=== PATIENT | male | born 1945 | race Caucasian/White ===

== ENCOUNTER 2021-02-02 22:24 | Emergency (ER) | payer MEDICARE, SELFPAY ==
[2021-02-02 22:33] VITALS: BP 147/83; PULSE 110; RESP 14; TEMP 37.1; O2SAT 96
[2021-02-02 22:59] LABS: Add Urine Microscopic? YES; Appearance Urine Cloudy (Clear); Bacteria Urine 1+ /hpf; Bilirubin Urine Negative (Negative); Blood Urine 3+ (Negative); Color Urine Red (Yellow); Glucose Urine UA 3+ mg/dL (Negative); Ketones Urine Negative (Negative); Leukocyte Esterase Ur 1+ LEU/UL (Negative); Nitrate Urine Negative (Negative); Protein Urine 2+ mg/dL (Negative); RBC Urine >75 /hpf (0-2); Specific Grav Ur 1.009 (1.001-1.035); Urobilinogen Urine Negative mg/dL (<2.0); WBC Urine 16-20 /hpf
[2021-02-02 23:37] VITALS: BP 147/83; PULSE 110; RESP 14; TEMP 37.1; O2SAT 96
--- NOTE | 2021-02-02 23:50 | ED.MALEGU ---
HPI - Male Genitourinary General Chief complaint: Urogenital-Male Stated complaint: urinating blood Time Seen by Provider: 02/02/21 23:37 Source: patient Mode of arrival: ambulatory Limitations: no limitations History of Present Illness HPI Narrative: Patient is a 75-year-old male complaining of hematuria that started tonight. Patient denies any abdominal pain, flank pain, back pain, fever or chills. Patient denies any history of hematuria. Patient has no other complaints. Related Data Allergies Allergy/AdvReac Type Severity Reaction Status Date / Time Penicillins Allergy Mild Verified 11/26/14 03:58 Review of Systems Review of Systems: All systems reviewed & are unremarkable except as noted in HPI and below Constitutional: Constitutional: Denies body ache(s), Denies chills, Denies excessive sweating, Denies fatigue, Denies fever(s), Denies headache(s), Denies lethargy, Denies malaise, Denies weakness and Denies weight loss Eyes: Eyes: Denies blurry vision, Denies change in vision and Denies loss of vision ENT: Denies dizziness, Denies ear discharge, Denies headache(s), Denies lip swelling, Denies epistaxis, Denies nasal congestion, Denies neck pain, Denies throat swelling and Denies tongue swelling Cardiovascular: Cardiovascular: Denies chest pain, Denies chest pain at rest, Denies chest pain with activity, Denies diaphoresis, Denies rapid heart rate, Denies edema, Denies irregular heart rhythm, Denies lightheadedness, Denies palpitations, Denies dyspnea and Denies dyspnea on exertion Respiratory: Respiratory: Denies chest congestion, Denies cough, Denies hemoptysis, Denies dyspnea and Denies dyspnea on exertion Gastrointestinal: Gastrointestinal: Denies abdominal pain, Denies melena, Denies hematochezia, Denies diarrhea, Denies nausea, Denies vomiting and Denies hematemesis Musculoskeletal: Musculoskeletal: Denies abnormal gait, Denies deformity, Denies joint swelling, Denies limited range of motion, Denies neck pain and Denies numbness Neurologic: Denies Abnormal speech present, Denies abnormal gait, Denies confusion, Denies dizziness, Denies headache(s), Denies focal weakness, Denies loss of vision, Denies numbness, Denies Other visual disturbances, Denies Sensory deficit (Neuro) and Denies weakness Psychiatric: Psychiatric: Denies confusion, Denies depression, Denies auditory hallucinations, Denies homicidal ideation and Denies suicidal ideation Endocrine: Endocrine: Denies cold intolerance, Denies excessive sweating, Denies fatigue, Denies heat intolerance and Denies palpitations Hematologic/Lymphatic: Hematologic/Lymphatic: Denies easy bleeding and Denies easy bruising Allergic/Immunologic: Allergic/Immunologic: Denies lip swelling, Denies throat swelling and Denies tongue swelling PMFSH Comments Past medical history: Hypertension Family history: Unknown Social history: Non-smoker no EtOH or drug use Exam Const: General: cooperative, healthy appearing, comfortable, no acute distress, well developed, alert and awake; No confusion Orientation/consciousness: oriented to person, oriented to place, oriented to time, patient oriented x3 and No confusion Limitations: no limitations HENMT: Head: normal to inspection, normocephalic and atraumatic Ears: hearing grossly normal bilaterally, TM normal on the right and TM normal on the left General nose exam: Normal external nose present, Normal nares present and No nasal discharge present Face and sinus: normal facial exam Mouth: Yes Normal oral and palatal mucosa present, Yes lip normal, Yes tongue normal and Yes oropharynx normal Throat: posterior oropharynx normal, tonsils normal and uvula midline Eyes: General: appearance normal, both eyes and all related structures Pupils: Equal, round and reactive pupils present EOM: EOMs intact bilaterally Neck: Neck: normal visual inspection, full ROM, no lymphadenopathy and no meningeal signs Chest: Chest palpation & inspection: norm
[2021-02-03] MEDS: CEPHALEXIN 500 MG CAPSULE PO (00:18)
[2021-02-03 00:43] VITALS: BP 140/72; PULSE 66; RESP 16; O2SAT 99
== END 2021-02-03 00:59 | disposition home or self-care (01) ==
PROVIDERS: Emergency Medicine; Emergency Provider Emergency Medicine; PCP Family Medicine
DX: N30.01 Acute cystitis with hematuria (principal); I10 Essential (primary) hypertension
CPT/HCPCS: 81001; 87086; 99283; A9270

== ENCOUNTER 2022-08-08 15:41 | Emergency (ER) | payer MEDICARE, SELFPAY ==
--- NOTE | ~2022-08-08 | CT_ITS ---
EXAMINATION: CT abdomen pelvis wo con DATE: 08/08/2022 18:02 INDICATION: Hematuria TECHNIQUE: Computed tomography (CT) of the abdomen and pelvis was performed without intravenous contr ast. The dose-length product (DLP) was 307.80 mGy-cm. Automated exposure control and iterative recons truction technique were employed. COMPARISON: None FINDINGS: Minimal dependent atelectasis is present in the lung bases. The heart size is normal. The l iver, spleen, gallbladder, and adrenal glands are normal. There are multiple cystic lesions of the pa ncreas which measure up to 12 mm. There is atrophy of the kidneys. There is a 3.0 cm cyst of the left kidney. There appears to be a soft tissue mass of the left posterolateral bladder wall. A smaller ma sses questioned in the right posterolateral bladder wall. There appears to be a small amount of depen dent hematoma in the urinary bladder. Colonic diverticulosis is present without evidence of diverticu litis. The appendix is normal. No pathologically enlarged abdominal or pelvic lymph nodes are identif ied. No free intraperitoneal gas or evidence of bowel obstruction. There is severe lumbar spondylosis . IMPRESSION: 1. Probable soft tissue masses of the urinary bladder concerning for urothelial carcinoma. Urologic e valuation and direct visualization are recommended. 2. Multiple cystic lesions of the pancreas. The differential diagnosis includes pseudocyst, intraduct al papillary mucinous neoplasm (IPMN), mucinous cystic neoplasm (MCN), and the less common serous cys tadenoma and neuroendocrine tumor. Correlate for history of pancreatitis. Follow-up pancreas protocol CT or MRI in two years is recommended. Reviewed, dictated and finalized at location F. IMPRESSION: 1. Probable soft tissue masses of the urinary bladder concerning for urothelial carcinoma. Urologic evaluation and direct visualization are recommended. 2. Multiple cystic lesions of the pancreas. The differential diagnosis includes pseudocyst, intraductal papillary mucinous neoplasm (IPMN), mucinous cystic ne oplasm (MCN), and the less common serous cystadenoma and neuroendocrine tumor. Correlate for history of pancreatitis. Follow-up pancreas protocol CT or MRI in two years is recommended.
[2022-08-08 15:51] VITALS: BP 125/57; PULSE 105; RESP 18; TEMP 36.6; O2SAT 98
[2022-08-08 16:34] LABS: Appearance Urine Turbid (Clear); Bilirubin Urine 1+ (Negative); Blood Urine 3+ (Negative); Color Urine Red (Yellow); Glucose Urine UA 2+ mg/dL (Negative); Ketones Urine Negative (Negative); Leukocyte Esterase Ur Negative LEU/UL (Negative); Nitrate Urine Negative (Negative); Protein Urine 2+ mg/dL (Negative); Specific Grav Ur 1.015 (1.001-1.035); Urobilinogen Urine 0.2 mg/dL (<2.0)
[2022-08-08 16:58] LABS: Add Urine Microscopic? YES
[2022-08-08 17:08] LABS: RBC Urine >100 /hpf (0-2); WBC Urine 0-5 /hpf (0-3)
--- NOTE | 2022-08-08 17:11 | ED.MALEGU ---
HPI - Male Genitourinary General Chief complaint: Urogenital-Male Stated complaint: pee blood Time Seen by Provider: 08/08/22 16:50 Source: patient, RN notes reviewed and old records reviewed Mode of arrival: ambulatory Limitations: no limitations History of Present Illness HPI Narrative: This is a 77 year old male who presents for evaluation of hematuria. Patient states yesterday he noticed some blood in his urine but today it has worsened. He states that last 2 times he has urinated it has been blood and he reports passing small clots. He denies any abdominal pain, nausea, vomiting or fever. He denies dysuria or urinary hesitancy. He states he was treated for a UTI 2 weeks ago even though he did not have any symptoms at time. He does not take chronic anticoagulation. He states this happened 2 years ago and he was treated for UTI. He denies follow up with urology for his hematuria. Related Data Allergies Allergy/AdvReac Type Severity Reaction Status Date / Time Penicillins Allergy Mild Swelling Verified 08/08/22 16:35 Review of Systems Constitutional: Constitutional: Denies weakness Cardiovascular: Cardiovascular: Denies syncope, Denies rapid heart rate, Denies irregular heart rhythm, Denies leg edema and Denies dyspnea Respiratory: Respiratory: Denies chest congestion, Denies hemoptysis, Denies excessive phlegm production and Denies dyspnea Gastrointestinal: Gastrointestinal: Denies abdominal pain, Denies hematochezia, Denies diarrhea and Denies vomiting Genitourinary: Genitourinary: Denies hematuria, Denies dysuria, Denies penile discharge and Denies testicular pain Musculoskeletal: Musculoskeletal: Denies joint swelling, Denies loss of height and Denies muscle weakness Neurologic: Denies syncope, Denies focal weakness and Denies weakness PMFSH Past Medical History Medical History (Updated 08/08/22 @ 22:32 by Allison Hurley MD) Chronic kidney disease, unspecified Diabetes mellitus Hyperlipidemia Hypertension Social History Social History (Updated 08/08/22 @ 22:32 by Allison Hurley MD) Smoking status: Former smoker Exam Const: General: no acute distress and alert Nutritional Appearance: well nourished Limitations: no limitations HENMT: Head: normal to inspection Eyes: EOM: EOMs intact bilaterally Resp: Effort & Inspection: normal respiratory effort Auscultation: clear to auscultation bilaterally Cardio: Rate: regular rate Rhythm: regular rhythm Heart sounds: no murmurs GI: GI Palp: Yes Soft to palpation, No Tenderness to palpation present (GI), No Guarding due to palpation present (GI) and No Rigid due to palpation Auscultation: normal bowel sounds : Male General Exam: Yes normal external exam Penis: Yes normal penis and Yes circumcised Scrotum: scrotum normal Back/Spine/Pelvis: Back: no CVA tenderness Skin: General skin exam: normal color Rashes: no rashes Wounds: no wounds Neuro: General: patient oriented x3 and moves all extremities Cranial nerves: Yes CN's II-XII intact bilaterally Psych: Mental Status: mental status grossly normal Affect: normal affect Attitude: cooperative Course Reevaluation(s) Reevaluation #1: Patient is able to urinate without any difficulty. He is not retaining urine. Has 45 ml left in his bladder. I discussed with patient and his that CT shows bladder mass and he willl need to see urology. I discussed that if he has any difficulty urinating that he will need to return to ER. He is comfortable with discharge. Date: 08/08/22 Time: 19:12 Consultations Consultation #1: I discussed case with Dr. Landon with urologist. She states patient does need scope. He will need to call office tomorrow to get appointment. He will need to be advised if he has any difficulty urinating he will need to return to hospitalist for catheter and CBI Date: 08/08/22 Time: 19:11 Vital Signs Vital signs: Vital Signs Temperature 97.8 F 08/08/22 15:51
[2022-08-08 17:18] VITALS: BP 124/61; PULSE 85; RESP 18; O2SAT 98
[2022-08-08 17:22] LABS: Basophils Absolute Auto 0.1 K/mm3 (0.0-0.1); Basophils Percent Auto 1.1 % (0.2-1.2); Eosinophils Absolute Auto 0.7 K/mm3 (0-0.3); Eosinophils Percent Auto 8.3 % (0-4.4); Hematocrit 38.1 % (42.0-52.0); Hemoglobin 12.7 g/dL (14.0-18.0); Immature Granulocyte Absolute 0.05 K/mm3 (0.00-0.031); Immature Granulocyte Percent A 0.6 % (0-0.5); Lymphocytes Absolute Auto 1.12 K/mm3 (0.9-3.2); Lymphocytes Percent Auto 13.5 % (18.3-44.2); Mean Corpuscular HGB Conc 33.3 g/dl (32-36); Mean Corpuscular Hemoglobin 32.3 pg (26-34); Mean Corpuscular Volume 96.9 fl (80-100); Mean Platelet Volume 10.1 fl (7.4-10.4); Monocytes Absolute Auto 0.8 K/mm3 (0.1-0.6); Monocytes Percent Auto 9.9 % (2.6-8.5); Neutrophils Absolute Auto 5.5 K/mm3 (1.3-6.7); Neutrophils Percent Auto 66.6 % (45.5-73.1); Platelet Count Result 156 k/mm3 (150-375); Red Blood Count 3.93 M/mm3 (4.6-6.20); Red Cell Distribution Width 13.9 % (11.5-14.5); White Blood Count 8.3 K/mm3 (4.5-10.0)
[2022-08-08 17:32] LABS: Alanine Aminotransferase 22 U/L (6-50); Albumin Level 3.4 g/dL (3.5-5.1); Alkaline Phosphatase 43 U/L (38-126); Anion Gap 8 mmol/L (8-16); Aspartate Amino Transferase 18 U/L (17-59); Bilirubin,Total 0.4 mg/dL (0.2-1.3); Blood Urea Nitrogen 53 mg/dL (9-20); Calcium 8.5 mg/dL (8.4-10.2); Carbon Dioxide 21 mmol/L (22-30); Chloride 108 mmol/L (98-107); Estimated Glomerular Filt Rate 31; Glucose 231 mg/dL (65-110); Potassium 4.1 mmol/L (3.4-5.0); Sodium 137 mmol/L (137-145)
[2022-08-08 17:44] LABS: Prothrombin Time 13.1 Seconds (11.1-14.7)
[2022-08-08 17:45] LABS: Partial Thromboplastin Time 25.8 SECONDS (22.3-36.8)
--- NOTE | 2022-08-08 18:39 | PC.NURSE ---
post void residual 45ml
[2022-08-08 19:25] VITALS: PULSE 70; RESP 16; O2SAT 99
== END 2022-08-08 19:27 | disposition home or self-care (01) ==
PROVIDERS: Emergency Medicine; Emergency Provider General Practice; PCP Family Medicine
DX: D41.4 Neoplasm of uncertain behavior of bladder (principal); R31.9 Hematuria, unspecified; I12.9 Hypertensive chronic kidney disease with stage 1 through stage 4 chronic kidney disease, or unspecified chronic kidney disease; E11.22 Type 2 diabetes mellitus with diabetic chronic kidney disease; N18.9 Chronic kidney disease, unspecified; E78.5 Hyperlipidemia, unspecified
CPT/HCPCS: 36415; 74176; 80053; 81001; 85025; 85610; 85730; 99284

== ENCOUNTER 2022-08-12 01:42 | Day surgery (SDC) | payer MEDICARE, SELFPAY ==
--- NOTE | 2022-08-11 11:27 | PC.NURSE ---
Report to the Outpatient Waiting Room, entrance under the green pavilion located off [facility], at time __0630 on date 08/12/22 . Planned Procedure Time: __30 . Time changes happen often and if your time is changed the preop area will call you the afternoon before. - You and your visitor will be asked to self-screen and do not enter if you have any COVID symptoms. - A mask is optional within the hospital at this time. Patients may have clear liquids (water, carbonated beverages, clear teas, apple juice) until 3 hours prior to surgery with a maximum of 20 ounces. - No food from midnight until time of surgery - Infants may have breast milk until 4 hours before surgery, formula 6 hours prior to surgery. - Children will be allowed to drink immediately following surgery. If applicable, please bring a bottle or sippy cup to assist with drinking. Juice, water, soda, and popsicles are readily available. For infants on formula, please bring formula the day of surgery. Pacifiers are allowed. Take the following medications with a SIP of water the morning of surgery: __CARVEDILOL,NIFEDIPINE, DO NOT STOP ANY OF YOUR OTHER PRESCRIPTION MEDICATIONS PRIOR TO SURGERY ?EXCEPT THE FOLLOWING Medications to discontinue per physician SURGERY TOMORROW Date to take last dose Please no make-up, nail czech, hairspray, perfume, deodorant, or body powder the day of surgery. No jewelry (including any body piercings) or valuables the day of surgery, leave them at home. Please take a shower or bath the night before, or the morning of, surgery with an antibacterial soap. Wear comfortable, loose fitting clothing. Children are encouraged to wear pajamas. - Jewelry must be removed prior to entering the operating room. Rings and piercings that are not removed may be cut off. - The hospital will not accept responsibility for valuables. - Please leave all valuables, including medications, at home the day of surgery. If you are going home after surgery, a licensed flatbed truck driver must drive you home. - NO public transportation without another adult if you receive anesthesia. - We recommend that an adult stay with you for 24 hours following discharge. - We also recommend that you do not drive, make important decision, drink alcoholic beverages, or take any drugs that were not prescribed by your health care provider for at least 24 hours after your discharge time. For Pediatric surgeries, we recommend two adults accompany the child home. Follow any additional instructions given to you from your surgeon. If you or anyone in your household have experienced Covid symptoms in the past week, please notify your surgeon or the nurse liaison at the phone number below for possible testing. Telephone instructions given to _PATIENT AND MANNIE and asked if any additional questions and then verbalized understanding. Patient advised to call surgeon office or pre surgery nurse liaison [phone] if any additional questions.
[2022-08-11 11:37] VITALS: BMI 22.9
[2022-08-12] VITALS (11 sets, daily range): BP systolic 97–133; BP diastolic 49–88; PULSE 60–82; RESP 12–20; TEMP 36.3–36.8; O2SAT 96–100
--- NOTE | ~2022-08-12 | XR_ITS ---
EXAMINATION: XR retrograde pyelogram BI DATE: 08/12/2022 08:28 INDICATION: Lateral retrograde pyelograms TECHNIQUE: 138 fluoroscopic images of the abdomen and pelvis were obtained during procedure performed by Dr. Esteves. Radiologist was not present for the imaging or procedure. The amount of fluoroscopy t ailyn used during this procedure was 0.5 minutes. COMPARISON: None. FINDINGS: Atherosclerotic calcifications are seen in the pelvis on the safety leader images. Subsequent images demonstr ate cannulation and retrograde contrast opacification of the bilateral ureters and renal pelvises. Th ere is no hydronephrosis. There are 2 short strictures located at the proximal and mid right ureter. IMPRESSION: 1. A couple nonobstructing short strictures along the proximal and mid right ureter which raises conc pelon for additional foci of malignancy in this patient with previous identified bladder wall masses. S ee procedure note for further detail. Reviewed, dictated and finalized at location L. IMPRESSION: 1. A couple nonobstructing short strictures along the proximal and mid right ur eter which raises concern for additional foci of malignancy in this patient wit h previous identified bladder wall masses. See procedure note for further detai hannah
--- NOTE | 2022-08-12 06:50 | WPDHPUPDATE1 ---
History and Physical Update Update Date/Time: 08/12/22 06:50 History and Physical has been reviewed, including an updated exam of the patient. There are NO changes in the patient's condition. Risks, benefits, and alternatives have been discussed and questions answered. Patient agrees to proceed with procedure.
[2022-08-12] MEDS: LACTATED RINGERS 1,000 ML 30 ML IV CONT ×2 (07:00→10:57)
--- NOTE | 2022-08-12 07:30 | ECG_ITS ---
Measurements Intervals Edna Rate: 72 P: 20 OR: 224 QRS: 7 QRSD: 90 T: 32 QT: 372 QTc: 409 Interpretive Statements SINUS RHYTHM WITH FIRST DEGREE AV BLOCK BASELINE ARTIFACT- I, II, AVR, AVL, AVF, V2-V4 ABNORMAL ECG NO PREVIOUS ECG AVAILABLE FOR COMPARISON Electronically Signed On 08-12-2022 7:54:51 CDT by Donald Diaz D.O.
[2022-08-12 07:31] LABS: Glucose Point of Care 226 mg/dl (65-105)
--- NOTE | 2022-08-12 07:45 | WPDANESEPPF ---
Anes - Initial Pre Proc Eval Procedure: Operation Date: 08/12/22 08:30 Proposed Procedures p Trans Urethral Resection Bladder Tumor with Gemcitabine Instillation - Manish Esteves MD s Cystoscopy, Bilateral Retrograde Pyelogram - Manish Esteves MD Date/Time: 08/12/22 07:45 Surgeon: Manish Esteves MD Pre Op Diagnosis: gross hematuria Patient Data Age: 77 Gender: M Height: 1.65 m Weight: 62.6 kg Allergies Allergy/AdvReac Type Severity Reaction Status Date / Time Penicillins Allergy Mild Swelling Verified 08/12/22 07:39 Home Medications Medication Instructions Recorded Confirmed Type hydrochlorothiazide 12.5 mg capsule 12.5 mg PO DAILY #30 caps 05/17/22 08/11/22 Rx lisinopril 10 mg tablet 10 mg PO DAILY #30 tabs 05/17/22 08/11/22 Rx terazosin 5 mg capsule 5 mg PO BID #60 caps 05/17/22 08/11/22 Rx ascorbic acid (vitamin C) 500 mg 500 mg PO BID 08/11/22 08/11/22 History tablet atorvastatin 40 mg tablet 40 mg PO HS 08/11/22 08/11/22 History carvedilol 25 mg tablet 25 mg PO BID 08/11/22 08/12/22 History cholecalciferol (vitamin D3) 50 50 mcg PO BID 08/11/22 08/11/22 History mcg (2,000 unit) tablet empagliflozin 25 mg tablet 25 mg PO DAILY 08/11/22 08/11/22 History (Jardiance) ezetimibe 10 mg tablet 10 mg PO DAILY 08/11/22 08/11/22 History ferrous sulfate 325 mg (65 mg 325 mg PO BID 08/11/22 08/11/22 History iron) tablet (FeroSul) glipizide 10 mg tablet 10 mg PO BID 08/11/22 08/11/22 History nifedipine 60 mg tablet,extended 120 mg PO QAM 08/11/22 08/12/22 History release prednisone 5 mg tablet 5 mg PO HS 08/11/22 08/11/22 History sitagliptin phosphate 50 mg tablet 50 mg PO DAILY 08/11/22 08/11/22 History (Januvia) sodium bicarbonate 325 mg tablet 325 mg PO DAILY 08/11/22 08/11/22 History Laboratory Tests 08/12/22 07:26 POC Capillary Glucose 226 H mg/dl (65-105) Patient hx anesthesia problems: none Family hx anesthesia problems: none Results Review: All pre-operative results and documents have been reviewed as part of the pre-operative evaluation. [facility] Past Medical History Medical History Chronic kidney disease, unspecified Diabetes mellitus Hyperlipidemia Hypertension Social History Social History Smoking packs per day: 0.5 Smoking cigarettes per day: 10.0 Years smoked: 10 Smoking pack-years: 5.00 Smoking status: Former smoker Tobacco type: cigarettes Smoking end date: 04/11/82 Living arrangements: with family Spiritual care concerns: No Anes - Eval Final PreProcedure Day of Procedure 08/12/22 07:45 Patient weight: normal Heart: regular rate and rhythm Lungs: clear to auscultation Airway: Mallampati scale class II Neurological: alert and oriented Last oral intake: >/= 8 hours ASA classification: III Emergent: no Anesthetic plan: proceed Anesthesia type and monitoring: general LMA and standard monitoring Results Review: All pre-operative results and documents have been reviewed as part of the pre-operative evaluation. Informed Consent: The patient's anesthetic plan and its attendant risks and benefits were discussed with the patient/family/POA. Questions were solicited and answers provided to the satisfaction of the patient/family/POA.
[2022-08-12] MEDS: ceFAZolin 2 GM/D5W 50 ML 2 GM/50 ML BAG IVPB (08:02)
[2022-08-12] MEDS: LIDOCAINE HCL 2% GEL UROJET 10 ML PKG MUCOUS MEM (08:20)
--- NOTE | 2022-08-12 08:55 | P.OP_ITS ---
Procedure Note - Detailed Date of Procedure 08/12/22 Pre-op Diagnosis Bladder tumor Post-op Diagnosis Same Procedure Performed 1. TURBT ( 5cm, large) 2. 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 First placed a 19 F rigid cystoscope. He has moderate lateral lobe hyperplasia the prostate without median lobe enlargement. Using an 8 F bulb-tipped catheter I obtained bilateral retrograde pyelograms. There was no evidence of filling defect or obstruction bilaterally. The left ureteral orifice it is near the neoplasm involving much of his left lateral bladder wall but I was able to preserve the orifice throughout the remainder of this procedure. This urothelial neoplasm has 1 dominant lesion in the left lateral wall with approximately 3 smaller satellite lesions. Several of these appear to be somewhat sessile in her concerning for muscle invasive disease. I resected all lesions in their entirety with an attempt made to include detrusor muscle for pathological in evaluation of invasion. Bladder tumor base was sent as a separate specimen. Base and periphery of all the sites were cauterized both with a loop electrode and rollerball electrode. Chips were evacuated from the bladder patient was taken recovery room in good condition. Estimated Blood Loss 10 Drains Yes Packing Yes Pathology Yes Complications No immediate complications Condition Stable
[2022-08-12] MEDS: SODIUM CHLORIDE 0.9% IV 23.7 ML, GEMCITABINE HCL 1,000 MG BLADDER ×2 (08:58)
--- NOTE | 2022-08-12 08:58 | W.PM.PROC2 ---
Procedure Note - Detailed Date of Procedure 08/12/22 Pre-op Diagnosis Bladder tumor Post-op Diagnosis Same Procedure Performed Gemcitabine installation Surgeon Manish Esteves MD Anesthesia None Description of Procedure With the patient in the supine position, a 16F Gramajo catheter is placed using sterile technique. Using a protective facemask, gown and double layer of gloves Gemcitabine 2gm in 100cc saline is administered through the catheter/into the bladder. The catheter is then plugged. Patient was instructed to lie supine x20min, then to roll both the left and right x20 min. each. Total dwell time will be 60 min., after which the bladder will be drained and catheter removed. Drains No Pathology None sent
[2022-08-12] MEDS: fentaNYL CITRATE INJ (*CRX) 100 MCG/2 ML VIAL 25 MCG IV PUSH ×6 (08:59→11:45)
[2022-08-12 09:35] LABS: Glucose Point of Care 184 mg/dl (65-105)
[2022-08-12] MEDS: SODIUM CHLORIDE 0.9% IV 50 ML BAG 150 ML IRRIGATION (10:01)
[2022-08-12] MEDS: oxyCODONE HCL (*CRX) 5 MG TAB IR PO (10:19)
== END 2022-08-12 12:15 | disposition home or self-care (01) ==
PROVIDERS: PCP Family Medicine; Visit Provider Urology
PROC: 0TBB8ZZ Excision of Bladder, Via Natural or Artificial Opening Endoscopic (ICD-10-PCS; CPT 52240; principal; 2022-08-12 08:30)
PROC: (CPT 52352; 2022-08-12 08:30)
DX: C67.2 Malignant neoplasm of lateral wall of bladder (principal); R93.41 Abnormal radiologic findings on diagnostic imaging of renal pelvis, ureter, or bladder; E78.5 Hyperlipidemia, unspecified; I12.9 Hypertensive chronic kidney disease with stage 1 through stage 4 chronic kidney disease, or unspecified chronic kidney disease; E11.22 Type 2 diabetes mellitus with diabetic chronic kidney disease; N18.9 Chronic kidney disease, unspecified; Z79.84 Long term (current) use of oral hypoglycemic drugs; Z87.891 Personal history of nicotine dependence; Z79.82 Long term (current) use of aspirin
CPT/HCPCS: 52240; 51720; 74420; 82948; 88305; 88342; 93005; A9270; C1758; C1769; J0690; J3010; J7120; J9201

== ENCOUNTER 2022-09-28 09:02 | Outpatient (CLI) | payer MEDICARE, SELFPAY ==
--- NOTE | ~2022-09-28 | PE_ITS ---
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 TECHNIQUE: Blood glucose level was 193 mg/dL. 10.996 mCi of 18-fluorodeoxyglucose (18-FDG) was admini stered i.v. Low dose computed tomography (CT) images were acquired from the base of the brain to the proximal thighs for attenuation correction and anatomic localization. Positron emission tomography (P ET) images were acquired in the same distribution beginning 54 minutes after injection. Images includ ing fused PET/CT images were reconstructed in axial, coronal, and sagittal planes. Automated exposure control technique was employed. The dose-length product was 481.20 mGy-cm. COMPARISON: CT abdomen and pelvis dated 08/08/2022 FINDINGS: Head/neck: There is symmetric increased activity in the oral cavity, palatine tonsils and of the laryngeal, long us capitis and ocular muscles, all without CT correlate, likely physiologic. No pathologically enlarg ed cervical lymphadenopathy or suspicious foci of increased FDG uptake in the visualized head or neck . Chest: Mild dependent atelectasis in the bilateral lower lobes. No pneumonia, suspicious pulmonary nodules o r pleural effusion. Heart size normal. Atherosclerotic coronary artery calcifications and aortic valv e calcific lesion. No pericardial effusion. Thoracic aorta is normal in caliber. No pathologically en larged or FDG avid thoracic lymphadenopathy. Abdomen/pelvis/proximal thighs: Physiologic renal accumulation and excretion of FDG activity in the kidneys, bladder and along portio ns of ureters. The previously seen intraluminal masslike densities along the left posterior wall of t he bladder and along the visualized consistent with reported prior tumor resection. There appears be a residual small masslike region along the right side of the bladder wall. Mild bilateral renal atrop hy with photopenic defect associated with a 2.4 cm low-attenuation left renal cyst. Normal degree and heterogenous pattern of increased uptake throughout the liver without radiologic correlate or domina nt FDG avid lesion. The gallbladder, spleen and bilateral adrenal glands are normal. No abnormal FDG uptake associated with a few small cystic lesions at the body and tail of pancreas favoring benign e tiology such as sequela of chronic pancreatitis. Mild uptake scattered throughout the bowels without radiologic correlate, also likely physiologic. There is moderate colonic diverticulosis with a sigmoi d predominance and without adjacent inflammatory change to suggest diverticulitis. Normal appendix. No other abnormal foci of increased FDG uptake or pathologically enlarged lymphadenopathy in the abdo men, pelvis or proximal thighs. Musculoskeletal: Mild uptake without radiologic correlate at the lesser tuberosity insertion of the distal right subsc apularis tendon likely related to rotator cuff disease. Severe lumbar spondylosis. 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 IMPRESSION: 1. Likely interval resection of a reported bladder tumor along the left and posterior wall of the erica dder. There is a residual masslike density along the right bladder wall which could represent residua l/recurrent tumor or possibly clot within the bladder. Consider further evaluation with either bladde r ultrasound or repeat cystoscopy. No evident metastatic disease. 2. No evident FDG uptake associated with several cystic lesions in the body and tail the pancreas mos t likely sequela of chronic pancreatitis but with additional differential as detailed on prior CT. Reviewed, dictated and finalized at location A.
[2022-09-28 09:30] LABS: Glucose Point of Care 193 mg/dl (65-105)
== END 2022-09-28 09:03 | disposition home or self-care (01) ==
PROVIDERS: PCP Family Medicine; Visit Provider Urology
DX: C67.8 Malignant neoplasm of overlapping sites of bladder (principal)
CPT/HCPCS: 78815; A9552

== ENCOUNTER 2022-10-29 01:54 | Emergency (ER) | payer MEDICARE, SELFPAY ==
[2022-10-29 10:18] LABS: Appearance Urine Clear (Clear); Bacteria Urine None Seen /hpf; Bilirubin Urine Negative (Negative); Blood Urine 3+ (Negative); Color Urine Yellow (Yellow); Glucose Urine UA 2+ mg/dL (Negative); Ketones Urine Negative (Negative); Leukocyte Esterase Ur 1+ LEU/UL (Negative); Need Manual Microscopic Reviewed; Nitrate Urine Negative (Negative); Non Pathogenic Casts 0-2; Protein Urine 1+ mg/dL (Negative); RBC Urine 21-50 /hpf (0-2); Specific Grav Ur 1.008 (1.001-1.035); Squamous Epithelial Cell Urine None seen /hpf (Few); Urobilinogen Urine 0.2 mg/dL (<2.0); WBC Clumps Urine Present /HPF; WBC Urine 21-50 /hpf; pH Urine 5.5 (5.0-9.0)
[2022-10-29 10:19] LABS: Add Urine Microscopic? YES
== END 2022-10-29 02:40 | disposition home or self-care (01) ==
LOC: ANHED 11-03 10:49
PROVIDERS: Emergency Provider Emergency Medicine; PCP Family Medicine
DX: N39.0 Urinary tract infection, site not specified (principal); R33.9 Retention of urine, unspecified
CPT/HCPCS: 51702; 81001; 87086; 99283

== ENCOUNTER 2022-11-27 19:03 | Emergency (ER) | payer MEDICARE, SELFPAY ==
[2022-11-27 19:08] VITALS: BP 146/79; PULSE 117; RESP 20; TEMP 36.3; O2SAT 99
--- NOTE | 2022-11-27 19:48 | ED.GENADULT ---
HPI - General Adult General Chief complaint: Urogenital-Male Stated complaint: Difficulty with Urination Time Seen by Provider: 11/27/22 19:16 History of Present Illness HPI narrative: Patient is a 77-year-old gentleman who presents to the emergency department with chief complaint of urinary retention. Patient reports he has history of bladder cancer and has had a scraping and has had chemo and radiation. The patient reports he is scheduled for treatment on Tuesday and reports this evening he was trying to urinate and noticed that he felt as though there was an obstruction inside of his urethra in his penis. Patient reports that he feels as though he needs to urinate but cannot and the patient decided to come to the emergency department as he has had previous episodes of urinary retention Related Data Home Medications Medication Instructions Recorded Confirmed ascorbic acid (vitamin C) 500 mg 500 mg PO BID 08/11/22 08/11/22 tablet atorvastatin 40 mg tablet 40 mg PO HS 08/11/22 08/11/22 cholecalciferol (vitamin D3) 50 50 mcg PO BID 08/11/22 08/11/22 mcg (2,000 unit) tablet empagliflozin 25 mg tablet 25 mg PO DAILY 08/11/22 08/11/22 (Jardiance) ezetimibe 10 mg tablet 10 mg PO DAILY 08/11/22 08/11/22 ferrous sulfate 325 mg (65 mg 325 mg PO BID 08/11/22 08/11/22 iron) tablet (FeroSul) glipizide 10 mg tablet 10 mg PO BID 08/11/22 08/11/22 nifedipine 60 mg tablet,extended 120 mg PO QAM 08/11/22 08/12/22 release prednisone 5 mg tablet 5 mg PO HS 08/11/22 08/11/22 sitagliptin phosphate 50 mg tablet 50 mg PO DAILY 08/11/22 08/11/22 (Januvia) sodium bicarbonate 325 mg tablet 325 mg PO DAILY 08/11/22 08/11/22 Allergies Allergy/AdvReac Type Severity Reaction Status Date / Time Penicillins Allergy Mild Swelling Verified 11/27/22 19:11 Review of Systems Review of Systems: A 10 system review of systems was completed on the patient and is negative except for what is stated in the HPI. Nursing and ancillary documentation was reviewed. [facility] Past Medical History Medical History Chronic kidney disease, unspecified Diabetes mellitus Hyperlipidemia Hypertension Social History Social History Smoking packs per day: 0.5 Smoking cigarettes per day: 10.0 Years smoked: 10 Smoking pack-years: 5.00 Smoking status: Former smoker Tobacco type: cigarettes Smoking end date: 04/11/82 Lack of Transportation: No Lack of Food: Never True Current Housing: I Have Housing Concerned About Future Housing: No Difficulty Paying Gas/Electric Bills: No Difficulty Paying for Meds: No Currently Unemployed: No Difficulty w/ Childcare or Family Care: No Living arrangements: with family Gender identity (if verbalized by the patient): Male Spiritual care concerns: No Exam Narrative: GENERAL: Well-appearing, well-nourished, and in no acute distress. HEAD: Normocephalic, atraumatic. EYES: PERRLA and EOMI. ENT: Nares clear, no rhinorrhea or epistaxis. Mucous membranes moist. NECK: Supple. CHEST: Clear to auscultation. No respiratory distress. HEART: Regular rate and rhythm. No murmur heard. Normal peripheral pulses. ABDOMEN: Soft, nontender, nondistended, normal active bowel sounds. EXTREMITIES: Normal range of motion. No edema. SKIN: Warm, dry, no rash. NEURO: No focal deficits. Alert and oriented x3. PSYCH: Normal mood and affect. Course Vital Signs Vital signs: Vital Signs Temperature 36.3 C L 11/27/22 19:08 Pulse Rate 117 H 11/27/22 19:08 Respiratory Rate 20 11/27/22 19:08 Blood Pressure 146/79 H 11/27/22 19:08 Pulse Oximetry 99 11/27/22 19:08 Oxygen Delivery Room Air 11/27/22 19:08 Temperature 36.3 C L 11/27/22 19:08 Pulse Rate 117 H 11/27/22 19:08 Respiratory Rate 20 11/27/22 19:08 Blood Pressure 146/79 H 11/27/22 19:08
[2022-11-27] MEDS: LIDOCAINE HCL 2% GEL UROJET 10 ML PKG (20:01)
[2022-11-27 20:24] LABS: Appearance Urine Clear (Clear); Bacteria Urine None Seen /hpf; Bilirubin Urine Negative (Negative); Blood Urine 2+ (Negative); Color Urine Yellow (Yellow); Glucose Urine UA 3+ mg/dL (Negative); Ketones Urine Negative (Negative); Leukocyte Esterase Ur Trace LEU/UL (Negative); Nitrate Urine Negative (Negative); Non Pathogenic Casts 0-2; Protein Urine Trace mg/dL (Negative); RBC Urine 21-50 /hpf (0-2); Specific Grav Ur 1.015 (1.001-1.035); Squamous Epithelial Cell Urine None seen /hpf (Few); Urobilinogen Urine 0.2 mg/dL (<2.0); WBC Urine 21-50 /hpf
[2022-11-27 20:28] LABS: Add Urine Microscopic? YES
[2022-11-27] MEDS: CEPHALEXIN 500 MG CAPSULE PO (20:59)
== END 2022-11-27 21:10 | disposition home or self-care (01) ==
PROVIDERS: Emergency Provider Emergency Medicine; PCP Family Medicine
DX: C67.9 Malignant neoplasm of bladder, unspecified (principal); E11.22 Type 2 diabetes mellitus with diabetic chronic kidney disease; I12.9 Hypertensive chronic kidney disease with stage 1 through stage 4 chronic kidney disease, or unspecified chronic kidney disease; N18.9 Chronic kidney disease, unspecified; E78.5 Hyperlipidemia, unspecified; Z87.891 Personal history of nicotine dependence; Z79.84 Long term (current) use of oral hypoglycemic drugs; Z79.899 Other long term (current) drug therapy
CPT/HCPCS: 51702; 81001; 87086; 99283; A9270

== ENCOUNTER 2023-02-09 02:13 | Inpatient (IN) | payer MEDICARE, SELFPAY ==
[2023-02-09] VITALS (40 sets, daily range): BP systolic 112–165; BP diastolic 48–74; PULSE 85–104; RESP 12–23; TEMP 36.2–37.2; O2SAT 94–100
--- NOTE | ~2023-02-09 | XR_ITS ---
EXAMINATION: XR abdomen/kub 1V DATE: 02/10/2023 10:53 INDICATION: Adynamic ileus. TECHNIQUE: A supine view of the abdomen on 2 radiographs was obtained. COMPARISON: CT abdomen and pelvis 02/09/2023 FINDINGS: There is dilated small bowel in the midabdomen. The colon is normal in caliber. There is a moderate volume of stool in the colon. A catheter overlies the bladder. IMPRESSION: 1. Persistently dilated small bowel, likely adynamic ileus. Reviewed, dictated and finalized at location E.
--- NOTE | ~2023-02-09 | CT_ITS ---
EXAMINATION: CT abdomen pelvis wo con DATE: 02/09/2023 05:26 INDICATION: Urinary retention. Bladder cancer. TECHNIQUE: Computed tomography (CT) of the abdomen and pelvis was performed without intravenous contr ast. Automated exposure control and iterative reconstruction technique were employed. The dose-length product was 331.46 mGy-cm. COMPARISON: CT abdomen and pelvis 08/08/2022 FINDINGS: The visualized portions of the lung bases demonstrate mild atelectasis and mild chronic monae g disease. No pleural effusion. The heart size is normal. There are coronary artery calcifications. N o pericardial effusion. There is a 6 mm cyst in the liver. The gallbladder and spleen are normal. The re are approximately 3 cystic lesions in the pancreas measuring up to 13 mm. The adrenal glands are n ormal. There is cortical thinning of the kidneys. There are cysts in left kidney measuring up to 2.6 cm. There is calcified atherosclerosis of the aorta and many of the other arteries. There is mild erica dder wall thickening on the left. The bladder is distended. The prostate is mildly enlarged. There is a right inguinal hernia containing fat. There are scattered diverticula in the colon. There is edema of the intra-abdominal fat. The appendix is normal. There are multiple dilated loops of small bowel without focal transition point. There are no pathologically enlarged lymph nodes. There is no free in traperitoneal fluid. There is severe lumbar spondylosis. There are chronic bilateral L5 pars defects with 4 mm anterolisthesis of L5 on S1. There is a hemangioma in L1 vertebral body. IMPRESSION: 1. Mild wall thickening of the bladder on the left, which may be secondary to chronic outlet obstruct ion or urothelial carcinoma. 2. Dilated small bowel without focal transition point, likely adynamic ileus. 3. Small cystic lesions of the pancreas. The differential diagnosis includes pseudocyst, intraductal papillary mucinous neoplasm (IPMN), mucinous cystic neoplasm (MCN), serous cystadenoma, and neuroendo crine tumor. Abdomen MRI without and with contrast is recommended in 2 years. Reviewed, dictated and finalized at location E. IMPRESSION: 1. Mild wall thickening of the bladder on the left, which may be secondary to c hronic outlet obstruction or urothelial carcinoma. 2. Dilated small bowel without focal transition point, likely adynamic ileus. 3. Small cystic lesions of the pancreas. The differential diagnosis includes ps eudocyst, intraductal papillary mucinous neoplasm (IPMN), mucinous cystic neopl asm (MCN), serous cystadenoma, and neuroendocrine tumor. Abdomen MRI without an d with contrast is recommended in 2 years.
--- NOTE | 2023-02-09 04:04 | ECG_ITS ---
Measurements Intervals [place] Rate: 96 P: 33 [place]: 221 QRS: 34 QRSD: 92 T: 42 QT: 341 QTc: 431 Interpretive Statements SINUS RHYTHM WITH FIRST DEGREE AV BLOCK BASELINE ARTIFACT- I, III, V3 BORDERLINE ECG COMPARED TO ECG 08/12/2022 07:50:08 NO SIGNIFICANT CHANGES Electronically Signed On 02-09-2023 8:08:28 CDT by Donald Diaz D.O.
[2023-02-09] MEDS: ONDANSETRON INJ 4 MG/2 ML VIAL IV PUSH ×3 (04:32→13:40)
[2023-02-09 04:58] LABS: Basophils Absolute Auto 0.1 K/mm3 (0.0-0.1); Basophils Percent Auto 0.8 % (0.2-1.2); Eosinophils Absolute Auto 0.5 K/mm3 (0-0.3); Eosinophils Percent Auto 4.6 % (0-4.4); Hematocrit 37.4 % (42.0-52.0); Hemoglobin 11.9 g/dL (14.0-18.0); Immature Granulocyte Absolute 0.07 K/mm3 (0.00-0.031); Immature Granulocyte Percent A 0.6 % (0-0.5); Lymphocytes Absolute Auto 0.43 K/mm3 (0.9-3.2); Lymphocytes Percent Auto 3.7 % (18.3-44.2); Mean Corpuscular HGB Conc 31.8 g/dl (32-36); Mean Corpuscular Hemoglobin 32.2 pg (26-34); Mean Corpuscular Volume 101.1 fl (80-100); Monocytes Absolute Auto 1.3 K/mm3 (0.1-0.6); Monocytes Percent Auto 11.4 % (2.6-8.5); Neutrophils Absolute Auto 9.2 K/mm3 (1.3-6.7); Neutrophils Percent Auto 78.9 % (45.5-73.1); Platelet Count Result 167 k/mm3 (150-375); Red Cell Distribution Width 16.6 % (11.5-14.5); White Blood Count 11.7 K/mm3 (4.5-10.0)
[2023-02-09 05:03] LABS: Appearance Urine Clear (Clear); Bacteria Urine None Seen /hpf; Bilirubin Urine Negative (Negative); Blood Urine Negative (Negative); Color Urine Yellow (Yellow); Glucose Urine UA 3+ mg/dL (Negative); Ketones Urine 1+ mg/dL (Negative); Leukocyte Esterase Ur Trace LEU/UL (Negative); Nitrate Urine Negative (Negative); Non Pathogenic Casts 0-2; Protein Urine Negative (Negative); RBC Urine 0-2 /hpf (0-2); Specific Grav Ur 1.017 (1.001-1.035); Squamous Epithelial Cell Urine None seen /hpf (Few); Urobilinogen Urine 0.2 mg/dL (<2.0); pH Urine 5.5 (5.0-9.0)
[2023-02-09 05:05] LABS: Add Urine Microscopic? YES
[2023-02-09 05:07] LABS: Alanine Aminotransferase 17 U/L (6-50); Albumin Level 3.2 g/dL (3.5-5.1); Alkaline Phosphatase 72 U/L (38-126); Anion Gap 10 mmol/L (8-16); Aspartate Amino Transferase 19 U/L (17-59); Bilirubin,Total 0.8 mg/dL (0.2-1.3); Blood Urea Nitrogen 62 mg/dL (9-20); Calcium 8.4 mg/dL (8.4-10.2); Carbon Dioxide 14 mmol/L (22-30); Chloride 109 mmol/L (98-107); Estimated CRCL calculation 16 ml/min; Estimated Glomerular Filt Rate 21; Glucose 226 mg/dL (65-110); Potassium 5.4 mmol/L (3.4-5.0); Sodium 133 mmol/L (137-145)
[2023-02-09 05:11] LABS: Platelet Estimate Adequate (Adequate)
[2023-02-09 05:13] LABS: Anisocytosis 1+ (NORMAL); Burr Cells 1+ (NORMAL); Schistocytes None Seen (NORMAL)
[2023-02-09 05:14] LABS: Amphetamine Screen Urine Negative (Negative); Barbiturate Screen Urine Negative (Negative); Benzodiazepines Screen Urine Negative (Negative); Cannabinoid Screen Urine Negative (Negative); Cocaine Screen Urine Negative (Negative); Methadone Screen Urine Negative (Negative); Opiate Screen Urine Negative (Negative); Phencyclidine Screen Urine Negative (Negative)
--- NOTE | 2023-02-09 05:14 | ED.GENADULT ---
HPI - General Adult General Chief complaint: Weakness Stated complaint: urinary retention / N/V Time Seen by Provider: 02/09/23 03:11 History of Present Illness HPI narrative: This is a 77-year-old male with a history of bladder cancer and urinary retention presenting for inability to urinate, nausea vomiting and constipation. Patient notes over the last couple days he has been having difficulty initiating his stream. He has been able to have a small dribble. patient also notes that he has pain on urination. Patient has urinary retention the past required a [place] catheter placed by urologist. Patient just finished chemotherapy and radiation for bladder cancer on 02/02. Patient also notes that he has been having nausea and vomiting for the last 2 days as well as constipation. He has had several small hard bowel movements and is still passing gas but has abdominal discomfort. Related Data Home Medications Medication Instructions Recorded Confirmed ascorbic acid (vitamin C) 500 mg 500 mg PO BID 08/11/22 01/19/23 tablet atorvastatin 40 mg tablet 40 mg PO HS 08/11/22 01/19/23 cholecalciferol (vitamin D3) 50 50 mcg PO BID 08/11/22 01/19/23 mcg (2,000 unit) tablet empagliflozin 25 mg tablet 25 mg PO DAILY 08/11/22 01/19/23 (Jardiance) ezetimibe 10 mg tablet 10 mg PO DAILY 08/11/22 01/19/23 ferrous sulfate 325 mg (65 mg 325 mg PO BID 08/11/22 01/19/23 iron) tablet (FeroSul) glipizide 10 mg tablet 10 mg PO BID 08/11/22 01/19/23 prednisone 5 mg tablet 5 mg PO HS 08/11/22 01/19/23 sitagliptin phosphate 50 mg tablet 50 mg PO DAILY 08/11/22 01/19/23 (Januvia) sodium bicarbonate 325 mg tablet 325 mg PO DAILY 08/11/22 01/19/23 nifedipine 60 mg tablet,extended 60 mg PO DAILY 01/18/23 01/18/23 release Allergies Allergy/AdvReac Type Severity Reaction Status Date / Time Penicillins Allergy Mild Swelling Verified 01/18/23 09:39 [facility] Past Medical History Medical History Bladder cancer Chronic kidney disease, unspecified Diabetes mellitus Hyperlipidemia Hypertension Social History Social History Smoking packs per day: 0.5 Smoking cigarettes per day: 10.0 Years smoked: 10 Smoking pack-years: 5.00 Smoking status: Former smoker Tobacco type: cigarettes Smoking end date: 04/11/82 Lack of Transportation: No Lack of Food: Never True Current Housing: I Have Housing Concerned About Future Housing: No Difficulty Paying Gas/Electric Bills: No Difficulty Paying for Meds: No Currently Unemployed: No Difficulty w/ Childcare or Family Care: No Living arrangements: with family Gender identity (if verbalized by the patient): Male Spiritual care concerns: No Exam Narrative: APPEARANCE: No apparent distress. Head: atraumatic. EYES: EOMI, NOSE: Atraumatic NECK: Trachea midline RESPIRATORY: No increased rate of breathing, Clear to auscultation CARDIOVASCULAR: RRR, ABDOMINAL: Abdomen is distended and mildly tender without guarding or rebound. MUSCULOSKELETAl: No obvious deformities NEURO: Alert. Moving 4/4 extremities SKIN:: Warm, dry. Normal color PSYCHIATRIC: Normal affect Course Vital Signs Vital signs: Vital Signs Temperature 97.9 F 02/09/23 02:26 Pulse Rate 104 H 02/09/23 02:26 Respiratory Rate 20 02/09/23 02:26 Blood Pressure 119/65 02/09/23 02:26 Pulse Oximetry 100 02/09/23 02:26 Oxygen Delivery Room Air 02/09/23 02:26 Temperature 97.9 F 02/09/23 02:26 Pulse Rate 97 02/09/23 06:45 Respiratory Rate 19 02/09/23 06:45 Blood Pressure 153/62 H 02/09/23 06:31 Pulse Oximetry 97 02/09/23 06:45 Oxygen Delivery Room Air 02/09/23 02:26 Medical Decision Making MDM Narrative Medical decision making narrative: -Course: 77-year-old male presenting with urinary retention and nausea/vomiting/constipation. Patient
--- NOTE | 2023-02-09 05:23 | PC.NURSE ---
This RN attempted to cath patient twice, once with a whitman and once with a coude without any success. Dr. Sellers made aware.
[2023-02-09 05:45] LABS: Lactic Acid Reflex 1.1 mmol/L (0.7-2.0)
[2023-02-09 05:54] LABS: Magnesium 2.2 mg/dL (1.6-2.3)
--- NOTE | 2023-02-09 07:09 | PC.NURSE ---
Post-void residual >200 on bladder scanner. Has gotten approximately 310 ml urine out in the past four hours.
--- NOTE | 2023-02-09 09:15 | ADMGEN ---
This patient, Vince Walters, was admitted to Medical Room 341-01. Patient/family oriented to hospital policies and general routines including ID bracelet, bed and alarms, visiting hours, pain management, procedures, bathroom and other care routines, personal items, smoking policy, room service/diet, and visiting hours. Information on how to activate the Rapid Response Team has been discussed. Patient/Family are encouraged to report perceived risks to care and to ask questions if they do not understand what they are told or what they should do.
--- NOTE | 2023-02-09 10:42 | WPDURCON ---
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 (2) Acute UTI: Code(s): N39.0 - Urinary tract infection, site not specified Status: Acute Assessment and Plan: Continue IV antibiotics, tailor to urine cutlure. (3) Acute kidney injury: Code(s): N17.9 - Acute kidney failure, unspecified Status: Acute Assessment and Plan: Will continue to follow. (4) Bladder cancer: Code(s): C67.9 - Malignant neoplasm of bladder, unspecified Status: Acute Urology Consult Note HPI Date Seen: 02/09/23 Time Seen: 09:00 Requesting Physician: Darline Mckeon DO Primary Care Provider: Roman Odell, Consult Narrative Reason for consult: Difficult Catheter Insertion Narrative: Vince Walters is a 77 year old male who presented to the ER Today for acute onset of difficult urination. He states that dysuria and dribbling, hesitancy, straining and frequency and hesitancy started 2 weeks ago and has worsened to the point that he is unable to urinate. He has a history of bladder cancer with a recent TURBT with Dr. Hendrickson at [facility] on 10/28/22. He had a voiding trial in the office on 12/03/22 and has been voiding well until the past month when he started to dribble, strain and have a difficult time getting his stream started. He also c/o nausea, vomiting and constipation. His WBC is 11.7, creatinine is 2.90, UA is suggestive of a UTI and urine culture is pending. He finished chemo and radiation on 02/02/23. Review of Systems Respiratory: Respiratory: Reports no additional respiratory complaints Gastrointestinal: Gastrointestinal: Reports abdominal pain Genitourinary: Genitourinary: Denies hematuria, Denies dysuria, Denies flank pain, Denies urinary frequency, Denies urinary hesitancy, Denies urinary incontinence and Denies urinary urgency PMFSH Past Medical History Medical History Bladder cancer Chronic kidney disease, unspecified Diabetes mellitus Hyperlipidemia Hypertension Family History Family History Father Acute myocardial infarction Social History Social History Smoking packs per day: 0.5 Smoking cigarettes per day: 10.0 Years smoked: 10 Smoking pack-years: 5.00 Smoking status: Former smoker Alcohol intake: never Substance use: never Lack of Transportation: No Lack of Food: Never True Current Housing: I Have Housing Concerned About Future Housing: No Difficulty Paying Gas/Electric Bills: No Difficulty Paying for Meds: No Currently Unemployed: No Education: High School Diploma/GED Difficulty w/ Childcare or Family Care: No Living arrangements: with family Gender identity (if verbalized by the patient): Male Spiritual care concerns: No Meds Home Medications and Allergies Home Medications Medication Instructions Recorded Confirmed Type hydrochlorothiazide 12.5 mg capsule 12.5 mg PO DAILY #30 caps 05/17/22 02/09/23 Rx lisinopril 10 mg tablet 10 mg PO DAILY #30 tabs 05/17/22 02/09/23 Rx terazosin 5 mg capsule 5 mg PO BID #60 caps 05/17/22 02/09/23 Rx ascorbic acid (vitamin C) 500 mg 500 mg PO BID 08/11/22 02/09/23 History tablet atorvastatin 40 mg tablet 40 mg PO HS 08/11/22 02/09/23 History cholecalciferol (vitamin D3) 50 50 mcg PO BID 08/11/22 02/09/23 History mcg (2,000 unit) tablet empagliflozin 25 mg tablet 25 mg PO DAILY 08/11/22 02/09/23 History (Jardiance) ezetimibe 10 mg tablet 10 mg PO DAILY 08/11/22 02/09/23 History ferrous sulfate 325 mg (65 mg 325 mg PO BID 08/11/22 02/09/23 History iron) tablet (FeroSul) glipizide 10 mg tablet 10 mg P
--- NOTE | 2023-02-09 15:47 | PC.NURSE ---
Patient to pre op per stretcher.
--- NOTE | 2023-02-09 15:55 | WPDANESEPPF ---
Anes - Initial Pre Proc Eval Procedure: Operation Date: 02/09/23 17:00 Proposed Procedures p Cystoscopy, Urethral Dilatation - Manish Esteves MD Date/Time: 02/09/23 15:55 Surgeon: Darline Mckeon DO Pre Op Diagnosis: Ileus,Urinary Retention Patient Data Age: 77 Gender: M Height: 1.65 m Weight: 56.3 kg Last Vital Signs Temp 36.8 C 02/09/23 14:30 Pulse 96 02/09/23 14:30 Resp 18 02/09/23 14:30 BP 127/52 L 02/09/23 14:30 Pulse Ox 97 02/09/23 14:30 O2 Del Method Room Air 02/09/23 02:26 Allergies Allergy/AdvReac Type Severity Reaction Status Date / Time Penicillins Allergy Mild Swelling Verified 02/09/23 09:19 Home Medications Medication Instructions Recorded Confirmed Type hydrochlorothiazide 12.5 mg capsule 12.5 mg PO DAILY #30 caps 05/17/22 02/09/23 Rx lisinopril 10 mg tablet 10 mg PO DAILY #30 tabs 05/17/22 02/09/23 Rx terazosin 5 mg capsule 5 mg PO BID #60 caps 05/17/22 02/09/23 Rx ascorbic acid (vitamin C) 500 mg 500 mg PO BID 08/11/22 02/09/23 History tablet atorvastatin 40 mg tablet 40 mg PO HS 08/11/22 02/09/23 History cholecalciferol (vitamin D3) 50 50 mcg PO BID 08/11/22 02/09/23 History mcg (2,000 unit) tablet empagliflozin 25 mg tablet 25 mg PO DAILY 08/11/22 02/09/23 History (Jardiance) ezetimibe 10 mg tablet 10 mg PO DAILY 08/11/22 02/09/23 History ferrous sulfate 325 mg (65 mg 325 mg PO BID 08/11/22 02/09/23 History iron) tablet (FeroSul) glipizide 10 mg tablet 10 mg PO BID 08/11/22 02/09/23 History prednisone 5 mg tablet 5 mg PO HS 08/11/22 02/09/23 History sitagliptin phosphate 50 mg tablet 50 mg PO DAILY 08/11/22 02/09/23 History (Januvia) sodium bicarbonate 325 mg tablet 325 mg PO DAILY 08/11/22 02/09/23 History carvedilol 25 mg tablet 25 mg PO BID #180 tabs 11/08/22 02/09/23 Rx nifedipine 60 mg tablet,extended 60 mg PO DAILY 01/18/23 02/09/23 History release aspirin 81 mg tablet 81 mg PO DAILY 02/09/23 02/09/23 History Laboratory Tests 02/09/23 02/09/23 04:42 04:44 WBC 11.7 H K/mm3 (4.5-10.0) RBC 3.70 L M/mm3 (4.6-6.20) Hgb 11.9 L g/dL (14.0-18.0) Hct 37.4 L % (42.0-52.0) MCV 101.1 H fl (80-100) MCH 32.2 pg (26-34) MCHC 31.8 L g/dl (32-36) RDW 16.6 H % (11.5-14.5) Plt Count 167 k/mm3 (150-375) MPV 10.0 fl (7.4-10.4) Immature Gran % (Auto) 0.6 H % (0-0.5) Neut % (Auto) 78.9 H % (45.5-73.1) Lymph % (Auto) 3.7 L % (18.3-44.2) [place] % (Auto) 11.4 H % (2.6-8.5) Eos % (Auto) 4.6 H % (0-4.4) Baso % (Auto) 0.8 % (0.2-1.2) Lymph # (Auto) 0.43 L K/mm3 (0.9-3.2) [place] # (Auto) 1.3 H K/mm3 (0.1-0.6) Eos # (Auto) 0.5 H K/mm3 (0-0.3) Baso # (Auto) 0.1 K/mm3 (0.0-0.1) Abs Immat Gran (auto) 0.07 H K/mm3 (0.00-0.031) Absolute Neuts (auto) 9.2 H K/mm3 (1.3-6.7) Absolute Nucleated RBC 0.0 K/mm3 (0.0-0.012) Nucleated RBC % 0.0 % (0.0-0.2) Platelet Estimate Adequate (Adequate) Anisocytosis 1+ (NORMAL) Newborn Cells 1+ (NORMAL) Schistocytes None seen (NORMAL) Sodium 133 L mmol/L (137-145) Potassium 5.4 H mmol/L (3.4-5.0) Chloride 109 H mmol/L (98-107) Carbon Dioxide 14 L mmol/L (22-30) Anion Gap 10 mmol/L (8-16) BUN 62 H mg/dL (9-20) Creatinine 2.90 H mg/dL (0.7-1.3) Estim Creat Clear Calc 16 ml/min Estimated GFR 21 L (59 - ) Glucose 226 H mg/dL (65-110) Lactic Acid 1.1 mmol/L (0.7-2.0) Calcium 8.4 mg/dL (8.4-10.2) Magnesium 2.2 mg/dL (1.6-2.3) Total Bilirubin 0.8 mg/dL (0.2-1.3) AST 19 U/L (17-59) ALT 17 U/L (6-50) Alkaline Phosphatase 72 U/L (38-126) Total Protein 6.0 L g/dL (6.3-8.2) Albumin 3.2 L g/dL (3.5-5.1) Urine Color Yel
[2023-02-09 16:01] LABS: Glucose Point of Care 166 mg/dl (65-105)
--- NOTE | 2023-02-09 18:07 | WPDHPUPDATE1 ---
History and Physical Update Update Date/Time: 02/09/23 18:07 History and Physical has been reviewed, including an updated exam of the patient. There are NO changes in the patient's condition. Risks, benefits, and alternatives have been discussed and questions answered. Patient agrees to proceed with procedure.
[2023-02-09] MEDS: LIDOCAINE HCL 2% GEL UROJET 10 ML PKG MUCOUS MEM (18:24)
[2023-02-09] MEDS: LACTATED RINGERS 1,000 ML 30 ML IV CONT (18:42)
--- NOTE | 2023-02-09 18:42 | W.PM.PROC2 ---
Procedure Note - Detailed Date of Procedure 02/09/23 Pre-op Diagnosis Ileus,Urinary Retention Post-op Diagnosis Other (Fossa navicular stricture) Procedure Performed Cystoscopy, urethral dilatation Surgeon Manish Esteves MD Anesthesia MAC Description of Procedure Patient is brought to the operative suite was prepped and draped in routine sterile fashion while in a dorsal lithotomy position. Patient is very tight urethral meatal/fossa navicular stricture. I had difficulty cannulating it at all. I could see a lumen with a 16 F flexible cystoscope. With Zero tip rigid cystoscopy I was able to identify the opening and got a very small filiforms through it. I then dilated to 12 F with followers followed by dilatation to 24 F with Gloria sounds. Flexible cystoscopy revealed no additional strictures. The bladder was without apparent recurrent neoplasm. He had a single orthotopic ureteral orifice bilaterally. There was some mild hyperemia in the posterior wall consistent with radiation changes but, again, no evidence of recurrent neoplasm. Cystoscope was removed and a 18 F coude catheter was placed to drainage. The patient tolerated the procedure well Urine Output 400 Drains Yes Packing No Pathology None sent
--- NOTE | 2023-02-09 20:04 | PM.IMHP ---
H&P: HPI History of Present Illness Date/Time: 02/09/23 20:04 Chief Complaint: Difficulty with Urination Narrative: 77 y/o M presents here with difficulty urinating with PMH of bladder cancer s/p chemo radiation (completed on 02/02), TURBT (10/28/22), CKD, DM2, HTN, and HLD. Patient has had 1 previous episode of urinary retention on 11/27, Gramajo placed in ED (discharged) and success voiding trial in office on 12/03. Patient reported period of time where he had no difficulty with urination or suspected urinary retention after this episode. States that early January he began having urinary frequency with only being able to pass small volumes of urine. Patient did not want to bring up concerns due to still being able to void and did not want to delay finishing chemo/ radiation. However urinary frequency w/small volume output has been becoming more consistent, intermittent prior. reports that he has been having to urinate hourly without much output. new N/V x2 days. Also endorsing constipation that has been an ongoing issue since the beginning of radiation. Takes fiber supplement daily without resolution. Last bowel movement was today, hard, moderate amount, and without blood/discoloration. Accompanied by lower abdominal pain that resolves with passing bowel movements. Denies fever, body aches, chills, dysuria or hematuria. Review of Systems Review of Systems: All systems reviewed & are unremarkable except as noted in HPI and below PMFSH Past Medical History Medical History (Updated 02/09/23 @ 20:46 by Addie Dolan APRN) Bladder cancer Chronic kidney disease, unspecified Diabetes mellitus Hyperlipidemia Hypertension Surgical History Surgical History History of transurethral resection of bladder tumor (TURBT) 10/28/22 - performed at [facility] Family History Family History Father Acute myocardial infarction Social History Social History (Updated 02/09/23 @ 20:21 by Addie Dolan APRN) Social History: Lives at home with his spouse. Surrogate decision maker: Altagracia Walters, . Code Status: DNR. Smoking packs per day: 0.5 Smoking cigarettes per day: 10.0 Years smoked: 10 Smoking pack-years: 5.00 Smoking status: Former smoker Alcohol intake: never Substance use: never Lack of Transportation: No Lack of Food: Never True Current Housing: I Have Housing Concerned About Future Housing: No Difficulty Paying Gas/Electric Bills: No Difficulty Paying for Meds: No Currently Unemployed: No Education: High School Diploma/GED Difficulty w/ Childcare or Family Care: No Living arrangements: with family Gender identity (if verbalized by the patient): Male Spiritual care concerns: No Meds Home Medications and Allergies Home Medications Medication Instructions Recorded Confirmed Type hydrochlorothiazide 12.5 mg capsule 12.5 mg PO DAILY #30 caps 05/17/22 02/09/23 Rx lisinopril 10 mg tablet 10 mg PO DAILY #30 tabs 05/17/22 02/09/23 Rx terazosin 5 mg capsule 5 mg PO BID #60 caps 05/17/22 02/09/23 Rx ascorbic acid (vitamin C) 500 mg 500 mg PO BID 08/11/22 02/09/23 History tablet atorvastatin 40 mg tablet 40 mg PO HS 08/11/22 02/09/23 History cholecalciferol (vitamin D3) 50 50 mcg PO BID 08/11/22 02/09/23 History mcg (2,000 unit) tablet empagliflozin 25 mg tablet 25 mg PO DAILY 08/11/22 02/09/23 History (Jardiance) ezetimibe 10 mg tablet 10 mg PO DAILY 08/11/22 02/09/23 History ferrous sulfate 325 mg (65 mg 325 mg PO BID 08/11/22 02/09/23 History iron) tablet (FeroSul) glipizide 10 mg tablet 10 mg PO BID 08/11/22 02/09/23 History prednisone 5 mg tablet 5 mg PO HS 08/11/22 02/09/23 History sitagliptin phosphate 50 mg tablet 50 mg PO DAILY 08/11/22 02/09/23 History (Januvia) sodium bicarbonate 325 mg tablet 325 mg PO DAILY 08/11/22 1
[2023-02-09] MEDS: ATORVASTATIN 40 MG TABLET PO (22:16)
[2023-02-09] MEDS: predniSONE 5 MG TABLET PO (22:16)
[2023-02-09 22:27] LABS: Glucose Point of Care 211 mg/dl (65-105)
[2023-02-10] VITALS (8 sets, daily range): BP systolic 101–136; BP diastolic 46–60; PULSE 79–95; RESP 16–18; TEMP 36.2–36.8; O2SAT 95–98
[2023-02-10] MEDS: LACTATED RINGERS 1,000 ML 100 ML IV CONT (00:44)
[2023-02-10 06:07] LABS: Basophils Absolute Auto 0.1 K/mm3 (0.0-0.1); Basophils Percent Auto 0.7 % (0.2-1.2); Eosinophils Absolute Auto 0.1 K/mm3 (0-0.3); Eosinophils Percent Auto 1.2 % (0-4.4); Hematocrit 34.8 % (42.0-52.0); Immature Granulocyte Absolute 0.06 K/mm3 (0.00-0.031); Immature Granulocyte Percent A 0.9 % (0-0.5); Lymphocytes Absolute Auto 0.34 K/mm3 (0.9-3.2); Mean Corpuscular HGB Conc 31.6 g/dl (32-36); Mean Corpuscular Hemoglobin 32.1 pg (26-34); Mean Corpuscular Volume 101.5 fl (80-100); Monocytes Absolute Auto 0.7 K/mm3 (0.1-0.6); Neutrophils Absolute Auto 5.6 K/mm3 (1.3-6.7); Neutrophils Percent Auto 82.2 % (45.5-73.1); Platelet Count Result 157 k/mm3 (150-375); Red Blood Count 3.43 M/mm3 (4.6-6.20); Red Cell Distribution Width 16.9 % (11.5-14.5); White Blood Count 6.8 K/mm3 (4.5-10.0)
[2023-02-10 06:27] LABS: Alanine Aminotransferase 15 U/L (6-50); Albumin Level 2.8 g/dL (3.5-5.1); Alkaline Phosphatase 63 U/L (38-126); Anion Gap 12 mmol/L (8-16); Aspartate Amino Transferase 26 U/L (17-59); Bilirubin,Total 0.7 mg/dL (0.2-1.3); Blood Urea Nitrogen 49 mg/dL (9-20); Calcium 8.3 mg/dL (8.4-10.2); Carbon Dioxide 15 mmol/L (22-30); Chloride 106 mmol/L (98-107); Estimated CRCL calculation 18 ml/min; Estimated Glomerular Filt Rate 25; Glucose 112 mg/dL (65-110); Potassium 5.1 mmol/L (3.4-5.0); Sodium 133 mmol/L (137-145)
[2023-02-10 08:05] LABS: Hemoglobin A1C 7.6 % (<5.7)
[2023-02-10 08:26] LABS: Glucose Point of Care 111 mg/dl (65-105)
[2023-02-10] MEDS: EZETIMIBE 10 MG TABLET PO (08:32)
[2023-02-10] MEDS: CHOLECALCIFEROL 1,000 UNITS TABLET 1000 UNITS PO ×2 (08:32→16:54)
[2023-02-10] MEDS: carvediloL 25 MG TABLET PO ×2 (08:32→21:32)
[2023-02-10] MEDS: lisinopriL 10 MG TABLET PO (08:33)
[2023-02-10] MEDS: EMPAGLIFLOZIN 25 MG TABLET PO (08:33)
[2023-02-10] MEDS: hydroCHLOROthiazide 12.5 MG CAPSULE PO (08:33)
[2023-02-10] MEDS: ENOXAPARIN 30 MG/0.3 ML SYRINGE SUB-Q (08:33)
[2023-02-10] MEDS: ASCORBIC ACID 500 MG TABLET PO ×2 (08:33→16:54)
[2023-02-10] MEDS: SODIUM BICARBONATE TAB 325 MG TABLET PO (08:33)
[2023-02-10] MEDS: glipiZIDE 5 MG TABLET 10 MG PO (08:33)
[2023-02-10] MEDS: NIFEdipine 30 MG TAB.ER.24 60 MG PO (08:33)
[2023-02-10] MEDS: FERROUS SULFATE 325 MG TABLET DR PO ×2 (08:33→16:54)
[2023-02-10] MEDS: TERAZOSIN HCL 5 MG CAPSULE PO ×2 (08:34→16:54)
--- NOTE | 2023-02-10 10:08 | P.PNIM_ITS ---
Progress Note: A&P Assessment and Plan (1) Acute on chronic urinary retention: Code(s): R33.9 - Retention of urine, unspecified Status: Acute Assessment and Plan: 1. acute on chronic urinary retention * consult - urology * cystoscopy - tight urethral meatal/fossa navicular stricture, no additional strictures identified, no apparent recurrent neoplasm, and mild hyperemia consistent with radiation changes. 18F coude placed. * follow-up in office in 7-10 days for voiding trial. * monitor I&Os * continue terazosin * add flomax (2) Acute UTI: Code(s): N39.0 - Urinary tract infection, site not specified Status: Acute Assessment and Plan: 2. acute UTI * UA: 3+ glucose, 1+ ketone, trace leuk esterase, 11-20 WBC * UC pending * ceftriaxone 1G Q24H, started on 02/09 at 0700 (3) Adynamic ileus: Code(s): K56.0 - Paralytic ileus Status: Acute Assessment and Plan: * CT abdomen pelvis was interpreted: 1. Mild wall thickening of the bladder on the left, which may be secondary to chronic outlet obstruction or urothelial carcinoma. 2. Dilated small bowel without focal transition point, likely adynamic ileus. 3. Small cystic lesions of the pancreas. The differential diagnosis includes pseudocyst, intraductal papillary mucinous neoplasm (IPMN), mucinous cystic neoplasm (MCN), serous cystadenoma, and neuroendocrine tumor. Abdomen MRI without and with contrast is recommended in 2 years. Patient is aware of lesion as well as his PCP. He will follow up with MRI in the next 1-2 years. * Had a bowel movement last night * No abdominal pain, N/V today * Tolerating diet today without recurrent pain/n/v * Monitor condition * Stop IVF (4) Constipation: Qualifiers: Constipation type: unspecified constipation type Qualified Code(s): K59.00 - Constipation, unspecified Code(s): K59.00 - Constipation, unspecified Status: Acute Assessment and Plan: * ?abnormal CT - c/f adynamic ileus * ?Zofran PRN * Add miralax and gave 1 x suppository (5) Diabetes mellitus: Code(s): E11.9 - Type 2 diabetes mellitus without complications Status: Acute Assessment and Plan: * ?hypoglycemia protocol * ?POC blood glucose ACHS * ?correct regimen ordered - low dose TIDWM and HS * ?A1C to be updated in AM * Hypoglycemic episode today, 52. Responded with oral glucose and eating lunch. * Stopping oral agents. Continue with low dose SSI * Diabetic diet (6) Hypertension: Code(s): I10 - Essential (primary) hypertension Status: Acute Assessment and Plan: * monitor BP * continue carvedilol, hydrochlorothiazide, lisinopril, nifedipine * Blood pressures reviewed on 02/10. SBP 120-130's/50-60's. Plan Diet: diabetic diet GI Prophylaxis: not indicated DVT Prophylaxis: SCDs, enoxaparin 30 Lines: pIV Code Status: DNR, confirmed on 02/09/23 with at bedside. Subjective Date/time seen: 02/10/23 10:08 Interval history: HPI obtained from the chart, 77 y/o M presents here with difficulty urinating with PMH of bladder cancer s/p chemo radiation (completed on 02/02), TURBT (10/28/22), CKD, DM2, HTN, and HLD. Patient has had 1 previous episode of urinary retention on 11/27, Gramajo placed in ED (discharged) and success voiding trial in office on 12/03.? Patient reported period of time where he had no difficulty with urination or suspected urinary retention after this episode.? States that early January he began having urinary frequency with only being able to pass
--- NOTE | 2023-02-10 10:08 | PM.IMPN ---
Progress Note: A&P Assessment and Plan (1) Acute on chronic urinary retention: Code(s): R33.9 - Retention of urine, unspecified Status: Acute Assessment and Plan: 1. acute on chronic urinary retention consult - urology cystoscopy - tight urethral meatal/fossa navicular stricture, no additional strictures identified, no apparent recurrent neoplasm, and mild hyperemia consistent with radiation changes. 18F coude placed. follow-up in office in 7-10 days for voiding trial. monitor I&Os continue terazosin add flomax (2) Acute UTI: Code(s): N39.0 - Urinary tract infection, site not specified Status: Acute Assessment and Plan: 2. acute UTI UA: 3+ glucose, 1+ ketone, trace leuk esterase, 11-20 WBC UC pending ceftriaxone 1G Q24H, started on 02/09 at 0700 (3) Adynamic ileus: Code(s): K56.0 - Paralytic ileus Status: Acute Assessment and Plan: CT abdomen pelvis was interpreted: 1. Mild wall thickening of the bladder on the left, which may be secondary to chronic outlet obstruction or urothelial carcinoma. 2. Dilated small bowel without focal transition point, likely adynamic ileus. 3. Small cystic lesions of the pancreas. The differential diagnosis includes pseudocyst, intraductal papillary mucinous neoplasm (IPMN), mucinous cystic neoplasm (MCN), serous cystadenoma, and neuroendocrine tumor. Abdomen MRI without and with contrast is recommended in 2 years. Patient is aware of lesion as well as his PCP. He will follow up with MRI in the next 1-2 years. Had a bowel movement last night No abdominal pain, N/V today Tolerating diet today without recurrent pain/n/v Monitor condition Stop IVF (4) Constipation: Qualifiers: Constipation type: unspecified constipation type Qualified Code(s): K59.00 - Constipation, unspecified Code(s): K59.00 - Constipation, unspecified Status: Acute Assessment and Plan: ?abnormal CT - c/f adynamic ileus ?Zofran PRN Add miralax and gave 1 x suppository (5) Diabetes mellitus: Code(s): E11.9 - Type 2 diabetes mellitus without complications Status: Acute Assessment and Plan: ?hypoglycemia protocol ?POC blood glucose ACHS ?correct regimen ordered - low dose TIDWM and HS ?A1C to be updated in AM Hypoglycemic episode today, 52. Responded with oral glucose and eating lunch. Stopping oral agents. Continue with low dose SSI Diabetic diet (6) Hypertension: Code(s): I10 - Essential (primary) hypertension Status: Acute Assessment and Plan: monitor BP continue carvedilol, hydrochlorothiazide, lisinopril, nifedipine Blood pressures reviewed on 02/10. SBP 120-130's/50-60's. Plan Diet: diabetic diet GI Prophylaxis: not indicated DVT Prophylaxis: SCDs, enoxaparin 30 Lines: pIV Code Status: DNR, confirmed on 02/09/23 with at bedside. Subjective Date/time seen: 02/10/23 10:08 Interval history: HPI obtained from the chart, 77 y/o M presents here with difficulty urinating with PMH of bladder cancer s/p chemo radiation (completed on 02/02), TURBT (10/28/22), CKD, DM2, HTN, and HLD. Patient has had 1 previous episode of urinary retention on 11/27, Gramajo placed in ED (discharged) and success voiding trial in office on 12/03.? Patient reported period of time where he had no difficulty with urination or suspected urinary retention after this episode.? States that early January he began having urinary frequency with only being able to pass small volumes of urine. ? Patient did not want to bring up concerns due to still being able to void and did not want to delay finishing chemo/ radiation.? However urinary frequency w/small volume output has been becoming more consistent, intermittent prior.? reports that he has been having to urinate hourly without much output. new N/V x2 days.? Also endorsing constipation that has been an ongoing issue since the beginning of
[2023-02-10] MEDS: polyethylene glycoL 3350 17 GM POWD.PACK PO (11:27)
[2023-02-10] MEDS: BISACODYL 10 MG SUPPOSITORY RECTAL (11:27)
[2023-02-10 12:43] LABS: Glucose Point of Care 52 mg/dl (65-105)
[2023-02-10] MEDS: GLUCOSE ORAL GEL 15 GM OF GLUCSE IN 37.5 GM TUBE PO (12:47)
[2023-02-10 12:55] LABS: Glucose Point of Care 61 mg/dl (65-105)
[2023-02-10 13:16] LABS: Glucose Point of Care 74 mg/dl (65-105)
--- NOTE | 2023-02-10 13:26 | WPDUROPN2 ---
Progress Note: A&P Assessment and Plan (1) Bladder cancer: Code(s): C67.9 - Malignant neoplasm of bladder, unspecified Status: Acute Assessment and Plan: Follow up with Dr. Hendrickson as planned. (2) Acute UTI: Code(s): N39.0 - Urinary tract infection, site not specified Status: Acute Assessment and Plan: Culture Pending, tailor results to culture sensitivity. (3) Acute kidney injury: Code(s): N17.9 - Acute kidney failure, unspecified Status: Acute Assessment and Plan: Creatinine is 2.50 today, will continue to monitor. (4) Acute on chronic urinary retention: Code(s): R33.9 - Retention of urine, unspecified Status: Acute Assessment and Plan: Resolved per dilation and catheter placement. Plan to remove whitman at 0500am tomorrow, then do a voiding trial. Ok to discharge home without whitman if urinating without difficulty, if PVR is >300cc on bladder scan, replace whitman and discharge home with a Whitman to have another voiding trial in 7-10 days. (5) Urethral stricture: Code(s): N35.919 - Unspecified urethral stricture, male, unspecified site Status: Acute Assessment and Plan: Resolved. Subjective Subjective Date/Time Seen: 02/10/23 13:26 s/p Cystoscopy with urethral dilation. Pt. doing well today, urine clear and draining to gravity in the whitman. Pt. has no pain, tolerating diet and activity. Post Op day: 1 Principal diagnosis: Urethral Stricture, urinary Retention Review of Systems Cardiovascular: Cardiovascular: Denies chest pain Respiratory: Respiratory: Reports no additional respiratory complaints Gastrointestinal: Gastrointestinal: Denies abdominal pain, Denies nausea and Denies vomiting Genitourinary: Genitourinary: Denies hematuria, Denies genital pain, Denies dysuria, Denies flank pain and Denies penile discharge Exam Const: General: cooperative and comfortable Resp: Effort & Inspection: normal respiratory effort Cardio: Rate: regular rate GI: GI Palp: Yes Soft to palpation and No Tenderness to palpation present (GI) : General: Yes no CVA tenderness Urinary Catheter: Urinary Catheter: patent and draining and urine clear Extrem: Right lower extremity: no edema Left lower extremity: no edema Objective Data Vital Signs Vital Signs: Vital Signs - 24 hr 02/09/23 14:30 02/09/23 16:00 02/09/23 18:42 Temperature 98.2 F 98.5 F 99.0 F Pulse Rate 96 92 93 Respiratory Rate 18 18 18 Blood Pressure 127/52 L 113/59 L 116/60 Pulse Oximetry 97 98 94 Oxygen Delivery Room Air Room Air 02/09/23 18:55 02/09/23 19:10 02/09/23 19:25 Temperature Pulse Rate 88 89 94 Respiratory Rate 16 18 16 Blood Pressure 128/64 129/68 126/68 Pulse Oximetry 97 98 98 Oxygen Delivery Room Air Room Air Room Air 02/09/23 20:00 02/09/23 20:15 02/09/23 20:45 Temperature 98 F 97.5 F L 97.5 F L Pulse Rate 95 89 85 Respiratory Rate 16 16 18 Blood Pressure 121/52 L 131/53 L 115/49 L Pulse Oximetry 98 98 95 Oxygen Delivery 02/09/23 21:45 02/10/23 00:54 02/10/23 04:49 Temperature 97.2 F L 97.4 F L 97.6 F Pulse Rate 97 95 86 Respiratory Rate 16 18 16 Blood Pressure 125/50 L 124/59 L 121/56 L Pulse Oximetry 99 97 98 Oxygen Delivery 02/10/23 08:14 02/10/23 08:32 02/10/23 08:37 Temperature 98.2 F Pulse Rate 79 79 Respiratory Rate 17 Blood Pressure 136/60 Pulse Oximetry 98 Oxygen Delivery Room Air 02/10/23 12:24 Temperature 97.9 F Pulse Rate 83 Respiratory Rate 17 Blood Pressure 126/53 L Pulse Oximetry 95 Oxygen Delivery Intake/Output Intake/Output: Intake & Output 02/07/23 02/08/23 02/09/23 02/10/23 23:59 23:59 23:59 23:59 Intake Total 150 1000 Output Total 840 675 Balance -690 325 Meds/Results Medications: Active Medications Generic Name Dose Route Start Last Admin Trade Name Robbiq PRN Reason Stop Dose Admin Ascorbic Acid 500 mg 02/10/23 09:00
--- NOTE | 2023-02-10 14:16 | WPDANESPN ---
Anes - Prog Note Post-Op Date/Time: 02/10/23 14:16 Vital Signs: Last Vital Signs Temp 36.6 C 02/10/23 12:24 Pulse 83 02/10/23 12:24 Resp 17 02/10/23 12:24 BP 126/53 L 02/10/23 12:24 Pulse Ox 95 02/10/23 12:24 O2 Del Method Room Air 02/10/23 08:37 Pain Score (VAS): 0 I/O: Intake & Output 02/09/23 02/10/23 02/10/23 23:59 07:59 15:59 Intake Total 100 550 690 Output Total 440 675 Balance -340 -125 690 Laboratory Tests 02/10/23 05:41 02/10/23 05:41 02/09/23 02/09/23 02/10/23 15:58 22:20 05:41 WBC 6.8 RBC 3.43 L Hgb 11.0 L Hct 34.8 L MCV 101.5 H MCH 32.1 MCHC 31.6 L RDW 16.9 H Plt Count 157 MPV 10.0 Immature Gran % (Auto) 0.9 H Neut % (Auto) 82.2 H Lymph % (Auto) 5.0 L [place] % (Auto) 10.0 H Eos % (Auto) 1.2 Baso % (Auto) 0.7 Lymph # (Auto) 0.34 L [place] # (Auto) 0.7 H Eos # (Auto) 0.1 Baso # (Auto) 0.1 Abs Immat Gran (auto) 0.06 H Absolute Neuts (auto) 5.6 Absolute Nucleated RBC 0.0 Nucleated RBC % 0.0 Sodium 133 L Potassium 5.1 H Chloride 106 Carbon Dioxide 15 L Anion Gap 12 BUN 49 H D Creatinine 2.50 H Estim Creat Clear Calc 18 Estimated GFR 25 L Glucose 112 H POC Capillary Glucose 166 H 211 H Hemoglobin A1c 7.6 H Calcium 8.3 L Total Bilirubin 0.7 AST 26 ALT 15 Alkaline Phosphatase 63 Total Protein 5.0 L Albumin 2.8 L 02/10/23 02/10/23 02/10/23 08:18 12:19 12:44 WBC RBC Hgb Hct MCV MCH MCHC RDW Plt Count MPV Immature Gran % (Auto) Neut % (Auto) Lymph % (Auto) [place] % (Auto) Eos % (Auto) Baso % (Auto) Lymph # (Auto) [place] # (Auto) Eos # (Auto) Baso # (Auto) Abs Immat Gran (auto) Absolute Neuts (auto) Absolute Nucleated RBC Nucleated RBC % Sodium Potassium Chloride Carbon Dioxide Anion Gap BUN Creatinine Estim Creat Clear Calc Estimated GFR Glucose POC Capillary Glucose 111 H 52 L* 61 L Hemoglobin A1c Calcium Total Bilirubin AST ALT Alkaline Phosphatase Total Protein Albumin 02/10/23 13:10 WBC RBC Hgb Hct MCV MCH MCHC RDW Plt Count MPV Immature Gran % (Auto) Neut % (Auto) Lymph % (Auto) [place] % (Auto) Eos % (Auto) Baso % (Auto) Lymph # (Auto) [place] # (Auto) Eos # (Auto) Baso # (Auto) Abs Immat Gran (auto) Absolute Neuts (auto) Absolute Nucleated RBC Nucleated RBC % Sodium Potassium Chloride Carbon Dioxide Anion Gap BUN Creatinine Estim Creat Clear Calc Estimated GFR Glucose POC Capillary Glucose 74 Hemoglobin A1c Calcium Total Bilirubin AST ALT Alkaline Phosphatase Total Protein Albumin Patient Feedback: Patient satisfied with anesthetic care.
[2023-02-10 16:36] LABS: Glucose Point of Care 139 mg/dl (65-105)
[2023-02-10] MEDS: TAMSULOSIN HCL 0.4 MG CAPSULE PO (16:54)
[2023-02-10 21:06] LABS: Glucose Point of Care 96 mg/dl (65-105)
[2023-02-10] MEDS: ATORVASTATIN 40 MG TABLET PO (21:32)
[2023-02-10] MEDS: predniSONE 5 MG TABLET PO (21:32)
[2023-02-11 05:12] VITALS: BP 104/49; PULSE 85; RESP 18; TEMP 36.8; O2SAT 95
[2023-02-11 06:07] LABS: Basophils Percent Auto 0.5 % (0.2-1.2); Eosinophils Absolute Auto 0.4 K/mm3 (0-0.3); Eosinophils Percent Auto 5.7 % (0-4.4); Hematocrit 33.5 % (42.0-52.0); Hemoglobin 10.8 g/dL (14.0-18.0); Immature Granulocyte Absolute 0.06 K/mm3 (0.00-0.031); Immature Granulocyte Percent A 0.8 % (0-0.5); Lymphocytes Absolute Auto 0.33 K/mm3 (0.9-3.2); Lymphocytes Percent Auto 4.4 % (18.3-44.2); Mean Corpuscular HGB Conc 32.2 g/dl (32-36); Mean Corpuscular Hemoglobin 31.9 pg (26-34); Mean Corpuscular Volume 98.8 fl (80-100); Monocytes Absolute Auto 0.8 K/mm3 (0.1-0.6); Monocytes Percent Auto 10.1 % (2.6-8.5); Neutrophils Absolute Auto 5.9 K/mm3 (1.3-6.7); Neutrophils Percent Auto 78.5 % (45.5-73.1); Platelet Count Result 165 k/mm3 (150-375); Red Blood Count 3.39 M/mm3 (4.6-6.20); Red Cell Distribution Width 16.1 % (11.5-14.5); White Blood Count 7.5 K/mm3 (4.5-10.0)
[2023-02-11 06:15] LABS: Alanine Aminotransferase 15 U/L (6-50); Albumin Level 2.8 g/dL (3.5-5.1); Alkaline Phosphatase 61 U/L (38-126); Anion Gap 6 mmol/L (8-16); Aspartate Amino Transferase 26 U/L (17-59); Bilirubin,Total 0.5 mg/dL (0.2-1.3); Blood Urea Nitrogen 45 mg/dL (9-20); Calcium 8.2 mg/dL (8.4-10.2); Carbon Dioxide 20 mmol/L (22-30); Chloride 106 mmol/L (98-107); Estimated CRCL calculation 19 ml/min; Estimated Glomerular Filt Rate 26; Glucose 99 mg/dL (65-110); Potassium 4.8 mmol/L (3.4-5.0); Sodium 132 mmol/L (137-145)
--- NOTE | 2023-02-11 07:19 | WPDUROPN2 ---
Progress Note: A&P Assessment and Plan (1) Urethral stricture: Code(s): N35.919 - Unspecified urethral stricture, male, unspecified site Status: Acute Assessment and Plan: Catheters already removed for his voiding trial. I anticipate he will do well. Discharged any time with follow-up in our office in 3-4 Subjective Subjective Date/Time Seen: 02/11/23 07:19 Interval history: catheter out for voiding trial this morning. Patient is feeling great Review of Systems Cardiovascular: Cardiovascular: Denies chest pain, Denies lightheadedness, Denies palpitations and Denies dyspnea Respiratory: Respiratory: Denies dyspnea Gastrointestinal: Gastrointestinal: Denies diarrhea, Denies nausea and Denies vomiting Genitourinary: Genitourinary: Denies hematuria and Denies dysuria Endocrine: Endocrine: Denies palpitations Exam Const: General: no acute distress Resp: Effort & Inspection: normal respiratory effort GI: Inspection: non-distended GI Palp: No abdominal tenderness and No Guarding due to palpation present (GI) Auscultation: normal bowel sounds Objective Data Vital Signs Vital Signs: Vital Signs - 24 hr 02/10/23 08:14 02/10/23 08:32 02/10/23 08:37 Temperature 98.2 F Pulse Rate 79 79 Respiratory Rate 17 Blood Pressure 136/60 Pulse Oximetry 98 Oxygen Delivery Room Air 02/10/23 12:24 02/10/23 16:26 02/10/23 19:56 Temperature 97.9 F 97.7 F 97.2 F L Pulse Rate 83 83 95 Respiratory Rate 17 17 18 Blood Pressure 126/53 L 101/46 L 121/50 L Pulse Oximetry 95 96 96 Oxygen Delivery 02/10/23 21:32 02/11/23 05:12 Temperature 98.2 F Pulse Rate 95 85 Respiratory Rate 18 Blood Pressure 104/49 L Pulse Oximetry 95 Oxygen Delivery Intake/Output Intake/Output: Intake & Output 02/08/23 02/09/23 02/10/23 02/11/23 23:59 23:59 23:59 23:59 Intake Total 150 1480 250 Output Total 840 1625 1000 Balance -000 -446 -284 Meds/Results Medications: Active Medications Generic Name Dose Route Start Last Admin Trade Name Freq PRN Reason Stop Dose Admin Ascorbic Acid 500 mg 02/10/23 09:00 02/10/23 16:54 Ascorbic Acid 500 Mg Tablet PO 500 mg BID LUIS Administration Atorvastatin Calcium 40 mg 02/09/23 21:00 02/10/23 21:32 Atorvastatin 40 Mg Tablet PO 40 mg HS LUIS Administration Carvedilol 25 mg 02/10/23 09:00 02/10/23 21:32 Carvedilol 25 Mg Tablet PO 25 mg Q12HR LUIS Administration Dextrose 12.5 gm 02/09/23 20:49 Dextrose 50% 25 Gm/50 Ml Syringe IV PUSH PRN PRN Hypoglycemia Protocol Ezetimibe 10 mg 02/10/23 09:00 02/10/23 08:32 Ezetimibe 10 Mg Tablet PO 10 mg DAILY LUIS Administration Enoxaparin Sodium 30 mg 02/10/23 09:00 02/10/23 08:33 Enoxaparin 30 Mg/0.3 Ml Syringe SUB-Q 30 mg DAILY LUIS Administration Ferrous Sulfate 325 mg 02/10/23 09:00 02/10/23 16:54 Ferrous Sulfate [address] PO 03/12/23 08:59 325 mg BID LUIS Administration Glucagon 1 mg 02/09/23 20:49 Glucagon For Inj 1 Mg Vial IM PRN PRN Hypoglycemia Protocol Glucose 15 gm 02/09/23 20:49 02/10/23 12:47 Glucose Oral Gel 15 Gm Of Glucse In 37.5 Gm Tube PO 15 gm PRN PRN Administration Hypoglycemia Protocol Hydrochlorothiazide 12.5 mg 02/10/23 09:00 02/10/23 08:33 Hydrochlorothiazide 12.5 Mg Capsule PO 12.5 mg DAILY LUIS Administration Ceftriaxone Sodium 1 gm in 50 mls @ 100 mls/hr 02/10/23 09:00 02/10/23 08:33 Rocephin 1 Gm/Ns 50 Ml IVPB 100 mls/hr Q24H LUIS Administration Dextrose 1,000 mls @ 100 mls/hr 02/09/23 20:49 Dextrose 5% 1,000 Ml IVPB PRN PRN Hypoglycemia Protocol Insulin Aspart 2 - 5 units 02/10/23 08:00 02/10/23 16:40 Insulin Aspart (*Bkc) 100 Units/Ml SUB-Q Not Given TIDWM LUIS Protocol Insulin Aspart 1 - 2 units 02/09/23 21:00 02/10/23 22:28 Insulin Aspart (*Bkc) 100 Units/Ml SUB-Q Not
[2023-02-11 08:17] VITALS: PULSE 85
[2023-02-11] MEDS: NIFEdipine 30 MG TAB.ER.24 60 MG PO (08:17)
[2023-02-11] MEDS: ASCORBIC ACID 500 MG TABLET PO (08:17)
[2023-02-11] MEDS: TERAZOSIN HCL 5 MG CAPSULE PO (08:17)
[2023-02-11] MEDS: hydroCHLOROthiazide 12.5 MG CAPSULE PO (08:17)
[2023-02-11] MEDS: carvediloL 25 MG TABLET PO (08:17)
[2023-02-11] MEDS: TAMSULOSIN HCL 0.4 MG CAPSULE PO (08:17)
[2023-02-11] MEDS: lisinopriL 10 MG TABLET PO (08:17)
[2023-02-11] MEDS: FERROUS SULFATE 325 MG TABLET DR PO (08:17)
[2023-02-11] MEDS: EZETIMIBE 10 MG TABLET PO (08:17)
[2023-02-11] MEDS: SODIUM BICARBONATE TAB 325 MG TABLET PO (08:17)
[2023-02-11] MEDS: CHOLECALCIFEROL 1,000 UNITS TABLET 1000 UNITS PO (08:17)
[2023-02-11] MEDS: polyethylene glycoL 3350 17 GM POWD.PACK PO (08:18)
[2023-02-11] MEDS: ENOXAPARIN 30 MG/0.3 ML SYRINGE SUB-Q (08:18)
[2023-02-11 08:20] LABS: Glucose Point of Care 184 mg/dl (65-105)
[2023-02-11 12:28] LABS: Glucose Point of Care 199 mg/dl (65-105)
--- NOTE | 2023-02-11 13:39 | P.DS_ITS ---
DS: Admitting Diagnosis Discharge Date 02/11/23 Admitting Diagnosis urinary retention DS: Discharge Diagnosis Discharge Diagnosis (1) Acute on chronic urinary retention: Code(s): R33.9 - Retention of urine, unspecified Status: Acute Assessment and Plan: 1. acute on chronic urinary retention * consult - urology * cystoscopy - tight urethral meatal/fossa navicular stricture, no additional strictures identified, no apparent recurrent neoplasm, and mild hyperemia consistent with radiation changes. 18F coude placed. * follow-up in office in 7-10 days for voiding trial. * monitor I&Os * continue terazosin * add flomax (2) Acute UTI: Code(s): N39.0 - Urinary tract infection, site not specified Status: Acute Assessment and Plan: 2. acute UTI * UA: 3+ glucose, 1+ ketone, trace leuk esterase, 11-20 WBC * UC pending * ceftriaxone 1G Q24H, started on 02/09 at 0700 (3) Adynamic ileus: Code(s): K56.0 - Paralytic ileus Status: Acute Assessment and Plan: * CT abdomen pelvis was interpreted: 1. Mild wall thickening of the bladder on the left, which may be secondary to chronic outlet obstruction or urothelial carcinoma. 2. Dilated small bowel without focal transition point, likely adynamic ileus. 3. Small cystic lesions of the pancreas. The differential diagnosis includes pseudocyst, intraductal papillary mucinous neoplasm (IPMN), mucinous cystic neoplasm (MCN), serous cystadenoma, and neuroendocrine tumor. Abdomen MRI without and with contrast is recommended in 2 years. Patient is aware of lesion as well as his PCP. He will follow up with MRI in the next 1-2 years. * Had a bowel movement last night * No abdominal pain, N/V today * Tolerating diet today without recurrent pain/n/v * Monitor condition * Stop IVF (4) Constipation: Qualifiers: Constipation type: unspecified constipation type Qualified Code(s): K59.00 - Constipation, unspecified Code(s): K59.00 - Constipation, unspecified Status: Acute Assessment and Plan: * ?abnormal CT - c/f adynamic ileus * ?Zofran PRN * Add miralax and gave 1 x suppository (5) Diabetes mellitus: Code(s): E11.9 - Type 2 diabetes mellitus without complications Status: Acute Assessment and Plan: * ?hypoglycemia protocol * ?POC blood glucose ACHS * ?correct regimen ordered - low dose TIDWM and HS * ?A1C to be updated in AM * Hypoglycemic episode today, 52. Responded with oral glucose and eating lunch. * Stopping oral agents. Continue with low dose SSI * Diabetic diet (6) Hypertension: Code(s): I10 - Essential (primary) hypertension Status: Acute Assessment and Plan: * monitor BP * continue carvedilol, hydrochlorothiazide, lisinopril, nifedipine * Blood pressures reviewed on 02/10. SBP 120-130's/50-60's. Plan Diet: diabetic diet GI Prophylaxis: not indicated DVT Prophylaxis: SCDs, enoxaparin 30 Lines: pIV Code Status: DNR, confirmed on 02/09/23 with at bedside. DS: Summary Hospital Course Hospital Course: HPI obtained from the chart, 77 y/o M presents here with difficulty urinating with PMH of bladder cancer s/p chemo radiation (completed on 02/02), TURBT (10/28/22), CKD, DM2, HTN, and HLD. Patient has had 1 previous episode of urinary retention on 11/27, Gramajo placed in ED (discharged) and success voiding trial in office on 12/03.? Patient reported period of time where he had no difficulty with urination or suspected urinary retention after this episode.?
--- NOTE | 2023-02-11 13:39 | PM.DS ---
DS: Admitting Diagnosis Discharge Date 02/11/23 Admitting Diagnosis urinary retention DS: Discharge Diagnosis Discharge Diagnosis (1) Acute on chronic urinary retention: Code(s): R33.9 - Retention of urine, unspecified Status: Acute Assessment and Plan: 1. acute on chronic urinary retention consult - urology cystoscopy - tight urethral meatal/fossa navicular stricture, no additional strictures identified, no apparent recurrent neoplasm, and mild hyperemia consistent with radiation changes. 18F coude placed. follow-up in office in 7-10 days for voiding trial. monitor I&Os continue terazosin add flomax (2) Acute UTI: Code(s): N39.0 - Urinary tract infection, site not specified Status: Acute Assessment and Plan: 2. acute UTI UA: 3+ glucose, 1+ ketone, trace leuk esterase, 11-20 WBC UC pending ceftriaxone 1G Q24H, started on 02/09 at 0700 (3) Adynamic ileus: Code(s): K56.0 - Paralytic ileus Status: Acute Assessment and Plan: CT abdomen pelvis was interpreted: 1. Mild wall thickening of the bladder on the left, which may be secondary to chronic outlet obstruction or urothelial carcinoma. 2. Dilated small bowel without focal transition point, likely adynamic ileus. 3. Small cystic lesions of the pancreas. The differential diagnosis includes pseudocyst, intraductal papillary mucinous neoplasm (IPMN), mucinous cystic neoplasm (MCN), serous cystadenoma, and neuroendocrine tumor. Abdomen MRI without and with contrast is recommended in 2 years. Patient is aware of lesion as well as his PCP. He will follow up with MRI in the next 1-2 years. Had a bowel movement last night No abdominal pain, N/V today Tolerating diet today without recurrent pain/n/v Monitor condition Stop IVF (4) Constipation: Qualifiers: Constipation type: unspecified constipation type Qualified Code(s): K59.00 - Constipation, unspecified Code(s): K59.00 - Constipation, unspecified Status: Acute Assessment and Plan: ?abnormal CT - c/f adynamic ileus ?Zofran PRN Add miralax and gave 1 x suppository (5) Diabetes mellitus: Code(s): E11.9 - Type 2 diabetes mellitus without complications Status: Acute Assessment and Plan: ?hypoglycemia protocol ?POC blood glucose ACHS ?correct regimen ordered - low dose TIDWM and HS ?A1C to be updated in AM Hypoglycemic episode today, 52. Responded with oral glucose and eating lunch. Stopping oral agents. Continue with low dose SSI Diabetic diet (6) Hypertension: Code(s): I10 - Essential (primary) hypertension Status: Acute Assessment and Plan: monitor BP continue carvedilol, hydrochlorothiazide, lisinopril, nifedipine Blood pressures reviewed on 02/10. SBP 120-130's/50-60's. Plan Diet: diabetic diet GI Prophylaxis: not indicated DVT Prophylaxis: SCDs, enoxaparin 30 Lines: pIV Code Status: DNR, confirmed on 02/09/23 with at bedside. DS: Summary Hospital Course Hospital Course: HPI obtained from the chart, 77 y/o M presents here with difficulty urinating with PMH of bladder cancer s/p chemo radiation (completed on 02/02), TURBT (10/28/22), CKD, DM2, HTN, and HLD. Patient has had 1 previous episode of urinary retention on 11/27, Gramajo placed in ED (discharged) and success voiding trial in office on 12/03.? Patient reported period of time where he had no difficulty with urination or suspected urinary retention after this episode.? States that early January he began having urinary frequency with only being able to pass small volumes of urine. ? Patient did not want to bring up concerns due to still being able to void and did not want to delay finishing chemo/ radiation.? However urinary frequency w/small volume output has been becoming more consistent, intermittent prior.? reports that he has been having to urinate hourly without much output. new N/V x2 days.? Also e
[2023-02-11] MEDS: LINEZOLID 600 MG TABLET PO (14:35)
== END 2023-02-11 14:45 | disposition home or self-care (01) | DRG 690 ==
LOC: ANHED 08:02 → ANH3MED 09:19
PROVIDERS: Internal Medicine; Student in an Organized Health Care Education/Training Program; Urology; Admitting Provider Internal Medicine; Emergency Provider Emergency Medicine; PCP Family Medicine; Visit Provider Nurse Practitioner Acute Care
PROC: 0T7D8ZZ Dilation of Urethra, Via Natural or Artificial Opening Endoscopic (ICD-10-PCS; CPT 52281; principal; 2023-02-09 17:00)
DX: N39.0 Urinary tract infection, site not specified (principal); N17.9 Acute kidney failure, unspecified; K56.0 Paralytic ileus; E87.1 Hypo-osmolality and hyponatremia; R33.8 Other retention of urine; N32.89 Other specified disorders of bladder; T50.8X5A Adverse effect of diagnostic agents, initial encounter; B95.2 Enterococcus as the cause of diseases classified elsewhere; E87.8 Other disorders of electrolyte and fluid balance, not elsewhere classified; I12.9 Hypertensive chronic kidney disease with stage 1 through stage 4 chronic kidney disease, or unspecified chronic kidney disease; E11.22 Type 2 diabetes mellitus with diabetic chronic kidney disease; N35.919 Unspecified urethral stricture, male, unspecified site; N18.9 Chronic kidney disease, unspecified; Z66 Do not resuscitate; K59.00 Constipation, unspecified; E78.5 Hyperlipidemia, unspecified; Z23 Encounter for immunization; Z85.51 Personal history of malignant neoplasm of bladder; Z87.891 Personal history of nicotine dependence
CPT/HCPCS: 36415; 74018; 74176; 80053; 80307; 81001; 82948; 83036; 83605; 83735; 85025; 87086; 87147; 87181; 87186; 90471; 90694; 93005; 96365; 96375; 99285; A9270; C1769; G0008; J0696; J1650; J2405; J2704; J3010; J7120; J7512

== ENCOUNTER 2023-02-12 22:00 | Inpatient (IN) | payer MEDICARE, SELFPAY ==
--- NOTE | ~2023-02-12 | CT_ITS ---
EXAMINATION: CT abdomen pelvis wo con DATE: 02/12/2023 23:19 INDICATION: Abdominal pain and vomiting TECHNIQUE: Computed tomography (CT) of the abdomen and pelvis was performed without intravenous contr ast. The dose-length product (DLP) was 354.99 mGy-cm. Automated exposure control and iterative recons truction technique were employed. COMPARISON: 02/09/2023 FINDINGS: Minimal dependent atelectasis is present in the lung bases. The heart size is normal. The l iver, spleen, gallbladder, and adrenal glands are normal. Multiple cystic lesions of the pancreas are again noted which measure up to 12 mm. There is atrophy of the kidneys. A 3 cm cyst is noted in the left kidney. There is calcified atherosclerosis of the aorta and many of the other arteries. There ar e persistently dilated small bowel without focal transition point. There is no free intraperitoneal g as. Colonic diverticulosis is present without evidence of diverticulitis. No pathologically enlarged abdominal or pelvic lymph nodes are identified. The appendix is normal. There is gas in the urinary b ladder. Mild thickening is again noted in the wall of the urinary bladder on the left. IMPRESSION: 1. Dilated small bowel without focal transition point, consistent with adynamic ileus versus partial obstruction. 2. Multiple small cystic lesions of the pancreas with differential and follow-up recommendation as pr eviously described. 3. Mild wall thickening of the urinary bladder on the left. Differential includes urothelial carcinom a, infection, chronic outlet obstruction, and treatment change. Reviewed, dictated and finalized at location F. UNICATIONS PROFESSOR IMPRESSION: 1. Dilated small bowel without focal transition point, consistent with adynamic ileus versus partial obstruction. 2. Multiple small cystic lesions of the pancreas with differential and follow-u p recommendation as previously described. 3. Mild wall thickening of the urinary bladder on the left. Differential includ es urothelial carcinoma, infection, chronic outlet obstruction, and treatment c hange.
--- NOTE | ~2023-02-12 | XR_ITS ---
EXAMINATION: XR abdomen gastric tube insert INDICATION: Nasogastric tube insertion TECHNIQUE: Portable AP KUB-NG at 0219 hours COMPARISON: CT from yesterday FINDINGS: The nasogastric tube is in the stomach. Mildly dilated loops of small bowel are noted in th e midabdomen. There is mild atelectasis of the lung bases. IMPRESSION: 1. Nasogastric tube in the stomach. 2. Mildly dilated small bowel. Reviewed, dictated and finalized at location F. N OPERATIONS SUPERVISOR
[2023-02-12 22:03] VITALS: BP 131/69; PULSE 99; RESP 14; TEMP 36.5; O2SAT 98
[2023-02-12 22:11] VITALS: BP 153/74; PULSE 75; RESP 16; TEMP 36.4; O2SAT 99
[2023-02-12 22:34] LABS: Basophils Absolute Auto 0.1 K/mm3 (0.0-0.1); Basophils Percent Auto 0.5 % (0.2-1.2); Eosinophils Absolute Auto 0.6 K/mm3 (0-0.3); Eosinophils Percent Auto 5.7 % (0-4.4); Hematocrit 38.8 % (42.0-52.0); Hemoglobin 12.9 g/dL (14.0-18.0); Immature Granulocyte Absolute 0.14 K/mm3 (0.00-0.031); Immature Granulocyte Percent A 1.3 % (0-0.5); Lymphocytes Absolute Auto 0.61 K/mm3 (0.9-3.2); Lymphocytes Percent Auto 5.7 % (18.3-44.2); Mean Corpuscular HGB Conc 33.2 g/dl (32-36); Mean Corpuscular Hemoglobin 32.4 pg (26-34); Mean Corpuscular Volume 97.5 fl (80-100); Mean Platelet Volume 9.6 fl (7.4-10.4); Monocytes Absolute Auto 1.2 K/mm3 (0.1-0.6); Monocytes Percent Auto 11.4 % (2.6-8.5); Neutrophils Absolute Auto 8.1 K/mm3 (1.3-6.7); Neutrophils Percent Auto 75.4 % (45.5-73.1); Platelet Count Result 202 k/mm3 (150-375); Red Blood Count 3.98 M/mm3 (4.6-6.20); Red Cell Distribution Width 15.8 % (11.5-14.5); White Blood Count 10.7 K/mm3 (4.5-10.0)
[2023-02-12 22:44] LABS: Alanine Aminotransferase 28 U/L (6-50); Albumin Level 3.3 g/dL (3.5-5.1); Alkaline Phosphatase 71 U/L (38-126); Anion Gap 10 mmol/L (8-16); Aspartate Amino Transferase 35 U/L (17-59); Bilirubin,Total 0.7 mg/dL (0.2-1.3); Blood Urea Nitrogen 44 mg/dL (9-20); Calcium 9.3 mg/dL (8.4-10.2); Carbon Dioxide 23 mmol/L (22-30); Chloride 101 mmol/L (98-107); Estimated CRCL calculation 18 ml/min; Estimated Glomerular Filt Rate 24; Glucose 112 mg/dL (65-110); Lipase 110 U/L (23-300); Potassium 4.5 mmol/L (3.4-5.0); Sodium 134 mmol/L (137-145)
[2023-02-12] MEDS: ONDANSETRON INJ 4 MG/2 ML VIAL IV PUSH (22:47)
[2023-02-12 23:12] LABS: Appearance Urine Cloudy (Clear); Bacteria Urine None Seen /hpf; Bilirubin Urine Negative (Negative); Blood Urine Negative (Negative); Color Urine Yellow (Yellow); Glucose Urine UA 2+ mg/dL (Negative); Ketones Urine Trace mg/dL (Negative); Leukocyte Esterase Ur Negative LEU/UL (Negative); Nitrate Urine Negative (Negative); Non Pathogenic Casts 0-2; Protein Urine Negative (Negative); RBC Urine 0-2 /hpf (0-2); Specific Grav Ur 1.014 (1.001-1.035); Squamous Epithelial Cell Urine None seen /hpf (Few); Urobilinogen Urine 0.2 mg/dL (<2.0); WBC Urine 0-5 /hpf
--- NOTE | 2023-02-12 23:12 | ED.ABDPAIN ---
HPI - Abdominal Pain General Chief Complaint: Abdominal Pain <Karina Coats PA-C - Last Filed: 02/13/23 02:07> Stated Complaint: abdominal pain, n/v <Karina Coats PA-C - Last Filed: 02/13/23 02:07> Time Seen by Provider: 02/12/23 22:24 <Karina Coats PA-C - Last Filed: 02/13/23 02:07> Source: patient <CAMERON Kent Last Filed: 02/13/23 02:07> Mode of arrival: ambulatory <CAMERON Kent Last Filed: 02/13/23 02:07> Limitations: no limitations <CAMERON Kent Last Filed: 02/13/23 02:07> History of Present Illness HPI narrative: This is a 77 year old male that presents to the ER for worsening abdominal pain. Reports he was recently admitted for an ileus and urinary retention. He was discharged yesterday. He was doing well until tonight when he started on have return of abdominal pain and vomiting. He has not had a bowel movement today. He is currently taking antibiotics for a UTI as well. Denies fevers, or difficulty urinating. <Karina Coats PA-C - Last Filed: 02/13/23 02:07> Related Data Home Medications: Home Medications Medication Instructions Recorded Confirmed ascorbic acid (vitamin C) 500 mg 500 mg PO BID 08/11/22 02/13/23 tablet atorvastatin 40 mg tablet 40 mg PO HS 08/11/22 02/13/23 cholecalciferol (vitamin D3) 50 50 mcg PO BID 08/11/22 02/13/23 mcg (2,000 unit) tablet empagliflozin 25 mg tablet 25 mg PO DAILY 08/11/22 02/13/23 (Jardiance) ezetimibe 10 mg tablet 10 mg PO DAILY 08/11/22 02/13/23 ferrous sulfate 325 mg (65 mg 325 mg PO BID 08/11/22 02/13/23 iron) tablet (FeroSul) glipizide 10 mg tablet 10 mg PO BID 08/11/22 02/13/23 prednisone 5 mg tablet 5 mg PO HS 08/11/22 02/13/23 sitagliptin phosphate 50 mg tablet 50 mg PO DAILY 08/11/22 02/13/23 (Januvia) sodium bicarbonate 325 mg tablet 325 mg PO DAILY 08/11/22 02/13/23 nifedipine 60 mg tablet,extended 60 mg PO DAILY 01/18/23 02/13/23 release aspirin 81 mg tablet 81 mg PO DAILY 02/09/23 02/13/23 <Karina Coats PA-C - Last Filed: 02/13/23 02:07> Allergies/Adverse Reactions: Allergies Allergy/AdvReac Type Severity Reaction Status Date / Time Penicillins Allergy Mild Swelling Verified 02/09/23 09:19 <Karina Coats PA-C - Last Filed: 02/13/23 02:07> Review of Systems Review of Systems: CONSTITUTIONAL: Denies fever GASTROINTESTINAL: Reports abdominal pain, nausea, vomiting GENITOURINARY: Denies dysuria <Karina Coats PA-C - Last Filed: 02/13/23 02:07> All systems reviewed & are unremarkable except as noted in HPI and below <Karina Coats PA-C - Last Filed: 02/13/23 02:07> [facility] Past Medical History Medical History: Medical History (Updated 02/13/23 @ 01:43 BAT PERSON by Karina Coats PA-C) Bladder cancer Chronic kidney disease, unspecified Diabetes mellitus Hyperlipidemia Hypertension <Karina Coats PA-C - Last Filed: 02/13/23 02:07> Surgical History Surgical History: Surgical History History of transurethral resection of bladder tumor (TURBT) 10/28/22 - performed at [facility] <Karina Coats PA-C - Last Filed: 02/13/23 02:07> Family History Family History: Family History Father Acute myocardial infarction <Karina Coats PA-C - Last Filed: 02/13/23 02:07> Social History Social History: Social History (Updated 02/09/23 @ 20:21 by Addie E. Kelsi, NUCLEAR OPERATIONS SPECIALIST) Social History: Lives at home with his spouse. Surrogate decision maker: Altagracia Walters, . Code Status: DNR. Smoking packs per day: 0.5 Smoking cigarettes per day: 10.0 Years smoked: 10 Smoking pack-years: 5.00 Smoking status: Former smoker Tobacco type: cigarettes Alcohol intake: never Substance use: never Lack of Transportation: No Lack of Food: Never True Current Housing: [facility]
[2023-02-12 23:24] LABS: Add Urine Microscopic? YES
[2023-02-13] VITALS (9 sets, daily range): BP systolic 117–167; BP diastolic 46–73; PULSE 78–100; RESP 14–19; TEMP 36.2–36.9; O2SAT 95–100
[2023-02-13] MEDS: diphenhydrAMINE HCl INJ 50 MG/ML VIAL 25 MG IV PUSH (00:48)
[2023-02-13] MEDS: METOCLOPRAMIDE HCL INJ 10 MG/2 ML VIAL IV PUSH (00:48)
--- NOTE | 2023-02-13 02:07 | PM.IMHP ---
H&P: HPI History of Present Illness Date/Time: 02/13/23 02:07 Chief Complaint: N/V/Abdominal pain Narrative: This is a 77 yo male with PMHx significant for Bladder CA undergoing radiation, urethral stricture, Ileus, recently discharged after having urinary retention, went home has been having constipation passing some stool but small. Presents today to ED due to n/v/abdominal pain. No fevers, no rigors, no chills, no hematemesis, no coffee ground emesis, no diarrhea or lose stools, no melena. CT abd/pel was reported as: EXAMINATION: CT abdomen pelvis wo con DATE: 02/12/2023 23:19 INDICATION: Abdominal pain and vomiting TECHNIQUE: Computed tomography (CT) of the abdomen and pelvis was performed without intravenous contrast. The dose-length product (DLP) was 354.99 mGy-cm. Automated exposure control and iterative reconstruction technique were employed. COMPARISON: 02/09/2023 FINDINGS: Minimal dependent atelectasis is present in the lung bases. The heart size is normal. The liver, spleen, gallbladder, and adrenal glands are normal. Multiple cystic lesions of the pancreas are again noted which measure up to 12 mm. There is atrophy of the kidneys. A 3 cm cyst is noted in the left kidney. There is calcified atherosclerosis of the aorta and many of the other arteries. There are persistently dilated small bowel without focal transition point. There is no free intraperitoneal gas. Colonic diverticulosis is present without evidence of diverticulitis. No pathologically enlarged abdominal or pelvic lymph nodes are identified. The appendix is normal. There is gas in the urinary bladder. Mild thickening is again noted in the wall of the urinary bladder on the left. IMPRESSION: 1. Dilated small bowel without focal transition point, consistent with adynamic ileus versus partial obstruction. 2. Multiple small cystic lesions of the pancreas with differential and follow-up recommendation as previously described. 3. Mild wall thickening of the urinary bladder on the left. Differential includes urothelial carcinoma, infection, chronic outlet obstruction, and treatment change. Review of Systems Review of Systems: abdominal pain, n/v/constipation. Constitutional: Constitutional: Denies chills, Denies fatigue, Denies fever(s), Denies night sweats and Reports poor appetite Eyes: Eyes: Denies change in vision ENT: Denies dysphagia and Denies odynophagia Cardiovascular: Cardiovascular: Denies chest pain, Denies radiating jaw, neck or arm pain, Denies palpitations and Denies dyspnea Respiratory: Respiratory: Denies chest congestion, Denies cough and Denies dyspnea Gastrointestinal: Gastrointestinal: Reports abdominal pain, Reports constipation, Denies dyspepsia, Denies heartburn, Denies diarrhea, Denies loose stools, Reports nausea and Reports vomiting Genitourinary: Genitourinary: Denies dysuria and Denies flank pain Musculoskeletal: Musculoskeletal: Denies myalgias and Denies arthralgias Integumentary/Breasts: Skin/Breast: Denies rash Neurologic: Denies vertigo, Denies dizziness, Denies focal weakness and Denies Sensory deficit (Neuro) Psychiatric: Psychiatric: Reports no additional psychiatric complaints and Reports as per HPI Endocrine: Endocrine: Denies cold intolerance, Denies flushing, Denies heat intolerance, Denies polyphagia, Denies polydipsia and Denies palpitations Hematologic/Lymphatic: Hematologic/Lymphatic: Reports no additional hematologic/lymphatic complaints and Reports as per HPI Allergic/Immunologic: Allergic/Immunologic: Reports no additional allergic/immunologic complaints and Reports as per HPI PMFSH Past Medical History Medical History Bladder cancer Chronic kidney disease, unspecified Diabetes mellitus Hyperlipidemia Hypertension Surgical History Surgical History History of transurethral resection of bl
--- NOTE | 2023-02-13 03:20 | ADMGEN ---
This patient, Vince Walters, was admitted to 2 Medical Room 260-. Patient/family oriented to hospital policies and general routines including ID bracelet, bed and alarms, visiting hours, pain management, procedures, bathroom and other care routines, personal items, smoking policy, room service/diet, and visiting hours. Information on how to activate the Rapid Response Team has been discussed. Patient/Family are encouraged to report perceived risks to care and to ask questions if they do not understand what they are told or what they should do.
[2023-02-13] MEDS: SODIUM CHLORIDE 0.9% IV 1,000 ML 125 ML IV CONT ×3 (03:42→20:27)
--- NOTE | 2023-02-13 07:33 | PM.IMPN ---
Progress Note: A&P Assessment and Plan (1) Small bowel obstruction: Code(s): K56.609 - Unspecified intestinal obstruction, unspecified as to partial versus complete obstruction Status: Acute Assessment and Plan: 02/13/23: KUB be showing mildly dilated small bowel likely ileus The CT the abdomen pelvis shows possible ileus versus obstruction, multiple small cystic lesions on the pancreas Patient has an NG tube which is clamped now per General surgery's recommendation Patient had a bowel movement this morning and is passing gas. Bowel sounds are normal active, abdomen is soft, and nondistended. He reports a little tenderness over the left upper quadrant. Keep NPO for now until NG tube is removed General surgery following White blood cell count 7.3, magnesium 1.8, phos 4.2, potassium 4.6, sodium 135 (2) Adynamic ileus: Code(s): K56.0 - Paralytic ileus Status: Acute Assessment and Plan: 02/13/23: see above (3) Acute UTI: Code(s): N39.0 - Urinary tract infection, site not specified Status: Acute Assessment and Plan: 02/13/23: Currently under treatment for UTI, UC positive for enterococcus species, patient discharged from hospital yesterday. Continue linezolid IV for now considering he is NPO (4) Chronic kidney disease, stage 4 (severe): Code(s): N18.4 - Chronic kidney disease, stage 4 (severe) Status: Acute Assessment and Plan: 02/13/23: BUN 38, creatinine 2.2, potassium 4.6 Will continue to monitor labs (5) Hypertension: Code(s): I10 - Essential (primary) hypertension Status: Acute Assessment and Plan: 02/13/23: Order IV hydralazine p.r.n. for systolics greater than 160, or diastolic greater than 100 Once NG tube is out we will restart home medications for hypertension (6) Diabetes mellitus: Code(s): E11.9 - Type 2 diabetes mellitus without complications Status: Acute Assessment and Plan: 02/13/23: Blood sugars ranging 112-199 Hold home diabetic medications Start sliding scale insulin for correctional Q6 hour Accu-Cheks while NPO Time Spent With Patient Time with patient: Greater than 35 minutes Subjective Date/time seen: 02/13/23 07:33 Interval history: Interval history: 02/12/23: This is a 77 year old male who presented to the hospital on 02/12/23 with nausea, vomiting, and abdominal pain. Work up in hospital included a KUB which shown mildly dilated small bowel consistent with ileus. He also had a CT scan of the abdomen which shownNG tube was placed to LIS and General surgery was consulted. Patient was given a dose of Zofran and started on IVF overnight. He is currently NPO. Of note, patient was recently discharged on 02/11/23 with urinary retention due to a stricture, treated for UTI, and was sent home on po Linezolid. Urine culture showing enterococcus species on final report. During that admission urology was consulted and did a cystoscopy which revealed the stricture. He did show an ileus as well during this admission, however patient was tolerating food and drink, had a BM, and his abdomen was soft. He had not nausea, vomiting, or abdominal pain upon discharge. 02/13/23: On examination today patient is alert and oriented x4, lying in the bed with at the bedside. He states that he is feeling much better now. He denies any nausea, vomiting, diarrhea, abdominal pain, fevers, chills, shortness of breath or chest pain. Patient reports he is passing gas and had a bowel movement this morning. Bowel sounds normoactive, abdomen is soft, non-distended, slight tenderness to palpation of left upper quadrant. General surgery seen patient today and has the NG tube clamped for 4 hours to see how he does. If he tolerates he may be able to move to clear liquid diet. Patient is afebrile, on room air, blood pressure ranging 166/65- 167/71 otherwise normal vital signs. Labs today reveal WBC 10.7, RBC 3.98, Hgb 12.
--- NOTE | 2023-02-13 07:49 | PM.CNGS ---
Assessment and Plan Assessment and plan (1) Small bowel obstruction: Code(s): K56.609 - Unspecified intestinal obstruction, unspecified as to partial versus complete obstruction Status: Acute Assessment and Plan: exam benign, will clamp NG and try to remove later today, start clears if NG out (2) Acute UTI: Code(s): N39.0 - Urinary tract infection, site not specified Status: Acute Assessment and Plan: cont abx, likely contributing to ileus (3) Diabetes mellitus: Code(s): E11.9 - Type 2 diabetes mellitus without complications Status: Acute Assessment and Plan: stable, cont current mgmt (4) Hypertension: Code(s): I10 - Essential (primary) hypertension Status: Acute Assessment and Plan: cont home meds History of Present Illness Consult details Consult date: 02/13/23 Reason for consult: abdominal pain Requesting physician: Karina Coats PA-C Narrative: The patient is a 77-year-old presenting to the emergency department complaining worsening, diffuse pain associated nausea, emesis. The patient had recently been discharged a day ago after treatment for urinary tract infection, ileus. Workup in the emergency department, including imaging, is significant for small bowel obstruction. Of note, pt is feeling much better this morning and had small BM overnight. Review of Systems Review of Systems: All systems reviewed & are unremarkable except as noted in HPI and below PMFSH Past Medical History Medical History Bladder cancer Chronic kidney disease, unspecified Diabetes mellitus Hyperlipidemia Hypertension Surgical History Surgical History History of transurethral resection of bladder tumor (TURBT) 10/28/22 - performed at [facility] Family History Family History Father Acute myocardial infarction Social History Social History Social History: Lives at home with his spouse. Surrogate decision maker: Altagracia Walters, . Code Status: DNR. Smoking packs per day: 0.5 Smoking cigarettes per day: 10.0 Years smoked: 10 Smoking pack-years: 5.00 Smoking status: Former smoker Tobacco type: cigarettes Alcohol intake: never Substance use: never Lack of Transportation: No Lack of Food: Never True Current Housing: I Have Housing Concerned About Future Housing: No Difficulty Paying Gas/Electric Bills: No Difficulty Paying for Meds: No Currently Unemployed: No Education: High School Diploma/GED Difficulty w/ Childcare or Family Care: No Living arrangements: with family Gender identity (if verbalized by the patient): Male Spiritual care concerns: No Meds Home Medications and Allergies Home Medications Medication Instructions Recorded Confirmed Type hydrochlorothiazide 12.5 mg capsule 12.5 mg PO DAILY #30 caps 05/17/22 02/13/23 Rx lisinopril 10 mg tablet 10 mg PO DAILY #30 tabs 05/17/22 02/13/23 Rx terazosin 5 mg capsule 5 mg PO BID #60 caps 05/17/22 02/13/23 Rx ascorbic acid (vitamin C) 500 mg 500 mg PO BID 08/11/22 02/13/23 History tablet atorvastatin 40 mg tablet 40 mg PO HS 08/11/22 02/13/23 History cholecalciferol (vitamin D3) 50 50 mcg PO BID 08/11/22 02/13/23 History mcg (2,000 unit) tablet empagliflozin 25 mg tablet 25 mg PO DAILY 08/11/22 02/13/23 History (Jardiance) ezetimibe 10 mg tablet 10 mg PO DAILY 08/11/22 02/13/23 History ferrous sulfate 325 mg (65 mg 325 mg PO BID 08/11/22 02/13/23 History iron) tablet (FeroSul) glipizide 10 mg tablet 10 mg PO BID 08/11/22 02/13/23 History prednisone 5 mg tablet 5 mg PO HS 08/11/22 02/13/23 History sitagliptin phosphate 50 mg tablet 50 mg PO DAILY 08/11/22 02/13/23 History (Januvia) sodium bicarbonate 325 mg
[2023-02-13 08:38] LABS: Glucose Point of Care 85 mg/dl (65-105)
[2023-02-13 09:04] LABS: Basophils Percent Auto 0.5 % (0.2-1.2); Eosinophils Absolute Auto 0.5 K/mm3 (0-0.3); Eosinophils Percent Auto 6.6 % (0-4.4); Hematocrit 36.8 % (42.0-52.0); Hemoglobin 12.1 g/dL (14.0-18.0); Immature Granulocyte Absolute 0.07 K/mm3 (0.00-0.031); Lymphocytes Absolute Auto 0.48 K/mm3 (0.9-3.2); Lymphocytes Percent Auto 6.6 % (18.3-44.2); Mean Corpuscular HGB Conc 32.9 g/dl (32-36); Mean Corpuscular Hemoglobin 32.4 pg (26-34); Mean Corpuscular Volume 98.4 fl (80-100); Mean Platelet Volume 9.5 fl (7.4-10.4); Monocytes Absolute Auto 1.1 K/mm3 (0.1-0.6); Monocytes Percent Auto 15.6 % (2.6-8.5); Neutrophils Absolute Auto 5.1 K/mm3 (1.3-6.7); Neutrophils Percent Auto 69.7 % (45.5-73.1); Platelet Count Result 173 k/mm3 (150-375); Red Blood Count 3.74 M/mm3 (4.6-6.20); Red Cell Distribution Width 15.8 % (11.5-14.5); White Blood Count 7.3 K/mm3 (4.5-10.0)
[2023-02-13 09:19] LABS: Alanine Aminotransferase 45 U/L (6-50); Albumin Level 2.8 g/dL (3.5-5.1); Alkaline Phosphatase 63 U/L (38-126); Anion Gap 10 mmol/L (8-16); Aspartate Amino Transferase 50 U/L (17-59); Bilirubin,Total 0.6 mg/dL (0.2-1.3); Blood Urea Nitrogen 38 mg/dL (9-20); Carbon Dioxide 18 mmol/L (22-30); Chloride 107 mmol/L (98-107); Estimated CRCL calculation 21 ml/min; Estimated Glomerular Filt Rate 29; Glucose 83 mg/dL (65-110); Magnesium 1.8 mg/dL (1.6-2.3); Phosphorus 4.2 mg/dL (2.5-4.5); Potassium 4.6 mmol/L (3.4-5.0); Sodium 135 mmol/L (137-145)
[2023-02-13 12:16] LABS: Glucose Point of Care 62 mg/dl (65-105)
[2023-02-13 13:35] LABS: Glucose Point of Care 98 mg/dl (65-105)
--- NOTE | 2023-02-13 14:02 | PC.NURSE ---
Pts blood glucose was rechecked after hypoglycemic event. pts blood sugar when rechecking was 98 after giving some apple juice due to order change to clear liquids and tolerating well. pt had no s/s of hypoglycemia. pt sitting up in bed, a&O x3, no concerns voiced at this time, call light in reach.
[2023-02-13 17:04] LABS: Glucose Point of Care 66 mg/dl (65-105)
[2023-02-13 19:16] LABS: Glucose Point of Care 200 mg/dl (65-105)
[2023-02-13] MEDS: LINEZOLID 600 MG TABLET PO (20:25)
[2023-02-13 21:04] LABS: Glucose Point of Care 224 mg/dl (65-105)
[2023-02-14] VITALS (7 sets, daily range): BP systolic 112–155; BP diastolic 47–61; PULSE 68–98; RESP 16–18; TEMP 36.3–36.9; O2SAT 95–99
[2023-02-14] MEDS: SODIUM CHLORIDE 0.9% IV 1,000 ML 125 ML IV CONT ×2 (04:46→13:39)
[2023-02-14 05:58] LABS: Basophils Percent Auto 0.5 % (0.2-1.2); Eosinophils Absolute Auto 0.8 K/mm3 (0-0.3); Eosinophils Percent Auto 10.6 % (0-4.4); Hematocrit 33.9 % (42.0-52.0); Hemoglobin 10.7 g/dL (14.0-18.0); Immature Granulocyte Absolute 0.07 K/mm3 (0.00-0.031); Immature Granulocyte Percent A 0.9 % (0-0.5); Lymphocytes Absolute Auto 0.53 K/mm3 (0.9-3.2); Lymphocytes Percent Auto 6.9 % (18.3-44.2); Mean Corpuscular HGB Conc 31.6 g/dl (32-36); Mean Corpuscular Hemoglobin 31.8 pg (26-34); Mean Corpuscular Volume 100.6 fl (80-100); Mean Platelet Volume 9.7 fl (7.4-10.4); Monocytes Absolute Auto 1.1 K/mm3 (0.1-0.6); Monocytes Percent Auto 14.7 % (2.6-8.5); Neutrophils Absolute Auto 5.1 K/mm3 (1.3-6.7); Neutrophils Percent Auto 66.4 % (45.5-73.1); Platelet Count Result 159 k/mm3 (150-375); Red Blood Count 3.37 M/mm3 (4.6-6.20); Red Cell Distribution Width 15.8 % (11.5-14.5); White Blood Count 7.7 K/mm3 (4.5-10.0)
[2023-02-14 06:09] LABS: Alanine Aminotransferase 71 U/L (6-50); Albumin Level 2.4 g/dL (3.5-5.1); Alkaline Phosphatase 56 U/L (38-126); Anion Gap 6 mmol/L (8-16); Aspartate Amino Transferase 55 U/L (17-59); Bilirubin,Total 0.5 mg/dL (0.2-1.3); Blood Urea Nitrogen 29 mg/dL (9-20); Calcium 7.7 mg/dL (8.4-10.2); Carbon Dioxide 20 mmol/L (22-30); Chloride 107 mmol/L (98-107); Estimated CRCL calculation 23 ml/min; Estimated Glomerular Filt Rate 33; Glucose 101 mg/dL (65-110); Potassium 4.3 mmol/L (3.4-5.0); Sodium 133 mmol/L (137-145)
[2023-02-14] MEDS: LINEZOLID 600 MG TABLET PO ×2 (08:16→20:20)
[2023-02-14 08:18] LABS: Glucose Point of Care 99 mg/dl (65-105)
[2023-02-14 11:17] LABS: Glucose Point of Care 133 mg/dl (65-105)
--- NOTE | 2023-02-14 14:16 | P.PNIM_ITS ---
Progress Note: A&P Assessment and Plan (1) Small bowel obstruction: Code(s): K56.609 - Unspecified intestinal obstruction, unspecified as to partial versus complete obstruction Status: Acute Assessment and Plan: 02/13/23: * KUB be showing mildly dilated small bowel likely ileus * The CT the abdomen pelvis shows possible ileus versus obstruction, multiple small cystic lesions on the pancreas * Patient has an NG tube which is clamped now per General surgery's recommendation * Patient had a bowel movement this morning and is passing gas.? Bowel sounds are normal active, abdomen is soft, and nondistended.? He reports a little tenderness over the left upper quadrant. * Keep NPO for now until NG tube is removed * General surgery following * White blood cell count 7.3, magnesium 1.8, phos 4.2, potassium 4.6, sodium 135 02/14/23: * NG tube removed * Patient started on diet * Passing gas, had a BM today, normoactive bowel sounds, abdomen is soft, tenderness noted LUQ. Reports occasional cramping. * General surgery following * WBC 7.7, K+ 4.3, Na+ 133 (2) Urethral stricture: Code(s): N35.919 - Unspecified urethral stricture, male, unspecified site Status: Acute Assessment and Plan: 02/13/23: * see above (3) Hypertension: Code(s): I10 - Essential (primary) hypertension Status: Acute Assessment and Plan: 02/13/23: * Order IV hydralazine p.r.n. for systolics greater than 160, or diastolic greater than 100 * Once NG tube is out we will restart home medications for hypertension 02/14/23: * B/P ranging 135/47-140/61 * restart home medications (4) Diabetes mellitus: Code(s): E11.9 - Type 2 diabetes mellitus without complications Status: Acute Assessment and Plan: 02/13/23: * Blood sugars ranging 112-199 * Hold home diabetic medications * Start sliding scale insulin for correctional * Q6 hour Accu-Cheks while NPO 02/14/23: * Blood sugars ranging 83-101 * Hgb A1C 7.6 * Continue with SSI and AC/HS accu checks (5) Chronic kidney disease, stage 4 (severe): Code(s): N18.4 - Chronic kidney disease, stage 4 (severe) Status: Acute Assessment and Plan: 02/13/23: * BUN 38, creatinine 2.2, potassium 4.6 * Will continue to monitor labs 02/14/23: * BUN 29, creatinine 2.0, potassium 4.3, bicarb 20 * Continue to monitor labs (6) Cancer of overlapping sites of bladder: Code(s): C67.8 - Malignant neoplasm of overlapping sites of bladder Status: Acute Assessment and Plan: noted see above (7) Acute UTI: Code(s): N39.0 - Urinary tract infection, site not specified Status: Acute Assessment and Plan: 02/13/23: * Currently under treatment for UTI, UC positive for enterococcus species, patient discharged from hospital yesterday. * Continue linezolid IV for now considering he is NPO 02/14/23: * Continue Linezolid po now that he is eating and drinking Time Spent With Patient Time with patient: 25 - 35 minutes Subjective Date/time seen: 02/14/23 14:16 Interval history: Interval history: 02/12/23: This is a 77 year old male who presented to the hospital on 02/12/23 with nausea, vomiting, and abdominal pain. Work up in hospital included a KUB which shown mildly dilated small bowel consistent with ileus. He also had a CT scan of the abdomen which shownNG tube was placed to LIS and General surgery was consulted. Patient was given a dose of Zofran and started on IVF overnight. He is currently
--- NOTE | 2023-02-14 14:16 | PM.IMPN ---
Progress Note: A&P Assessment and Plan (1) Small bowel obstruction: Code(s): K56.609 - Unspecified intestinal obstruction, unspecified as to partial versus complete obstruction Status: Acute Assessment and Plan: 02/13/23: KUB be showing mildly dilated small bowel likely ileus The CT the abdomen pelvis shows possible ileus versus obstruction, multiple small cystic lesions on the pancreas Patient has an NG tube which is clamped now per General surgery's recommendation Patient had a bowel movement this morning and is passing gas.? Bowel sounds are normal active, abdomen is soft, and nondistended.? He reports a little tenderness over the left upper quadrant. Keep NPO for now until NG tube is removed General surgery following White blood cell count 7.3, magnesium 1.8, phos 4.2, potassium 4.6, sodium 135 02/14/23: NG tube removed Patient started on diet Passing gas, had a BM today, normoactive bowel sounds, abdomen is soft, tenderness noted LUQ. Reports occasional cramping. General surgery following WBC 7.7, K+ 4.3, Na+ 133 (2) Urethral stricture: Code(s): N35.919 - Unspecified urethral stricture, male, unspecified site Status: Acute Assessment and Plan: 02/13/23: see above (3) Hypertension: Code(s): I10 - Essential (primary) hypertension Status: Acute Assessment and Plan: 02/13/23: Order IV hydralazine p.r.n. for systolics greater than 160, or diastolic greater than 100 Once NG tube is out we will restart home medications for hypertension 02/14/23: B/P ranging 135/47-140/61 restart home medications (4) Diabetes mellitus: Code(s): E11.9 - Type 2 diabetes mellitus without complications Status: Acute Assessment and Plan: 02/13/23: Blood sugars ranging 112-199 Hold home diabetic medications Start sliding scale insulin for correctional Q6 hour Accu-Cheks while NPO 02/14/23: Blood sugars ranging 83-101 Hgb A1C 7.6 Continue with SSI and AC/HS accu checks (5) Chronic kidney disease, stage 4 (severe): Code(s): N18.4 - Chronic kidney disease, stage 4 (severe) Status: Acute Assessment and Plan: 02/13/23: BUN 38, creatinine 2.2, potassium 4.6 Will continue to monitor labs 02/14/23: BUN 29, creatinine 2.0, potassium 4.3, bicarb 20 Continue to monitor labs (6) Cancer of overlapping sites of bladder: Code(s): C67.8 - Malignant neoplasm of overlapping sites of bladder Status: Acute Assessment and Plan: noted see above (7) Acute UTI: Code(s): N39.0 - Urinary tract infection, site not specified Status: Acute Assessment and Plan: 02/13/23: Currently under treatment for UTI, UC positive for enterococcus species, patient discharged from hospital yesterday. Continue linezolid IV for now considering he is NPO 02/14/23: Continue Linezolid po now that he is eating and drinking Time Spent With Patient Time with patient: 25 - 35 minutes Subjective Date/time seen: 02/14/23 14:16 Interval history: Interval history: 02/12/23: This is a 77 year old male who presented to the hospital on 02/12/23 with nausea, vomiting, and abdominal pain. Work up in hospital included a KUB which shown mildly dilated small bowel consistent with ileus. He also had a CT scan of the abdomen which shownNG tube was placed to LIS and General surgery was consulted. Patient was given a dose of Zofran and started on IVF overnight. He is currently NPO. Of note, patient was recently discharged on 02/11/23 with urinary retention due to a stricture, treated for UTI, and was sent home on po Linezolid. Urine culture showing enterococcus species on final report. During that admission urology was consulted and did a cystoscopy which revealed the stricture. He did show an ileus as well during this admission, however patient was tolerating food and drink, had a BM, and his abdomen was soft. He had not nausea, vomiting, or a
--- NOTE | 2023-02-14 14:23 | PM.PNGS ---
Progress Note: A&P Assessment and Plan (1) Small bowel obstruction: Code(s): K56.609 - Unspecified intestinal obstruction, unspecified as to partial versus complete obstruction Status: Acute Assessment and Plan: exam benign, NG out, zohaib clears, +bowel fxn, will advance to soft diet, encourage OOB Subjective Subjective Date/Time Seen: 02/14/23 14:23 Interval history: feels ok, +multiple loose stools, zohaib clears, intermittent cramping Review of Systems Review of Systems: All systems reviewed & are unremarkable except as noted in HPI and below Exam Const: General: cooperative, comfortable and no acute distress GI: Inspection: normal to inspection and non-distended GI Palp: No abdominal tenderness, Yes Soft to palpation, No Tenderness to palpation present (GI), No Guarding due to palpation present (GI) and No Rigid due to palpation Objective Data Vital Signs Vital Signs: Vital Signs - 24 hr 02/13/23 16:46 02/13/23 19:43 02/14/23 00:00 Temperature 36.4 C 36.9 C 36.9 C Pulse Rate 78 100 87 Respiratory Rate 16 18 18 Blood Pressure 117/46 L 133/60 112/61 Pulse Oximetry 96 97 95 Oxygen Delivery 02/13/23 20:00 02/14/23 04:00 02/14/23 08:00 Temperature 36.8 C Pulse Rate 79 Respiratory Rate 18 Blood Pressure 135/47 L Pulse Oximetry 97 Oxygen Delivery Room Air Room Air 02/14/23 11:32 Temperature 36.3 C L Pulse Rate 68 Respiratory Rate 16 Blood Pressure 140/61 Pulse Oximetry 97 Oxygen Delivery Intake/Output Intake/Output: Intake & Output 02/12/23 02/13/23 02/13/23 02/14/23 00:59 00:59 23:59 23:59 Intake Total 2960 Output Total 525 Balance 2435 Meds/Results Medications: Active Medications Generic Name Dose Route Start Last Admin Trade Name Freq PRN Reason Stop Dose Admin Dextrose 12.5 gm 02/13/23 08:02 Dextrose 50% 25 Gm/50 Ml Syringe IV PUSH PRN PRN Hypoglycemia Protocol Glucagon 1 mg 02/13/23 08:02 Glucagon For Inj 1 Mg Vial IM PRN PRN Hypoglycemia Protocol Glucose 15 gm 02/13/23 08:02 Glucose Oral Gel 15 Gm Of Glucse In 37.5 Gm Tube PO PRN PRN Hypoglycemia Protocol Hydralazine HCl 10 mg 02/13/23 08:11 Hydralazine Hcl 20 Mg/Ml Vial IV PUSH Q8H PRN Blood Pressure - High Sodium Chloride 1,000 mls @ 125 mls/hr 02/13/23 01:50 NURSE GENERAL DUTY 02/14/23 13:39 Normal Saline Iv IV CONT 125 mls/hr .Q8H LUIS Administration Dextrose 1,000 mls @ 100 mls/hr 02/13/23 08:02 Dextrose 5% 1,000 Ml IVPB PRN PRN Hypoglycemia Protocol Insulin Aspart 3 - 6 units 02/13/23 17:00 02/14/23 11:22 Insulin Aspart (*Bkc) 100 Units/Ml SUB-Q Not Given TIDWM [facility] Protocol Linezolid 600 mg 02/13/23 09:00 02/14/23 08:16 Linezolid 600 Mg Tablet PO 600 mg Q12HR LUIS Administration Morphine Sulfate 2 mg 02/13/23 08:06 Morphine Sulfate (*Crx) 2 Mg/Ml Inj IV PUSH Q4H PRN Pain Rated 7-10 Ondansetron HCl 4 mg 02/13/23 08:06 Ondansetron Inj 4 Mg/2 Ml Vial IV PUSH Q6H PRN Nausea And Vomiting Radiology Results: ITS Impressions Abdomen X-Ray 02/13/23 06:54 IMPRESSION: 1. Nasogastric tube in the stomach. 2. Mildly dilated small bowel. Abdomen/Pelvis CT 02/13/23 08:16 IMPRESSION: 1. Dilated small bowel without focal transition point, consistent with adynamic ileus versus partial obstruction. 2. Multiple small cystic lesions of the pancreas with differential and follow-up recommendation as previously described. 3. Mild wall thickening of the urinary bladder on the left. Differential includes urothelial carcinoma, infection, chronic outlet obstruction, and treatment change. Labs Labs: Laboratory Results - last 24 hr 02/13/23 02/13/23 02/13/23 16:57 19:13 20:49 WBC RBC Hgb Hct MCV MCH MCHC RDW Plt Count MPV Immature Gran % (Auto) Neut % (Auto) Lymp
[2023-02-14 17:06] LABS: Glucose Point of Care 113 mg/dl (65-105)
[2023-02-14] MEDS: CHOLECALCIFEROL 1,000 UNITS TABLET 2000 UNITS PO (17:35)
[2023-02-14] MEDS: ASCORBIC ACID 500 MG TABLET PO (17:36)
[2023-02-14] MEDS: FERROUS SULFATE 325 MG TABLET DR PO (17:36)
[2023-02-14] MEDS: TERAZOSIN HCL 5 MG CAPSULE PO (17:36)
[2023-02-14] MEDS: carvediloL 25 MG TABLET PO (20:20)
[2023-02-14] MEDS: ATORVASTATIN 40 MG TABLET PO (20:20)
[2023-02-14] MEDS: predniSONE 5 MG TABLET PO (20:20)
[2023-02-14 20:54] LABS: Glucose Point of Care 154 mg/dl (65-105)
[2023-02-15 03:41] VITALS: BP 132/62; PULSE 76; RESP 17; TEMP 36.7; O2SAT 97
[2023-02-15 06:14] LABS: Basophils Percent Auto 0.2 % (0.2-1.2); Eosinophils Absolute Auto 0.2 K/mm3 (0-0.3); Eosinophils Percent Auto 1.3 % (0-4.4); Hematocrit 33.7 % (42.0-52.0); Hemoglobin 10.7 g/dL (14.0-18.0); Immature Granulocyte Absolute 0.11 K/mm3 (0.00-0.031); Lymphocytes Absolute Auto 0.39 K/mm3 (0.9-3.2); Lymphocytes Percent Auto 3.5 % (18.3-44.2); Mean Corpuscular HGB Conc 31.8 g/dl (32-36); Mean Corpuscular Hemoglobin 31.6 pg (26-34); Mean Corpuscular Volume 99.4 fl (80-100); Mean Platelet Volume 9.8 fl (7.4-10.4); Monocytes Absolute Auto 0.9 K/mm3 (0.1-0.6); Monocytes Percent Auto 8.1 % (2.6-8.5); Neutrophils Absolute Auto 9.6 K/mm3 (1.3-6.7); Neutrophils Percent Auto 85.9 % (45.5-73.1); Platelet Count Result 166 k/mm3 (150-375); Red Blood Count 3.39 M/mm3 (4.6-6.20); Red Cell Distribution Width 15.5 % (11.5-14.5); White Blood Count 11.2 K/mm3 (4.5-10.0)
[2023-02-15 06:22] LABS: Alanine Aminotransferase 67 U/L (6-50); Albumin Level 2.5 g/dL (3.5-5.1); Alkaline Phosphatase 63 U/L (38-126); Anion Gap 5 mmol/L (8-16); Aspartate Amino Transferase 38 U/L (17-59); Bilirubin,Total 0.5 mg/dL (0.2-1.3); Blood Urea Nitrogen 19 mg/dL (9-20); Calcium 7.8 mg/dL (8.4-10.2); Carbon Dioxide 18 mmol/L (22-30); Chloride 106 mmol/L (98-107); Estimated CRCL calculation 27 ml/min; Estimated Glomerular Filt Rate 39; Glucose 172 mg/dL (65-110); Potassium 4.5 mmol/L (3.4-5.0); Sodium 129 mmol/L (137-145)
[2023-02-15 08:20] LABS: Glucose Point of Care 151 mg/dl (65-105)
[2023-02-15] MEDS: FERROUS SULFATE 325 MG TABLET DR PO (09:07)
[2023-02-15] MEDS: SODIUM BICARBONATE TAB 325 MG TABLET PO (09:07)
[2023-02-15] MEDS: EZETIMIBE 10 MG TABLET PO (09:07)
[2023-02-15] MEDS: ASPIRIN 81 MG ENTERIC TABLET PO (09:07)
[2023-02-15] MEDS: TERAZOSIN HCL 5 MG CAPSULE PO (09:07)
[2023-02-15] MEDS: ASCORBIC ACID 500 MG TABLET PO (09:07)
[2023-02-15] MEDS: NIFEdipine 30 MG TAB.ER.24 60 MG PO (09:07)
[2023-02-15 09:08] VITALS: PULSE 80
[2023-02-15] MEDS: TAMSULOSIN HCL 0.4 MG CAPSULE PO (09:08)
[2023-02-15] MEDS: hydroCHLOROthiazide 12.5 MG CAPSULE PO (09:08)
[2023-02-15] MEDS: lisinopriL 10 MG TABLET PO (09:08)
[2023-02-15] MEDS: CHOLECALCIFEROL 1,000 UNITS TABLET 2000 UNITS PO (09:08)
[2023-02-15] MEDS: carvediloL 25 MG TABLET PO (09:08)
[2023-02-15] MEDS: LINEZOLID 600 MG TABLET PO (09:08)
[2023-02-15] MEDS: polyethylene glycoL 3350 17 GM POWD.PACK PO (09:09)
--- NOTE | 2023-02-15 10:53 | PM.DS ---
DS: Admitting Diagnosis Discharge Date 02/15/23 Admitting Diagnosis Ileus Small-bowel obstruction DS: Discharge Diagnosis Discharge Diagnosis (1) Small bowel obstruction: Code(s): K56.609 - Unspecified intestinal obstruction, unspecified as to partial versus complete obstruction Status: Acute (2) Urethral stricture: Code(s): N35.919 - Unspecified urethral stricture, male, unspecified site Status: Acute (3) Hypertension: Code(s): I10 - Essential (primary) hypertension Status: Acute (4) Diabetes mellitus: Code(s): E11.9 - Type 2 diabetes mellitus without complications Status: Acute (5) Chronic kidney disease, stage 4 (severe): Code(s): N18.4 - Chronic kidney disease, stage 4 (severe) Status: Acute (6) Cancer of overlapping sites of bladder: Code(s): C67.8 - Malignant neoplasm of overlapping sites of bladder Status: Acute (7) Acute UTI: Code(s): N39.0 - Urinary tract infection, site not specified Status: Acute DS: Summary Hospital Course Reason for hospitalization: Ileus Hospital Course: This is a 77-year-old male presents to the hospital presented to the hospital on 02/12/2023 with nausea, vomiting, and abdominal pain. Workup in the hospital included a KUB which showed mildly dilated small bowel consistent with ileus. He also had a CT scan of the abdomen which showed dilated small bowel without focal transition point consistent with adynamic ileus versus partial obstruction, multiple small cystic lesions of the pancreas, mild wall thickening of the urinary bladder on the left. Patient had an NG tube placed to low intermittent suction general surgery was consulted. On 02/13/2023 patient had NG tube clamped in started tolerating clear liquid diet along with passing gas and had a bowel movement that day. NG tube was discontinued on the And patient has been passing gas having bowel movements without any issues. Of note patient was recently discharged on 02/11/2023 for treatment of a urinary tract infection and was started on linezolid. He was continued with linezolid while inpatient. On examination today patient is alert oriented x4, lying in the bed. is at the bedside. Vital signs have been stable, he is on room air, and he has remained afebrile. He states that he has had multiple bowel movements overnight without difficulty. His abdomen is soft, nondistended, nontender, with normoactive bowel sounds. He is eating and drinking fine. He has no new complaints today. Labs today reveal white blood cell count of 11.2, hemoglobin 10.7, hematocrit 33.7, sodium 129, potassium was 4.5, bicarb 18, BUN 19, creatinine 1.7, ALT 67, calcium 7.8, albumin 2.5, blood sugars ranging 151-172. He is stable for discharge. I instructed patient to finish his linezolid that he received on his previous admission for his urinary tract infection and to follow up with his primary care physician in 1 week. Status at Discharge Cognitive/behavioral status at discharge: Alert oriented x4 Functional status at discharge: independent ambulation Overall status at discharge: patient is progressing back to baseline Time Spent with Patient Time attestation: Total time spent providing and/or coordinating discharge services: Time spent: Greater than 30 minutes Exam Narrative: General: In no acute distress, well nourished Head: atraumatic, no encephalopathy Eyes: EOMI, PERRLA, slcera clear ENT: moist mucous membranes, nasal passages clear Neck: supple, no JVD, no adenopathy, trachea midline Cardiac: Normal S1 and S2. No murmur, gallops or friction rubs, peripheral pulses intact. Respiratory: Lungs clear to auscultation, no adventitious lung sounds Gastrointestinal: soft, non-distended, nontender, normoactive bowel sounds.He reports passing gas and had frequent regular BM today. : voiding without difficulty. Extremities: moves all extremities well, no edema,
== END 2023-02-15 11:25 | disposition home or self-care (01) | DRG 389 ==
LOC: ANHED 02-13 01:44 → ANH2MED 02-13 02:18
PROVIDERS: Student in an Organized Health Care Education/Training Program; Admitting Provider Internal Medicine; Emergency Provider Physician Assistant; PCP Family Medicine; Visit Provider Nurse Practitioner Acute Care
DX: K56.600 Partial intestinal obstruction, unspecified as to cause (principal); N18.4 Chronic kidney disease, stage 4 (severe); N39.0 Urinary tract infection, site not specified; K56.0 Paralytic ileus; N35.919 Unspecified urethral stricture, male, unspecified site; E11.22 Type 2 diabetes mellitus with diabetic chronic kidney disease; I12.9 Hypertensive chronic kidney disease with stage 1 through stage 4 chronic kidney disease, or unspecified chronic kidney disease; C67.8 Malignant neoplasm of overlapping sites of bladder; E78.5 Hyperlipidemia, unspecified; Z87.891 Personal history of nicotine dependence
CPT/HCPCS: 36415; 74176; 80053; 81001; 82948; 83690; 83735; 84100; 85025; 96361; 96374; 96375; 99285; A9270; G0378; J1200; J2405; J2765; J7030; J7512

== ENCOUNTER 2023-02-19 02:28 | Inpatient (IN) | payer MEDICARE, SELFPAY ==
[2023-02-19] VITALS (45 sets, daily range): BP systolic 94–121; BP diastolic 43–60; PULSE 78–120; RESP 12–22; TEMP 36.1–36.8; O2SAT 91–100; BMI 22.2
--- NOTE | ~2023-02-19 | XR_ITS ---
Supine and upright views of the abdomen Clinical history: Small bowel obstruction COMPARISON: 02/20/2023 Findings: NG tube in satisfactory position. Possible minimally dilated small bowel loops present in t he right mid abdomen. No free air. No abnormal mass lesion or calcification is seen. Osseous structur es are intact. Impression: NG tube in place. Improving small bowel distention. Reviewed, dictated and finalized at location M. KEEPING MACHINE OPERATOR Impression: NG tube in place. Improving small bowel distention.
--- NOTE | ~2023-02-19 | CT_ITS ---
EXAMINATION: CT chest abdomen pelvis wo con DATE: 03/02/2023 12:53 INDICATION: Resp Failure . TECHNIQUE: Computed tomography (CT) of the chest, abdomen, and pelvis was performed with 100 mL Omnip aque-350 intravenous contrast. Automated exposure control and iterative reconstruction technique were employed. The dose-length product was 842.23 mGy-cm. COMPARISON: CT abdomen pelvis 02/19/2023 FINDINGS: Examination limited by lack of contrast, arm down positioning, and motion. CHEST: Thoracic aorta: No significant dilation. Moderate arch calcification. Lung parenchyma and airways: Airways clear. Endotracheal tube terminating in the midthoracic trachea. Bilateral dependent subsegmental consolidative opacities. Thoracic inlet, axillae and chest wall: No thyroid or soft tissue mass. No axillary lymphadenopathy. Mediastinum: No mass or lymphadenopathy. Heart and pericardium: Normal heart size. Aortic valve calcification. No pericardial effusion. Coronary artery calcifications: Heavy. Pleura: Moderate bilateral pleural fluid collections. Thoracic bones: No acute osseous finding in the chest. ABDOMEN/PELVIS: Liver: Normal. Biliary/Gallbladder: Gallbladder is collapsed, with the suggestion of wall edema/inflammation. No kim e duct dilation. Pancreas: Multiple cystic lesions measuring up to 13 mm, previous differential and recommendations ar e unchanged. Spleen: Normal. Adrenals:No mass. Kidneys: Severe bilateral perinephric stranding. Left renal atrophy. Simple left renal cysts GI tract: NG tube, in good position. No small or large bowel dilation. Normal appendix. Diverticulosi s without diverticulitis. Mesentery/Peritoneum: Small volume ascites. No mass or free air. Retroperitoneum: No mass Atherosclerotic abdominal aortic and/or arterial calcifications. Pelvis: The urinary bladder is drained by a [place] catheter. Fecal management system. Soft Tissues: Soft tissues and body wall unremarkable. Abdominopelvic bones: No acute osseous finding in the abdomen/pelvis. IMPRESSION: Moderate bilateral pleural effusions. Bilateral dependent subsegmental atelectasis/consolidation. Possible gallbladder wall edema/inflammation, difficult to assess given the contracted gallbladder, c onsider right upper quadrant ultrasound. Small volume ascites. Reviewed, dictated and finalized at location K. USION BENDER IMPRESSION: Moderate bilateral pleural effusions. Bilateral dependent subsegmental atelecta sis/consolidation. Possible gallbladder wall edema/inflammation, difficult to assess given the con tracted gallbladder, consider right upper quadrant ultrasound. Small volume ascites.
--- NOTE | ~2023-02-19 | XR_ITS ---
EXAMINATION: XR chest 1V portable INDICATION: Respiratory failure TECHNIQUE: Portable AP chest at 0532 hours COMPARISON: 03/01/2023 FINDINGS: The endotracheal tube ends approximately 4.1 cm above the ray. The nasogastric tube is f ollowed as far as the stomach. Its tip is beyond the inferior margin of the radiograph. A right upper extremity PICC ends with its tip in the proximal superior vena cava. There is a large bore right int ernal jugular catheter ends with its tip in the midsuperior vena cava. The heart size is normal. Ther e is a diffuse interstitial pattern with interval increase. Small pleural effusions are suggested. Th ere is no pneumothorax. Bibasilar airspace opacities persist with slight improvement. IMPRESSION: 1. Diffuse lung disease with interval worsening, consistent with pneumonia and/or pulmonary edema. 2. Improved bibasilar airspace opacities, likely atelectasis. 3. Probable small pleural effusions. Reviewed, dictated and finalized at location F. R RECONNAISSANCE SPECIALIST IMPRESSION: 1. Diffuse lung disease with interval worsening, consistent with pneumonia and/ or pulmonary edema. 2. Improved bibasilar airspace opacities, likely atelectasis. 3. Probable small pleural effusions.
--- NOTE | ~2023-02-19 | XR_ITS ---
EXAMINATION: XR chest 1V portable INDICATION: Respiratory failure TECHNIQUE: Portable AP chest at 0521 hours COMPARISON: 03/02/2023 FINDINGS: The endotracheal tube ends approximately 4.9 cm above the ray. The nasogastric tube is f ollowed as far as the stomach. Its tip is beyond the inferior margin of the radiograph. A right inter nal jugular catheter ends with its tip in the midsuperior vena cava. A right upper extremity PICC end s with its tip in the proximal superior vena cava. There are moderate-sized pleural effusions. A mild diffuse interstitial pattern persists without significant change. There are bibasilar airspace opaci ties. No pneumothorax is identified. IMPRESSION: 1. Moderate-sized pleural effusions with slight worsening. 2. Moderate pulmonary edema. 3. Bibasilar airspace opacities, consistent with atelectasis versus pneumonia. Reviewed, dictated and finalized at location F. NER CONCRETE PIPE
--- NOTE | ~2023-02-19 | XR_ITS ---
Portable chest x-ray Comparison: 02/23/2023 Clinical History: Respiratory failure Findings: Endotracheal tube, NG tube, and right-sided PICC line are in place. Moderate to advanced p ulmonary edema pattern present with [id number] bilateral pleural effusions. Cardiomediastinal silhouette is stable. Bones and soft tissues are unremarkable. Impression: Moderate to advanced pulmonary edema pattern with small to moderate bilateral pleural effusions. Support tubes, as above. Reviewed, dictated and finalized at location . RLIES TEACHER Impression: Moderate to advanced pulmonary edema pattern with small to moderate bilateral p leural effusions. Support tubes, as above.
--- NOTE | ~2023-02-19 | XR_ITS ---
EXAMINATION: XR abdomen obstructive series DATE: 02/20/2023 05:55 INDICATION: Small bowel obstruction. TECHNIQUE: Upright and supine views of the abdomen on 3 radiographs were obtained. COMPARISON: CT abdomen and pelvis 02/19/2023, abdomen radiograph 02/19/2023 FINDINGS: There are dilated loops of small bowel. The colon is normal in caliber. No free intraperito eliot gas. The nasogastric tube tip is in the stomach. There are airspace opacities in the lower lung zones. IMPRESSION: 1. Persistently dilated small bowel, consistent with partial small bowel obstruction. 2. Airspace opacities in the lower lung zones, consistent with atelectasis versus pneumonia. Reviewed, dictated and finalized at location E. ESSIONAL HEALTHCARE REPRESENTATIVE IMPRESSION: 1. Persistently dilated small bowel, consistent with partial small bowel obstru ction. 2. Airspace opacities in the lower lung zones, consistent with atelectasis vers us pneumonia.
--- NOTE | ~2023-02-19 | XR_ITS ---
EXAMINATION: XR chest 1V portable DATE: 02/26/2023 05:29 INDICATION: Respiratory failure. Intubated. TECHNIQUE: A single frontal view of the chest was obtained. COMPARISON: Chest single view 02/25/2023 FINDINGS: There are small pleural effusions. There are airspace opacities in the mid and lower lung z ones with a basilar predominance. No pneumothorax. The heart size is normal. The endotracheal tube ti p is 5.0 cm above the ray. The nasogastric tube tip is beyond the inferior margin of the radiograp h, but at least to the stomach. Surgical clips overlie the stomach. A right upper extremity periphera lly inserted central venous catheter (PICC) is seen with tip in the superior vena cava. IMPRESSION: 1. Stable airspace opacities in the mid and lower lung zones with a basilar predominance, consistent with atelectasis versus pneumonia. 2. Stable small pleural effusions. Reviewed, dictated and finalized at location E. OMER RELATIONS REPRESENTATIVE IMPRESSION: 1. Stable airspace opacities in the mid and lower lung zones with a basilar pre dominance, consistent with atelectasis versus pneumonia. 2. Stable small pleural effusions.
--- NOTE | ~2023-02-19 | XR_ITS ---
EXAMINATION: XR chest 1V portable DATE: 02/27/2023 08:02 INDICATION: Respiratory failure. TECHNIQUE: A single frontal view of the chest was obtained. COMPARISON: Chest single view 02/26/2023 FINDINGS: There are small pleural effusions. There are airspace opacities in the mid and lower lung z ones with a basilar predominance. No pneumothorax. The heart size is normal. The endotracheal tube ti p is 1.6 cm above the ray. A right internal jugular central venous catheter is seen with tip in th e superior vena cava. A right upper extremity peripherally inserted central venous catheter (PICC) is seen with tip in the superior vena cava. The nasogastric tube tip is beyond the inferior margin of t he radiograph, but at least to the stomach. IMPRESSION: 1. Stable small pleural effusions. 2. Stable airspace opacities in the mid and lower lung zones with a basilar predominance, consistent with atelectasis versus pneumonia. Reviewed, dictated and finalized at location A. STIC SPECIALIST IMPRESSION: 1. Stable small pleural effusions. 2. Stable airspace opacities in the mid and lower lung zones with a basilar pre dominance, consistent with atelectasis versus pneumonia.
--- NOTE | ~2023-02-19 | CT_ITS ---
EXAMINATION: CT abdomen pelvis wo con DATE: 02/19/2023 03:20 INDICATION: Abdominal pain. TECHNIQUE: Computed tomography (CT) of the abdomen and pelvis was performed without intravenous contr ast. Automated exposure control and iterative reconstruction technique were employed. The dose-length product was 993.21 mGy-cm. COMPARISON: CT abdomen and pelvis 02/12/2023, 02/09/23, 08/08/22 FINDINGS: The visualized portions of the lung bases demonstrate mild atelectasis and chronic lung dis ease. There are trace pleural effusions. The heart size is normal. There is a trace pericardial effus ion. There are coronary artery calcifications. There are cystic lesions in the pancreas measuring up to 13 mm. The liver, gallbladder, spleen, adrenal glands, and right kidney are normal. There is corti isabel thinning of left kidney. There is a 2.7 cm cyst in left kidney. There is no urolithiasis. There i s calcified atherosclerosis of the aorta and many of the other arteries. The prostate is mildly enlar ged. There are scattered diverticula in the colon. There is wall thickening of the sigmoid colon with adjacent fat stranding. The appendix is normal. There are multiple dilated loops of small bowel with transition point in right abdomen. There are no pathologically enlarged lymph nodes. There is no jeff e intraperitoneal fluid. There is a right inguinal hernia containing fat. There is severe lumbar spon dylosis. There is a hemangioma in T12 vertebral body. IMPRESSION: 1. Dilated small bowel with transition point in right abdomen, consistent with partial small bowel ob struction. 2. Mild sigmoid diverticulitis. No perforation or abscess. 3. Small cystic lesions of the pancreas. The differential diagnosis includes pseudocyst, intraductal papillary mucinous neoplasm (IPMN), mucinous cystic neoplasm (MCN), serous cystadenoma, and neuroendo crine tumor. Abdomen MRI without and with contrast is recommended in 2 years. Reviewed, dictated and finalized at location E. RN IMPRESSION: 1. Dilated small bowel with transition point in right abdomen, consistent with partial small bowel obstruction. 2. Mild sigmoid diverticulitis. No perforation or abscess. 3. Small cystic lesions of the pancreas. The differential diagnosis includes ps eudocyst, intraductal papillary mucinous neoplasm (IPMN), mucinous cystic neopl asm (MCN), serous cystadenoma, and neuroendocrine tumor. Abdomen MRI without an d with contrast is recommended in 2 years.
--- NOTE | ~2023-02-19 | XR_ITS ---
EXAMINATION: XR chest 1V portable DATE: 02/19/2023 03:04 INDICATION: Chest pain. Vomiting. TECHNIQUE: A single frontal view of the chest was obtained. COMPARISON: Chest 2 views 11/26/2014, CT abdomen and pelvis 02/19/2023 FINDINGS: There are mild airspace opacities in the lower lung zones. No pleural effusion or pneumotho rax. The heart size is normal. There are dilated loops of small bowel. IMPRESSION: 1. Mild airspace opacities in the lower lung zones, likely mild atelectasis and chronic interstitial lung disease. 2. Dilated small bowel, likely partial small bowel obstruction. Reviewed, dictated and finalized at location E. CH MAKER
--- NOTE | ~2023-02-19 | XR_ITS ---
EXAMINATION: XR chest 1V portable INDICATION: Endotracheal tube repositioning TECHNIQUE: Portable AP chest at 0655 hours COMPARISON: 03/04/2023 FINDINGS: The endotracheal tube ends approximately 4.2 cm above the ray. The nasogastric tube is followed as far as the stomach. Its tip is beyond the inferior margin of the radiograph. A right internal jugula r catheter ends with its tip in the distal superior vena cava. A right upper extremity PICC ends with its tip in the proximal superior vena cava. Diffuse interstitial and airspace opacities persist with improvement in the upper lung zones and left midlung zone. There are moderate-sized pleural effusion s with improvement. Bibasilar airspace opacities persist but have improved. There is no pneumothorax. IMPRESSION: 1. Diffuse lung disease with interval improvement, consistent with pneumonia and/or pulmonary edema. 2. Small pleural effusions with improvement. 3. Bibasilar airspace opacities with slight improvement, consistent with atelectasis versus pneumonia . Reviewed, dictated and finalized at location F. POND WORKER IMPRESSION: 1. Diffuse lung disease with interval improvement, consistent with pneumonia an d/or pulmonary edema. 2. Small pleural effusions with improvement. 3. Bibasilar airspace opacities with slight improvement, consistent with atelec tasis versus pneumonia.
--- NOTE | ~2023-02-19 | XR_ITS ---
EXAMINATION: XR chest 1V portable DATE: 02/25/2023 05:37 INDICATION: Respiratory failure. TECHNIQUE: A single frontal view of the chest was obtained. COMPARISON: Chest single view 02/24/2023 FINDINGS: There are moderate-sized pleural effusions. There is an interstitial pattern in the lungs, consistent with pulmonary edema. There are airspace opacities at the lung bases. No pneumothorax. The heart size is normal. The endotracheal tube tip is 4.1 cm above the ray. The nasogastric tube tip is beyond the inferior margin of the radiograph, but at least to the stomach. A right upper extremit y peripherally inserted central venous catheter (PICC) is seen with tip in the superior vena cava. IMPRESSION: 1. Mild pulmonary edema. 2. Stable moderate-sized pleural effusions. 3. Stable airspace opacities at the lung bases, consistent with atelectasis versus pneumonia. Reviewed, dictated and finalized at location A. SALES PROFESSIONAL IMPRESSION: 1. Mild pulmonary edema. 2. Stable moderate-sized pleural effusions. 3. Stable airspace opacities at the lung bases, consistent with atelectasis jorje gaston pneumonia.
--- NOTE | ~2023-02-19 | XR_ITS ---
EXAMINATION: XR chest 1V portable DATE: 02/28/2023 06:23 INDICATION: Respiratory failure. TECHNIQUE: A single frontal view of the chest was obtained. COMPARISON: Chest single view 02/27/2023 FINDINGS: There are small pleural effusions. There are airspace opacities at the lung bases. No pneum othorax. The heart size is normal. The endotracheal tube tip is 5.0 cm above the ray. The nasogast kaila tube tip is in the stomach. A right internal jugular central venous catheter is seen with tip in the superior vena cava. A right upper extremity peripherally inserted central venous catheter (PICC) is seen with tip in the superior vena cava. Surgical clips overlie the stomach. IMPRESSION: 1. Stable small pleural effusions. 2. Improved airspace opacities at the lung bases, consistent with atelectasis versus pneumonia. Reviewed, dictated and finalized at location E. CIATE DIRECTOR CAREER SERVICES IMPRESSION: 1. Stable small pleural effusions. 2. Improved airspace opacities at the lung bases, consistent with atelectasis v ersus pneumonia.
--- NOTE | ~2023-02-19 | XR_ITS ---
EXAMINATION: XR chest PICC line DATE: 02/20/2023 13:15 INDICATION: Central line placement. TECHNIQUE: A single frontal view of the chest was obtained. COMPARISON: Chest single view 02/19/2023 FINDINGS: The patient is rotated to his right. There is no pneumonia, pleural effusion, or pneumothor ax. The heart size is normal. The nasogastric tube tip is beyond the inferior margin of the radiograp h, but at least to the stomach. A right upper extremity peripherally inserted central venous catheter (PICC) is seen with tip in the superior vena cava. IMPRESSION: 1. PICC tip in the superior vena cava. Reviewed, dictated and finalized at location A. ECT FINANCE ANALYST
--- NOTE | ~2023-02-19 | CT_ITS ---
EXAMINATION: CT sinus wo con DATE: 03/02/2023 12:53 INDICATION: Fever. Sinusitis. TECHNIQUE: Computed tomography (CT) of the paranasal sinuses was performed without intravenous contra st. The dose-length product was 267.28 mGy-cm. Automated exposure control and iterative reconstructio n technique were employed. COMPARISON: None FINDINGS: There is mucosal thickening of the left maxillary, left posterior ethmoid and left sphenoid sinuses. Mastoids are pneumatized. There is an NG tube present. Mastoids are pneumatized. There is i ntracranial atherosclerosis. IMPRESSION: 1. Moderate left-sided sinusitis involving the left maxillary, ethmoid and sphenoid sinuses. Reviewed, dictated and finalized at location B. MATIC STACKER IMPRESSION: 1. Moderate left-sided sinusitis involving the left maxillary, ethmoid and sphe noid sinuses.
--- NOTE | ~2023-02-19 | XR_ITS ---
EXAMINATION: XR abdomen gastric tube insert DATE: 02/20/2023 12:31 INDICATION: Nasogastric tube placement. TECHNIQUE: A supine view of the abdomen was obtained. COMPARISON: Abdomen radiograph 02/19/2023 FINDINGS: The lower abdomen is excluded. There is dilated small bowel in the midabdomen. The nasogast kaila tube tip is in the stomach. IMPRESSION: 1. Nasogastric tube tip in the distal stomach. 2. Persistently dilated small bowel, consistent with partial small bowel obstruction. Reviewed, dictated and finalized at location A. TEST ENGINEER IMPRESSION: 1. Nasogastric tube tip in the distal stomach. 2. Persistently dilated small bowel, consistent with partial small bowel obstru ction.
--- NOTE | ~2023-02-19 | XR_ITS ---
EXAMINATION: XR chest ET placement DATE: 02/21/2023 18:11 INDICATION: Endotracheal tube placement TECHNIQUE: frontal view of the chest was obtained. COMPARISON: Chest radiograph dated 04/23/2022 at 1:20 AM FINDINGS: Endotracheal tube tip 3.5 cm above the ray. Nasogastric tube extends below the left hemidiaphragm with distal tip collimated off the study. Right upper extremity peripherally inserted central venous catheter (PICC) tip at the mid superior vena cava. Increase in bilateral perihilar predominant interstitial and airspace opacities in the bilateral mid and lower lung zones consistent with worsening pulmonary edema versus pneumonia. Increasing small kim ateral pleural effusions with some associated basilar atelectasis. The cardiomediastinal silhouette i s normal. IMPRESSION: 1. Increasing bilateral perihilar predominant opacities and favor worsening pulmonary edema over pneu monia. 2. Increasing small bilateral pleural effusions. Reviewed, dictated and finalized at location A. NISTRATIVE PROFESSIONAL IMPRESSION: 1. Increasing bilateral perihilar predominant opacities and favor worsening pul monary edema over pneumonia. 2. Increasing small bilateral pleural effusions.
--- NOTE | ~2023-02-19 | XR_ITS ---
Portable chest x-ray Comparison: 02/20/2023 Clinical History: Shortness of breath Findings: NG tube and right-sided PICC line are in satisfactory position. There is worsening mild-to -moderate central and bibasilar pulmonary edema. Possible minimal pleural effusions. Cardiomediastin al silhouette is stable. Bones and soft tissues are unremarkable. Impression: Worsening [id number] central and bibasilar pulmonary edema. Minimal pleural effusions. Support tubes, as above. Reviewed, dictated and finalized at location M. R COATER Impression: Worsening [id number] central and bibasilar pulmonary edema. Minimal pleural effusions. Support tubes, as above.
--- NOTE | ~2023-02-19 | XR_ITS ---
EXAMINATION: XR chest 1V portable INDICATION: Respiratory failure TECHNIQUE: Portable AP chest at 0535 hours COMPARISON: 03/03/2023 FINDINGS: The endotracheal tube ends approximately 2.5 cm above the ray. The nasogastric tube is f ollowed as far as the stomach. Its tip is beyond the inferior margin of the radiograph. A right inter nal jugular central venous catheter ends with its tip in the midsuperior vena cava. A right upper ext remity PICC ends with its tip in the brachiocephalic vein. Diffuse interstitial and airspace opacitie s persist with slight interval worsening. Bibasilar airspace opacities also demonstrate interval wors ening. There are moderate-sized pleural effusions. No pneumothorax is identified. The cardiomediastin al silhouette is normal. IMPRESSION: 1. Diffuse lung disease with slight interval worsening, consistent with moderate pulmonary edema. 2. Moderate-sized pleural effusions. 3. Worsened bibasilar airspace opacities, consistent with atelectasis versus pneumonia. Reviewed, dictated and finalized at location F. ICE CONTROL CLERK IMPRESSION: 1. Diffuse lung disease with slight interval worsening, consistent with moderat e pulmonary edema. 2. Moderate-sized pleural effusions. 3. Worsened bibasilar airspace opacities, consistent with atelectasis versus pn eumonia.
--- NOTE | ~2023-02-19 | US_ITS ---
EXAMINATION: US venous doppler [facility] DATE: 03/02/2023 19:57 INDICATION: Fever . TECHNIQUE: Grayscale images without and with compression and Doppler images of the bilateral lower ex tremity veins were obtained. COMPARISON: None FINDINGS: Acute nonocclusive thrombus in the right common femoral, profunda femoral vein, and femoral vein. The right popliteal vein, peroneal vein, posterior tibial veins, and greater saphenous vein are patent. Acute nonocclusive, and nearly occlusive thrombus involving the left common femoral vein, profunda (d eep) femoral vein, femoral vein, popliteal vein, peroneal vein, and posterior tibial veins. The left greater saphenous vein remains patent IMPRESSION: Acute deep venous thrombosis involving the bilateral lower extremities. Reviewed, dictated and finalized at location K. AGING ASSOCIATE
--- NOTE | ~2023-02-19 | XR_ITS ---
EXAMINATION: XR chest 1V portable DATE: 03/01/2023 05:25 INDICATION: Respiratory failure. TECHNIQUE: A single frontal view of the chest was obtained. COMPARISON: Chest single view 02/28/2023 FINDINGS: There is a diffuse interstitial pattern in the lungs. There are airspace opacities in the p erihilar regions and at the lung bases. No pleural effusion or pneumothorax. The heart size is normal . The endotracheal tube tip is 4.2 cm above the ray. A right internal jugular central venous gris ter is seen with tip in the superior vena cava. A right upper extremity peripherally inserted central venous catheter (PICC) is seen with tip in the superior vena cava. The nasogastric tube tip is beyon d the inferior margin of the radiograph, but at least to the stomach. A surgical clip overlies the st omach. IMPRESSION: 1. Diffuse lung disease, consistent mild pulmonary edema and basilar atelectasis versus pneumonia. Reviewed, dictated and finalized at location E. SBAR SWITCH ADJUSTER IMPRESSION: 1. Diffuse lung disease, consistent mild pulmonary edema and basilar atelectasi s versus pneumonia.
--- NOTE | ~2023-02-19 | XR_ITS ---
EXAMINATION: XR chest 1V portable DATE: 02/26/2023 09:22 INDICATION: Central line placement. TECHNIQUE: A single frontal view of the chest was obtained. COMPARISON: Chest single view at 5:08 AM FINDINGS: There are small pleural effusions. There are airspace opacities in the mid and lower lung z ones with a basilar predominance. No pneumothorax. The heart size is normal. The endotracheal tube ti p is 5.2 cm above the ray. The nasogastric tube tip is in the stomach. Surgical clips overlie the stomach. A right upper extremity peripherally inserted central venous catheter (PICC) is seen with ti p in the superior vena cava. A right internal jugular central venous catheter is seen with tip in the superior vena cava. IMPRESSION: 1. New central line tip in the superior vena cava. 2. Stable small pleural effusions. 2. Stable airspace opacities in the mid and lower lung zones with a basilar predominance, consistent with atelectasis versus pneumonia. Reviewed, dictated and finalized at location A. R/WASTEWATER PROJECT MANAGER IMPRESSION: 1. New central line tip in the superior vena cava. 2. Stable small pleural effusions. 2. Stable airspace opacities in the mid and lower lung zones with a basilar pre dominance, consistent with atelectasis versus pneumonia.
--- NOTE | ~2023-02-19 | XR_ITS ---
Portable chest x-ray Comparison: 02/21/2023 Clinical History: Respiratory failure Findings: Endotracheal tube, NG tube, and right-sided PICC line are in satisfactory positions. There is moderate to advanced pulmonary edema pattern with small bilateral pleural effusions. Cardiomedia stinal silhouette is stable. Bones and soft tissues are unremarkable. Impression: Moderate to advanced pulmonary edema pattern with small bilateral pleural effusions. Support tubes, as above. Reviewed, dictated and finalized at location . RVISOR CIGAR MAKING HAND Impression: Moderate to advanced pulmonary edema pattern with small bilateral pleural effus ions. Support tubes, as above.
--- NOTE | ~2023-02-19 | XR_ITS ---
Portable chest x-ray Comparison: 02/22/2023 Clinical History: Respiratory failure Findings: Endotracheal tube and NG tube and right-sided PICC line are in satisfactory positions. Sma ll bilateral pleural effusions are present. There is moderate interstitial pulmonary edema pattern. Cardiomediastinal silhouette is stable. Bones and soft tissues are unremarkable. Impression: [id number]-vr-rwdaqvse pulmonary edema pattern, mildly improved from prior exam, with small bilateral pleur al effusions. Support tubes, as above. Reviewed, dictated and finalized at location M. K MACHINE OPERATOR Impression: Uwvn-[id number]-ahvyuwnd pulmonary edema pattern, mildly improved from prior exam, with small bilateral pleural effusions. Support tubes, as above.
--- NOTE | ~2023-02-19 | XR_ITS ---
XR abdomen gastric tube insert INDICATION: Evaluate NG tube position. TECHNIQUE: Limited KUB perform for evaluating NG tube . COMPARISON: 02/20/2023 FINDINGS: NG tube tip in the stomach. Visualized bowel gas pattern is unremarkable. IMPRESSION: 1: NG tube tip in the stomach. Reviewed, dictated and finalized at location B. ITY BILL COLLECTION CLERK
--- NOTE | ~2023-02-19 | XR_ITS ---
EXAMINATION: XR abdomen gastric tube insert DATE: 02/19/2023 07:22 INDICATION: Nasogastric tube placement. TECHNIQUE: An upright view of the abdomen was obtained. COMPARISON: CT abdomen and pelvis 02/19/2023 FINDINGS: The lower abdomen is excluded. There are dilated loops of small bowel. The nasogastric tube tip is in the stomach. The visualized portions of the lung bases demonstrate mild atelectasis and mi ld chronic lung disease. IMPRESSION: 1. Nasogastric tube tip in the stomach. 2. Dilated small bowel, likely partial small bowel obstruction. Reviewed, dictated and finalized at location A. RD MAKER
--- NOTE | 2023-02-19 02:40 | ECG_ITS ---
Measurements Intervals [place] Rate: 116 P: 27 TN: 176 QRS: 35 QRSD: 97 T: 101 QT: 316 QTc: 441 Interpretive Statements SINUS TACHYCARDIA POSSIBLE LEFT ATRIAL ENLARGEMENT NONSPECIFIC ST & T-WAVE ABNORMALITY- DIFFUSE LEADS BASELINE ARTIFACT- I, II, III, AVR, AVL, AVF, V1-V6 ABNORMAL ECG COMPARED TO ECG 02/09/2023 05:19:25 SINUS [address]ACHYCARDIA NOW PRESENT ST-T WAVE ABNORMALITY NOW PRESENT Electronically Signed On 02-19-2023 7:04:29 [employer] by Donald Diaz D.O.
--- NOTE | 2023-02-19 02:46 | ED.GENADULT ---
HPI - General Adult General Chief complaint: Chest Pain Stated complaint: ABD & CP History of Present Illness HPI narrative: Patient 77-year-old gentleman who presents the emergency department with chief complaint of epigastric pain. The patient states that this evening he started having pain in the epigastric region that then radiated up into his chest patient has history of bladder cancer the patient states that he has no prior history of cardiac disease but has had recent admission for urinary issues and also has had a recent small bowel obstruction. Patient states that he feels nauseated the patient denies diaphoresis denies radiation to the arm or neck. Patient was given aspirin prehospital by EMS Related Data Home Medications Medication Instructions Recorded Confirmed ascorbic acid (vitamin C) 500 mg 500 mg PO BID 08/11/22 02/13/23 tablet atorvastatin 40 mg tablet 40 mg PO HS 08/11/22 02/13/23 cholecalciferol (vitamin D3) 50 50 mcg PO BID 08/11/22 02/13/23 mcg (2,000 unit) tablet empagliflozin 25 mg tablet 25 mg PO DAILY 08/11/22 02/13/23 (Jardiance) ezetimibe 10 mg tablet 10 mg PO DAILY 08/11/22 02/13/23 ferrous sulfate 325 mg (65 mg 325 mg PO BID 08/11/22 02/13/23 iron) tablet (FeroSul) glipizide 10 mg tablet 10 mg PO BID 08/11/22 02/13/23 prednisone 5 mg tablet 5 mg PO HS 08/11/22 02/13/23 sitagliptin phosphate 50 mg tablet 50 mg PO DAILY 08/11/22 02/13/23 (Januvia) sodium bicarbonate 325 mg tablet 325 mg PO DAILY 08/11/22 02/13/23 nifedipine 60 mg tablet,extended 60 mg PO DAILY 01/18/23 02/13/23 release aspirin 81 mg tablet 81 mg PO DAILY 02/09/23 02/13/23 Allergies Allergy/AdvReac Type Severity Reaction Status Date / Time Penicillins Allergy Mild Swelling Verified 02/19/23 02:36 Review of Systems Review of Systems: A 10 system review of systems was completed on the patient and is negative except for what is stated in the HPI. Nursing and ancillary documentation was reviewed. [facility] Past Medical History Medical History Bladder cancer Chronic kidney disease, unspecified Diabetes mellitus Hyperlipidemia Hypertension Surgical History Surgical History History of transurethral resection of bladder tumor (TURBT) 10/28/22 - performed at [facility] Family History Family History Father Acute myocardial infarction Social History Social History Social History: Lives at home with his spouse. Surrogate decision maker: Altagracia Walters, . Code Status: DNR. Smoking packs per day: 0.5 Smoking cigarettes per day: 10.0 Years smoked: 10 Smoking pack-years: 5.00 Smoking status: Former smoker Tobacco type: cigarettes Alcohol intake: never Substance use: never Lack of Transportation: No Lack of Food: Never True Current Housing: I Have Housing Concerned About Future Housing: No Difficulty Paying Gas/Electric Bills: No Difficulty Paying for Meds: No Currently Unemployed: No Education: High School Diploma/GED Difficulty w/ Childcare or Family Care: No Living arrangements: with family Gender identity (if verbalized by the patient): Male Spiritual care concerns: No Exam Narrative: GENERAL: Well-appearing, well-nourished, and in no acute distress. HEAD: Normocephalic, atraumatic. EYES: PERRLA and EOMI. ENT: Nares clear, no rhinorrhea or epistaxis. Mucous membranes moist. NECK: Supple. CHEST: Clear to auscultation. No respiratory distress. HEART: Regular rate and rhythm. No murmur heard. Normal peripheral pulses. ABDOMEN: Soft, tenderness to palpation in the epigastric region, nondistended, normal active bowel sounds. EXTREMITIES: Normal range of motion. No edema. SKIN: Warm, dry, no
[2023-02-19] MEDS: SODIUM CHLORIDE 0.9% IV 1,000 ML 999 ML IV CONT (02:54)
[2023-02-19] MEDS: ONDANSETRON INJ 4 MG/2 ML VIAL IV PUSH (02:55)
[2023-02-19] MEDS: MORPHINE SULFATE (*CRX) 4 MG/ML INJ IV PUSH (02:55)
[2023-02-19 03:05] LABS: Basophils Percent Auto 0.4 % (0.2-1.2); Eosinophils Absolute Auto 0.3 K/mm3 (0-0.3); Hematocrit 35.2 % (42.0-52.0); Hemoglobin 11.7 g/dL (14.0-18.0); Immature Granulocyte Absolute 0.18 K/mm3 (0.00-0.031); Immature Granulocyte Percent A 1.7 % (0-0.5); Lymphocytes Absolute Auto 0.36 K/mm3 (0.9-3.2); Lymphocytes Percent Auto 3.4 % (18.3-44.2); Mean Corpuscular HGB Conc 33.2 g/dl (32-36); Mean Corpuscular Volume 96.2 fl (80-100); Mean Platelet Volume 9.8 fl (7.4-10.4); Monocytes Percent Auto 9.2 % (2.6-8.5); Neutrophils Absolute Auto 8.8 K/mm3 (1.3-6.7); Neutrophils Percent Auto 82.3 % (45.5-73.1); Platelet Count Result 191 k/mm3 (150-375); Red Blood Count 3.66 M/mm3 (4.6-6.20); White Blood Count 10.7 K/mm3 (4.5-10.0)
[2023-02-19 03:19] LABS: Alanine Aminotransferase 35 U/L (6-50); Albumin Level 2.8 g/dL (3.5-5.1); Alkaline Phosphatase 59 U/L (38-126); Anion Gap 13 mmol/L (8-16); Aspartate Amino Transferase 28 U/L (17-59); Bilirubin,Total 0.8 mg/dL (0.2-1.3); Blood Urea Nitrogen 20 mg/dL (9-20); Calcium 8.5 mg/dL (8.4-10.2); Carbon Dioxide 20 mmol/L (22-30); Chloride 94 mmol/L (98-107); Estimated CRCL calculation 20 ml/min; Estimated Glomerular Filt Rate 26; Glucose 236 mg/dL (65-110); Lactic Acid Reflex 2.3 mmol/L (0.7-2.0); Lipase 64 U/L (23-300); Magnesium 1.3 mg/dL (1.6-2.3); Potassium 4.2 mmol/L (3.4-5.0); Sodium 127 mmol/L (137-145)
[2023-02-19 03:20] LABS: INR 1.1; Prothrombin Time 15.1 Seconds (11.1-14.7)
[2023-02-19 03:21] LABS: Partial Thromboplastin Time 30.4 SECONDS (22.3-36.8)
[2023-02-19] MEDS: MAGNESIUM SULF 2 GM/WATER 50ML 2 GM/50 ML BAG IVPB (03:47)
[2023-02-19 04:18] LABS: Appearance Urine Cloudy (Clear); Bacteria Urine None Seen /hpf; Bilirubin Urine 2+ (Negative); Blood Urine Negative (Negative); Color Urine Dark Yellow (Yellow); Glucose Urine UA Trace mg/dL (Negative); Ketones Urine 1+ mg/dL (Negative); Leukocyte Esterase Ur Negative LEU/UL (Negative); Need Manual Microscopic Reviewed; Nitrate Urine Negative (Negative); Non Pathogenic Casts >20; Protein Urine 1+ mg/dL (Negative); Specific Grav Ur 1.015 (1.001-1.035); Squamous Epithelial Cell Urine Occasional /hpf (Few); WBC Urine 0-5 /hpf
[2023-02-19 04:23] LABS: Add Urine Microscopic? YES
[2023-02-19 06:03] LABS: Reflex Lactic Acid Yes or No Add Lactic
[2023-02-19 06:45] LABS: Basophils Percent Auto 0.5 % (0.2-1.2); Eosinophils Absolute Auto 0.1 K/mm3 (0-0.3); Eosinophils Percent Auto 0.8 % (0-4.4); Hematocrit 30.8 % (42.0-52.0); Hemoglobin 10.1 g/dL (14.0-18.0); Immature Granulocyte Percent A 1.2 % (0-0.5); Lymphocytes Absolute Auto 0.29 K/mm3 (0.9-3.2); Lymphocytes Percent Auto 3.4 % (18.3-44.2); Mean Corpuscular HGB Conc 32.8 g/dl (32-36); Mean Corpuscular Hemoglobin 32.2 pg (26-34); Mean Corpuscular Volume 98.1 fl (80-100); Monocytes Absolute Auto 0.8 K/mm3 (0.1-0.6); Monocytes Percent Auto 9.8 % (2.6-8.5); Neutrophils Absolute Auto 7.2 K/mm3 (1.3-6.7); Neutrophils Percent Auto 84.3 % (45.5-73.1); Platelet Count Result 153 k/mm3 (150-375); Red Blood Count 3.14 M/mm3 (4.6-6.20); Red Cell Distribution Width 15.1 % (11.5-14.5); White Blood Count 8.5 K/mm3 (4.5-10.0)
[2023-02-19 06:54] LABS: Lactic Acid 0.8 mmol/L (0.7-2.0)
[2023-02-19] MEDS: HEPARIN SOD/D5W 100 UNITS/ML 25,000 UNITS/250 ML BAG 7 UNITS IV CONT (06:54)
[2023-02-19] MEDS: HEPARIN SODIUM 5,000 UNITS/ML VIAL 3500 UNITS IV PUSH (06:54)
[2023-02-19 07:20] LABS: INR 1.2; Prothrombin Time 15.3 Seconds (11.1-14.7)
[2023-02-19 07:21] LABS: Partial Thromboplastin Time 30.3 SECONDS (22.3-36.8)
--- NOTE | 2023-02-19 07:42 | PM.IMHP ---
H&P: HPI History of Present Illness Date/Time: 02/19/23 07:42 Chief Complaint: Abdominal pain Narrative: Patient 77-year-old gentleman with history of bladder cancer, CKD stage 4, chronic anemia, hypertension, hyperlipidemia, diabetes present ED with a chief complaint of epigastric pain. Patient has bladder cancer, radiation therapy and chemotherapy was done last month, patient denies surgical treatment history. Patient ate dinner yesterday, and started having nausea and epigastric pain. And later on patient has chest pain. Patient denies vomiting. Patient has small bowel movement yesterday. Patient denies short of breath, fever, chills, cough,. EMS was called, patient was brought to ED for evaluation. Upon arrival in the ED, blood pressure 99/47, in the ED, patient was found have elevated troponin x2, patient denies history of coronary artery disease, EKG shows sinus rhythm, nonspecific ST T-wave changes tachycardia 116. CT abdomen pelvis shows partial small-bowel obstruction with a transition point right abdomen. In the ED, patient was also found have anemia hemoglobin 10.1, close to baseline, elevated BUN 20 creatinine 2.4 above baseline 1.7 creatinine on February 15, 2023 hyponatremia 127 below the baseline. NG tube was placed in the ED,, heparin drip was also started. we admit patient for further evaluation and management Review of Systems Review of Systems: ROS negative except above PMFSH Past Medical History Medical History Bladder cancer Chronic kidney disease, unspecified Diabetes mellitus Hyperlipidemia Hypertension Surgical History Surgical History History of transurethral resection of bladder tumor (TURBT) 10/28/22 - performed at [facility] Family History Family History Father Acute myocardial infarction Social History Social History Social History: Lives at home with his spouse. Surrogate decision maker: Altagracia Walters, . Code Status: DNR. Smoking packs per day: 0.5 Smoking cigarettes per day: 10.0 Years smoked: 10 Smoking pack-years: 5.00 Smoking status: Former smoker Alcohol intake: never Substance use: never Substance use type: does not use Lack of Transportation: No Lack of Food: Never True Current Housing: I Have Housing Concerned About Future Housing: No Difficulty Paying Gas/Electric Bills: No Difficulty Paying for Meds: No Currently Unemployed: No Education: High School Diploma/GED Difficulty w/ Childcare or Family Care: No Living arrangements: with family Gender identity (if verbalized by the patient): Male Spiritual care concerns: No Meds Home Medications and Allergies Home Medications Medication Instructions Recorded Confirmed Type hydrochlorothiazide 12.5 mg capsule 12.5 mg PO DAILY #30 caps 05/17/22 02/19/23 Rx lisinopril 10 mg tablet 10 mg PO DAILY #30 tabs 05/17/22 02/19/23 Rx terazosin 5 mg capsule 5 mg PO BID #60 caps 05/17/22 02/19/23 Rx atorvastatin 40 mg tablet 40 mg PO HS 08/11/22 02/19/23 History cholecalciferol (vitamin D3) 50 50 mcg PO BID 08/11/22 02/19/23 History mcg (2,000 unit) tablet empagliflozin 25 mg tablet 25 mg PO DAILY 08/11/22 02/19/23 History (Jardiance) ezetimibe 10 mg tablet 10 mg PO DAILY 08/11/22 02/19/23 History ferrous sulfate 325 mg (65 mg 325 mg PO BID 08/11/22 02/19/23 History iron) tablet (FeroSul) glipizide 10 mg tablet 10 mg PO BID 08/11/22 02/19/23 History prednisone 5 mg tablet 5 mg PO HS 08/11/22 02/19/23 History sitagliptin phosphate 50 mg tablet 50 mg PO DAILY 08/11/22 02/19/23 History (Januvia) carvedilol 25 mg tablet 25 mg PO BID #180 tabs 11/08/22 02/19/23 Rx nifedipine 60 mg tablet,extended 120 mg PO DAILY 01/18/23 02/19/23 History release aspir
--- NOTE | 2023-02-19 08:06 | ECHO_ITS ---
Patient Info Name: Vince Walters Age: 77 years : 1945 Gender: Male Ht: 65 in Wt: 132 lbs BSA: 1.66 m2 HR: 92 bpm BP: 121 / 70 mmHg Heart Rhythm: Sinus Rhythm Technical Quality: Good Exam Date: 02/19/2023 11:37 AM Exam Location: Echo Lab Patient Status: Inpatient Admit Date: 02/19/2023 Staff Ordering Physician: Manuel Villegas MD Tool Operator: Enrrique Odonnell RDCS Attending Provider: Darline Mckeon DO Exam Type: CA echo doppler color flow Study Info Indications - NSTEMI Complete two-dimensional, color flow and Doppler transthoracic echocardiogram is performed. Summary 1. Complete two-dimensional, color flow and Doppler transthoracic echocardiogram is performed. 2. Left ventricular chamber dimension is normal. 3. Left ventricular systolic function is hyperdynamic, estimated at >70%. 4. The left ventricular diastolic function is grade I diastolic dysfunction. 5. Right ventricular systolic function is normal. 6. Left atrial chamber dimension is mildly enlarged. 7. There is mild mitral valve regurgitation. Left Ventricle Left ventricular chamber dimension is normal. Left ventricular systolic function is hyperdynamic, estimated at >70%. There is no increased left ventricular wall thickness. The left ventricular diastolic function is grade I diastolic dysfunction. Right Ventricle Right ventricular chamber dimension is normal. Right ventricular systolic function is normal. Left Atria Left atrial chamber dimension is mildly enlarged. Right Atria Right atrial chamber dimension is normal. Atrial Septum Intact interatrial septum visualized by color flow imaging. Aortic Valve The aortic valve is trileaflet. There is no aortic valve stenosis. There is no aortic valve regurgitation. There is moderate aortic valve calcification. Pulmonic Valve The pulmonic valve is not well visualized. Mitral Valve There is mild mitral valve regurgitation. Tricuspid Valve There is trace tricuspid valve regurgitation. Pericardium/Pleural There is no pericardial effusion. Inferior Vena Cava Inferior vena cava is not well visualized. Aorta The aortic root size at the sinus of Valsalva is normal. Left Ventricular Outflow Tract Name Value Normal LVOT 2D LVOT Diameter 1.8 cm LVOT Doppler LVOT Peak Gradient 4 mmHg LVOT Mean Gradient 3 mmHg LVOT VTI 20 cm LVOT VTI/AV VTI Ratio 0.8 LVOT Stroke Volume 51 ml LVOT CO 4.7 l/min LVOT CI 2.9 l/min/m2 Pulmonic Valve Name Value Normal RVOT Doppler RVOT Peak Gradient 6 mmHg PV Doppler PV Peak Gradient 7 mmHg Mitral Valve
[2023-02-19] MEDS: SODIUM CHLORIDE 0.9% IV 1,000 ML 125 ML IV CONT ×2 (08:13→16:32)
[2023-02-19] MEDS: ASPIRIN 81 MG CHEWABLE TABLET PO (08:13)
--- NOTE | 2023-02-19 08:56 | ADMGEN ---
This patient, Vince Walters, was admitted to IMU Room 212-01 at 0830. Patient/family oriented to hospital policies and general routines including ID bracelet, bed and alarms, visiting hours, pain management, procedures, bathroom and other care routines, personal items, smoking policy, room service/diet, and visiting hours. Information on how to activate the Rapid Response Team has been discussed. Patient/Family are encouraged to report perceived risks to care and to ask questions if they do not understand what they are told or what they should do.
--- NOTE | 2023-02-19 09:11 | PM.CNCAR ---
Assessment and Plan Assessment and plan (1) Acute non-ST elevation myocardial infarction (NSTEMI): Code(s): I21.4 - Non-ST elevation (NSTEMI) myocardial infarction Status: Acute Assessment and Plan: Troponin of 4.240 and 3.340. EKG with sinus tachycardia with nonspecific STTW abnormality. No known prior cardiac history. In the setting of small bowel obstruction. Had chest pain on presentation, but is now resolved. -Agree with Heparin drip. Continue for total of 48 hours. -Agree with ASA 81mg once daily. -Recommend to start high-intensity statin if no issues with oral intake. -Continue to trend troponins. -Echocardiogram ordered and pending. -Will need some sort of ischemic evaluation, depending on patient's recovery from small bowel obstruction (concern for poor medication absorption) and his renal function. Will continue to follow along. (2) Acute on chronic renal failure: Code(s): N17.9 - Acute kidney failure, unspecified; N18.9 - Chronic kidney disease, unspecified Status: Acute Assessment and Plan: Avoid nephrotoxins. As per primary team. If worsens, consider Nephrology consultation. (3) Small bowel obstruction: Code(s): K56.609 - Unspecified intestinal obstruction, unspecified as to partial versus complete obstruction Status: Acute Assessment and Plan: Management as per primary team. (4) Hypertension: Code(s): I10 - Essential (primary) hypertension Status: Acute Assessment and Plan: Blood pressure medications are currently on hold right now as his pressures were soft on admission. Plan Recommendations/Plan discussed with Hospitalist. History of Present Illness History of Present Illness Consult date/time: 02/19/23 09:11 Requesting physician: Yadiel Gonzalez MD Consult reason: chest pain Reason For Visit: Chest Pain, Abdomian Pain,NSTEMI,Partial SBO Narrative: We are consulted for NSTEMI. This is a 77 year old male with bladder cancer s/p recent completion of chemoradiation, ileus, who was recently discharged from [facility] after being admitted with a small bowel obstruction. Patient presented to [facility] again 02/19 for abdominal pain, that radiates up to the epigastric/substernal area. Workup showed SCr of 2.40 (was 1.7 on 02/15), initial lactic acid of 2.3 with repeat at 0.8. Troponin of 4.[address] A/P shows dilated small bowel with transition point in right abdomen, consistent with partial small bowel obstruction, mild sigmoid diverticulitis. EKG with sinus tachycardia with nonspecific STTW abnormality. NG tube was placed. Patient started on ASA and Heparin drip. At the time of my evaluation, patient states he is feeling better without any active chest pain. No prior known cardiac history. reports that he is usually active at home and never complained of chest pain or other cardiac symptoms. He just finished chemoradiation in January. Review of Systems Review of Systems: All systems reviewed & are unremarkable except as noted in HPI and below (HPI) [facility] Past Medical History Medical History Bladder cancer Chronic kidney disease, unspecified Diabetes mellitus Hyperlipidemia Hypertension Surgical History Surgical History History of transurethral resection of bladder tumor (TURBT) 10/28/22 - performed at [facility] Family History Family History Father Acute myocardial infarction Social History Social History Social History: Lives at home with his spouse. Surrogate decision maker: Altagracia Walters, . Code Status: DNR. Smoking packs per day: 0.5 Smoking cigarettes per day: 10.0 Years smoked: 10 Smoking pack-years: 5.00 Smoking status: Former smoker Alcohol intake: never Substan
[2023-02-19 09:24] LABS: Cholesterol 147 mg/dL (0-200); HDL Direct 28 mg/dL; Triglycerides 111 mg/dL (<150)
[2023-02-19 09:34] LABS: LDL Cholesterol Direct 88 mg/dL
--- NOTE | 2023-02-19 11:35 | PM.CNGS ---
Assessment and Plan Assessment and plan (1) Partial obstruction of small intestine: Code(s): K56.600 - Partial intestinal obstruction, unspecified as to cause Status: Acute Assessment and Plan: I have reviewed the CT and discussed the findings with the patient. His prior CTs from last admission did not show any evidence of a transition point, but CT in the emergency department yesterday is now showing dilated small bowel with a transition point in the right abdomen. His current admission is complicated by the fact that he was having chest pain and workup shows evidence of non ST elevation MA. He is undergoing further workup by Cardiology. Will continue NG decompression at this time and get abdominal X-ray tomorrow morning. Will plan for eventual small-bowel follow-through once he has been decompressed for a day or 2. Patient has not had prior abdominal surgeries but did undergo recent radiation therapy. 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 (2) Acute non-ST elevation myocardial infarction (NSTEMI): Code(s): I21.4 - Non-ST elevation (NSTEMI) myocardial infarction Status: Acute (3) Acute on chronic renal failure: Code(s): N17.9 - Acute kidney failure, unspecified; N18.9 - Chronic kidney disease, unspecified Status: Acute (4) Bladder cancer: Code(s): C67.9 - Malignant neoplasm of bladder, unspecified Status: Acute History of Present Illness Consult details Consult date: 02/19/23 Reason for consult: other (Small-bowel obstruction) Requesting physician: Yadiel Gonzalez MD Narrative: This is a 77-year-old man who presented to the emergency department yesterday with chest pain, nausea and vomiting and abdominal discomfort. He had just recently been hospitalized for similar symptoms and was noted to have a possible ileus versus partial bowel obstruction. His bowels were moving and he was tolerating a diet and was discharged home on 02/15/2023. He was then doing well for couple days, but yesterday began having recurrent symptoms. He has a history of bladder cancer and underwent transurethral resection of bladder tumor. He has also had chemotherapy and radiation for this. He just finished chemo and radiation at the end of January. He has had no prior abdominal surgeries and no obstructions like this in the past. CT in the emergency department yesterday showed evidence of small-bowel obstruction with transition in the right lower quadrant. NG tube was placed and he was admitted for further treatment. His workup in the emergency department also showed evidence of NSTEMI. He has been admitted to the IMU and is currently on a heparin drip. His chest pain has resolved and he is currently not complaining of any abdominal pain. He denies any bloating. He has not passed any flatus or had a bowel movement since being admitted. His last bowel movement was yesterday. Review of Systems Review of Systems: All systems reviewed & are unremarkable except as noted in HPI and below Eyes: Eyes: Denies change in vision ENT: Denies hearing loss, Denies neck pain and Denies sore throat Cardiovascular: Cardiovascular: Reports chest pain and Denies dyspnea Respiratory: Respiratory: Denies cough, Denies dyspnea and Denies wheezing Gastrointestinal: Gastrointestinal: Reports as per HPI Genitourinary: Genitourinary: Denies hematuria and Denies dysuria Musculoskeletal: Musculoskeletal: Denies arthralgias, Denies joint swelling and Denies neck pain Allergic/Immunologic: Allergic/Immunologic: Denies wheezing FOR[facility]LY [facility], [facility] Past Medical History Medical History Bladder cancer Chronic kidney disease, unspecified Diabetes mellitus Hyperlipidemia Hypertension Surgical History Surgical History History of transurethral resection of bladder tumor (TURBT) 7
[2023-02-19 12:31] LABS: Glucose Point of Care 137 mg/dl (65-105)
[2023-02-19] MEDS: PANTOPRAZOLE SODIUM IV 40 MG VIAL IV PUSH ×2 (13:06→23:00)
[2023-02-19 14:08] LABS: Iron 20 ug/dL (49-181); Percent Iron Saturation 13 % (20-50)
[2023-02-19] MEDS: NITROGLYCERIN SL 0.4 MG TABLET (16:19)
--- NOTE | 2023-02-19 16:23 | PC.NURSE ---
RN called to room for patient having chest pain. Vital signs obtained and documented. EKG obtained. Dr. Odell called and updated on patient status and telephone orders received for Nitro sublingual PRN. Nitro given at 1620. Chest Pain relived per patient.
[2023-02-19 18:20] LABS: Glucose Point of Care 128 mg/dl (65-105)
[2023-02-19 20:00] LABS: Partial Thromboplastin Time 80.3 SECONDS (22.3-36.8)
--- NOTE | 2023-02-19 21:12 | PC.NURSE ---
Called to the patient's room. Complaining of onset of chest pain radiating down right arm, 11/18. Denies shortness of breath. Blood pressure 100/43 (right arm). Ntg SL given for pain at 2057. After 10 minutes, the pain has subsided and the right arm discomfort is also improving. O2 applied at 2LNC. Sinus tach on the monitor, rate 109, without any obvious ST changes. Drainage from NG tube is dark red, 100ml total from day shift. NG flushed with 100ml normal saline.
[2023-02-19] MEDS: NITROGLYCERIN SL 0.4 MG TABLET SUBLINGUAL (21:18)
--- NOTE | 2023-02-19 22:26 | PC.NURSE ---
Spoke with Dr. Cole at 0672. Advised of chest pain relieved with one NTG SL. Also advised of bloody NG drainage. Order to stop Heparin drip due to bleeding. Advised of blood pressure 100/43 prior to NTG. Will apply 1/2 inch of NTG paste Q6 hours, starting at 2300 if blood pressure stable. See orders.
--- NOTE | 2023-02-19 22:30 | PC.NURSE ---
Notified Dr. Girard at 4271 of changes and conversation with Dr. Cole. Heparin drip is off. NG gently irrigated with normal saline to prevent occlusion.
--- NOTE | 2023-02-19 22:31 | PC.NURSE ---
Update given to Dr. Mckeon at 9985. Order to increase Protonix to 40mg Q12 hours, first dose now. I asked the patient if he would like me to call his and he declined. He doesn't want to worry her. I explained phone calls with the doctors and answered all questions. I advised that if his condition declines I will then call his . He is agreeable.
[2023-02-19] MEDS: NITROGLYCERIN OINTMENT 1 INCH DOSE 0.5 INCH TRANSDERM (23:01)
[2023-02-19 23:13] LABS: Glucose Point of Care 128 mg/dl (65-105)
[2023-02-20] VITALS (38 sets, daily range): BP systolic 60–135; BP diastolic 42–79; PULSE 86–120; RESP 14–34; TEMP 36.4–37.9; O2SAT 93–99
[2023-02-20] MEDS: SODIUM CHLORIDE 0.9% IV 1,000 ML 125 ML IV CONT ×2 (00:23→08:16)
[2023-02-20] MEDS: NITROGLYCERIN SL 0.4 MG TABLET SUBLINGUAL ×11 (00:41→15:02)
--- NOTE | 2023-02-20 00:44 | ECG_ITS ---
Measurements Intervals [place] Rate: 108 P: 13 LA: 186 QRS: 0 QRSD: 99 T: 85 QT: 339 QTc: 456 Interpretive Statements SINUS TACHYCARDIA CONSIDER INFERIOR INFARCT, AGE INDETERMINATE ST-T WAVE ABNORMALITY IN HIGH LATERAL LEADS- CONSIDER ISCHEMIA BASELINE ARTIFACT- II, III ABNORMAL ECG COMPARED TO ECG 02/19/2023 02:32:52 ST-T WAVE ABNORMALITY NOW PRESENT Electronically Signed On 02-20-2023 12:02:32 SOCIAL PROBLEMS SPECIALIST by Donald Diaz D.O.
--- NOTE | 2023-02-20 01:06 | PC.NURSE ---
Patient c/o 5/10 chest pain radiating down the right arm at 0040. B/P 107/53 ST 105 RR 16 O2 sat 95% on 2LNC. NTG SL X 1 given. Pain relieved at 0100. EKG obtained. Non-specific ST-T wave changes noted.
--- NOTE | 2023-02-20 04:09 | PC.NURSE ---
Patient again developed 5/10 chest pain. B/P 99/53. NTG SL X 1 given. Pain relieved in 10 minutes.
--- NOTE | 2023-02-20 05:10 | ECG_ITS ---
Measurements Intervals [place] Rate: 111 P: 20 [place]: 185 QRS: 2 QRSD: 105 T: 79 QT: 341 QTc: 464 Interpretive Statements SINUS TACHYCARDIA CONSIDER INFERIOR INFARCT, AGE INDETERMINATE ST-T WAVE ABNORMALITY IN HIGH LATERAL LEADS- CONSIDER ISCHEMIA ABNORMAL ECG COMPARED TO ECG 02/20/2023 00:58:05 NO SIGNIFICANT CHANGES Electronically Signed On 02-20-2023 12:05:24 REGIONAL SALES MANAGER by Donald Diaz D.O.
--- NOTE | 2023-02-20 05:28 | PC.NURSE ---
Patient again called out with 8/10 chest pain at 0458 radiating down both arms. B/P 101/51. NTG SL X 1 given. Pain resolved by 0521.
[2023-02-20 05:31] LABS: Basophils Percent Auto 0.6 % (0.2-1.2); Eosinophils Absolute Auto 0.6 K/mm3 (0-0.3); Eosinophils Percent Auto 8.7 % (0-4.4); Hematocrit 27.5 % (42.0-52.0); Hemoglobin 8.4 g/dL (14.0-18.0); Immature Granulocyte Absolute 0.09 K/mm3 (0.00-0.031); Immature Granulocyte Percent A 1.3 % (0-0.5); Lymphocytes Absolute Auto 0.47 K/mm3 (0.9-3.2); Lymphocytes Percent Auto 6.7 % (18.3-44.2); Mean Corpuscular HGB Conc 30.5 g/dl (32-36); Mean Corpuscular Hemoglobin 31.3 pg (26-34); Mean Corpuscular Volume 102.6 fl (80-100); Mean Platelet Volume 9.3 fl (7.4-10.4); Monocytes Absolute Auto 1.1 K/mm3 (0.1-0.6); Neutrophils Absolute Auto 4.7 K/mm3 (1.3-6.7); Neutrophils Percent Auto 67.7 % (45.5-73.1); Platelet Count Result 139 k/mm3 (150-375); Red Blood Count 2.68 M/mm3 (4.6-6.20); Red Cell Distribution Width 15.5 % (11.5-14.5)
--- NOTE | 2023-02-20 05:49 | PC.NURSE ---
Spoke with Dr. Cole. Events of the night discussed. Order to increase NTG paste to 1 inch Q6hrs. She will speak with Dr. Odell regarding the patient.
[2023-02-20] MEDS: NITROGLYCERIN OINTMENT 1 INCH DOSE TRANSDERM ×2 (06:07→12:41)
[2023-02-20 06:15] LABS: Anion Gap 10 mmol/L (8-16); Blood Urea Nitrogen 23 mg/dL (9-20); Calcium 7.7 mg/dL (8.4-10.2); Carbon Dioxide 14 mmol/L (22-30); Chloride 109 mmol/L (98-107); Estimated CRCL calculation 22 ml/min; Estimated Glomerular Filt Rate 29; Glucose 115 mg/dL (65-110); Magnesium 1.8 mg/dL (1.6-2.3); Potassium 4.3 mmol/L (3.4-5.0); Sodium 133 mmol/L (137-145)
[2023-02-20 06:21] LABS: Glucose Point of Care 148 mg/dl (65-105)
[2023-02-20] MEDS: ASPIRIN 81 MG CHEWABLE TABLET PO (08:47)
[2023-02-20] MEDS: PANTOPRAZOLE SODIUM IV 40 MG VIAL IV PUSH (08:47)
--- NOTE | 2023-02-20 09:03 | PM.IMPN ---
Progress Note: A&P Assessment and Plan (1) Acute non-ST elevation myocardial infarction (NSTEMI): Code(s): I21.4 - Non-ST elevation (NSTEMI) myocardial infarction Status: Acute (2) Chest pain: Code(s): R07.9 - Chest pain, unspecified Status: Acute (3) Partial obstruction of small intestine: Code(s): K56.600 - Partial intestinal obstruction, unspecified as to cause Status: Acute (4) Abdominal pain: Code(s): R10.9 - Unspecified abdominal pain Status: Acute (5) Hypertension: Code(s): I10 - Essential (primary) hypertension Status: Acute (6) Diabetes mellitus: Code(s): E11.9 - Type 2 diabetes mellitus without complications Status: Acute (7) Acute on chronic renal failure: Code(s): N17.9 - Acute kidney failure, unspecified; N18.9 - Chronic kidney disease, unspecified Status: Acute (8) Hyponatremia: Code(s): E87.1 - Hypo-osmolality and hyponatremia Status: Acute (9) Hypotension due to hypovolemia: Code(s): I95.89 - Other hypotension; E86.1 - Hypovolemia Status: Acute (10) Acute on chronic blood loss anemia: Code(s): D62 - Acute posthemorrhagic anemia Status: Acute (11) Acute GI bleeding: Code(s): K92.2 - Gastrointestinal hemorrhage, unspecified Status: Acute Plan NSTEMI Patient came to ED with chief complaint of epigastric pain and chest pain Elevated troponin x2, EKG shows sinus rhythm no ST elevation Suspecting non-STEMI Received heparin bolus and drip Titrate drip per ACS protocol Consult cardiology for evaluation treatment 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 Given acute GI bleeding, heparin drip is stopped. Partial small obstruction Patient has abdomen pain, nausea vomiting CT abdomen pelvis showed possible partial small-bowel obstruction NG tube is placed Keep patient p.o. Consult general surgeon for evaluation treatment JAMIE on CKD, hyponatremia, hypovolemic hypotension Patient has history of CKD stage 4, creatinine BUN above baseline, patient also found have hyponatremia, hypotension Likely secondary to poor intake, nausea vomiting Received normal saline bolus, blood pressure became stable Continue normal saline IV Avoid nephrotoxic medication Urinalysis unremarkable Follow-up BMP and correct electrolyte abnormality accordingly Creatinine is trending down Acute blood loss anemia History of chronic anemia, hemoglobin 10.1, close to baseline POA coffee-ground stomach fluid drained out, Follow-up stool guaiac, iron panel and CBC HB is trending down, 8.4 to 6.5. 02/20, transfused 2 PRBC and 2 X FFP consult GI for evaluation, GI performed EGD emergently. EGD revealed reflux esophagitis, grade 3, deep acute ulcer in the body of the stomach posteriorly. More consistent with fresh tear. Bleeding was stopped by clips and epinephrine injection Patient was on protonix 40 mg IV q.12 hour, change to Protonix drip Monitor hemoglobin q.6 hours, Transfuse as needed Hemorrhagic shock Represent was called, blood pressure was low 76/46, likely resulting work ability Received normal saline bolus, 2 pack RBC and 2 units FFP Pressure became stable More patient closely Hypertension Hold hypertension medication because of hypotension Type 2 diabetes Hold oral medication Start insulin sliding scale q.4 hour during NPO Patient may stay more than 2 midnights in the hospital Patient condition is critical, patient will be monitored closely in ICU. Subjective Date/time seen: 02/20/23 09:03 Interval history: I saw and examined patient in the morning, rapid response was called because of hypotension. When I saw exam patient, patient was on NG tube suction, dark red blood was sucked out from the G-tube. Patient was also noticed confused. Per nurse report, heparin drip was stopped it yesterday. Patient had epigastric pain, patient was lethargic. H
--- NOTE | 2023-02-20 09:54 | PM.PNCARD ---
Progress Note: A&P Assessment and Plan (1) Acute non-ST elevation myocardial infarction (NSTEMI): Code(s): I21.4 - Non-ST elevation (NSTEMI) myocardial infarction Status: Acute Assessment and Plan: Troponin of 4.240 and 3.340. EKG with sinus tachycardia with nonspecific STTW abnormality. No known prior cardiac history. In the setting of small bowel obstruction. Echocardiogram shows LVEF >70%, no significant valvular disease. -Recommend Heparin drip, which was started on admission, however on hold currently due to bloody output from his NG tube. Since patient is actively having bloody output from his NG tube, we cannot resume Heparin drip. However, once bleeding stops, then would resume Heparin drip. -Agree with ASA 81mg once daily. -Start high-intensity statin. -Will eventually need cardiac catheterization, however, complicated picture due to concerns for active bleed, small bowel obstruction (concern for poor medication absorption), and JAMIE on CKD. He is not a candidate for cardiac cath at this time due to bleed, small bowel obstruction. Will try to medically manage him the best we can in the meantime. -For his chest pain, continue NTG paste for now. Will start Imdur. Will hold off on beta sydnie therapy at this time given bleed. -Recommend to keep his Hgb above 8 as his anemia can make his chest pain worse. (2) Acute on chronic renal failure: Code(s): N17.9 - Acute kidney failure, unspecified; N18.9 - Chronic kidney disease, unspecified Status: Acute Assessment and Plan: Scr improving today. Avoid nephrotoxins. (3) Acute anemia: Code(s): D64.9 - Anemia, unspecified Status: Acute Assessment and Plan: Hgb this morning is 8.4 (was 12.9 back on 02/12). GI has been consulted. Recommend to keep his Hgb above 8 as his anemia can make his chest pain worse. (4) Partial obstruction of small intestine: Code(s): K56.600 - Partial intestinal obstruction, unspecified as to cause Status: Acute Assessment and Plan: Surgery is consulted and following along. (5) Hypertension: Code(s): I10 - Essential (primary) hypertension Status: Acute Assessment and Plan: Blood pressures are currently soft, hold home blood pressure medications for now. Plan Recommendations/Plan discussed with Hospitalist. Subjective Date/time seen: 02/20/23 09:54 Interval history: Reason for consult: NSTEMI HPI: We are consulted for NSTEMI. This is a 77 year old male with bladder cancer s/p recent completion of chemoradiation, ileus, who was recently discharged from [facility] after being admitted with a small bowel obstruction. Patient presented to [facility] again 02/19 for abdominal pain, that radiates up to the epigastric/substernal area. Workup showed SCr of 2.40 (was 1.7 on 02/15), initial lactic acid of 2.3 with repeat at 0.8. Troponin of 4.[address] A/P shows dilated small bowel with transition point in right abdomen, consistent with partial small bowel obstruction, mild sigmoid diverticulitis. EKG with sinus tachycardia with nonspecific STTW abnormality. NG tube was placed. Patient started on ASA and Heparin drip. At the time of my evaluation, patient states he is feeling better without any active chest pain. No prior known cardiac history. reports that he is usually active at home and never complained of chest pain or other cardiac symptoms. He just finished chemoradiation in January. Date of service 02/20: Had more recurrent chest pain overnight that would improve with NTG; NTG paste was placed. However, he had bloody output from his NG tube and his Heparin drip has been put on hold. His Hgb this morning is 8.4 (was 12.9 back on 02/12). Patient had recurrent chest pain this morning during my evaluation which resolved with SL NTG. Tele shows sinus tachycardia. Review of Systems Review of Systems: All systems reviewed & are unremarkable except as noted in HPI and below
--- NOTE | 2023-02-20 09:59 | WPDGICN ---
Assessment and Plan Assessment and plan (1) Partial obstruction of small intestine: Code(s): K56.600 - Partial intestinal obstruction, unspecified as to cause Status: Acute Assessment and Plan: NG tube has been placed. It was draining a scant amount of liquid when I 1st saw him. Now 1/2 are later bright red blood is emanating from his NG tube. (2) Acute non-ST elevation myocardial infarction (NSTEMI): Code(s): I21.4 - Non-ST elevation (NSTEMI) myocardial infarction Status: Acute Assessment and Plan: He was having chest pain as I visited him this morning. It has been relieve now by nitroglycerin. We will repeat his troponins. (3) Acute anemia: Code(s): D64.9 - Anemia, unspecified Status: Acute Assessment and Plan: Blood counts have been dropping since admission . hemoglobin was 10.7 when he left the hospital few days ago. It has dropped down to 8.4 now. He and his denies seeing any blood or melena per rectum. He has had no hematemesis. NG drainage now is bright red however. (4) Hypotension due to hypovolemia: Code(s): I95.89 - Other hypotension; E86.1 - Hypovolemia Status: Acute Assessment and Plan: He will be transferred to ICU 1 unit of blood to be given stat Plan shortly after I left his room this morning he began having bright red blood per NG tube and became hypotensive. I was called back to see him and reassessed him with cartridge filler. which check troponin and coags. Plan for emergency EGD this morning Transfer to ICU GI Consult Note Consult date/time: 02/20/23 09:59 HPI: Vince Walters is a 77 year old male Who presented to the emergency room with chest pain, nausea vomiting and abdominal discomfort. He in fact had just been discharged a couple of days earlier with hospitalization for the same symptoms. He was felt to have a partial small-bowel obstruction. He was able to eat and had bowel movements for couple days. Now CT scan shows: 1. Dilated small bowel with transition point in right abdomen, consistent with partial small bowel obstruction. 2. Mild sigmoid diverticulitis. No perforation or abscess. 3. Small cystic lesions of the pancreas. The differential diagnosis includes pseudocyst, intraductal papillary mucinous neoplasm (IPMN), mucinous cystic neoplasm (MCN), serous cystadenoma, and neuroendocrine tumor. Abdomen MRI without and with contrast is recommended in 2 years. this morning he states that his main problem is he is having chest pain. He did have an EKG several hours ago , it showed no acute changes. His NG tube has been draining a scant bit of liquid and had some coffee-ground material earlier. I am asked to see him primarily because of the drop in his hemoglobin and guaiac-positive NG drainage. just a few minutes after he left his room, I was called and informed that he now has bright red blood per NG tube, blood pressure has dropped, he is the cardiac. Nitroglycerin did relieve his pain. Review of Systems Review of Systems: All systems reviewed & are unremarkable except as noted in HPI and below PMFSH Past Medical History Medical History Bladder cancer Chronic kidney disease, unspecified Diabetes mellitus Hyperlipidemia Hypertension Surgical History Surgical History History of transurethral resection of bladder tumor (TURBT) 10/28/22 - performed at [facility] Family History Family History Father Acute myocardial infarction Social History Social History Social History: Lives at home with his spouse. Surrogate decision maker: Altagracia Walters, . Code Status: DNR. Smoking packs per day: 0.5 Smoking cigarettes per day: 10.0 Years smoked: 10
--- NOTE | 2023-02-20 10:00 | ECG_ITS ---
Measurements Intervals [place] Rate: 115 P: -18 MA: 138 QRS: 15 QRSD: 96 T: 84 QT: 334 QTc: 463 Interpretive Statements SINUS TACHYCARDIA CONSIDER INFERIOR INFARCT, AGE INDETERMINATE NONSPECIFIC ST & T-WAVE ABNORMALITY- LAT/HIGH LAT LEADS ABNORMAL ECG COMPARED TO ECG 02/20/2023 05:19:44 NO SIGNIFICANT CHANGES Electronically Signed On 02-21-2023 12:06:19 WINE STEWARD/STEWARDESS by Donald Diaz D.O.
[2023-02-20 10:03] LABS: Glucose Point of Care 177 mg/dl (65-105)
[2023-02-20 10:34] LABS: Hematocrit 21.3 % (42.0-52.0); Mean Corpuscular HGB Conc 30.5 g/dl (32-36); Mean Corpuscular Hemoglobin 31.4 pg (26-34); Mean Corpuscular Volume 102.9 fl (80-100); Platelet Count Result 132 k/mm3 (150-375); Red Blood Count 2.07 M/mm3 (4.6-6.20); Red Cell Distribution Width 15.6 % (11.5-14.5); White Blood Count 9.1 K/mm3 (4.5-10.0)
[2023-02-20 10:37] LABS: Hemoglobin 6.5 g/dL (14.0-18.0)
[2023-02-20 10:44] LABS: INR 1.3; Prothrombin Time 16.8 Seconds (11.1-14.7)
[2023-02-20 10:45] LABS: Partial Thromboplastin Time 28.5 SECONDS (22.3-36.8)
[2023-02-20 10:46] LABS: Anion Gap 9 mmol/L (8-16); Blood Urea Nitrogen 28 mg/dL (9-20); Calcium 7.5 mg/dL (8.4-10.2); Carbon Dioxide 13 mmol/L (22-30); Chloride 110 mmol/L (98-107); Estimated CRCL calculation 22 ml/min; Estimated Glomerular Filt Rate 29; Glucose 170 mg/dL (65-110); Potassium 4.4 mmol/L (3.4-5.0); Sodium 132 mmol/L (137-145)
--- NOTE | 2023-02-20 11:32 | PC.NURSE ---
Nurse called to room for patient having chest pain. RN and Dr. Odell at bedside. RN informed dr. Odell for blood pressure 101/52 and having nitro paste on left chest already. Dr. Odell verbal order to give Sublingual nitro. patient received nitro and patient was getting relief. RN went to the bathroom to empty urinal. started yelling for RN to come to bedside. Patient was unresponsive with a pulse. Rapid response called at 0949. Refer to documentation.
[2023-02-20 11:36] LABS: Iron 43 ug/dL (49-181)
--- NOTE | 2023-02-20 11:36 | WPDANESEPPF ---
Anes - Initial Pre Proc Eval Date/Time: 02/20/23 11:36 Surgeon: Darline Mckeon DO Pre Op Diagnosis: Chest Pain, Abdomian Pain,NSTEMI,Partial SBO Patient Data Age: 77 Gender: M Height: 1.65 m Weight: 60.6 kg Last Vital Signs Temp 36.8 C 02/20/23 11:07 Pulse 110 H 02/20/23 11:07 Resp 14 02/20/23 11:07 BP 60/46 L 02/20/23 11:07 Pulse Ox 97 02/20/23 11:07 O2 Del Method Nasal Cannula 02/20/23 11:07 O2 Flow Rate 5 02/20/23 11:07 Allergies Allergy/AdvReac Type Severity Reaction Status Date / Time Penicillins Allergy Mild Swelling Verified 02/19/23 02:36 Home Medications Medication Instructions Recorded Confirmed Type hydrochlorothiazide 12.5 mg capsule 12.5 mg PO DAILY #30 caps 05/17/22 02/19/23 Rx lisinopril 10 mg tablet 10 mg PO DAILY #30 tabs 05/17/22 02/19/23 Rx terazosin 5 mg capsule 5 mg PO BID #60 caps 05/17/22 02/19/23 Rx atorvastatin 40 mg tablet 40 mg PO HS 08/11/22 02/19/23 History cholecalciferol (vitamin D3) 50 50 mcg PO BID 08/11/22 02/19/23 History mcg (2,000 unit) tablet empagliflozin 25 mg tablet 25 mg PO DAILY 08/11/22 02/19/23 History (Jardiance) ezetimibe 10 mg tablet 10 mg PO DAILY 08/11/22 02/19/23 History ferrous sulfate 325 mg (65 mg 325 mg PO BID 08/11/22 02/19/23 History iron) tablet (FeroSul) glipizide 10 mg tablet 10 mg PO BID 08/11/22 02/19/23 History prednisone 5 mg tablet 5 mg PO HS 08/11/22 02/19/23 History sitagliptin phosphate 50 mg tablet 50 mg PO DAILY 08/11/22 02/19/23 History (Januvia) carvedilol 25 mg tablet 25 mg PO BID #180 tabs 11/08/22 02/19/23 Rx nifedipine 60 mg tablet,extended 120 mg PO DAILY 01/18/23 02/19/23 History release aspirin 81 mg tablet 81 mg PO DAILY 02/09/23 02/19/23 History polyethylene glycol 3350 17 gram 17 g PO QAM constipation #30 ea 02/11/23 02/19/23 Rx oral powder packet (Miralax) tamsulosin 0.4 mg capsule 0.4 mg PO QAM urinary retention 02/11/23 02/19/23 Rx #30 caps Laboratory Tests 02/19/23 02/19/23 02/19/23 12:26 12:59 18:15 WBC RBC Hgb Hct MCV MCH MCHC RDW Plt Count MPV Immature Gran % (Auto) Neut % (Auto) Lymph % (Auto) [place] % (Auto) Eos % (Auto) Baso % (Auto) Lymph # (Auto) [place] # (Auto) Eos # (Auto) Baso # (Auto) Abs Immat Gran (auto) Absolute Neuts (auto) Absolute Nucleated RBC Nucleated RBC % PT INR APTT 120.0 H SECONDS (22.3-36.8) Sodium Potassium Chloride Carbon Dioxide Anion Gap BUN Creatinine Estim Creat Clear Calc Estimated GFR Glucose POC Capillary Glucose 137 H mg/dl 128 H mg/dl (65-105) (65-105) Calcium Ionized Calcium Annamarie Magnesium Iron 20 L ug/dL (49-181) TIBC 152 L ug/dL (265-497) % Saturation 13 L % (20-50) Ferritin 359.00 H ng/mL (11.1-264) Troponin I 2.820 H* ng/mL (0.000-0.034) Vitamin B12 Folate Blood Type Antibody Screen Crossmatch 02/19/23 02/19/23 02/20/23 19:39 23:06 04:37 WBC RBC Hgb Hct MCV MCH MCHC RDW Plt Count MPV Immature Gran % (Auto) Neut % (Auto) Lymph % (Auto) [place] % (Auto) Eos % (Auto) Baso % (Auto) Lymph # (Auto) [place] # (Auto) Eos # (Auto) Baso # (Auto) Abs Immat Gran (auto)
--- NOTE | 2023-02-20 11:41 | WPDCNINT ---
Assessment and Plan Assessment and plan (1) GI bleed: Code(s): K92.2 - Gastrointestinal hemorrhage, unspecified Status: Acute Assessment and Plan: Acute GI bleed, bright red blood in the NG tube drainage -hemoglobin dropped to 6.5 this morning with severe anemia -emergently called GI, -heparin infusion for NSTEMI was discontinued last night around 8:00 p.m. -coags morning of within normal limits -discussed emergently with GI, will be doing endoscopy today -continue Protonix IV q.12 hours (2) Acute anemia: Code(s): D64.9 - Anemia, unspecified Status: Acute Assessment and Plan: 2 units of unmatched blood were transfused this morning due to acute bright red blood in the NG drainage. -hemoglobin dropped to 6.5 from 11.7 on admission on 02/19 -will also give 1 unit of FFP (3) Acute non-ST elevation myocardial infarction (NSTEMI): Code(s): I21.4 - Non-ST elevation (NSTEMI) myocardial infarction Status: Acute Assessment and Plan: Patient presented with epigastric pain that was radiating to the chest. EKG showed ST T wave changes but no ST elevation, diagnosed with NSTEMI, or was started on heparin infusion on 02/19/2023 and stopped on the same day at night because of coffee-ground drainage from his NG -NG was placed due to partial small-bowel obstruction as seen on CT abdomen and pelvis -cardiology following the patient -will hold aspirin -hold Imdur, nitroglycerin paste due to hypotension -discussed with cardiology (4) Abdominal pain: Code(s): R10.9 - Unspecified abdominal pain Status: Acute Assessment and Plan: 03/03: Presented with epigastric pain, along with nausea and vomiting -02/19: CT scan of the abdomen and pelvis showed dilated small bowel with transition point in right abdomen, consistent with partial small-bowel obstruction. Mild sigmoid diverticulitis with no perforation or abscess. Small cystic lesions of the pancreas -GI following the patient -appreciate surgery evaluation. Will further discuss with surgery today secondary to the acute issues that happened overnight and this morning (5) Small bowel obstruction: Code(s): K56.609 - Unspecified intestinal obstruction, unspecified as to partial versus complete obstruction Status: Acute Assessment and Plan: As above (6) Chronic kidney disease, stage 4 (severe): Code(s): N18.4 - Chronic kidney disease, stage 4 (severe) Status: Acute Assessment and Plan: Patient with history of chronic kidney disease, creatinine at baseline -continue to monitor urine output, renal function electrolytes (7) Bladder cancer: Code(s): C67.9 - Malignant neoplasm of bladder, unspecified Status: Acute Assessment and Plan: Patient history of bladder cancer status post chemotherapy and radiation that completed on 02/02/2023. (8) Diabetes mellitus: Code(s): E11.9 - Type 2 diabetes mellitus without complications Status: Acute Assessment and Plan: Blood sugars have been stable -continue Accu-Cheks and sliding scale insulin (9) Hypotension due to hypovolemia: Code(s): I95.89 - Other hypotension; E86.1 - Hypovolemia Status: Acute Assessment and Plan: Hypotension likely to severe anemia and GI bleed -blood pressures have improved post PRBC transfusion -will continue to monitor Plan DVT prophylaxis: SCDs, no chemoprophylaxis due to acute GI bleed and severe anemia Stress ulcer prophylaxis: Protonix IV q.12 hours Nutrition: NPO for Code Status: Full code Critical Care Time Spent: 51 minutes Discussed with GI Discussed with cardiology Discussed with hospitalist Discussed with patient's , Altagracia with patient's condition and plan of care. She is aware that the patient has GI bleed and severe anemia. Patient will be getting endoscopy, blood transfusion,-blood pressures dropped he will be on a blood pressure support med
[2023-02-20 11:46] LABS: Percent Iron Saturation 33 % (20-50)
[2023-02-20] MEDS: EPINEPHrine INJ 1 MG/10 ML SYRINGE XX (12:10)
[2023-02-20 12:39] LABS: Hemoglobin 9.5 g/dL (14.0-18.0)
[2023-02-20 12:44] LABS: Folic Acid 10.8 ng/mL (2.76->20)
--- NOTE | 2023-02-20 12:52 | SUR.OPER ---
ENTERED ICU 9 AT 1142, ANESTHESIA PRESENT AND MONITORING VITAL SIGNS AND AIRWAY, SCOURING TRAIN OPERATOR CHIEF PEPITO PRESENT, PROCEDURE COMPLETED AND LEFT ICU 9 AT 1215.
[2023-02-20] MEDS: ONDANSETRON INJ 4 MG/2 ML VIAL IV PUSH (13:00)
[2023-02-20] MEDS: CALCIUM GLUC 2,000 MG/NS 100ML 2,000 MG/100 ML BAG 100 MG IVPB (13:15)
[2023-02-20 13:26] LABS: Glucose Point of Care 176 mg/dl (65-105)
[2023-02-20] MEDS: CENTRAL LINE FLUSH 10 ML IV PUSH ×2 (14:16→21:37)
--- NOTE | 2023-02-20 14:26 | PM.PNGS ---
Progress Note: A&P Assessment and Plan (1) Partial obstruction of small intestine: Code(s): K56.600 - Partial intestinal obstruction, unspecified as to cause Status: Acute Assessment and Plan: Passing flatus. Course complicated by NSTEMI and Acute UGI bleed. Continue NG decompression for now. Will get repeat KUB tomorrow, and consider SBFT if more stable. (2) Acute non-ST elevation myocardial infarction (NSTEMI): Code(s): I21.4 - Non-ST elevation (NSTEMI) myocardial infarction Status: Acute (3) Acute anemia: Code(s): D64.9 - Anemia, unspecified Status: Acute (4) GI bleed: Code(s): K92.2 - Gastrointestinal hemorrhage, unspecified Status: Acute Subjective Subjective Date/Time Seen: 02/20/23 14:26 Interval history: Patient developed GI bleed overnight. Heparin gtt held. Underwent EGD this AM. Now in ICU. Patient passing flatus. No BM yet. Exam GI: Inspection: non-distended GI Palp: Yes Soft to palpation, No Tenderness to palpation present (GI), No Guarding due to palpation present (GI) and No Rebound tenderness present Percussion: Yes dullness to percussion Auscultation: normal bowel sounds Objective Data Vital Signs Vital Signs: Vital Signs - 24 hr 02/19/23 15:27 02/19/23 16:25 02/19/23 17:06 Temperature 36.8 C 36.4 C Pulse Rate 96 108 H Respiratory Rate 17 Blood Pressure 115/46 L 104/49 L 94/44 L Pulse Oximetry 92 94 96 Oxygen Delivery Oxygen Flow Rate 02/19/23 19:37 02/19/23 16:00 02/19/23 16:00 Temperature 36.6 C Pulse Rate 118 H 105 H Respiratory Rate 18 Blood Pressure 112/48 L Pulse Oximetry 97 Oxygen Delivery Room Air Oxygen Flow Rate 02/19/23 18:00 02/19/23 20:00 02/19/23 20:00 Temperature Pulse Rate 90 93 Respiratory Rate Blood Pressure Pulse Oximetry 97 Oxygen Delivery Room Air Oxygen Flow Rate 02/19/23 22:00 02/19/23 20:50 02/19/23 23:00 Temperature 36.1 C L Pulse Rate 89 110 H 103 H Respiratory Rate 20 16 Blood Pressure 100/43 L 104/43 L Pulse Oximetry 96 96 Oxygen Delivery Oxygen Flow Rate 02/20/23 00:00 02/20/23 00:40 02/20/23 00:00 Temperature Pulse Rate 98 105 H Respiratory Rate 20 Blood Pressure 107/53 L Pulse Oximetry 95 95 Oxygen Delivery Nasal Cannula Oxygen Flow Rate 2 02/20/23 03:43 02/20/23 02:00 02/20/23 04:00 Temperature Pulse Rate 103 H 99 103 H Respiratory Rate 16 Blood Pressure 99/53 L Pulse Oximetry 95 Oxygen Delivery Oxygen Flow Rate 02/20/23 04:00 02/20/23 04:59 02/20/23 06:00 Temperature 36.6 C Pulse Rate 106 H 101 H Respiratory Rate 18 Blood Pressure 99/53 L Pulse Oximetry 95 93 Oxygen Delivery Nasal Cannula Oxygen Flow Rate 2 02/20/23 08:00 02/20/23 10:33 02/20/23 10:34 Temperature 36.4 C 36.9 C 36.9 C Pulse Rate 120 H 104 H 104 H Respiratory Rate 22 H 22 H 25 H Blood Pressure 93/50 L 95/56 L 95/56 L Pulse Oximetry 98 98 97 Oxygen Delivery Oxygen Flow Rate 02/20/23 11:07 02/20/23 10:48 02/20/23 10:48 Temperature 36.8 C 36.6 C 36.6 C Pulse Rate 110 H 115 H 115 H Respiratory Rate 14 28 H 28 H Blood Pressure 60/46 L 94/51 L 94/51 L Pulse Oximetry 97 99 99 Oxygen Delivery Nasal Cannula Oxygen Flow Rate 5 02/20/23 08:00 02/20/23 08:00 02/20/23 12:56 Temperature 37.1 C Pulse Rate 115 H 113 H Respiratory Rate 23 H Blood Pressure 135/62 Pulse Oximetry 97 98 Oxygen Delivery Nasal Cannula Oxygen Flow Rate 2 02/20/23 13:10 02/20/23 12:03 02/20/23 12:00 Temperature 37.2 C 37.0 C Pulse Rate 118 H 104 H Respiratory Rate 18 32 H Blood Pressure 131/67 103/51 L Pulse Oximetry 97 99 99 Oxygen Delivery Nasal Cannula Oxygen Flow Rate 2 02/20/23 12:00 02/20/23 14:00 02/20/23 14:00 Temperature Pulse Rate 98 118 H 119 H Respiratory Rate 20 Blood Pressure 110/79 Pulse Oximetry 99 Oxygen Delivery Oxygen Flow
[2023-02-20] MEDS: MORPHINE SULFATE (*CRX) 2 MG/ML INJ 1 MG IV PUSH (15:48)
[2023-02-20] MEDS: NITROGLYCERIN/D5W 200 MCG/ML 50 MG/250 ML BTL IV CONT (15:52)
--- NOTE | 2023-02-20 16:00 | ECG_ITS ---
Measurements Intervals [place] Rate: 109 P: 22 SD: 189 QRS: -2 QRSD: 102 T: 92 QT: 328 QTc: 443 Interpretive Statements SINUS TACHYCARDIA ST-T WAVE ABNORMALITY IN ANTEROLAT/HIGH LAT LEADS- CONSIDER ISCHEMIA BASELINE ARTIFACT- I, III, AVR ABNORMAL ECG COMPARED TO ECG 02/19/2023 02:32:52 ST-T WAVE ABNORMALITY- CONSIDER ISCHEMIA IS NOW PRESENT Electronically Signed On 02-21-2023 12:05:26 KAITARA TARAKA by Donald Diaz D.O.
[2023-02-20] MEDS: PANTOPRAZOLE SODIUM IV 80 MG in SODIUM CHLORIDE 0.9% IV 500 ML 50 MG IV CONT (16:31)
[2023-02-20 18:05] LABS: Glucose Point of Care 154 mg/dl (65-105)
[2023-02-20 18:50] LABS: Hematocrit 27.3 % (42.0-52.0); Hemoglobin 8.4 g/dL (14.0-18.0); Immature Platelet Fraction Pct 1.1 % (0.9-11.2); Mean Corpuscular HGB Conc 30.8 g/dl (32-36); Mean Corpuscular Hemoglobin 29.5 pg (26-34); Mean Corpuscular Volume 95.8 fl (80-100); Mean Platelet Volume 8.9 fl (7.4-10.4); Platelet Count Result 114 k/mm3 (150-375); Red Blood Count 2.85 M/mm3 (4.6-6.20); Red Cell Distribution Width 17.3 % (11.5-14.5); White Blood Count 9.5 K/mm3 (4.5-10.0)
[2023-02-20] MEDS: SODIUM CHLORIDE 0.9% IV 500 ML IV CONT (19:00)
[2023-02-20 19:12] LABS: Anion Gap 10 mmol/L (8-16); Blood Urea Nitrogen 36 mg/dL (9-20); Carbon Dioxide 14 mmol/L (22-30); Chloride 110 mmol/L (98-107); Estimated CRCL calculation 21 ml/min; Estimated Glomerular Filt Rate 28; Glucose 145 mg/dL (65-110); Magnesium 1.7 mg/dL (1.6-2.3); Potassium 4.8 mmol/L (3.4-5.0); Sodium 134 mmol/L (137-145)
[2023-02-20] MEDS: NOREPINEPHRINE 8 MG/D5W 250 ML 8 MG/250 ML BAG 9.38 MG IV CONT (20:08)
[2023-02-21] VITALS (51 sets, daily range): BP systolic 79–116; BP diastolic 46–74; PULSE 94–134; RESP 22–39; TEMP 37.2–38.4; O2SAT 90–99
[2023-02-21] MEDS: SODIUM CHLORIDE 0.9% IV 250 ML 30 ML IV CONT
--- NOTE | 2023-02-21 01:11 | PC.NURSE ---
orders entered for Martínez NGUYEN; albuterol, lasix, and CXR orders receicved from Dr Chan due to SOB and wheezes post 2 units PRBC.
[2023-02-21] MEDS: FUROSEMIDE INJ 40 MG/4 ML VIAL 20 MG IV PUSH (01:16)
--- NOTE | 2023-02-21 01:20 | PC.NURSE ---
0120 levophed increased from 18 to 20 for blood pressure 83/56
[2023-02-21 01:23] LABS: Glucose Point of Care 201 mg/dl (65-105)
[2023-02-21] MEDS: INSULIN ASPART (*BKC) 100 UNITS/ML SUB-Q ×3 (01:25→12:46)
[2023-02-21] MEDS: ALBUTEROL SULFATE NEB 2.5 MG/3 ML INH INHALATION (01:32)
[2023-02-21] MEDS: PANTOPRAZOLE SODIUM IV 80 MG in SODIUM CHLORIDE 0.9% IV 500 ML 50 MG IV CONT (03:00)
[2023-02-21 04:08] LABS: Basophils Absolute Auto 0.1 K/mm3 (0.0-0.1); Basophils Percent Auto 0.5 % (0.2-1.2); Eosinophils Absolute Auto 0.1 K/mm3 (0-0.3); Hematocrit 32.4 % (42.0-52.0); Hemoglobin 10.1 g/dL (14.0-18.0); Immature Granulocyte Absolute 0.24 K/mm3 (0.00-0.031); Immature Platelet Fraction Pct 1.6 % (0.9-11.2); Lymphocytes Absolute Auto 0.58 K/mm3 (0.9-3.2); Lymphocytes Percent Auto 4.8 % (18.3-44.2); Mean Corpuscular HGB Conc 31.2 g/dl (32-36); Mean Corpuscular Hemoglobin 30.3 pg (26-34); Mean Corpuscular Volume 97.3 fl (80-100); Mean Platelet Volume 9.5 fl (7.4-10.4); Monocytes Absolute Auto 1.5 K/mm3 (0.1-0.6); Monocytes Percent Auto 12.6 % (2.6-8.5); Neutrophils Absolute Auto 9.5 K/mm3 (1.3-6.7); Neutrophils Percent Auto 79.1 % (45.5-73.1); Nucleated Red Blood Cells Perc 0.2 % (0.0-0.2); Platelet Count Result 95 k/mm3 (150-375); Red Blood Count 3.33 M/mm3 (4.6-6.20); Red Cell Distribution Width 17.3 % (11.5-14.5)
[2023-02-21 04:20] LABS: INR 1.2; Partial Thromboplastin Time 28.2 SECONDS (22.3-36.8); Prothrombin Time 16.1 Seconds (11.1-14.7)
[2023-02-21 04:40] LABS: Anisocytosis 1+ (NORMAL); Burr Cells 1+ (NORMAL); Giant Platelets Present; Schistocytes None Seen (NORMAL)
[2023-02-21 05:06] LABS: Lactic Acid Reflex 1.6 mmol/L (0.7-2.0)
[2023-02-21 05:19] LABS: Platelet Estimate Decreased (Adequate)
[2023-02-21 05:27] LABS: Alanine Aminotransferase 22 U/L (6-50); Albumin Level 2.3 g/dL (3.5-5.1); Alkaline Phosphatase 51 U/L (38-126); Anion Gap 18 mmol/L (8-16); Aspartate Amino Transferase 61 U/L (17-59); Bilirubin,Total 0.8 mg/dL (0.2-1.3); Blood Urea Nitrogen 45 mg/dL (9-20); Calcium 8.1 mg/dL (8.4-10.2); Carbon Dioxide 8 mmol/L (22-30); Chloride 110 mmol/L (98-107); Estimated CRCL calculation 21 ml/min; Estimated Glomerular Filt Rate 26; Glucose 243 mg/dL (65-110); Magnesium 1.7 mg/dL (1.6-2.3); Phosphorus 3.5 mg/dL (2.5-4.5); Potassium 5.1 mmol/L (3.4-5.0); Sodium 136 mmol/L (137-145)
[2023-02-21] MEDS: NOREPINEPHRINE 8 MG/D5W 250 ML 8 MG/250 ML BAG 26.25 MG IV CONT ×3 (05:40→14:48)
[2023-02-21] MEDS: CENTRAL LINE FLUSH 10 ML IV PUSH ×3 (06:02→20:32)
[2023-02-21] MEDS: SODIUM BICARBONATE 8.4% 50 MEQ/50 ML SYRINGE 100 MEQ IV PUSH (08:10)
[2023-02-21] MEDS: levoFLOXacin 750 MG/D5W 150 ML 750 MG/150 ML BAG 100 MG IVPB (08:36)
[2023-02-21] MEDS: metroNIDAZOLE 500 MG/ISO 100ML 500 MG/100 ML BAG 100 MG IVPB ×3 (08:36→20:39)
[2023-02-21] MEDS: BUMETANIDE INJ 1 MG/4 ML VIAL IV PUSH (08:36)
--- NOTE | 2023-02-21 09:25 | PM.PNNEP ---
Subjective Date/time seen: 02/21/23 12:37 Objective Data Vital Signs Vital Signs: Vital Signs - 24 hr 02/20/23 12:56 02/20/23 13:10 02/20/23 14:00 Temperature 98.8 F 99 F Pulse Rate 113 H 118 H 118 H Respiratory Rate 23 H 18 Blood Pressure 135/62 131/67 Pulse Oximetry 98 97 Oxygen Delivery Oxygen Flow Rate Fraction of Inspired Oxygen 02/20/23 14:00 02/20/23 15:52 02/20/23 16:00 Temperature Pulse Rate 119 H 104 H 103 H Respiratory Rate 20 Blood Pressure 110/79 95/50 L Pulse Oximetry 99 Oxygen Delivery Oxygen Flow Rate Fraction of Inspired Oxygen 02/20/23 16:00 02/20/23 16:00 02/20/23 18:00 Temperature 99.9 F H 100.3 F H Pulse Rate 104 H 103 H Respiratory Rate 27 H 27 H Blood Pressure 98/49 L 81/47 L Pulse Oximetry 93 95 96 Oxygen Delivery Nasal Cannula Oxygen Flow Rate 2 Fraction of Inspired Oxygen 02/20/23 18:00 02/20/23 20:08 02/20/23 20:00 Temperature 99.9 F H Pulse Rate 86 87 88 Respiratory Rate 30 H Blood Pressure 81/46 L 81/46 L Pulse Oximetry 94 Oxygen Delivery Oxygen Flow Rate Fraction of Inspired Oxygen 02/20/23 20:00 02/20/23 13:10 02/20/23 20:10 Temperature 99 F Pulse Rate 88 115 H Respiratory Rate 20 Blood Pressure 131/67 85/42 L Pulse Oximetry 98 Oxygen Delivery Oxygen Flow Rate Fraction of Inspired Oxygen 02/20/23 20:15 02/20/23 20:20 02/20/23 20:25 Temperature Pulse Rate Respiratory Rate Blood Pressure 77/50 L 77/51 L 82/48 L Pulse Oximetry Oxygen Delivery Oxygen Flow Rate Fraction of Inspired Oxygen 02/20/23 20:30 02/20/23 20:45 02/20/23 21:48 Temperature 100 F H Pulse Rate 92 Respiratory Rate 24 H Blood Pressure 91/42 L 92/49 L 80/42 L Pulse Oximetry 94 Oxygen Delivery Oxygen Flow Rate Fraction of Inspired Oxygen 02/20/23 21:00 02/20/23 21:30 02/20/23 21:45 Temperature Pulse Rate Respiratory Rate Blood Pressure 80/48 L 83/46 L 80/42 L Pulse Oximetry Oxygen Delivery Oxygen Flow Rate Fraction of Inspired Oxygen 02/20/23 22:01 02/20/23 22:06 02/20/23 20:00 Temperature 99.6 F Pulse Rate 97 97 Respiratory Rate 34 H 34 H Blood Pressure 88/45 L 88/45 L Pulse Oximetry 94 94 Oxygen Delivery Nasal Cannula Oxygen Flow Rate 2 Fraction of Inspired Oxygen 02/20/23 22:00 02/20/23 22:00 02/20/23 23:06 Temperature 100 F H 99.8 F H Pulse Rate 93 92 100 Respiratory Rate 30 H 25 H Blood Pressure 88/46 L 86/48 L Pulse Oximetry 94 96 Oxygen Delivery Oxygen Flow Rate Fraction of Inspired Oxygen 02/21/23 00:06 02/21/23 01:19 02/21/23 01:32 Temperature 99.6 F Pulse Rate 108 H 109 H 108 H Respiratory Rate 31 H 28 H Blood Pressure 87/56 L 83/56 L Pulse Oximetry 95 Oxygen Delivery Oxygen Flow Rate Fraction of Inspired Oxygen 02/21/23 01:36 02/21/23 01:39 02/21/23 00:00 Temperature Pulse Rate 106 H 106 H 106 H Respiratory Rate 27 H 30 H 30 H Blood Pressure Pulse Oximetry 95 95 Oxygen Delivery Room Air Room Air Oxygen Flow Rate Fraction of Inspired Oxygen 21 21 02/21/23 00:00 02/21/23 00:00 02/21/23 02:00 Temperature 99.7 F H Pulse Rate 106 H 106 H 101 H Respiratory Rate 32 H Blood Pressure 94/59 L Pulse Oximetry 97 Oxygen Delivery Oxygen Flow Rate Fraction of Inspired Oxygen 02/21/23 02:00 02/21/23 04:00 02/21/23 04:00 Temperature Pulse Rate 101 H 105 H 101 H Respiratory Rate 25 H 25 H Blood Pressure 93/58 L Pulse Oximetry 94 94 Oxygen Delivery Room Air Oxygen Flow Rate Fraction of Inspired Oxygen 21 02/21/23 04:00 02/20/23 22:15 02/20/23 22:30 Temperature 99.2 F Pulse Rate 105 H Respiratory Rate 31 H Blood Pressure 89/57 L 77/42 L 82/48 L Pulse Oximetry 92 Oxygen Delivery Oxygen Flow Rate Fraction of Inspired Oxygen 02/21/23 00:45 02/21/23 05:30 02/21/23 02:45 Temper
--- NOTE | 2023-02-21 09:25 | P.CONNP_ITS ---
Assessment and Plan Assessment and plan (1) Chronic kidney disease, stage 4 (severe): Code(s): N18.4 - Chronic kidney disease, stage 4 (severe) Status: Acute Assessment and Plan: * baseline creatinie runs ~ 1.7 - 2.3mg/dl * however, has been as high as 2.77mg/dl * secondary to hypertension, diabetes, vascular disease, and age-related change * follows with Dr. Rendon for CKD management * given acute illness, suspect renal function may worsen/fluctuate... * bicarb being given to compensate for acidosis * follow trend of repeat labs and UOP (2) Shock: Code(s): R57.9 - Shock, unspecified Status: Acute Assessment and Plan: * suspect related to a combination of blood loss, hypovolemia, and possible sepsis * on vasopressor therapy to maintain MAP * follow trend of lactic acid * follow culture data * on antibiotics * follow trend of hemodynamics (3) Acute respiratory failure: Code(s): J96.00 - Acute respiratory failure, unspecified whether with hypoxia or hypercapnia Status: Acute Assessment and Plan: * related to pulmonary edema versus blood transfusions (TRALI versus TACO?) * IV bumex for diuresis * on BiPAP therapy * follow respiratory status closely * remains at risk for intubation.mechanical ventilation (4) GI bleed: Code(s): K92.2 - Gastrointestinal hemorrhage, unspecified Status: Acute Assessment and Plan: * as noted by brgiht red blood via NG tube drainage * H/H dropped to as los as 6.5 (on 02/20/23) * complicated by previous use of heparin gtt for NSTEMI which was discontinued (0n 02/19/23) * GAstroentrology following: * EGD (on 02/20): reflux esophagitis, acute gastric ulcer with active oozing of blood, status post epinephrine injection, gold probe cauterization, 4 resolution clips * on IV PPI * follow trend of H/H (5) Acute anemia: Code(s): D64.9 - Anemia, unspecified Status: Acute Assessment and Plan: * see #4 * s/p PRBC and FFP transfusions * follow H/H (6) Acute non-ST elevation myocardial infarction (NSTEMI): Code(s): I21.4 - Non-ST elevation (NSTEMI) myocardial infarction Status: Acute Assessment and Plan: * symptoms of epigastric pain that was radiating to the chest * EKG showed ST T wave changes but no ST elevation -- diagnosed with NSTEMI * started on heparin infusion on 02/19/2023 and stopped on the same day at night because of coffee-ground drainage from his NG * Cardiology following -- limited intervention options given current issues (7) Small bowel obstruction: Code(s): K56.609 - Unspecified intestinal obstruction, unspecified as to partial versus complete obstruction Status: Acute Assessment and Plan: * symptoms of epigastric pain along with nausea and vomiting * CT scan of the abdomen and pelvis showed dilated small bowel with transition point in right abdomen, consistent with partial small-bowel obstruction; mild sigmoid diverticulitis with no perforation or abscess; small cystic lesions of the pancreas * NGT in place for decompression * GI and surgery following * continue supportive care (8) Diabetes mellitus: Code(s): E11.9 - Type 2 diabetes mellitus without complications Status: Acute Assessment and Plan: * follow accu-checks * glycemic control 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 Chan. I will continue follow patient with you while he remains hospitalized and make further recommendations as needed.
--- NOTE | 2023-02-21 09:25 | PM.CNNEP ---
Assessment and Plan Assessment and plan (1) Chronic kidney disease, stage 4 (severe): Code(s): N18.4 - Chronic kidney disease, stage 4 (severe) Status: Acute Assessment and Plan: baseline creatinie runs ~ 1.7 - 2.3mg/dl however, has been as high as 2.77mg/dl secondary to hypertension, diabetes, vascular disease, and age-related change follows with Dr. Rendon for CKD management given acute illness, suspect renal function may worsen/fluctuate... bicarb being given to compensate for acidosis follow trend of repeat labs and UOP (2) Shock: Code(s): R57.9 - Shock, unspecified Status: Acute Assessment and Plan: suspect related to a combination of blood loss, hypovolemia, and possible sepsis on vasopressor therapy to maintain MAP follow trend of lactic acid follow culture data on antibiotics follow trend of hemodynamics (3) Acute respiratory failure: Code(s): J96.00 - Acute respiratory failure, unspecified whether with hypoxia or hypercapnia Status: Acute Assessment and Plan: related to pulmonary edema versus blood transfusions (TRALI versus TACO?) IV bumex for diuresis on BiPAP therapy follow respiratory status closely remains at risk for intubation.mechanical ventilation (4) GI bleed: Code(s): K92.2 - Gastrointestinal hemorrhage, unspecified Status: Acute Assessment and Plan: as noted by milagros red blood via NG tube drainage H/H dropped to as los as 6.5 (on 02/20/23) complicated by previous use of heparin gtt for NSTEMI which was discontinued (0n 02/19/23) GAstroentrology following: EGD (on 02/20): reflux esophagitis, acute gastric ulcer with active oozing of blood, status post epinephrine injection, gold probe cauterization, 4 resolution clips on IV PPI follow trend of H/H (5) Acute anemia: Code(s): D64.9 - Anemia, unspecified Status: Acute Assessment and Plan: see #4 s/p PRBC and FFP transfusions follow H/H (6) Acute non-ST elevation myocardial infarction (NSTEMI): Code(s): I21.4 - Non-ST elevation (NSTEMI) myocardial infarction Status: Acute Assessment and Plan: symptoms of epigastric pain that was radiating to the chest EKG showed ST T wave changes but no ST elevation -- diagnosed with NSTEMI started on heparin infusion on 02/19/2023 and stopped on the same day at night because of coffee-ground drainage from his NG Cardiology following -- limited intervention options given current issues (7) Small bowel obstruction: Code(s): K56.609 - Unspecified intestinal obstruction, unspecified as to partial versus complete obstruction Status: Acute Assessment and Plan: symptoms of epigastric pain along with nausea and vomiting CT scan of the abdomen and pelvis showed dilated small bowel with transition point in right abdomen, consistent with partial small-bowel obstruction; mild sigmoid diverticulitis with no perforation or abscess; small cystic lesions of the pancreas NGT in place for decompression GI and surgery following continue supportive care (8) Diabetes mellitus: Code(s): E11.9 - Type 2 diabetes mellitus without complications Status: Acute Assessment and Plan: follow accu-checks glycemic control per hospitalists/pest control technician Discussed case with Dr. Chan. I will continue follow patient with you while he remains hospitalized and make further recommendations as needed. Thank you for allowing me to participate in the care of this patient. History of Present Illness Reason for Consult Consult date: 02/21/23 Reason for consult: acute renal failure (on chronic kidney disease) Chief Complaint Chief complaint: Chest Pain, Abdomian Pain,NSTEMI,Partial SBO History of Present Illness Narrative: A great majority of the information I have obtained is from review of the electronic medical record as well as discussion with the
--- NOTE | 2023-02-21 09:44 | WPDINTPN ---
Progress Note: A&P Assessment and Plan (1) Shock: Code(s): R57.9 - Shock, unspecified Status: Acute Assessment and Plan: Shock likely related to hemorrhagic, hypovolemic, septic -currently on Levophed, maintain MAP > 65 mmHg at all times for adequate end organ perfusion -check procalcitonin level -lactic acid is 1.6 this morning -urine and Blood cultures obtained pending -02/20: patient started on levofloxacin and metronidazole to, abdominal source of sepsis, may deescalate antibiotics soon (2) Acute respiratory failure: Code(s): J96.00 - Acute respiratory failure, unspecified whether with hypoxia or hypercapnia Status: Acute Assessment and Plan: Patient with acute respiratory failure likely related TRALI versus TACO -patient has been diuresed with Bumex -placed on BiPAP -ABGs showed metabolic acidosis -will treat underlying cause (3) GI bleed: Code(s): K92.2 - Gastrointestinal hemorrhage, unspecified Status: Acute Assessment and Plan: Acute GI bleed, bright red blood in the NG tube drainage -hemoglobin dropped to 6.5 this morning with severe anemia, emergently called GI, -heparin infusion for NSTEMI was discontinued on 04/21/22, 8:00 p.m. -coags within normal limits -02/20: EGD: Reflux esophagitis, acute gastric ulcer with active oozing of blood, status post epinephrine injection, gold probe cauterization, 4 resolution clips -GI following -DC Protonix infusion as patient has volume overload -start Protonix IV q.12 hours (4) Acute anemia: Code(s): D64.9 - Anemia, unspecified Status: Acute Assessment and Plan: 2 units of unmatched blood were transfused this morning due to acute bright red blood in the NG drainage. -hemoglobin dropped to 6.5 from 11.7 on admission on 02/19 -will also give 1 unit of FFP on 02/20 -1 unit of packed RBCs was given on 02/20 for drop in hemoglobin, NSTEMI and hypotension. -hemoglobin stable this morning, will continue to monitor (5) Acute non-ST elevation myocardial infarction (NSTEMI): Code(s): I21.4 - Non-ST elevation (NSTEMI) myocardial infarction Status: Acute Assessment and Plan: Patient presented with epigastric pain that was radiating to the chest. EKG showed ST T wave changes but no ST elevation, diagnosed with NSTEMI, or was started on heparin infusion on 02/19/2023 and stopped on the same day at night because of coffee-ground drainage from his NG -NG was placed due to partial small-bowel obstruction as seen on CT abdomen and pelvis -cardiology following the patient -will hold aspirin -hold Imdur, nitroglycerin paste due to hypotension -discussed with cardiology (6) Abdominal pain: Code(s): R10.9 - Unspecified abdominal pain Status: Acute Assessment and Plan: 03/03: Presented with epigastric pain, along with nausea and vomiting -02/19: CT scan of the abdomen and pelvis showed dilated small bowel with transition point in right abdomen, consistent with partial small-bowel obstruction. Mild sigmoid diverticulitis with no perforation or abscess. Small cystic lesions of the pancreas -GI following the patient -appreciate surgery evaluation and recommendations (7) Small bowel obstruction: Code(s): K56.609 - Unspecified intestinal obstruction, unspecified as to partial versus complete obstruction Status: Acute Assessment and Plan: 02/20 Abdominal x-ray: NG tube in place, improving small-bowel distention -patient did have a melanotic stool on 02/20 (8) Chronic kidney disease, stage 4 (severe): Code(s): N18.4 - Chronic kidney disease, stage 4 (severe) Status: Acute Assessment and Plan: Patient with history of chronic kidney disease, creatinine at baseline -continue to monitor urine output, renal function electrolytes -creatinine remains stable, patient is acidotic, given bicarb pushes -appreciate nephrology evaluation and recommendations (9) Bladder
[2023-02-21] MEDS: IPRATROPIUM BR 0.02% INH SOLN 0.5 MG/2.5 ML VIAL INHALATION ×3 (10:14→20:37)
[2023-02-21] MEDS: LEVALBUTEROL NEB 1.25 MG/3 ML INHALATION ×3 (10:14→20:37)
[2023-02-21 11:03] LABS: Alveolar/Arterial O2 Gradient 339.4 mmHg; Base Excess ABG -9.5 mEq/l (+/-2.0); Fractional Inspired Oxygen 60 %; HCO3 ABG 12.7 mEq/l (22.0-26.0); Oxygen Content ABG 15.8 %vol (16.0-22.0); Oxygen Saturation ABG 94.2 % (95.0-100.0); Oxyhemoglobin 92.6 % THb (90.0-100.0); PCO2 ABG 19.7 mmHg (35.0-45.0); PO2 ABG 66.7 mmHg (80.0-100.0); PO2 FiO2 Ratio Arterial Blood 1.11 %; Total Hemoglobin 12.1 g/dL (12.0-18.0); pH ABG 7.427 (7.350-7.450)
[2023-02-21 11:04] LABS: Device HIGH FLOW NASAL CANN; Modified Allen's Test Pass; Site Drawn LEFT RADIAL
[2023-02-21] MEDS: PANTOPRAZOLE SODIUM IV 40 MG VIAL IV PUSH ×2 (11:33→20:39)
[2023-02-21 11:37] LABS: Glucose Point of Care 221 mg/dl (65-105)
[2023-02-21 11:43] LABS: Glucose Point of Care 207 mg/dl (65-105)
[2023-02-21 12:34] LABS: Procalcitonin 1.1 ng/mL
--- NOTE | 2023-02-21 14:49 | WPDGIPROGNO ---
Progress Note: A&P Assessment and Plan (1) Partial obstruction of small intestine: Code(s): K56.600 - Partial intestinal obstruction, unspecified as to cause Status: Acute Assessment and Plan: NG tube has been placed. It was draining a scant amount of liquid when I 1st saw him. Now 1/2 hour later bright red blood is emanating from his NG tube. 02/21/2023 some dark blood coming from NG tube but much less since endoscopy. (2) Acute non-ST elevation myocardial infarction (NSTEMI): Code(s): I21.4 - Non-ST elevation (NSTEMI) myocardial infarction Status: Acute Assessment and Plan: He was having chest pain as I visited him this morning. It has been relieve now by nitroglycerin. We will repeat his troponins. (3) Acute anemia: Code(s): D64.9 - Anemia, unspecified Status: Acute Assessment and Plan: Blood counts have been dropping since admission . hemoglobin was 10.7 when he left the hospital few days ago. It has dropped down to 8.4 now. He and his denies seeing any blood or melena per rectum. He has had no hematemesis. EGD done yesterday showed blood clots in the stomach, some adherent. Adjacent to an adherent clot in the proximal stomach was seen a linear tear over 2 cm in length. It appeared that there had been bleeding at the edge and there was blood emanating oozing from the edge under the clot. (4) Hypotension due to hypovolemia: Code(s): I95.89 - Other hypotension; E86.1 - Hypovolemia Status: Acute Assessment and Plan: He will be transferred to ICU 1 unit of blood to be given stat Plan shortly after I left his room Yesterday he began having bright red blood per NG tube and became hypotensive. I was called back to see him and reassessed him with marketing/sales person. troponin was checked and was still coming down. Plan for emergency EGD this morning Transfer to ICU 02/21/2023 continue with NG suction. I suspect we will repeat endoscopy somewhere later in his course to ensure that there is no other pathology beneath the adherent clots we saw yesterday. Because of the intestinal obstruction, NG tube cannot be removed yet. Surgery is following. Time Spent With Patient Time: Case discussed with marketing/sales person and nursing staff. Subjective Date/time seen: 02/21/23 14:49 no further sign of bleeding. However the patient became hypotensive yesterday evening and was given 1 more unit of blood. His hemoglobin increased consequently from 8.4-10.1. There is still some dark blood coming from NG tube but not a significant amount. Exam Const: General: cooperative, healthy appearing and ill appearing Orientation/consciousness: patient oriented x3 HENMT: Head: normal to inspection Ears: hearing grossly normal bilaterally Face/Nose/Sinus: Other nasal findings present ( NG tube in nostril) Mouth: Yes Normal oral and palatal mucosa present Eyes: General: appearance normal, both eyes and all related structures Neck: Neck: normal visual inspection Chest: Chest palpation & inspection: normal inspection of the chest Resp: Effort & Inspection: normal respiratory effort Auscultation: clear to auscultation bilaterally Cardio: Rate: regular rate Rhythm: regular rhythm GI: Inspection: normal to inspection GI Palp: No abdominal tenderness and Yes Soft to palpation Auscultation: normal bowel sounds Skin: General skin exam: normal color and no jaundice Neuro: General: patient oriented x3 Speech: normal speech Objective Data Vital Signs Vital Signs: Vital Signs - 24 hr 02/20/23 15:52 02/20/23 16:00 02/20/23 16:00 Temperature Pulse Rate 104 H 103 H Respiratory Rate Blood Pressure 95/50 L Pulse Oximetry 93 Oxygen Delivery Nasal Cannula Oxygen Flow Rate 2 Fraction of Inspired Oxygen 02/20/23 16:00 02/20/23 18:00 02/20/23 18:00 Temperature 37.7 C H 37.9 C H Pulse Rate 104 H 103 H 86 Respirat
[2023-02-21] MEDS: ONDANSETRON INJ 4 MG/2 ML VIAL IV PUSH (15:54)
--- NOTE | 2023-02-21 16:17 | PM.PNGS ---
Progress Note: A&P Assessment and Plan (1) Partial obstruction of small intestine: Code(s): K56.600 - Partial intestinal obstruction, unspecified as to cause Status: Acute Assessment and Plan: Bowel obstruction resolving. Probably ok to clamp NG or remove, but might need to keep in place currently given his respiratory issues. Would like to get SBFT, but not stable enough to go down to radiology for imaging yet. Will continue to follow, but does not likely require surgery since bowel function has returned. (2) Acute non-ST elevation myocardial infarction (NSTEMI): Code(s): I21.4 - Non-ST elevation (NSTEMI) myocardial infarction Status: Acute (3) Acute anemia: Code(s): D64.9 - Anemia, unspecified Status: Acute (4) GI bleed: Code(s): K92.2 - Gastrointestinal hemorrhage, unspecified Status: Acute Subjective Subjective Date/Time Seen: 02/21/23 16:17 Interval history: Had a BM. Nausea earlier while on BiPap. Mostly respiratory complaints currently. Exam GI: Inspection: non-distended GI Palp: Yes Soft to palpation, No Tenderness to palpation present (GI), No Guarding due to palpation present (GI) and No Rebound tenderness present Percussion: Yes dullness to percussion Auscultation: normal bowel sounds Objective Data Vital Signs Vital Signs: Vital Signs - 24 hr 02/20/23 18:00 02/20/23 18:00 02/20/23 20:08 Temperature 37.9 C H Pulse Rate 103 H 86 87 Respiratory Rate 27 H Blood Pressure 81/47 L 81/46 L Pulse Oximetry 96 Oxygen Delivery Oxygen Flow Rate Fraction of Inspired Oxygen 02/20/23 20:00 02/20/23 20:00 02/20/23 20:10 Temperature 37.7 C H Pulse Rate 88 88 Respiratory Rate 30 H Blood Pressure 81/46 L 85/42 L Pulse Oximetry 94 Oxygen Delivery Oxygen Flow Rate Fraction of Inspired Oxygen 02/20/23 20:15 02/20/23 20:20 02/20/23 20:25 Temperature Pulse Rate Respiratory Rate Blood Pressure 77/50 L 77/51 L 82/48 L Pulse Oximetry Oxygen Delivery Oxygen Flow Rate Fraction of Inspired Oxygen 02/20/23 20:30 02/20/23 20:45 02/20/23 21:48 Temperature 37.7 C H Pulse Rate 92 Respiratory Rate 24 H Blood Pressure 91/42 L 92/49 L 80/42 L Pulse Oximetry 94 Oxygen Delivery Oxygen Flow Rate Fraction of Inspired Oxygen 02/20/23 21:00 02/20/23 21:30 02/20/23 21:45 Temperature Pulse Rate Respiratory Rate Blood Pressure 80/48 L 83/46 L 80/42 L Pulse Oximetry Oxygen Delivery Oxygen Flow Rate Fraction of Inspired Oxygen 02/20/23 22:01 02/20/23 22:06 02/20/23 20:00 Temperature 37.6 C Pulse Rate 97 97 Respiratory Rate 34 H 34 H Blood Pressure 88/45 L 88/45 L Pulse Oximetry 94 94 Oxygen Delivery Nasal Cannula Oxygen Flow Rate 2 Fraction of Inspired Oxygen 02/20/23 22:00 02/20/23 22:00 02/20/23 23:06 Temperature 37.7 C H 37.7 C H Pulse Rate 93 92 100 Respiratory Rate 30 H 25 H Blood Pressure 88/46 L 86/48 L Pulse Oximetry 94 96 Oxygen Delivery Oxygen Flow Rate Fraction of Inspired Oxygen 02/21/23 00:06 02/21/23 01:19 02/21/23 01:32 Temperature 37.6 C Pulse Rate 108 H 109 H 108 H Respiratory Rate 31 H 28 H Blood Pressure 87/56 L 83/56 L Pulse Oximetry 95 Oxygen Delivery Oxygen Flow Rate Fraction of Inspired Oxygen 02/21/23 01:36 02/21/23 01:39 02/21/23 00:00 Temperature Pulse Rate 106 H 106 H 106 H Respiratory Rate 27 H 30 H 30 H Blood Pressure Pulse Oximetry 95 95 Oxygen Delivery Room Air Room Air Oxygen Flow Rate Fraction of Inspired Oxygen 21 02/21/23 00:00 02/21/23 00:00 02/21/23 02:00 Temperature 37.6 C H Pulse Rate 106 H 106 H 101 H Respiratory Rate 32 H Blood Pressure 94/59 L Pulse Oximetry 97 Oxygen Delivery Oxygen Flow Rate Fraction of Inspired Oxygen 02/21/23 02:00 02/21/23 04:00 02/21/23 04:00 Temperature Pulse Rat
[2023-02-21] MEDS: MORPHINE SULFATE (*CRX) 2 MG/ML INJ 1 MG IV PUSH (16:42)
[2023-02-21 17:40] LABS: Glucose Point of Care 214 mg/dl (65-105)
--- NOTE | 2023-02-21 17:59 | WPDPROCEDUR ---
Procedures Intubation Intubation Date: 02/21/23 Intubation Time: 17:45 Consent: The patient, his , and son gave verbal consent. A pre-procedural Time-Out was completed immediately before starting the procedure and confirmed: Patient Identification, Site, Procedure, Patient Position and the Availability of Requisite Equipment: Yes Sedative: etomidate Mg given: 20 Paralytic: succinylcholine Mg given: 80 Laryngoscope: fiber optic video scope Assist device used: fiber optic device ET tube size: 7.5 Tube secured depth (cm): 23 Tube secured location: lips Tube placement confirmation: visualized tube passing through cords, equal breath sounds bilaterally, no breath sounds over epigastrium and confirmation by capnometry Patient tolerated procedure: well Intubation complications: none Additional comments: Patient was preoxygenated on BiPAP at 100% FiO2. Blood pressures were stable on 20 mics of norepinephrine. Etomidate and succinylcholine were given for rapid sequence intubation. He was intubated easily and atraumatically on 1st attempt using the glide scope. A 7.5 ET tube was seen passing through the vocal cords with positive colorimetric change, equal breath sounds heard bilaterally, and fogging in the ET tube. Vital signs remained stable throughout. Bedside chest x-ray showed the tip of the ET tube approximately 3.5 cm above the ray. Vent settings and sedation settings were obtained from the engineering manager electronics (Dr. Chan) prior to the procedure.
--- NOTE | 2023-02-21 18:02 | P.PNCROSS_ITS ---
Event Note Event Note Event Note: 02/21/2023 17:10 I received a call from the ICU nurse caring for the patient. They requested I come evaluate the patient at bedside. Chart was reviewed. The patient has a history of hypertension, type 2 diabetes mellitus, chronic kidney disease, and bladder cancer. In short he was admitted through the emergency department on 02/19/2023 with partial small-bowel obstruction, anemia, and non STEMI after presenting with epigastric and chest pain. He was started on a heparin drip and admitted to the IMU however the following day he became hypotensive and had bright red blood per NG tube. EGD showed reflux esophagitis, acute gastric ulcer, and oozing from a tear. The lesions were cauterized and clipped. He was transferred to the ICU with shock (hemorrhagic, hypovolemic, septic) and he has been been placed on norepinephrine. He has received a total of 3 units packed red blood cells thus far during stay. Chest x-ray this morning showed worsening [id number] pulmonary edema. He received bumetanide 1 mg IV. He has become increasingly hypoxic and was placed on BiPAP. Over the course of the afternoon he has become increasingly tachypneic and tachycardic. At the time my evaluation his heart rate was in the 120s (sinus tachycardia) and respiratory rate was in the upper 30s to low 40s on BiPAP with an FiO2 of 60%. Blood pressures have been in the 90 systolic with a mean arterial pressure greater than 65. The patient is ill in appearance. Coarse lung sounds heard anteriorly and at the flanks with scattered rhonchi. He is tachycardic. Abdomen is mildly tender over the epigastrium. NG tube is draining dark blood in small amounts. No significant edema noted in the extremities. Peripheral pulses intact. The patient is alert and oriented. He voiced that he felt better initially with the BiPAP but he feels as though he is getting tired. 10 to 15 minute discussion had at bedside with the patient, his , and son. We were all in agreement that elective intubation for impending respiratory failure would be appropriate. Case was discussed with Dr. Chan following evaluation and he was in agreement. Ventilation and sedation settings were obtained from Dr. Chan. Post intubation chest x-ray showed ET tube between 3.5 in 4 cm above the ray. BMP in ABG ordered for approximately 1 hour postprocedure. Critical Care Time Critical Care Time: Yes Total Critical Care Time: 30 Attestation: Due to a high probability of clinically significant, life threatening deterioration, the patient required my highest level of preparedness to intervene emergently and I personally spent this critical care time directly and personally managing the patient. This critical care time included obtaining a history; examining the patient; pulse oximetry; ordering and review of studies; arranging urgent treatment with development of a management plan; evaluation of patient's response to treatment; frequent reassessment; and discussions with ot her providers. It was exclusive of separately billable procedures and treating other patients and teaching time. Please see Assessment and Plan section and the rest of the note for further information on patient assessment and treatment.
[2023-02-21] MEDS: MIDAZOLAM 100MG/NS 100ML(*CRX) 100 MG/100 ML BAG IV CONT (18:28)
--- NOTE | 2023-02-21 18:28 | PCRCNOTE ---
RT assisted with intubating Pt. Pt was intubated with a size 7.5 ETT at 23 cm at lip. CO2 detector detected color change, Bilat BS heard by PA, Chest X-ray ordered to confirm tube placement. ETT secured at 23 cm at lip. Pt placed on vent according to Rosibel GROVE order.
[2023-02-21] MEDS: FENTANYL 2,500MCG/NS250ML(*CRX 2,500 MCG/250 ML BAG 12.5 MCG IV CONT (18:29)
[2023-02-21] MEDS: MIDAZOLAM HCL (*CRX) 2 MG/2 ML VIAL IV PUSH (18:30)
[2023-02-21] MEDS: ETOMIDATE 20 MG/10 ML AMPUL IV PUSH (18:30)
[2023-02-21] MEDS: SUCCINYLCHOLINE CHLORIDE 20 MG/ML 10 ML VIAL 80 MG IV PUSH (18:30)
[2023-02-21 18:51] LABS: Hemoglobin 11.3 g/dL (14.0-18.0)
[2023-02-21 18:59] LABS: Anion Gap 16 mmol/L (8-16); Blood Urea Nitrogen 56 mg/dL (9-20); Calcium 7.9 mg/dL (8.4-10.2); Carbon Dioxide 13 mmol/L (22-30); Chloride 109 mmol/L (98-107); Estimated CRCL calculation 19 ml/min; Estimated Glomerular Filt Rate 23; Glucose 237 mg/dL (65-110); Potassium 4.6 mmol/L (3.4-5.0); Sodium 138 mmol/L (137-145)
[2023-02-21 19:40] LABS: Alveolar/Arterial O2 Gradient 455.5 mmHg; Base Excess ABG -11.2 mEq/l (+/-2.0); Carboxyhemoglobin 0.2 % THb (0-2.0); Fractional Inspired Oxygen 80 %; HCO3 ABG 12.3 mEq/l (22.0-26.0); Methemoglobin ABG 0.4 %THb (0-1.5); Oxygen Content ABG 16.3 %vol (16.0-22.0); Oxygen Saturation ABG 96.9 % (95.0-100.0); Oxyhemoglobin 95.3 % THb (90.0-100.0); PO2 ABG 91.3 mmHg (80.0-100.0); PO2 FiO2 Ratio Arterial Blood 1.14 %; Reduced Hemoglobin 4.1 %THb (0-5.0); Total Hemoglobin 12.1 g/dL (12.0-18.0); pH ABG 7.357 (7.350-7.450)
[2023-02-21 19:42] LABS: Modified Allen's Test Pass; PCO2 ABG 22.5 mmHg (35.0-45.0); Site Drawn RIGHT RADIAL
[2023-02-21 19:43] LABS: Arterial Blood Gas PEEP 5 cmH2O; Arterial Blood Gas Vent Mode CMV; Arterial Blood Gas Ventilator rate 24 /MIN; Device VENTILATOR
[2023-02-21 19:44] LABS: Arterial Blood Gas Tidal Volume 400 ml
[2023-02-21] MEDS: MINERAL OIL/WHITE PETROLATUM OINTMENT 1 APPLIC EACH EYE (20:39)
[2023-02-21] MEDS: ACETAMINOPHEN ELIXIR 325 MG/10.15 ML UDC 650 MG PO (20:40)
[2023-02-21] MEDS: VASOPRESSIN INJ 100 UNITS in DEXTROSE 5% 95 ML IV CONT (20:59)
[2023-02-21] MEDS: NOREPINEPHRINE 8 MG/D5W 250 ML 8 MG/250 ML BAG 41.25 MG IV CONT (21:51)
[2023-02-22] VITALS (76 sets, daily range): BP systolic 73–117; BP diastolic 55–71; PULSE 79–105; RESP 22–23; TEMP 36.9–38.4; O2SAT 95–100; BMI 24.0
--- NOTE | 2023-02-22 | ECHOL_ITS ---
Patient Info Name: Vince Walters Age: 77 years : 1945 Gender: Male Ht: 65 in Wt: 144 lbs BSA: 1.74 m2 HR: 92 bpm BP: 108 / 71 mmHg Heart Rhythm: Sinus Rhythm Technical Quality: Fair Exam Date: 02/22/2023 2:15 PM Exam Location: Echo Lab Patient Status: Inpatient Admit Date: 02/19/2023 Staff Ordering Physician: Oumar George MD Health And Wellness Advisor: eJnn Root RDCS Attending Provider: Darline Mckeon DO Exam Type: CA echo limited Study Info Indications - rv and lv function, ivc Complete two-dimensional, color flow and Doppler transthoracic echocardiogram is performed with contrast to opacify the left ventricle and to improve the deliniation of the left ventricle endocardial borders. Contrast/Agitated Saline Contrast/Ag. Saline: Definity Amount: 2.00 ml Administered By: Jenn Root RDCS Existing IV Access: Yes IV Access Condition: patent with no signs of infiltration Summary 1. Limited echo study to re-evaluate left ventricular function. 2. Mild left ventricular enlargement with sigmoid hypertrophy of the septum. The distal 2/3rds of the ventricle are severely hypokinetic, with akinesis of the distal septum, anterior wall and apex. Ejection fraction 30-35%. 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 3. Left atrial chamber dimension is mildly enlarged. 4. There is mild to moderate mitral valve regurgitation. 5. Normal estimated pulmonary pressure. 6. Dilated inferior vena cava. 7. Rhythm indeterminate. Left Ventricle Left ventricular systolic function is severely reduced, estimated at 30-35%. Left Atria Left atrial chamber dimension is mildly enlarged. Mitral Valve There is mild to moderate mitral valve regurgitation. Tricuspid Valve There is trace tricuspid valve regurgitation. Tricuspid Valve Name Value Normal TV Regurgitation Doppler TR Peak Velocity 163 cm/s TR Peak Gradient 11 mmHg Estimated PAP/RSVP RA Pressure 10 mmHg <=5 PA Systolic Pressure 21 mmHg <36 RV Systolic Pressure 21 mmHg <36 Ventricles Name Value Normal LV Fractional Shortening/Ejection Fraction 2D/MM LV Diastolic Volume (4C MOD) 66 ml LV EF (4C MOD) 28 % LV Diastolic Volume (2C MOD) 54 ml LV EF (2C MOD) 48 % LV Diastolic Volume (BP MOD) 60 ml 62-150 LV Diastolic Volume Index (BP MOD) 34 ml/m2 34-74 LV Systolic Volume (BP MOD) 37 ml 21-61 LV Systolic Volume Index (BP MOD) 21 ml/m2 11-31 LV EF (BP MOD) 38 % 52-72 LV Diastolic Length (4C) 7.6 cm LV Systolic Length (4C) 7.6 cm LV Stroke Volume (4C MOD) 19 ml Report Signatures [employer]
[2023-02-22 00:10] LABS: Glucose Point of Care 242 mg/dl (65-105)
[2023-02-22] MEDS: INSULIN ASPART (*BKC) 100 UNITS/ML SUB-Q ×7 (00:14→23:08)
[2023-02-22] MEDS: IPRATROPIUM BR 0.02% INH SOLN 0.5 MG/2.5 ML VIAL INHALATION ×4 (02:47→19:41)
[2023-02-22] MEDS: LEVALBUTEROL NEB 1.25 MG/3 ML INHALATION ×4 (02:47→19:41)
[2023-02-22] MEDS: NOREPINEPHRINE 8 MG/D5W 250 ML 8 MG/250 ML BAG 48.75 MG IV CONT (04:26)
[2023-02-22] MEDS: CENTRAL LINE FLUSH 10 ML IV PUSH ×3 (04:28→19:47)
[2023-02-22 05:57] LABS: Alveolar/Arterial O2 Gradient 462.5 mmHg; Base Excess ABG -12.7 mEq/l (+/-2.0); Carboxyhemoglobin 0.3 % THb (0-2.0); Fractional Inspired Oxygen 80 %; HCO3 ABG 12.1 mEq/l (22.0-26.0); Methemoglobin ABG 0.4 %THb (0-1.5); Oxygen Content ABG 15.9 %vol (16.0-22.0); PCO2 ABG 25.6 mmHg (35.0-45.0); PO2 FiO2 Ratio Arterial Blood 1.01 %; Reduced Hemoglobin 5.3 %THb (0-5.0)
[2023-02-22 05:59] LABS: pH ABG 7.294 (7.350-7.450)
[2023-02-22 06:00] LABS: Device VENTILATOR; Modified Allen's Test Pass; Site Drawn RIGHT RADIAL
[2023-02-22 06:01] LABS: Arterial Blood Gas PEEP 5 cmH2O; Arterial Blood Gas Tidal Volume 400 ml; Arterial Blood Gas Vent Mode CMV; Arterial Blood Gas Ventilator rate 22 /MIN
[2023-02-22 06:04] LABS: Hematocrit 33.9 % (42.0-52.0); Hemoglobin 10.8 g/dL (14.0-18.0); Mean Corpuscular HGB Conc 31.9 g/dl (32-36); Mean Corpuscular Hemoglobin 30.2 pg (26-34); Mean Corpuscular Volume 94.7 fl (80-100); Mean Platelet Volume 9.4 fl (7.4-10.4); Platelet Count Result 102 k/mm3 (150-375); Red Blood Count 3.58 M/mm3 (4.6-6.20); Red Cell Distribution Width 17.4 % (11.5-14.5); White Blood Count 16.6 K/mm3 (4.5-10.0)
[2023-02-22 06:18] LABS: Alanine Aminotransferase 38 U/L (6-50); Albumin Level 2.3 g/dL (3.5-5.1); Alkaline Phosphatase 56 U/L (38-126); Anion Gap 13 mmol/L (8-16); Aspartate Amino Transferase 181 U/L (17-59); Bilirubin,Total 0.6 mg/dL (0.2-1.3); Blood Urea Nitrogen 59 mg/dL (9-20); Calcium 7.9 mg/dL (8.4-10.2); Carbon Dioxide 14 mmol/L (22-30); Chloride 107 mmol/L (98-107); Estimated CRCL calculation 18 ml/min; Estimated Glomerular Filt Rate 22; Glucose 344 mg/dL (65-110); Magnesium 1.5 mg/dL (1.6-2.3); Phosphorus 3.7 mg/dL (2.5-4.5); Potassium 4.4 mmol/L (3.4-5.0); Sodium 134 mmol/L (137-145)
[2023-02-22 06:19] LABS: Lactic Acid Reflex 1.6 mmol/L (0.7-2.0)
[2023-02-22] MEDS: metroNIDAZOLE 500 MG/ISO 100ML 500 MG/100 ML BAG 100 MG IVPB ×3 (06:33→19:55)
--- NOTE | 2023-02-22 06:47 | WPDGIPROGNO ---
Progress Note: A&P Assessment and Plan (1) Partial obstruction of small intestine: Code(s): K56.600 - Partial intestinal obstruction, unspecified as to cause Status: Acute Assessment and Plan: NG tube has been placed. It was draining a scant amount of liquid when I 1st saw him. Now 1/2 hour later bright red blood is emanating from his NG tube. 02/21/2023 some dark blood coming from NG tube but much less since endoscopy. (2) Acute non-ST elevation myocardial infarction (NSTEMI): Code(s): I21.4 - Non-ST elevation (NSTEMI) myocardial infarction Status: Acute Assessment and Plan: (3) Acute anemia: Code(s): D64.9 - Anemia, unspecified Status: Acute Assessment and Plan: Blood counts have been dropping since admission . hemoglobin was 10.7 when he left the hospital few days ago. It has dropped down to 8.4 now. He and his denies seeing any blood or melena per rectum. He has had no hematemesis. EGD done yesterday showed blood clots in the stomach, some adherent. Adjacent to an adherent clot in the proximal stomach was seen a linear tear over 2 cm in length. It appeared that there had been bleeding at the edge and there was blood emanating oozing from the edge under the clot. (4) Hypotension due to hypovolemia: Code(s): I95.89 - Other hypotension; E86.1 - Hypovolemia Status: Acute Assessment and Plan: He will be transferred to ICU 1 unit of blood given stat (5) Acute respiratory failure: Code(s): J96.00 - Acute respiratory failure, unspecified whether with hypoxia or hypercapnia Status: Acute (6) Shock: Code(s): R57.9 - Shock, unspecified Status: Acute Assessment and Plan: Naturetic peptide now greater than 30,000. Plan shortly after I left his room Yesterday he began having bright red blood per NG tube and became hypotensive. I was called back to see him and reassessed him with relief manager. troponin was checked and was still coming down. Plan for emergency EGD this morning Transfer to ICU 02/21/2023 continue with NG suction. I suspect we will repeat endoscopy somewhere later in his course to ensure that there is no other pathology beneath the adherent clots we saw yesterday. Because of the intestinal obstruction, NG tube cannot be removed yet. Surgery is following. 02/22/2023 his condition has deteriorated significantly. Prognosis now is guarded. He is on maximal pressors. Time Spent With Patient Time: Case discussed with relief manager and nursing staff. Subjective Date/time seen: 02/22/23 06:47 The patient's condition has deteriorated significantly. During the night he developed desaturation, tachycardia, hypotension and required intubation. As far as his gastrointestinal bleeding. Only about 150 mils of dark blood has come out the NG-tube the last shift. Exam Const: General: ill appearing Orientation/consciousness: patient obtunded HENMT: Head: normal to inspection Ears: hearing grossly normal bilaterally Face/Nose/Sinus: Other nasal findings present ( NG tube in nostril) Mouth: Yes Normal oral and palatal mucosa present Eyes: General: appearance normal, both eyes and all related structures Neck: Neck: normal visual inspection Chest: Chest palpation & inspection: normal inspection of the chest Resp: Effort & Inspection: normal respiratory effort Auscultation: clear to auscultation bilaterally Cardio: Rate: regular rate Rhythm: regular rhythm GI: Inspection: normal to inspection GI Palp: No abdominal tenderness and Yes Soft to palpation Auscultation: normal bowel sounds Skin: General skin exam: normal color and no jaundice Neuro: General: patient oriented x3 Speech: normal speech Objective Data Vital Signs Vital Signs: Vital Signs - 24 hr 02/21/23 08:29 02/21/23 10:00 02/21/23 10:00 Temperature Pulse Rate 98 110 H 110 H Respiratory R
[2023-02-22] MEDS: SODIUM BICARBONATE 8.4% 50 MEQ/50 ML SYRINGE 100 MEQ IV PUSH (07:05)
[2023-02-22 07:32] LABS: Band Neutrophils Percent 15 % (0-6); Eosinophils Absolute Manual 0.33 K/mm3 (0.02-0.5); Eosinophils Percent Manual 2 % (0-4); Lymphocytes Absolute Manual 0.66 K/mm3 (1.1-4.5); Monocytes Absolute Manual 0.49 K/mm3 (0.1-0.90); Monocytes Percent Manual 3 % (3-9); Neutrophils Percent Manual 76 % (46-73); Nucleated Red Blood Cells 1 %; Total Cells Counted 100
[2023-02-22 07:33] LABS: Burr Cells 2+ (NORMAL); Large Platelets Present; Schistocytes None Seen (NORMAL)
[2023-02-22] MEDS: NOREPINEPHRINE 8 MG/D5W 250 ML 8 MG/250 ML BAG 56.25 MG IV CONT ×2 (08:11→12:55)
[2023-02-22] MEDS: HYDROCORTISONE SODIUM SUCCINATE 100 MG/2 ML VIAL IV PUSH ×3 (08:47→19:55)
[2023-02-22] MEDS: PANTOPRAZOLE SODIUM IV 40 MG VIAL IV PUSH ×2 (08:47→19:55)
[2023-02-22] MEDS: INSULIN GLARGINE (*BKC) 100 UNITS/ML 15 UNITS SUB-Q (08:48)
[2023-02-22] MEDS: MAGNESIUM SULF 2 GM/WATER 50ML 2 GM/50 ML BAG IVPB (08:54)
[2023-02-22] MEDS: MINERAL OIL/WHITE PETROLATUM OINTMENT 1 APPLIC EACH EYE ×2 (09:01→19:55)
[2023-02-22 09:12] LABS: NT Pro B Type Natriuretic Pept > 30000 pg/mL (19.9-100)
[2023-02-22 09:14] LABS: Glucose Point of Care 282 mg/dl (65-105)
[2023-02-22] MEDS: CALCIUM GLUC 2,000 MG/NS 100ML 2,000 MG/100 ML BAG 100 MG IVPB (09:20)
[2023-02-22] MEDS: SODIUM BICARBONATE 8.4% 150 MEQ in WATER, STERILE FOR INJECTION 950 ML 100 MEQ IV CONT (09:21)
[2023-02-22] MEDS: ACETAMINOPHEN ELIXIR 325 MG/10.15 ML UDC 650 MG PO (09:43)
--- NOTE | 2023-02-22 09:44 | WPDINTPN ---
Progress Note: A&P Assessment and Plan (1) Shock: Code(s): R57.9 - Shock, unspecified Status: Acute Assessment and Plan: Shock likely related to hemorrhagic, hypovolemic, sepsis -currently on Levophed vaso and Kiel-Synephrine. Continue to titrate to maintain MAP > 65 mmHg at all times for adequate end organ perfusion -echo showed only diastolic dysfunction - procalcitonin level 1.1 and -lactic acid is 1.6 this morning -add 25% albumin, hydrocortisone, check BNP, bicarb given -urine and Blood cultures obtained pending -02/20: patient was started on levofloxacin and metronidazole to, abdominal source of sepsis. Continue at this time Will obtain CT scan of the chest once patient is more stable (2) Acute respiratory failure: Code(s): J96.00 - Acute respiratory failure, unspecified whether with hypoxia or hypercapnia Status: Acute Assessment and Plan: Patient with acute respiratory failure likely related TRALI versus TACO versus ARDS versus aspiration pneumonia Hold diuresis at this time due to shock Chest x-ray reviewed ABG reviewed. Peep increased to 8. Wean FiO2 Antibiotics as above Patient was given bicarb for metabolic acidosis (3) GI bleed: Code(s): K92.2 - Gastrointestinal hemorrhage, unspecified Status: Acute Assessment and Plan: Acute GI bleed, bright red blood in the NG tube drainage -hemoglobin dropped to 6.5 this morning with severe anemia, emergently called GI, -heparin infusion for NSTEMI was discontinued on 04/21/22, 8:00 p.m. -coags within normal limits -02/20: EGD: Reflux esophagitis, acute gastric ulcer with active oozing of blood, status post epinephrine injection, gold probe cauterization, 4 resolution clips Blood tinged output from NG tube. GI following Continue IV Protonix Continue serial hemoglobin monitoring Transfuse as needed (4) Acute anemia: Code(s): D64.9 - Anemia, unspecified Status: Acute Assessment and Plan: 02/20 2 units of unmatched blood were transfused due to acute bright red blood in the NG drainage. Patient was also given FFP -hemoglobin stable this morning, will continue to monitor (5) Acute non-ST elevation myocardial infarction (NSTEMI): Code(s): I21.4 - Non-ST elevation (NSTEMI) myocardial infarction Status: Acute Assessment and Plan: Patient presented with epigastric pain that was radiating to the chest. EKG showed ST T wave changes but no ST elevation, diagnosed with NSTEMI, or was started on heparin infusion on 02/19/2023 and stopped on the same day at night because of coffee-ground drainage from his NG -NG was placed due to partial small-bowel obstruction as seen on CT abdomen and pelvis -cardiology following the patient -will hold aspirin -hold Imdur, nitroglycerin paste due to shock -discussed with cardiology Echo reviewed (6) Abdominal pain: Code(s): R10.9 - Unspecified abdominal pain Status: Acute Assessment and Plan: 03/03: Presented with epigastric pain, along with nausea and vomiting -02/19: CT scan of the abdomen and pelvis showed dilated small bowel with transition point in right abdomen, consistent with partial small-bowel obstruction. Mild sigmoid diverticulitis with no perforation or abscess. Small cystic lesions of the pancreas -GI and surgery following -NPO. at this time (7) Small bowel obstruction: Code(s): K56.609 - Unspecified intestinal obstruction, unspecified as to partial versus complete obstruction Status: Acute Assessment and Plan: 02/20 Abdominal x-ray: NG tube in place, improving small-bowel distention NPO at this time (8) Chronic kidney disease, stage 4 (severe): Code(s): N18.4 - Chronic kidney disease, stage 4 (severe) Status: Acute Assessment and Plan: Patient with history of chronic kidney disease, has increased -IV fluids, vasopressors to maintain mean arterial pressure -continue to monitor urine
--- NOTE | 2023-02-22 10:20 | P.PNNP_ITS ---
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 Rendon for CKD management (3) Shock: Code(s): R57.9 - Shock, unspecified Status: Acute Assessment and Plan: * suspect related to a combination of blood loss, hypovolemia, and possible sepsis * on vasopressor therapy to maintain MAP * follow trend of lactic acid * follow culture data * on antibiotics * follow trend of hemodynamics (4) Acute respiratory failure: Code(s): J96.00 - Acute respiratory failure, unspecified whether with hypoxia or hypercapnia Status: Acute Assessment and Plan: * related to pulmonary edema versus blood transfusions (TRALI versus TACO?) * IV bumex for diuresis * on BiPAP therapy * follow respiratory status closely * remains at risk for intubation.mechanical ventilation (5) GI bleed: Code(s): K92.2 - Gastrointestinal hemorrhage, unspecified Status: Acute Assessment and Plan: * as noted by brgiht red blood via NG tube drainage * H/H dropped to as los as 6.5 (on 02/20/23) * complicated by previous use of heparin gtt for NSTEMI which was discontinued (0n 02/19/23) * GAstroentrology following: * EGD (on 02/20): reflux esophagitis, acute gastric ulcer with active oozing of blood, status post epinephrine injection, gold probe cauterization, 4 resolution clips * on IV PPI * follow trend of H/H (6) Acute anemia: Code(s): D64.9 - Anemia, unspecified Status: Acute Assessment and Plan: * see #4 * s/p PRBC and FFP transfusions * follow H/H (7) Acute non-ST elevation myocardial infarction (NSTEMI): Code(s): I21.4 - Non-ST elevation (NSTEMI) myocardial infarction Status: Acute Assessment and Plan: * symptoms of epigastric pain that was radiating to the chest * EKG showed ST T wave changes but no ST elevation -- diagnosed with NSTEMI * started on heparin infusion on 02/19/2023 and stopped on the same day at night because of coffee-ground drainage from his NG * Cardiology following -- limited intervention options given current issues (8) Small bowel obstruction: Code(s): K56.609 - Unspecified intestinal obstruction, unspecified as to partial versus complete obstruction Status: Acute Assessment and Plan: * symptoms of epigastric pain along with nausea and vomiting * CT scan of the abdomen and pelvis showed dilated small bowel with transition point in right abdomen, consistent with partial small-bowel obstruction; mild sigmoid diverticulitis with no perforation or abscess; small cystic lesions of the pancreas * NGT in place for decompression * GI and surgery following * continue supportive care (9) Diabetes mellitus: Code(s):
--- NOTE | 2023-02-22 10:20 | PM.PNNEP ---
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 Rendon for CKD management (3) Shock: Code(s): R57.9 - Shock, unspecified Status: Acute Assessment and Plan: suspect related to a combination of blood loss, hypovolemia, and possible sepsis on vasopressor therapy to maintain MAP follow trend of lactic acid follow culture data on antibiotics follow trend of hemodynamics (4) Acute respiratory failure: Code(s): J96.00 - Acute respiratory failure, unspecified whether with hypoxia or hypercapnia Status: Acute Assessment and Plan: related to pulmonary edema versus blood transfusions (TRALI versus TACO?) IV bumex for diuresis on BiPAP therapy follow respiratory status closely remains at risk for intubation.mechanical ventilation (5) GI bleed: Code(s): K92.2 - Gastrointestinal hemorrhage, unspecified Status: Acute Assessment and Plan: as noted by milagros red blood via NG tube drainage H/H dropped to as los as 6.5 (on 02/20/23) complicated by previous use of heparin gtt for NSTEMI which was discontinued (0n 02/19/23) GAstroentrology following: EGD (on 02/20): reflux esophagitis, acute gastric ulcer with active oozing of blood, status post epinephrine injection, gold probe cauterization, 4 resolution clips on IV PPI follow trend of H/H (6) Acute anemia: Code(s): D64.9 - Anemia, unspecified Status: Acute Assessment and Plan: see #4 s/p PRBC and FFP transfusions follow H/H (7) Acute non-ST elevation myocardial infarction (NSTEMI): Code(s): I21.4 - Non-ST elevation (NSTEMI) myocardial infarction Status: Acute Assessment and Plan: symptoms of epigastric pain that was radiating to the chest EKG showed ST T wave changes but no ST elevation -- diagnosed with NSTEMI started on heparin infusion on 02/19/2023 and stopped on the same day at night because of coffee-ground drainage from his NG Cardiology following -- limited intervention options given current issues (8) Small bowel obstruction: Code(s): K56.609 - Unspecified intestinal obstruction, unspecified as to partial versus complete obstruction Status: Acute Assessment and Plan: symptoms of epigastric pain along with nausea and vomiting CT scan of the abdomen and pelvis showed dilated small bowel with transition point in right abdomen, consistent with partial small-bowel obstruction; mild sigmoid diverticulitis with no perforation or abscess; small cystic lesions of the pancreas NGT in place for decompression GI and surgery following continue supportive care (9) Diabetes mellitus: Code(s): E11.9 - Type 2 diabetes mellitus without complications Status: Acute Assessment and Plan: follow accu-checks glycemic control per hospitalists/quality assurance supervisor final Discussed case with Dr. George. Will continue to follow. Subjective Date/time seen: 02/22/23 10:20 Interval history: Follow-up for chronic kidney disease. Patient has deteriorated in the last 24 hours -- intubated yesterday evening due to worsening shortness of breath/respirat
--- NOTE | 2023-02-22 10:30 | PM.PNGS ---
Progress Note: A&P Assessment and Plan (1) Partial obstruction of small intestine: Code(s): K56.600 - Partial intestinal obstruction, unspecified as to cause Status: Acute Assessment and Plan: Bowel function was returning and abdominal X-ray yesterday showing improvement. Cannot get SBFT in current condition. OK to start tube feeds or administer meds assuming no further significant GI bleed. Will continue to follow for any changes in abdominal exam. (2) Acute non-ST elevation myocardial infarction (NSTEMI): Code(s): I21.4 - Non-ST elevation (NSTEMI) myocardial infarction Status: Acute (3) Acute anemia: Code(s): D64.9 - Anemia, unspecified Status: Acute (4) GI bleed: Code(s): K92.2 - Gastrointestinal hemorrhage, unspecified Status: Acute (5) Acute respiratory failure: Code(s): J96.00 - Acute respiratory failure, unspecified whether with hypoxia or hypercapnia Status: Acute Subjective Subjective Date/Time Seen: 02/22/23 10:30 Interval history: Patient intubated last night secondary to respiratory failure. Still has NG with slight bloody output. H/H has remained stable since 02/20. Exam GI: Inspection: non-distended GI Palp: Yes Soft to palpation, No Tenderness to palpation present (GI), No Guarding due to palpation present (GI) and No Rebound tenderness present Objective Data Vital Signs Vital Signs: Vital Signs - 24 hr 02/21/23 10:32 02/21/23 11:18 02/21/23 11:21 Temperature Pulse Rate 107 H 106 H Respiratory Rate 32 H 32 H 29 H Blood Pressure Pulse Oximetry 97 98 Oxygen Delivery BiPAP BiPAP Oxygen Flow Rate Fraction of Inspired Oxygen 02/21/23 12:35 02/21/23 12:46 02/21/23 12:00 Temperature Pulse Rate 105 H Respiratory Rate Blood Pressure Pulse Oximetry 98 98 Oxygen Delivery BiPAP BiPAP Oxygen Flow Rate Fraction of Inspired Oxygen 50 40 02/21/23 12:00 02/21/23 12:00 02/21/23 13:45 Temperature 37.9 C H Pulse Rate 105 H 105 H 105 H Respiratory Rate 31 H 31 H Blood Pressure 92/65 L 92/65 L Pulse Oximetry 98 98 Oxygen Delivery BiPAP Oxygen Flow Rate 40 Fraction of Inspired Oxygen 35 02/21/23 14:30 02/21/23 14:30 02/21/23 14:48 Temperature Pulse Rate 109 H 109 H 109 H Respiratory Rate 28 H 28 H Blood Pressure 92/65 L Pulse Oximetry 95 Oxygen Delivery BiPAP Oxygen Flow Rate Fraction of Inspired Oxygen 02/21/23 14:00 02/21/23 14:00 02/21/23 15:03 Temperature Pulse Rate 110 H 110 H 115 H Respiratory Rate 28 H 26 H Blood Pressure 102/66 Pulse Oximetry 97 Oxygen Delivery Oxygen Flow Rate Fraction of Inspired Oxygen 02/21/23 16:00 02/21/23 16:00 02/21/23 16:00 Temperature 37.7 C H Pulse Rate 119 H 132 H 132 H Respiratory Rate 37 H 37 H Blood Pressure 98/56 L Pulse Oximetry 90 90 Oxygen Delivery BiPAP Oxygen Flow Rate 40 Fraction of Inspired Oxygen 40 02/21/23 18:00 02/21/23 18:00 02/21/23 17:55 Temperature 38.0 C H Pulse Rate 132 H 134 H 128 H Respiratory Rate 27 H Blood Pressure 116/67 Pulse Oximetry 95 97 Oxygen Delivery Mechanical Ventilation Oxygen Flow Rate Fraction of Inspired Oxygen 70 02/21/23 16:53 02/21/23 18:29 02/21/23 20:00 Temperature Pulse Rate 115 H 116 H 106 H Respiratory Rate 39 H 39 H 24 H Blood Pressure Pulse Oximetry 96 99 Oxygen Delivery BiPAP Mechanical Ventilation Oxygen Flow Rate Fraction of Inspired Oxygen 80 02/21/23 20:00 02/21/23 20:00 02/21/23 20:32 Temperature 38.4 C H Pulse Rate 105 H 104 H Respiratory Rate 24 H Blood Pressure 86/58 L Pulse Oximetry 99 99 Oxygen Delivery Mechanical Ventilation Oxygen Flow Rate Fraction of Inspired Oxygen 80 70 02/21/23 20:38 02/21/23 20:50 02/21/23 20:40 Temperature 38.4 C H Pulse Rate 104 H 105 H Respiratory Rate 22 H 22 H Blood Pressure Pulse Oximetry Oxygen
[2023-02-22] MEDS: AZTREONAM 2 GM in SODIUM CHLORIDE 0.9% IV 100 ML 200 ML IVPB ×2 (10:58→19:54)
[2023-02-22] MEDS: ALBUMIN HUMAN 25% 25 GM/100 ML 100 ML IVPB ×3 (12:34→23:07)
[2023-02-22 12:36] LABS: Hematocrit 30.4 % (42.0-52.0); Hemoglobin 10.1 g/dL (14.0-18.0); Mean Corpuscular HGB Conc 33.2 g/dl (32-36); Mean Corpuscular Volume 90.2 fl (80-100); Mean Platelet Volume 10.2 fl (7.4-10.4); Platelet Count Result 105 k/mm3 (150-375); Red Blood Count 3.37 M/mm3 (4.6-6.20); Red Cell Distribution Width 17.3 % (11.5-14.5); White Blood Count 16.7 K/mm3 (4.5-10.0)
--- NOTE | 2023-02-22 12:55 | PM.PNCARD ---
Progress Note: A&P Assessment and Plan (1) Acute non-ST elevation myocardial infarction (NSTEMI): Code(s): I21.4 - Non-ST elevation (NSTEMI) myocardial infarction Status: Acute Assessment and Plan: Troponin of 4.240 and 3.340. EKG with sinus tachycardia with nonspecific STTW abnormality. No known prior cardiac history. In the setting of small bowel obstruction. Echocardiogram shows LVEF >70%, no significant valvular disease. -Recommend Heparin drip, which was started on admission, however on hold currently due to bloody output from his NG tube. Since patient is actively having bloody output from his NG tube, we cannot resume Heparin drip. However, once bleeding stops, then would resume Heparin drip. -ASA, Imdur, and NTG now on hold due to shock requiring dual pressor support -Statin on hold currently -Will eventually need cardiac catheterization but currently not a candidate for cardiac cath at this time due to bleed, small bowel obstruction. Will try to medically manage him the best we can in the meantime. (2) Acute on chronic renal failure: Code(s): N17.9 - Acute kidney failure, unspecified; N18.9 - Chronic kidney disease, unspecified Status: Acute Assessment and Plan: Scr slightly worse today. Nephrology is following. (3) Acute anemia: Code(s): D64.9 - Anemia, unspecified Status: Acute Assessment and Plan: H&H stable today. GI following. (4) Partial obstruction of small intestine: Code(s): K56.600 - Partial intestinal obstruction, unspecified as to cause Status: Acute Assessment and Plan: Surgery is consulted and following along. (5) Hypertension: Code(s): I10 - Essential (primary) hypertension Status: Acute Assessment and Plan: Now on pressors because of hypotension and shock. Subjective Date/time seen: 02/22/23 12:55 Interval history: Reason for consult: NSTEMI HPI: We are consulted for NSTEMI. This is a 77 year old male with bladder cancer s/p recent completion of chemoradiation, ileus, who was recently discharged from [place] after being admitted with a small bowel obstruction. Patient presented to [place] again 02/19 for abdominal pain, that radiates up to the epigastric/substernal area. Workup showed SCr of 2.40 (was 1.7 on 02/15), initial lactic acid of 2.3 with repeat at 0.8. Troponin of 4.[address] A/P shows dilated small bowel with transition point in right abdomen, consistent with partial small bowel obstruction, mild sigmoid diverticulitis. EKG with sinus tachycardia with nonspecific STTW abnormality. NG tube was placed. Patient started on ASA and Heparin drip. At the time of my evaluation, patient states he is feeling better without any active chest pain. No prior known cardiac history. reports that he is usually active at home and never complained of chest pain or other cardiac symptoms. He just finished chemoradiation in January. Date of service 02/20: Had more recurrent chest pain overnight that would improve with NTG; NTG paste was placed. However, he had bloody output from his NG tube and his Heparin drip has been put on hold. His Hgb this morning is 8.4 (was 12.9 back on 02/12). Patient had recurrent chest pain this morning during my evaluation which resolved with SL NTG. Tele shows sinus tachycardia. Date of service 02/22/2023: Deteriorated yesterday evening and is now ventilated and on increased pressor support. Review of Systems Review of Systems: ROS unobtainable: Yes unobtainable due to endotracheal tube Exam Const: General: no acute distress Orientation/consciousness: patient oriented x3 HENMT: Head: normal to inspection Mouth: Yes dry mucous membranes Other: OETT and NG tubes in place Eyes: General: appearance normal, both eyes and all related structures Sclera: sclerae normal Pupils: Equal, round and reactive pupils present Neck: Neck: supple Carotids: normal carotid ups
[2023-02-22 13:08] LABS: Glucose Point of Care 271 mg/dl (65-105)
--- NOTE | 2023-02-22 15:08 | PM.IMPN ---
Progress Note: A&P Assessment and Plan (1) Acute non-ST elevation myocardial infarction (NSTEMI): Code(s): I21.4 - Non-ST elevation (NSTEMI) myocardial infarction Status: Acute (2) Chest pain: Code(s): R07.9 - Chest pain, unspecified Status: Acute (3) Partial obstruction of small intestine: Code(s): K56.600 - Partial intestinal obstruction, unspecified as to cause Status: Acute (4) Abdominal pain: Code(s): R10.9 - Unspecified abdominal pain Status: Acute (5) Hypertension: Code(s): I10 - Essential (primary) hypertension Status: Acute (6) Diabetes mellitus: Code(s): E11.9 - Type 2 diabetes mellitus without complications Status: Acute (7) Acute on chronic renal failure: Code(s): N17.9 - Acute kidney failure, unspecified; N18.9 - Chronic kidney disease, unspecified Status: Acute (8) Hyponatremia: Code(s): E87.1 - Hypo-osmolality and hyponatremia Status: Acute (9) Hypotension due to hypovolemia: Code(s): I95.89 - Other hypotension; E86.1 - Hypovolemia Status: Acute (10) Acute on chronic blood loss anemia: Code(s): D62 - Acute posthemorrhagic anemia Status: Acute (11) Acute GI bleeding: Code(s): K92.2 - Gastrointestinal hemorrhage, unspecified Status: Acute Plan NSTEMI Patient came to ED with chief complaint of epigastric pain and chest pain Elevated troponin x2, EKG shows sinus rhythm no ST elevation Suspecting non-STEMI Received heparin bolus and drip Titrate drip per ACS protocol Consult cardiology for evaluation treatment Flask Carrier recommended continue heparin drip for 48 hours. Given acute GI bleeding, heparin drip is stopped. Partial small obstruction Patient has abdomen pain, nausea vomiting CT abdomen pelvis showed possible partial small-bowel obstruction NG tube is placed Keep patient p.o. Consult general surgeon for evaluation treatment JAMIE on CKD, hyponatremia, hypovolemic hypotension Patient has history of CKD stage 4, creatinine BUN above baseline, patient also found have hyponatremia, hypotension Likely secondary to poor intake, nausea vomiting Received normal saline bolus, blood pressure became stable Continue normal saline IV Avoid nephrotoxic medication Urinalysis unremarkable Follow-up BMP and correct electrolyte abnormality accordingly Creatinine is trending down Acute blood loss anemia History of chronic anemia, hemoglobin 10.1, close to baseline POA coffee-ground stomach fluid drained out, Follow-up stool guaiac, iron panel and CBC HB is trending down, 8.4 to 6.5. 02/20, transfused 2 PRBC and 2 X FFP consult GI for evaluation, GI performed EGD emergently. EGD revealed reflux esophagitis, grade 3, deep acute ulcer in the body of the stomach posteriorly. More consistent with fresh tear. Bleeding was stopped by clips and epinephrine injection Patient was on protonix 40 mg IV q.12 hour, change to Protonix drip Monitor hemoglobin q.6 hours, Transfuse as needed Hemorrhagic shock Represent was called, blood pressure was low 76/46, likely resulting work ability Received normal saline bolus, 2 pack RBC and 2 units FFP Pressure became stable More patient closely pt is presently on 3 vasopressors Hypertension Hold hypertension medication because of hypotension Type 2 diabetes Hold oral medication Start insulin sliding scale q.4 hour during NPO Patient may stay more than 2 midnights in the hospital Patient condition is critical, patient will be monitored closely in ICU. Subjective Date/time seen: 02/22/23 15:08 Interval history: I saw and examined patient in the morning, rapid response was called because of hypotension. When I saw exam patient, patient was on NG tube suction, dark red blood was sucked out from the G-tube. Patient was also noticed confused. Per nurse report, heparin drip was stopped it yesterday. Patient had epigas
[2023-02-22] MEDS: SODIUM BICARBONATE TAB 650 MG TABLET FEED TUBE (16:28)
[2023-02-22 16:39] LABS: Glucose Point of Care 282 mg/dl (65-105)
[2023-02-22] MEDS: NOREPINEPHRINE 8 MG/D5W 250 ML 8 MG/250 ML BAG 54.38 MG IV CONT (17:47)
[2023-02-22 18:21] LABS: Hematocrit 28.8 % (42.0-52.0); Hemoglobin 9.5 g/dL (14.0-18.0); Immature Platelet Fraction Pct 3.4 % (0.9-11.2); Mean Corpuscular Hemoglobin 29.9 pg (26-34); Mean Corpuscular Volume 90.6 fl (80-100); Mean Platelet Volume 10.1 fl (7.4-10.4); Platelet Count Result 101 k/mm3 (150-375); Red Blood Count 3.18 M/mm3 (4.6-6.20); Red Cell Distribution Width 17.3 % (11.5-14.5); White Blood Count 15.3 K/mm3 (4.5-10.0)
[2023-02-22 20:18] LABS: Glucose Point of Care 277 mg/dl (65-105)
[2023-02-22] MEDS: NOREPINEPHRINE 8 MG/D5W 250 ML 8 MG/250 ML BAG 43.13 MG IV CONT (23:06)
[2023-02-22 23:19] LABS: Glucose Point of Care 282 mg/dl (65-105)
[2023-02-23] VITALS (46 sets, daily range): BP systolic 89–109; BP diastolic 60–68; PULSE 80–110; RESP 18–22; TEMP 36.9–37.2; O2SAT 90–98
[2023-02-23 00:10] LABS: Hematocrit 27.8 % (42.0-52.0); Hemoglobin 9.1 g/dL (14.0-18.0); Immature Platelet Fraction Pct 5.4 % (0.9-11.2); Mean Corpuscular HGB Conc 32.7 g/dl (32-36); Mean Corpuscular Hemoglobin 29.9 pg (26-34); Mean Corpuscular Volume 91.4 fl (80-100); Mean Platelet Volume 10.3 fl (7.4-10.4); Platelet Count Result 96 k/mm3 (150-375); Red Blood Count 3.04 M/mm3 (4.6-6.20); Red Cell Distribution Width 17.2 % (11.5-14.5); White Blood Count 13.9 K/mm3 (4.5-10.0)
[2023-02-23] MEDS: IPRATROPIUM BR 0.02% INH SOLN 0.5 MG/2.5 ML VIAL INHALATION ×4 (01:25→19:54)
[2023-02-23] MEDS: LEVALBUTEROL NEB 1.25 MG/3 ML INHALATION ×4 (01:25→19:53)
[2023-02-23] MEDS: CENTRAL LINE FLUSH 10 ML IV PUSH ×2 (04:43→20:26)
[2023-02-23] MEDS: NOREPINEPHRINE 8 MG/D5W 250 ML 8 MG/250 ML BAG 33.75 MG IV CONT (04:51)
[2023-02-23] MEDS: HYDROCORTISONE SODIUM SUCCINATE 100 MG/2 ML VIAL IV PUSH ×3 (04:52→20:25)
[2023-02-23] MEDS: metroNIDAZOLE 500 MG/ISO 100ML 500 MG/100 ML BAG 100 MG IVPB ×3 (04:52→20:26)
[2023-02-23] MEDS: ALBUMIN HUMAN 25% 25 GM/100 ML 100 ML IVPB (04:52)
[2023-02-23] MEDS: INSULIN ASPART (*BKC) 100 UNITS/ML SUB-Q ×4 (04:53→20:47)
[2023-02-23] MEDS: FENTANYL 2,500MCG/NS250ML(*CRX 2,500 MCG/250 ML BAG IV CONT (04:54)
[2023-02-23] MEDS: MIDAZOLAM 100MG/NS 100ML(*CRX) 100 MG/100 ML BAG IV CONT (04:55)
[2023-02-23 05:11] LABS: Glucose Point of Care 207 mg/dl (65-105)
[2023-02-23 05:42] LABS: Alveolar/Arterial O2 Gradient 182.2 mmHg; Carboxyhemoglobin 0.3 % THb (0-2.0); Fractional Inspired Oxygen 40 %; HCO3 ABG 17.2 mEq/l (22.0-26.0); Methemoglobin ABG 0.3 %THb (0-1.5); Oxygen Content ABG 13.1 %vol (16.0-22.0); Oxygen Saturation ABG 96.3 % (95.0-100.0); Oxyhemoglobin 93.7 % THb (90.0-100.0); PO2 ABG 75.6 mmHg (80.0-100.0); PO2 FiO2 Ratio Arterial Blood 1.89 %; Reduced Hemoglobin 5.7 %THb (0-5.0); Total Hemoglobin 9.9 g/dL (12.0-18.0); pH ABG 7.478 (7.350-7.450)
[2023-02-23 05:44] LABS: PCO2 ABG 23.8 mmHg (35.0-45.0)
[2023-02-23 05:45] LABS: Arterial Blood Gas PEEP 8 cmH2O; Arterial Blood Gas Tidal Volume 400 ml; Arterial Blood Gas Vent Mode CMV; Arterial Blood Gas Ventilator rate 22 /MIN; Device VENTILATOR; Modified Allen's Test Pass; Site Drawn LEFT RADIAL
[2023-02-23 06:13] LABS: Basophils Percent Auto 0.1 % (0.2-1.2); Hematocrit 26.2 % (42.0-52.0); Hemoglobin 8.7 g/dL (14.0-18.0); Immature Granulocyte Absolute 0.22 K/mm3 (0.00-0.031); Immature Granulocyte Percent A 1.5 % (0-0.5); Immature Platelet Fraction Pct 5.5 % (0.9-11.2); Lymphocytes Absolute Auto 0.31 K/mm3 (0.9-3.2); Lymphocytes Percent Auto 2.1 % (18.3-44.2); Mean Corpuscular HGB Conc 33.2 g/dl (32-36); Mean Corpuscular Hemoglobin 30.5 pg (26-34); Mean Corpuscular Volume 91.9 fl (80-100); Mean Platelet Volume 10.6 fl (7.4-10.4); Monocytes Absolute Auto 0.9 K/mm3 (0.1-0.6); Monocytes Percent Auto 5.8 % (2.6-8.5); Neutrophils Absolute Auto 13.3 K/mm3 (1.3-6.7); Neutrophils Percent Auto 90.5 % (45.5-73.1); Platelet Count Result 87 k/mm3 (150-375); Red Blood Count 2.85 M/mm3 (4.6-6.20); Red Cell Distribution Width 17.2 % (11.5-14.5); White Blood Count 14.7 K/mm3 (4.5-10.0)
[2023-02-23 06:21] LABS: Alanine Aminotransferase 27 U/L (6-50); Albumin Level 3.4 g/dL (3.5-5.1); Alkaline Phosphatase 41 U/L (38-126); Anion Gap 16 mmol/L (8-16); Aspartate Amino Transferase 76 U/L (17-59); Bilirubin,Total 0.8 mg/dL (0.2-1.3); Blood Urea Nitrogen 59 mg/dL (9-20); Calcium 8.5 mg/dL (8.4-10.2); Carbon Dioxide 18 mmol/L (22-30); Chloride 101 mmol/L (98-107); Estimated CRCL calculation 17 ml/min; Estimated Glomerular Filt Rate 21; Glucose 236 mg/dL (65-110); Phosphorus 3.6 mg/dL (2.5-4.5); Potassium 3.4 mmol/L (3.4-5.0); Sodium 135 mmol/L (137-145)
[2023-02-23 07:03] LABS: Burr Cells 2+ (NORMAL); Large Platelets Present; Platelet Estimate Decreased (Adequate); Schistocytes None Seen (NORMAL)
[2023-02-23 08:03] LABS: Glucose Point of Care 224 mg/dl (65-105)
--- NOTE | 2023-02-23 09:20 | ECG_ITS ---
Measurements Intervals [place] Rate: 106 P: 34 ND: 179 QRS: 16 QRSD: 102 T: 196 QT: 323 QTc: 430 Interpretive Statements SINUS OR ECTOPIC ATRIAL TACHYCARDIA LOW QRS VOLTAGE- DIFFUSE LEADS ANTEROSEPTAL INFARCT, AGE INDETERMINATE BORDERLINE ST-T WAVE ABNORMALITY- DIFFUSE LEADS BASELINE WANDER- I, III, AVL, AVF, V2, V5-V6 ABNORMAL ECG COMPARED TO ECG 02/20/2023 10:00:07 NO SIGNIFICANT CHANGES Electronically Signed On 02-23-2023 11:07:50 [employer] by Donald Diaz D.O.
[2023-02-23] MEDS: PANTOPRAZOLE SODIUM IV 40 MG VIAL IV PUSH ×2 (09:31→20:24)
[2023-02-23] MEDS: INSULIN GLARGINE (*BKC) 100 UNITS/ML 25 UNITS SUB-Q (09:31)
[2023-02-23] MEDS: ATORVASTATIN 40 MG TABLET 80 MG PO (09:32)
[2023-02-23] MEDS: POTASSIUM CHLORIDE 20 MEQ PACKET (FOR LIQUID) 40 MEQ FEED TUBE (09:33)
[2023-02-23] MEDS: MINERAL OIL/WHITE PETROLATUM OINTMENT 1 APPLIC EACH EYE ×2 (09:33→20:25)
[2023-02-23] MEDS: DOBUTamine 250 MG/D5W 250 ML 250 MG/250 ML BAG 9.48 MG IV CONT (09:33)
[2023-02-23] MEDS: SODIUM BICARBONATE TAB 650 MG TABLET FEED TUBE ×2 (09:43→16:58)
[2023-02-23] MEDS: AZTREONAM 2 GM in SODIUM CHLORIDE 0.9% IV 100 ML 200 ML IVPB ×2 (09:58→20:24)
--- NOTE | 2023-02-23 10:45 | WPDINTPN ---
Progress Note: A&P Assessment and Plan (1) Shock: Code(s): R57.9 - Shock, unspecified Status: Acute Assessment and Plan: Shock likely related to hemorrhagic, hypovolemic, sepsis and cardiogenic -currently on Levophed. vaso and [place]-Synephrine have been weaned off. Continue to titrate to maintain MAP > 65 mmHg at all times for adequate end organ perfusion -repeat echo shows EF of 30-35%-will do a trial of low-dose dobutamine - procalcitonin level 1.1 and -lactic acid is 1.6 this morning -DC 25% albumin -continue hydrocortisone -urine and Blood cultures obtained pending -02/20: patient was started on levofloxacin and metronidazole to, abdominal source of sepsis.02/22 switched to aztreonam Flagyl Continue at this time Will obtain CT scan of the chest once patient is more stable (2) Acute respiratory failure: Code(s): J96.00 - Acute respiratory failure, unspecified whether with hypoxia or hypercapnia Status: Acute Assessment and Plan: Patient with acute respiratory failure likely related TRALI versus TACO versus ARDS versus aspiration pneumonia Hold diuresis at this time due to shock Chest x-ray reviewed ABG reviewed. Continue peep at 8 and FiO2 at 40% Antibiotics as above Patient was given bicarb for metabolic acidosis (3) GI bleed: Code(s): K92.2 - Gastrointestinal hemorrhage, unspecified Status: Acute Assessment and Plan: Acute GI bleed, bright red blood in the NG tube drainage -hemoglobin dropped to 6.5 this morning with severe anemia, emergently called GI, -heparin infusion for NSTEMI was discontinued on 04/21/22, 8:00 p.m. -coags within normal limits -02/20: EGD: Reflux esophagitis, acute gastric ulcer with active oozing of blood, status post epinephrine injection, gold probe cauterization, 4 resolution clips Blood tinged output from NG tube has cleared. GI following Continue IV Protonix Start aspirin and DVT prophylaxis Lovenox Continue hemoglobin monitoring Transfuse as needed (4) Acute anemia: Code(s): D64.9 - Anemia, unspecified Status: Acute Assessment and Plan: 02/20 2 units of unmatched blood were transfused due to acute bright red blood in the NG drainage. Patient was also given FFP -hemoglobin stable this morning, will continue to monitor (5) Acute non-ST elevation myocardial infarction (NSTEMI): Code(s): I21.4 - Non-ST elevation (NSTEMI) myocardial infarction Status: Acute Assessment and Plan: Patient presented with epigastric pain that was radiating to the chest. EKG showed ST T wave changes but no ST elevation, diagnosed with NSTEMI, or was started on heparin infusion on 02/19/2023 and stopped on the same day at night because of coffee-ground drainage from his NG -NG was placed due to partial small-bowel obstruction as seen on CT abdomen and pelvis -cardiology following the patient -aspirin and heparin were discontinued due to GI bleed -resume aspirin at this time -hold Imdur, nitroglycerin paste due to shock -discussed with cardiology Echo reviewed and results below (6) Cardiomyopathy: Code(s): I42.9 - Cardiomyopathy, unspecified Status: Acute Assessment and Plan: Echocardiogram done on 02/19 showed EF more than 70% grade 1 diastolic dysfunction Patient on admission was diagnosed with non STEMI Later he developed volume overload shock and respiratory failure and required intubation and vasopressors Repeat echocardiogram done on 02/22 showed Mild left ventricular? enlargement with sigmoid hypertrophy of the septum.? The distal 2/3rds of the ventricle are severely hypokinetic, with akinesis of the distal septum, anterior wall and apex.? Ejection fraction 30-35%.? 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 ? 3. Left atrial chamber dimension is mildly enlarged. ? 4. There is mild to moderate mitral valve regurgitation. ? 5. Normal estimated pulmonary pressure. ? 6. Dilated inferior vena cava. This could very wel
--- NOTE | 2023-02-23 11:42 | PCFNICU ---
ICU Rounding Note: Pt current nutrition is Glucerna 1.2 at 20 ml/hr. Nutrition recommendation: Vital AF 1.2 at 20 ml/hr goal rate at 65 ml/hr. Last recorded weight is 63.2 kg,down from 65.4 kg on admit. Bowel Motility:No BM reported. Labs Reviewed:Glu 236,BUN 59, Cr 2.9,Na 135, Alb 3.4 Meds Noted:Fentanyl,Versed, Levophed, NovoLog, Lantus, Protonix. Skin:WNL Additional Notes: Patient remains on mechanical vent. trickle feedings of Glucerna 1.2 started at 20 ml/hr today. No plans to advance rate today per Drying Frame Operator. Recommend changing tube feeding formulas to Vital AF 1.2 at 20 ml/hr, goal rate at 65 ml/hr. Vital AF is a peptide base formula suitable to promote GI tolerance and help manage inflammation. Flush 30 ml q 4 hours. Following daily in ICU rounds. Will monitor weight, labs, skin, diet orders every Tuesday and Tuesday.
--- NOTE | 2023-02-23 11:45 | PM.PNCARD ---
Progress Note: A&P Assessment and Plan (1) Acute non-ST elevation myocardial infarction (NSTEMI): Code(s): I21.4 - Non-ST elevation (NSTEMI) myocardial infarction Status: Acute Assessment and Plan: Troponin of 4.240 and 3.340. EKG with sinus tachycardia with nonspecific STTW abnormality. No known prior cardiac history. In the setting of small bowel obstruction. Echocardiogram shows LVEF >70%, no significant valvular disease. --unable to treat aggressively due to his upper GI bleed, etc.. --aspirin and statin started today. --continue medical therapy for CAD (2) Acute systolic CHF (congestive heart failure): Code(s): I50.21 - Acute systolic (congestive) heart failure Status: Acute Assessment and Plan: Echo shows a significant decline in left ventricular function with a new cardiomyopathy and some segmental wall motion abnormalities. Could be takotsubo but suspect this is more ischemic. EKGs on the showed anterolateral ST depression, and today's EKG shows possible nonacute anteroseptal [place] with Q-waves in V1 through V 3, more pronounced than the prior tracings. Unclear if his myocardium stunned or infarcted although his troponins were never terribly high and hopefully some myocardium is ischemic/stunned and will recover. --continue supportive care for new cardiomyopathy and CAD, although we are certainly limited and therapeutic options due to his hypotension, acute renal failure, and recent GI bleeding. --follow renal function, consider a diuretic challenge if blood pressure remains relatively stable. (3) Acute on chronic renal failure: Code(s): N17.9 - Acute kidney failure, unspecified; N18.9 - Chronic kidney disease, unspecified Status: Acute Assessment and Plan: Worsening. nephrology is following. (4) Shock: Code(s): R57.9 - Shock, unspecified Status: Acute Assessment and Plan: Shock with respiratory failure, secondary to hypovolemia, hemorrhage, sepsis and cardiogenic. Pressor requirements have declined, now just on Levophed. (5) Upper GI bleed: Code(s): K92.2 - Gastrointestinal hemorrhage, unspecified Status: Acute Assessment and Plan: H&H stable today. GI following. On PPI. Subjective Date/time seen: 02/23/23 11:45 Interval history: Reason for consult: NSTEMI HPI: We are consulted for NSTEMI. This is a 77 year old male with bladder cancer s/p recent completion of chemoradiation, ileus, who was recently discharged from [place] after being admitted with a small bowel obstruction. Patient presented to [place] again 02/19 for abdominal pain, that radiates up to the epigastric/substernal area. Workup showed SCr of 2.40 (was 1.7 on 02/15), initial lactic acid of 2.3 with repeat at 0.8. Troponin of 4.[address] A/P shows dilated small bowel with transition point in right abdomen, consistent with partial small bowel obstruction, mild sigmoid diverticulitis. EKG with sinus tachycardia with nonspecific STTW abnormality. NG tube was placed. Patient started on ASA and Heparin drip. At the time of my evaluation, patient states he is feeling better without any active chest pain. No prior known cardiac history. reports that he is usually active at home and never complained of chest pain or other cardiac symptoms. He just finished chemoradiation in January. Date of service 02/20: Had more recurrent chest pain overnight that would improve with NTG; NTG paste was placed. However, he had bloody output from his NG tube and his Heparin drip has been put on hold. His Hgb this morning is 8.4 (was 12.9 back on 02/12). Patient had recurrent chest pain this morning during my evaluation which resolved with SL NTG. Tele shows sinus tachycardia. Date of service 02/22/2023: Deteriorated yesterday evening and is now ventilated and on increased pressor support. Date of Service 02/23/2023: and son at bedside. Remains on vent, Levophed
[2023-02-23 11:50] LABS: Glucose Point of Care 197 mg/dl (65-105)
[2023-02-23] MEDS: ENOXAPARIN 30 MG/0.3 ML SYRINGE SUB-Q (12:00)
[2023-02-23] MEDS: NOREPINEPHRINE 8 MG/D5W 250 ML 8 MG/250 ML BAG 30 MG IV CONT (12:48)
--- NOTE | 2023-02-23 12:51 | P.PNNP_ITS ---
Progress Note: A&P Assessment and Plan (1) Acute kidney injury: Code(s): N17.9 - Acute kidney failure, unspecified Status: Acute Assessment and Plan: * has likely developed ATN from shock/hypotension * noted acidosis as well * remains at risk for PAPIER MACHE MOLDER/hemodialysis * follow trend of repeat labs and UOP (2) Chronic kidney disease, stage 4 (severe): Code(s): N18.4 - Chronic kidney disease, stage 4 (severe) Status: Acute Assessment and Plan: * baseline creatinie runs ~ 1.7 - 2.3mg/dl * however, has been as high as 2.77mg/dl * secondary to hypertension, diabetes, vascular disease, and age-related change * follows with Dr. Rendon for CKD management (3) Shock: Code(s): R57.9 - Shock, unspecified Status: Acute Assessment and Plan: * suspect related to a combination of blood loss, hypovolemia, and possible se psis * on vasopressor therapy to maintain MAP * follow trend of lactic acid * follow culture data * on antibiotics * follow trend of hemodynamics (4) Acute respiratory failure: Code(s): J96.00 - Acute respiratory failure, unspecified whether with hypoxia or hypercapnia Status: Acute Assessment and Plan: * related to pulmonary edema versus blood transfusions (TRALI versus TACO?) * IV bumex for diuresis * on BiPAP therapy * follow respiratory status closely * remains at risk for intubation.mechanical ventilation (5) GI bleed: Code(s): K92.2 - Gastrointestinal hemorrhage, unspecified Status: Acute Assessment and Plan: * as noted by brgiht red blood via NG tube drainage * H/H dropped to as los as 6.5 (on 02/20/23) * complicated by previous use of heparin gtt for NSTEMI which was discontinued (0n 02/19/23) * GAstroentrology following: * EGD (on 02/20): reflux esophagitis, acute gastric ulcer with active oozing of blood, status post epinephrine injection, gold probe cauterization, 4 resolution clips * on IV PPI * follow trend of H/H (6) Acute anemia: Code(s): D64.9 - Anemia, unspecified Status: Acute Assessment and Plan: * see #4 * s/p PRBC and FFP transfusions * follow H/H (7) Acute non-ST elevation myocardial infarction (NSTEMI): Code(s): I21.4 - Non-ST elevation (NSTEMI) myocardial infarction Status: Acute Assessment and Plan: * symptoms of epigastric pain that was radiating to the chest * EKG showed ST T wave changes but no ST elevation -- diagnosed with NSTEMI * started on heparin infusion on 02/19/2023 and stopped on the same day at night because of coffee-ground drainage from his NG * Cardiology following * repeat Echo noted -- EF 30-35% (8) Small bowel obstruction: Code(s): K56.609 - Unspecified intestinal obstruction, unspecified as to partial versus complete obstruction Status: Acute Assessment and Plan: * symptoms of epigastric pain along with nausea and vomiting * CT scan of the abdomen and pelvis showed dilated small bowel with transition point in right abdomen, consistent with partial small-bowel obstruction; mild sigmoid diverticulitis with no perforation or abscess; small cystic lesions of the pancreas * NGT in place for decompression * GI and Surgery following * continue supportive care (9) Diabetes mellitus: Code(s): E11.9 - Type 2 diabetes mellitus without complications Status: Acute Assessment and Plan: * follow accu-checks * glycemic control per hospitalists/electronics mechanic apprentice Will continue to fo
--- NOTE | 2023-02-23 12:51 | PM.PNNEP ---
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 Rendon for CKD management (3) Shock: Code(s): R57.9 - Shock, unspecified Status: Acute Assessment and Plan: suspect related to a combination of blood loss, hypovolemia, and possible sepsis on vasopressor therapy to maintain MAP follow trend of lactic acid follow culture data on antibiotics follow trend of hemodynamics (4) Acute respiratory failure: Code(s): J96.00 - Acute respiratory failure, unspecified whether with hypoxia or hypercapnia Status: Acute Assessment and Plan: related to pulmonary edema versus blood transfusions (TRALI versus TACO?) IV bumex for diuresis on BiPAP therapy follow respiratory status closely remains at risk for intubation.mechanical ventilation (5) GI bleed: Code(s): K92.2 - Gastrointestinal hemorrhage, unspecified Status: Acute Assessment and Plan: as noted by milagros red blood via NG tube drainage H/H dropped to as los as 6.5 (on 02/20/23) complicated by previous use of heparin gtt for NSTEMI which was discontinued (0n 02/19/23) GAstroentrology following: EGD (on 02/20): reflux esophagitis, acute gastric ulcer with active oozing of blood, status post epinephrine injection, gold probe cauterization, 4 resolution clips on IV PPI follow trend of H/H (6) Acute anemia: Code(s): D64.9 - Anemia, unspecified Status: Acute Assessment and Plan: see #4 s/p PRBC and FFP transfusions follow H/H (7) Acute non-ST elevation myocardial infarction (NSTEMI): Code(s): I21.4 - Non-ST elevation (NSTEMI) myocardial infarction Status: Acute Assessment and Plan: symptoms of epigastric pain that was radiating to the chest EKG showed ST T wave changes but no ST elevation -- diagnosed with NSTEMI started on heparin infusion on 02/19/2023 and stopped on the same day at night because of coffee-ground drainage from his NG Cardiology following repeat Echo noted -- EF 30-35% (8) Small bowel obstruction: Code(s): K56.609 - Unspecified intestinal obstruction, unspecified as to partial versus complete obstruction Status: Acute Assessment and Plan: symptoms of epigastric pain along with nausea and vomiting CT scan of the abdomen and pelvis showed dilated small bowel with transition point in right abdomen, consistent with partial small-bowel obstruction; mild sigmoid diverticulitis with no perforation or abscess; small cystic lesions of the pancreas NGT in place for decompression GI and Surgery following continue supportive care (9) Diabetes mellitus: Code(s): E11.9 - Type 2 diabetes mellitus without complications Status: Acute Assessment and Plan: follow accu-checks 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 Remains intubated/sedated and on mechanical ventilation; remains on vasopressor therapy but phenylephrine and vasopressin weaned off; decline in urine output with rise in creatinine noted; no other acute issues noted. Exam Narrative: General: frail/elderly male intubated/sedated and on mechanical ventilation Heart: tachycardic, normal S1 and S2; no r
--- NOTE | 2023-02-23 15:04 | PM.PNGS ---
Progress Note: A&P Assessment and Plan (1) Partial obstruction of small intestine: Code(s): K56.600 - Partial intestinal obstruction, unspecified as to cause Status: Acute Assessment and Plan: Trickle tube feedings started. Will monitor how he tolerates feedings. Abdominal exam unchanged. If he has issues tolerating tube feedings, we can consider a small bowel follow through if he is stable enough for this test. (2) Acute non-ST elevation myocardial infarction (NSTEMI): Code(s): I21.4 - Non-ST elevation (NSTEMI) myocardial infarction Status: Acute (3) Acute anemia: Code(s): D64.9 - Anemia, unspecified Status: Acute (4) GI bleed: Code(s): K92.2 - Gastrointestinal hemorrhage, unspecified Status: Acute (5) Acute respiratory failure: Code(s): J96.00 - Acute respiratory failure, unspecified whether with hypoxia or hypercapnia Status: Acute Plan I have discussed the patient's case and plan of care with Dr. Girard. Subjective Subjective Date/Time Seen: 02/23/23 15:04 Interval history: Chart reviewed. Patient intubated and sedated in the ICU. His is at the bedside. Nursing staff is also at the bedside. He was started on tube feedings this morning. His last BM was 2 days ago. They are slowly weaning down on the vasopressors. He is currently on dobutamine and norepinephrine. Review of Systems Review of Systems: ROS unobtainable: Yes unobtainable due to endotracheal tube Exam GI: Inspection: non-distended GI Palp: Yes Soft to palpation, No Guarding due to palpation present (GI) and Yes Other GI palpation findings present (exam limited as he is sedated/intubated) Auscultation: Hypoactive bowel sounds present Objective Data Vital Signs Vital Signs: Vital Signs - 24 hr 02/22/23 15:11 02/22/23 15:43 02/22/23 16:34 Temperature Pulse Rate 90 88 96 Respiratory Rate Blood Pressure 105/65 107/64 110/70 Pulse Oximetry Oxygen Delivery Fraction of Inspired Oxygen 02/22/23 16:35 02/22/23 16:36 02/22/23 16:37 Temperature Pulse Rate 92 92 92 Respiratory Rate 22 H 22 H Blood Pressure 110/70 Pulse Oximetry Oxygen Delivery Fraction of Inspired Oxygen 02/22/23 17:22 02/22/23 16:00 02/22/23 16:00 Temperature Pulse Rate 87 91 Respiratory Rate 22 H Blood Pressure 117/71 Pulse Oximetry 97 Oxygen Delivery Mechanical Ventilation Fraction of Inspired Oxygen 40 40 02/22/23 16:00 02/22/23 16:00 02/22/23 18:00 Temperature 98.4 F Pulse Rate 91 91 90 Respiratory Rate 22 H Blood Pressure 107/65 Pulse Oximetry 97 Oxygen Delivery Fraction of Inspired Oxygen 02/22/23 18:00 02/22/23 17:35 02/22/23 19:35 Temperature 98.4 F Pulse Rate 90 91 85 Respiratory Rate 22 H 22 H Blood Pressure 110/69 Pulse Oximetry 96 98 96 Oxygen Delivery Mechanical Ventilation Mechanical Ventilation Fraction of Inspired Oxygen 40 40 02/22/23 19:35 02/22/23 19:43 02/22/23 19:41 Temperature 98.5 F Pulse Rate 87 87 Respiratory Rate 22 H 22 H Blood Pressure 106/64 Pulse Oximetry 96 Oxygen Delivery Fraction of Inspired Oxygen 40 02/22/23 19:47 02/22/23 20:09 02/22/23 20:00 Temperature Pulse Rate 83 89 100 Respiratory Rate 22 H Blood Pressure Pulse Oximetry 97 Oxygen Delivery Mechanical Ventilation Fraction of Inspired Oxygen 40 02/22/23 20:25 02/22/23 20:26 02/22/23 20:26 Temperature Pulse Rate 96 103 H 79 Respiratory Rate 22 H Blood Pressure 111/67 111/67 Pulse Oximetry Oxygen Delivery Fraction of Inspired Oxygen 02/22/23 20:27 02/22/23 21:48 02/22/23 21:54 Temperature Pulse Rate 95 98 98 Respiratory Rate 22 H 22 H Blood Pressure 98/64 L 98/64 L Pulse Oximetry 97 Oxygen Delivery Fraction of Inspired Oxygen 02/22/23 22:32 02/22/23 23:06 02/22/23 23:19 Temperature Pulse Rate 94 94 94 Respiratory Rate 2
--- NOTE | 2023-02-23 16:10 | PM.IMPN ---
Progress Note: A&P Assessment and Plan (1) Acute non-ST elevation myocardial infarction (NSTEMI): Code(s): I21.4 - Non-ST elevation (NSTEMI) myocardial infarction Status: Acute (2) Chest pain: Code(s): R07.9 - Chest pain, unspecified Status: Acute (3) Partial obstruction of small intestine: Code(s): K56.600 - Partial intestinal obstruction, unspecified as to cause Status: Acute (4) Abdominal pain: Code(s): R10.9 - Unspecified abdominal pain Status: Acute (5) Hypertension: Code(s): I10 - Essential (primary) hypertension Status: Acute (6) Diabetes mellitus: Code(s): E11.9 - Type 2 diabetes mellitus without complications Status: Acute (7) Acute on chronic renal failure: Code(s): N17.9 - Acute kidney failure, unspecified; N18.9 - Chronic kidney disease, unspecified Status: Acute (8) Hyponatremia: Code(s): E87.1 - Hypo-osmolality and hyponatremia Status: Acute (9) Hypotension due to hypovolemia: Code(s): I95.89 - Other hypotension; E86.1 - Hypovolemia Status: Acute (10) Acute on chronic blood loss anemia: Code(s): D62 - Acute posthemorrhagic anemia Status: Acute (11) Acute GI bleeding: Code(s): K92.2 - Gastrointestinal hemorrhage, unspecified Status: Acute Plan NSTEMI Patient came to ED with chief complaint of epigastric pain and chest pain Elevated troponin x2, EKG shows sinus rhythm no ST elevation Suspecting non-STEMI Received heparin bolus and drip Titrate drip per ACS protocol Consult cardiology for evaluation treatment Periodicals Library Assistant recommended continue heparin drip for 48 hours. Given acute GI bleeding, heparin drip was stopped. pt had emergent EGD Cardiomyopathy Pt is on dobutamine Cardiology rounding Partial small obstruction Patient has abdomen pain, nausea vomiting CT abdomen pelvis showed possible partial small-bowel obstruction pt kept npo with fluids now to start tube feds JAMIE on CKD, hyponatremia, hypovolemic hypotension Patient has history of CKD stage 4, creatinine BUN above baseline, patient also found have hyponatremia, hypotension nephrology rounding Creatinine is trending down 2.9 today Acute blood loss anemia History of chronic anemia, hemoglobin 10.1, close to baseline POA coffee-ground stomach fluid drained out, Follow-up stool guaiac, iron panel and CBC HB is trending down, 8.4 to 6.5. 02/20, transfused 2 PRBC and 2 X FFP consult GI for evaluation, GI performed EGD emergently. EGD revealed reflux esophagitis, grade 3, deep acute ulcer in the body of the stomach posteriorly. More consistent with fresh tear. Bleeding was stopped by clips and epinephrine injection was on ppi drip Patient now on protonix 40 mg IV q.12 hours Monitor hemoglobin q.6 hours, Transfuse as needed Mild sigmoid diverticulitis with no perforation or abscess on CT scan pt is on iv aztreonam and iv metronidazole pt is on iv steroids Hemorrhagic shock Represent was called, blood pressure was low 76/46, likely resulting work ability Received normal saline bolus, 2 pack RBC and 2 units FFP Pressure became stable More patient closely pt is presently on levophed pt is on iv steroids Hypertension Hold hypertension medication because of hypotension Type 2 diabetes Hold oral medication Start insulin sliding scale q.4 hour started tube feds Patient may stay more than 2 midnights in the hospital Patient condition is critical, patient will be monitored closely in ICU. Subjective Date/time seen: 02/23/23 16:10 Interval history: I saw and examined patient in the morning, rapid response was called because of hypotension. When I saw exam patient, patient was on NG tube suction, dark red blood was sucked out from the G-tube. Patient was also noticed confused. Per nurse report, heparin drip was stopped it yesterday. Patient had epigastric pain, patien
[2023-02-23 16:11] LABS: Ionized Calcium 4.5 mg/dL (4.7-5.5)
[2023-02-23 16:29] LABS: Glucose Point of Care 234 mg/dl (65-105)
[2023-02-23] MEDS: NOREPINEPHRINE 8 MG/D5W 250 ML 8 MG/250 ML BAG 26.25 MG IV CONT (20:26)
[2023-02-23 20:55] LABS: Glucose Point of Care 266 mg/dl (65-105)
[2023-02-24] VITALS (35 sets, daily range): BP systolic 87–99; BP diastolic 53–68; PULSE 90–113; RESP 16–20; TEMP 36.8–37.1; O2SAT 93–98
[2023-02-24 00:20] LABS: Glucose Point of Care 221 mg/dl (65-105)
[2023-02-24] MEDS: INSULIN ASPART (*BKC) 100 UNITS/ML SUB-Q ×4 (00:20→21:06)
[2023-02-24] MEDS: LEVALBUTEROL NEB 1.25 MG/3 ML INHALATION ×2 (01:10→07:26)
[2023-02-24] MEDS: IPRATROPIUM BR 0.02% INH SOLN 0.5 MG/2.5 ML VIAL INHALATION ×2 (01:10→07:26)
[2023-02-24 04:05] LABS: Glucose Point of Care 231 mg/dl (65-105)
[2023-02-24] MEDS: CENTRAL LINE FLUSH 10 ML IV PUSH ×3 (04:27→21:07)
[2023-02-24 04:40] LABS: Alveolar/Arterial O2 Gradient 221.3 mmHg; Base Excess ABG -5.7 mEq/l (+/-2.0); Carboxyhemoglobin 0.1 % THb (0-2.0); Fractional Inspired Oxygen 45 %; HCO3 ABG 17.3 mEq/l (22.0-26.0); Methemoglobin ABG 0.2 %THb (0-1.5); Oxygen Content ABG 13.4 %vol (16.0-22.0); Oxygen Saturation ABG 94.9 % (95.0-100.0); Oxyhemoglobin 92.1 % THb (90.0-100.0); PCO2 ABG 26.2 mmHg (35.0-45.0); PO2 ABG 69.8 mmHg (80.0-100.0); PO2 FiO2 Ratio Arterial Blood 1.55 %; Reduced Hemoglobin 7.6 %THb (0-5.0); Total Hemoglobin 10.3 g/dL (12.0-18.0); pH ABG 7.438 (7.350-7.450)
[2023-02-24 04:43] LABS: Arterial Blood Gas PEEP 8 cmH2O; Arterial Blood Gas Vent Mode CMV; Arterial Blood Gas Ventilator rate 18 /MIN; Device VENTILATOR; Modified Allen's Test Pass; Site Drawn RIGHT RADIAL
[2023-02-24 04:44] LABS: Arterial Blood Gas Tidal Volume 400 ml
[2023-02-24] MEDS: metroNIDAZOLE 500 MG/ISO 100ML 500 MG/100 ML BAG 100 MG IVPB ×3 (05:33→21:39)
[2023-02-24] MEDS: HYDROCORTISONE SODIUM SUCCINATE 100 MG/2 ML VIAL IV PUSH ×3 (05:33→21:07)
[2023-02-24 05:38] LABS: Hematocrit 28.4 % (42.0-52.0); Hemoglobin 9.1 g/dL (14.0-18.0); Immature Platelet Fraction Pct 8.6 % (0.9-11.2); Mean Corpuscular Hemoglobin 30.4 pg (26-34); Mean Platelet Volume 11.8 fl (7.4-10.4); Platelet Count Result 89 k/mm3 (150-375); Red Blood Count 2.99 M/mm3 (4.6-6.20); Red Cell Distribution Width 17.6 % (11.5-14.5)
[2023-02-24 06:02] LABS: Alanine Aminotransferase 25 U/L (6-50); Albumin Level 2.9 g/dL (3.5-5.1); Alkaline Phosphatase 48 U/L (38-126); Anion Gap 13 mmol/L (8-16); Aspartate Amino Transferase 39 U/L (17-59); Bilirubin,Total 0.6 mg/dL (0.2-1.3); Blood Urea Nitrogen 69 mg/dL (9-20); Calcium 7.9 mg/dL (8.4-10.2); Carbon Dioxide 19 mmol/L (22-30); Chloride 100 mmol/L (98-107); Estimated CRCL calculation 16 ml/min; Estimated Glomerular Filt Rate 20; Glucose 290 mg/dL (65-110); Phosphorus 3.9 mg/dL (2.5-4.5); Potassium 3.9 mmol/L (3.4-5.0); Sodium 132 mmol/L (137-145)
[2023-02-24 06:31] LABS: Hepatitis B Surface Antigen Negative (Negative)
[2023-02-24 06:45] LABS: Band Neutrophils Percent 12 % (0-6); Lymphocytes Absolute Manual 0.18 K/mm3 (1.1-4.5); Lymphocytes Percent Manual 1 % (18-44); Monocytes Absolute Manual 1.44 K/mm3 (0.1-0.90); Monocytes Percent Manual 8 % (3-9); Neutrophils Absolute Manual 16.38 K/mm3 (1.3-6.7); Neutrophils Percent Manual 79 % (46-73); Total Cells Counted 100
[2023-02-24 06:48] LABS: Anisocytosis 1+ (NORMAL); Hepatitis B Surface Anti Res Negative; Platelet Estimate Decreased (Adequate); Poikilocytosis 1+ (NORMAL)
[2023-02-24 06:49] LABS: Ovalocytes 1+ (NORMAL); Schistocytes None Seen (NORMAL)
[2023-02-24 07:59] LABS: Glucose Point of Care 133 mg/dl (65-105)
[2023-02-24] MEDS: ATORVASTATIN 40 MG TABLET 80 MG PO (08:20)
[2023-02-24] MEDS: ASPIRIN 81 MG CHEWABLE TABLET PO (08:21)
[2023-02-24] MEDS: PANTOPRAZOLE SODIUM IV 40 MG VIAL IV PUSH ×2 (08:21→21:07)
[2023-02-24] MEDS: ENOXAPARIN 30 MG/0.3 ML SYRINGE SUB-Q (08:21)
[2023-02-24] MEDS: AZTREONAM 2 GM in SODIUM CHLORIDE 0.9% IV 100 ML 200 ML IVPB ×2 (08:21→21:03)
[2023-02-24] MEDS: SODIUM BICARBONATE TAB 650 MG TABLET FEED TUBE (08:21)
[2023-02-24] MEDS: MINERAL OIL/WHITE PETROLATUM OINTMENT 1 APPLIC EACH EYE ×2 (08:22→21:08)
[2023-02-24] MEDS: INSULIN GLARGINE (*BKC) 100 UNITS/ML 25 UNITS SUB-Q (08:23)
[2023-02-24] MEDS: NOREPINEPHRINE 8 MG/D5W 250 ML 8 MG/250 ML BAG 15 MG IV CONT (08:41)
--- NOTE | 2023-02-24 09:34 | WPDINTPN ---
Progress Note: A&P Assessment and Plan (1) Shock: Code(s): R57.9 - Shock, unspecified Status: Acute Assessment and Plan: Shock likely related to hemorrhagic, hypovolemic, sepsis and cardiogenic -currently on Levophed at 7 mcg. Vaso and Kiel-Synephrine have been weaned off. Continue to titrate to maintain MAP > 65 mmHg at all times for adequate end organ perfusion -02/23 repeat echo shows EF of 30-35% patient was started on 2.5 mcg of dobutamine which will be continue -off 25% albumin -continue hydrocortisone -urine and Blood cultures negative till now -02/20: patient was started on levofloxacin and metronidazole to, abdominal source of sepsis.02/22 switched to aztreonam Flagyl Continue at this time (2) Acute respiratory failure: Code(s): J96.00 - Acute respiratory failure, unspecified whether with hypoxia or hypercapnia Status: Acute Assessment and Plan: Patient with acute respiratory failure likely related TRALI versus TACO versus ARDS versus aspiration pneumonia Chest x-ray reviewed ABG reviewed. Continue peep at 8 and FiO2 at 45 % Antibiotics as above Patient was given low-dose bicarb for metabolic acidosis which will be continued Will start diuretics to see if patient responds (3) GI bleed: Code(s): K92.2 - Gastrointestinal hemorrhage, unspecified Status: Acute Assessment and Plan: Acute GI bleed, bright red blood in the NG tube drainage -hemoglobin dropped to 6.5 this morning with severe anemia, emergently called GI, -heparin infusion for NSTEMI was discontinued on 04/21/22, 8:00 p.m. -coags within normal limits -02/20: EGD: Reflux esophagitis, acute gastric ulcer with active oozing of blood, status post epinephrine injection, gold probe cauterization, 4 resolution clips Blood tinged output from NG tube has cleared. GI following Continue IV Protonix Continue aspirin and DVT prophylaxis Lovenox Continue hemoglobin monitoring Transfuse as needed (4) Acute anemia: Code(s): D64.9 - Anemia, unspecified Status: Acute Assessment and Plan: 02/20 2 units of unmatched blood were transfused due to acute bright red blood in the NG drainage. Patient was also given FFP -hemoglobin stable at this, will continue to monitor (5) Acute non-ST elevation myocardial infarction (NSTEMI): Code(s): I21.4 - Non-ST elevation (NSTEMI) myocardial infarction Status: Acute Assessment and Plan: Patient presented with epigastric pain that was radiating to the chest. EKG showed ST T wave changes but no ST elevation, diagnosed with NSTEMI, or was started on heparin infusion on 02/19/2023 and stopped on the same day at night because of coffee-ground drainage from his NG -NG was placed due to partial small-bowel obstruction as seen on CT abdomen and pelvis -cardiology following the patient -aspirin and heparin were discontinued due to GI bleed -02/23 resumed aspirin and statin -hold Imdur, nitroglycerin paste due to shock -cardiology following Echo reviewed and results below (6) Cardiomyopathy: Code(s): I42.9 - Cardiomyopathy, unspecified Status: Acute Assessment and Plan: Echocardiogram done on 02/19 showed EF more than 70% grade 1 diastolic dysfunction Patient on admission was diagnosed with non STEMI Later he developed volume overload shock and respiratory failure and required intubation and vasopressors Repeat echocardiogram done on 02/22 showed Mild left ventricular? enlargement with sigmoid hypertrophy of the septum.? The distal 2/3rds of the ventricle are severely hypokinetic, with akinesis of the distal septum, anterior wall and apex.? Ejection fraction 30-35%.? 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 ? 3. Left atrial chamber dimension is mildly enlarged. ? 4. There is mild to moderate mitral valve regurgitation. ? 5. Normal estimated pulmonary pressure. ? 6. Dilated inferior vena cava. 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
[2023-02-24] MEDS: FUROSEMIDE INJ 100 MG/10 ML VIAL 80 MG IV PUSH (10:07)
[2023-02-24] MEDS: DOBUTamine 250 MG/D5W 250 ML 250 MG/250 ML BAG 9.48 MG IV CONT (10:08)
--- NOTE | 2023-02-24 10:47 | PM.PNGS ---
Progress Note: A&P Assessment and Plan (1) Partial obstruction of small intestine: Code(s): K56.600 - Partial intestinal obstruction, unspecified as to cause Status: Acute Assessment and Plan: Tolerating tube feeds so far. Could consider advancing rate tomorrow if he is not having high residuals. No signs of complete obstruction at this time, will continue to follow. (2) Acute non-ST elevation myocardial infarction (NSTEMI): Code(s): I21.4 - Non-ST elevation (NSTEMI) myocardial infarction Status: Acute (3) Acute anemia: Code(s): D64.9 - Anemia, unspecified Status: Acute (4) GI bleed: Code(s): K92.2 - Gastrointestinal hemorrhage, unspecified Status: Acute (5) Acute respiratory failure: Code(s): J96.00 - Acute respiratory failure, unspecified whether with hypoxia or hypercapnia Status: Acute Subjective Subjective Date/Time Seen: 02/24/23 10:47 Interval history: Tolerating tube feeds at 20 mL/hr with minimal residuals so far. No BM in a couple days. No reported abdominal pain from nursing. Patient arouses but still sedated on vent. Exam GI: Inspection: non-distended GI Palp: Yes Soft to palpation, No Tenderness to palpation present (GI) and No Guarding due to palpation present (GI) Percussion: Yes normal to percussion Auscultation: normal bowel sounds Objective Data Vital Signs Vital Signs: Vital Signs - 24 hr 02/23/23 11:30 02/23/23 12:00 02/23/23 12:00 Temperature 37.1 C Pulse Rate 104 H 102 H 102 H Respiratory Rate 18 Blood Pressure 109/68 Pulse Oximetry 94 93 Oxygen Delivery Mechanical Ventilation Fraction of Inspired Oxygen 45 02/23/23 12:00 02/23/23 12:00 02/23/23 12:48 Temperature Pulse Rate 102 H 106 H Respiratory Rate 18 Blood Pressure 108/68 Pulse Oximetry 93 Oxygen Delivery Mechanical Ventilation Fraction of Inspired Oxygen 45 45 02/23/23 13:44 02/23/23 13:44 02/23/23 13:45 Temperature Pulse Rate 110 H 107 H 109 H Respiratory Rate 18 Blood Pressure 104/66 106/65 Pulse Oximetry Oxygen Delivery Fraction of Inspired Oxygen 02/23/23 13:46 02/23/23 14:00 02/23/23 14:00 Temperature Pulse Rate 108 H 105 H 105 H Respiratory Rate 18 18 Blood Pressure Pulse Oximetry 94 Oxygen Delivery Mechanical Ventilation Fraction of Inspired Oxygen 45 02/23/23 14:14 02/23/23 14:00 02/23/23 15:46 Temperature 37.2 C Pulse Rate 101 H 107 H 109 H Respiratory Rate 18 18 18 Blood Pressure 103/64 Pulse Oximetry 94 Oxygen Delivery Fraction of Inspired Oxygen 02/23/23 15:47 02/23/23 15:47 02/23/23 15:48 Temperature Pulse Rate 109 H 108 H 109 H Respiratory Rate 18 Blood Pressure 101/62 101/62 Pulse Oximetry Oxygen Delivery Fraction of Inspired Oxygen 02/23/23 14:00 02/23/23 16:00 02/23/23 16:38 Temperature 37.2 C Pulse Rate 107 H 108 H 105 H Respiratory Rate 18 Blood Pressure 100/66 Pulse Oximetry 93 95 Oxygen Delivery Mechanical Ventilation Fraction of Inspired Oxygen 45 02/23/23 16:00 02/23/23 16:00 02/23/23 16:00 Temperature Pulse Rate 106 H 106 H Respiratory Rate 18 Blood Pressure Pulse Oximetry 94 Oxygen Delivery Mechanical Ventilation Fraction of Inspired Oxygen 45 45 02/23/23 18:00 02/23/23 18:00 02/23/23 19:58 Temperature 37.0 C Pulse Rate 104 H 104 H 101 H Respiratory Rate 18 18 Blood Pressure 98/65 L Pulse Oximetry 94 Oxygen Delivery Fraction of Inspired Oxygen 02/23/23 19:58 02/23/23 20:00 02/23/23 20:00 Temperature Pulse Rate 101 H 94 Respiratory Rate 18 Blood Pressure Pulse Oximetry 95 94 Oxygen Delivery Mechanical Ventilation Mechanical Ventilation Fraction of Inspired Oxygen 45 45 45 02/23/23 20:00 02/23/23 20:00 02/23/23 21:38 Temperature 36.9 C Pulse Rate 95 98 96 Respiratory Rate 18 18 Blood Pressure 94/60 L 95/60 L Pul
--- NOTE | 2023-02-24 11:20 | PCFNICU ---
ICU Rounding Note: Pt current nutrition is Glucerna 1.2 at 20 ml/hr. Nutrition recommendation:Vital AF 1.2 at 20 ml/hr with goal rate at 65 ml/hr. Last recorded weight is 63.8 kg,down from 65.4 kg on admit. Bowel Motility: No Bm reported. Labs Reviewed:Glu 3.10,BUN 69,GFR 20,Na 132, Alb 2.9 Meds Noted:Fentanyl, Versed, Levophed, Flagyl,Lantus Skin: WNL Additional Notes: Patient remains on mechanical ventilator and tube feedings of Glucerna 1.2 at 20ml/hr and tolerating per nursing. Flush 30 ml q 4 hours. No plans to advance tube feedings today. Following daily in ICU rounds. Will monitor weight, labs, skin, diet orders every Tuesday and Tuesday.
[2023-02-24 11:35] LABS: Glucose Point of Care 230 mg/dl (65-105)
--- NOTE | 2023-02-24 12:19 | PM.PNNEP ---
Progress Note: A&P Assessment and Plan (1) Acute kidney injury: Code(s): N17.9 - Acute kidney failure, unspecified Status: Acute Assessment and Plan: has likely developed ATN from shock/hypotension noted acidosis as well - on oral sodium bicarb tabs remains at risk for R D MANAGER/hemodialysis given CXR findings, not opposed to trial of IV diuretics follow trend of repeat labs and UOP (2) Chronic kidney disease, stage 4 (severe): Code(s): N18.4 - Chronic kidney disease, stage 4 (severe) Status: Acute Assessment and Plan: baseline creatinie runs ~ 1.7 - 2.3mg/dl however, has been as high as 2.77mg/dl secondary to hypertension, diabetes, vascular disease, and age-related change follows with Dr. Rendon for CKD management (3) Shock: Code(s): R57.9 - Shock, unspecified Status: Acute Assessment and Plan: suspect related to a combination of blood loss, hypovolemia, and possible sepsis on vasopressor therapy to maintain MAP and dobutamine given cardiomyopathy (EF ~ 30 - 35%) follow trend of lactic acid follow culture data on antibiotics follow trend of hemodynamics (4) Acute respiratory failure: Code(s): J96.00 - Acute respiratory failure, unspecified whether with hypoxia or hypercapnia Status: Acute Assessment and Plan: intubated and on mechanical ventilation related to pulmonary edema versus blood transfusions (TRALI versus TACO?) IV bumex for diuresis weaning when more stable (5) GI bleed: Code(s): K92.2 - Gastrointestinal hemorrhage, unspecified Status: Acute Assessment and Plan: as noted by milagros red blood via NG tube drainage H/H dropped to as los as 6.5 (on 02/20/23) complicated by previous use of heparin gtt for NSTEMI which was discontinued (0n 02/19/23) GAstroentrology following: EGD (on 02/20): reflux esophagitis, acute gastric ulcer with active oozing of blood, status post epinephrine injection, gold probe cauterization, 4 resolution clips on IV PPI follow trend of H/H (6) Acute anemia: Code(s): D64.9 - Anemia, unspecified Status: Acute Assessment and Plan: see #4 s/p PRBC and FFP transfusions follow H/H (7) Acute non-ST elevation myocardial infarction (NSTEMI): Code(s): I21.4 - Non-ST elevation (NSTEMI) myocardial infarction Status: Acute Assessment and Plan: symptoms of epigastric pain that was radiating to the chest EKG showed ST T wave changes but no ST elevation -- diagnosed with NSTEMI started on heparin infusion on 02/19/2023 and stopped on the same day at night because of coffee-ground drainage from his NG Cardiology following repeat Echo noted -- EF 30-35% (8) Small bowel obstruction: Code(s): K56.609 - Unspecified intestinal obstruction, unspecified as to partial versus complete obstruction Status: Acute Assessment and Plan: symptoms of epigastric pain along with nausea and vomiting CT scan of the abdomen and pelvis showed dilated small bowel with transition point in right abdomen, consistent with partial small-bowel obstruction; mild sigmoid diverticulitis with no perforation or abscess; small cystic lesions of the pancreas NGT in place for decompression GI and Surgery following continue supportive care (9) Diabetes mellitus: Code(s): E11.9 - Type 2 diabetes mellitus without complications Status: Acute Assessment and Plan: follow accu-checks 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 Remains intubated/sedated and on mechanical ventilation; remains on levophed gtt and based on recent repeat Echo, initiated on low dose dobutamine gtt; urine output fluctuating but clearly lower than the previous 24 hours; no appare
--- NOTE | 2023-02-24 12:19 | P.PNNP_ITS ---
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 Rendon for CKD management (3) Shock: Code(s): R57.9 - Shock, unspecified Status: Acute Assessment and Plan: * suspect related to a combination of blood loss, hypovolemia, and possible sepsis * on vasopressor therapy to maintain MAP and dobutamine given cardiomyopathy (EF ~ 30 - 35%) * follow trend of lactic acid * follow culture data * on antibiotics * follow trend of hemodynamics (4) Acute respiratory failure: Code(s): J96.00 - Acute respiratory failure, unspecified whether with hypoxia or hypercapnia Status: Acute Assessment and Plan: * intubated and on mechanical ventilation * related to pulmonary edema versus blood transfusions (TRALI versus TACO?) * IV bumex for diuresis * weaning when more stable (5) GI bleed: Code(s): K92.2 - Gastrointestinal hemorrhage, unspecified Status: Acute Assessment and Plan: * as noted by brgiht red blood via NG tube drainage * H/H dropped to as los as 6.5 (on 02/20/23) * complicated by previous use of heparin gtt for NSTEMI which was discontinued (0n 02/19/23) * GAstroentrology following: * EGD (on 02/20): reflux esophagitis, acute gastric ulcer with active oozing of blood, status post epinephrine injection, gold probe cauterization, 4 resolution clips * on IV PPI * follow trend of H/H (6) Acute anemia: Code(s): D64.9 - Anemia, unspecified Status: Acute Assessment and Plan: * see #4 * s/p PRBC and FFP transfusions * follow H/H (7) Acute non-ST elevation myocardial infarction (NSTEMI): Code(s): I21.4 - Non-ST elevation (NSTEMI) myocardial infarction Status: Acute Assessment and Plan: * symptoms of epigastric pain that was radiating to the chest * EKG showed ST T wave changes but no ST elevation -- diagnosed with NSTEMI * started on heparin infusion on 02/19/2023 and stopped on the same day at night because of coffee-ground drainage from his NG * Cardiology following * repeat Echo noted -- EF 30-35% (8) Small bowel obstruction: Code(s): K56.609 - Unspecified intestinal obstruction, unspecified as to partial versus complete obstruction Status: Acute Assessment and Plan: * symptoms of epigastric pain along with nausea and vomiting * CT scan of the abdomen and pelvis showed dilated small bowel with transition point in right abdomen, consistent with partial small-bowel obstruction; mild sigmoid diverticulitis with no perforation or abscess; small cystic lesions of the pancreas * NGT in place for decompression * GI and Surgery following * continue supportive care (9) Diabetes mellitus: Code(s): E11.9 - Type 2 diabetes mellitus without complications Status: Acute Assessment and Plan: *
--- NOTE | 2023-02-24 13:04 | PM.PNCARD ---
Progress Note: A&P Assessment and Plan (1) Acute non-ST elevation myocardial infarction (NSTEMI): Code(s): I21.4 - Non-ST elevation (NSTEMI) myocardial infarction <JULIETA Murray - Last Filed: 02/24/23 16:18> Status: Acute <JULIETA Murray - Last Filed: 02/24/23 16:18> Assessment and Plan: Troponin of 4.240 and 3.340. EKG with sinus tachycardia with nonspecific STTW abnormality. No known prior cardiac history. In the setting of small bowel obstruction. Initial Echocardiogram shows LVEF >70%, no significant valvular disease. Follow up echo showed decline in LVSF, EF 35% --unable to treat aggressively due to his upper GI bleed, etc.. --aspirin and statin started today. --continue medical therapy for CAD <JULIETA Murray - Last Filed: 02/24/23 16:18> Troponin of 4.240 and 3.340. EKG with sinus tachycardia with nonspecific STTW abnormality. No known prior cardiac history. In the setting of small bowel obstruction. Initial Echocardiogram shows LVEF >70%, no significant valvular disease. Follow up echo showed decline in LVSF, EF 35% --unable to treat aggressively due to his upper GI bleed, etc.. --aspirin and statin started 02/23/2023. --continue medical therapy for CAD <Monica Paniagua MD - Last Filed: 02/24/23 17:25> (2) Acute systolic CHF (congestive heart failure): Code(s): I50.21 - Acute systolic (congestive) heart failure <JULIETA Murray - Last Filed: 02/24/23 16:18> Status: Acute <JULIETA Murray - Last Filed: 02/24/23 16:18> Assessment and Plan: Echo shows a significant decline in left ventricular function with a new cardiomyopathy and some segmental wall motion abnormalities. Could be takotsubo but suspect this is more ischemic. EKGs on the showed anterolateral ST depression, and yesterday's EKG shows possible nonacute anteroseptal OK with Q-waves in V1 through V 3, more pronounced than the prior tracings. Unclear if his myocardium stunned or infarcted although his troponins were never terribly high and hopefully some myocardium is ischemic/stunned and will recover. --continue supportive care for new cardiomyopathy and CAD, although we are certainly limited and therapeutic options due to his hypotension, acute renal failure, and recent GI bleeding. --follow renal function, diuretic challenge today <JULIETA Murray - Last Filed: 02/24/23 16:18> Echo shows a significant decline in left ventricular function with a new cardiomyopathy and some segmental wall motion abnormalities. Could be takotsubo but suspect this is more ischemic. EKGs on the 12th showed anterolateral ST depression, and yesterday's EKG shows possible nonacute anteroseptal OK with Q-waves in V1 through V 3, more pronounced than the prior tracings. Unclear if his myocardium stunned or infarcted although his troponins were never terribly high and hopefully some myocardium is ischemic/stunned and will recover. --continue supportive care for new cardiomyopathy and CAD, although we are certainly limited and therapeutic options due to his hypotension, acute renal failure, and recent GI bleeding. --follow renal function, diuretic challenge today <Monica Paniagua MD - Last Filed: 02/24/23 17:25> (3) Acute on chronic renal failure: Code(s): N17.9 - Acute kidney failure, unspecified; N18.9 - Chronic kidney disease, unspecified <JULIETA Murray - Last Filed: 02/24/23 16:18> Status: Acute <JULIETA Murray - Last Filed: 02/24/23 16:18> Assessment and Plan: Worsening. Nephrology is following. <JULIETA Murray - Last Filed: 02/24/23 16:18> (4) Shock: Code(s): R57.9 - Shock, unspecified <JULIETA Murray - Last Filed: 02/24/23 16:18> Status: Acute <JULIETA Murray - Last Filed: 02/24/23 16:18> Assessment and Plan: Shock with respiratory failure, secondary to hypovolemia, he
--- NOTE | 2023-02-24 14:35 | PM.IMPN ---
Progress Note: A&P Assessment and Plan (1) Acute non-ST elevation myocardial infarction (NSTEMI): Code(s): I21.4 - Non-ST elevation (NSTEMI) myocardial infarction Status: Acute (2) Chest pain: Code(s): R07.9 - Chest pain, unspecified Status: Acute (3) Partial obstruction of small intestine: Code(s): K56.600 - Partial intestinal obstruction, unspecified as to cause Status: Acute (4) Abdominal pain: Code(s): R10.9 - Unspecified abdominal pain Status: Acute (5) Hypertension: Code(s): I10 - Essential (primary) hypertension Status: Acute (6) Diabetes mellitus: Code(s): E11.9 - Type 2 diabetes mellitus without complications Status: Acute (7) Acute on chronic renal failure: Code(s): N17.9 - Acute kidney failure, unspecified; N18.9 - Chronic kidney disease, unspecified Status: Acute (8) Hyponatremia: Code(s): E87.1 - Hypo-osmolality and hyponatremia Status: Acute (9) Hypotension due to hypovolemia: Code(s): I95.89 - Other hypotension; E86.1 - Hypovolemia Status: Acute (10) Acute on chronic blood loss anemia: Code(s): D62 - Acute posthemorrhagic anemia Status: Acute (11) Acute GI bleeding: Code(s): K92.2 - Gastrointestinal hemorrhage, unspecified Status: Acute Plan NSTEMI Patient came to ED with chief complaint of epigastric pain and chest pain Elevated troponin x2, EKG shows sinus rhythm no ST elevation Suspecting non-STEMI Received heparin bolus and drip Director Work recommended continue heparin drip for 48 hours. Given acute GI bleeding, heparin drip was stopped. pt had emergent EGD Cardiomyopathy Pt is on dobutamine Cardiology rounding Partial small obstruction Patient has abdomen pain, nausea vomiting CT abdomen pelvis showed possible partial small-bowel obstruction pt started on tube feeds JAMIE on CKD, hyponatremia, hypovolemic hypotension Patient has history of CKD stage 4, creatinine BUN above baseline, patient also found have hyponatremia, hypotension nephrology rounding Creatinine is 3.1 today worsening slowly Acute blood loss anemia History of chronic anemia, hemoglobin 10.1, close to baseline POA coffee-ground stomach fluid drained out, Follow-up stool guaiac, iron panel and CBC HB is trending down, 8.4 to 6.5. 02/20, transfused 2 PRBC and 2 X FFP consult GI for evaluation, GI performed EGD emergently. EGD revealed reflux esophagitis, grade 3, deep acute ulcer in the body of the stomach posteriorly. More consistent with fresh tear. Bleeding was stopped by clips and epinephrine injection was on ppi drip Patient now on protonix 40 mg IV q.12 hours Monitor hemoglobin q.6 hours, Transfuse as needed Mild sigmoid diverticulitis with no perforation or abscess on CT scan pt is on iv aztreonam and iv metronidazole pt is on iv steroids HB is stable at 9 Hemorrhagic shock Represent was called, blood pressure was low 76/46, likely resulting work ability Received normal saline bolus, 2 pack RBC and 2 units FFP Pressure became stable More patient closely pt is presently on levophed pt is on iv steroids Hypertension Hold hypertension medication because of hypotension Type 2 diabetes Hold oral medication Start insulin sliding scale q.4 hour started tube feds Patient may stay more than 2 midnights in the hospital Patient condition is critical, patient will be monitored closely in ICU. Subjective Date/time seen: 02/24/23 14:35 Interval history: I saw and examined patient in the morning, rapid response was called because of hypotension. When I saw exam patient, patient was on NG tube suction, dark red blood was sucked out from the G-tube. Patient was also noticed confused. Per nurse report, heparin drip was stopped it yesterday. Patient had epigastric pain, patient was lethargic. Hemoglobin dropped to 8.4 from 10.1 yesterday. Suspectin
[2023-02-24 16:54] LABS: Glucose Point of Care 208 mg/dl (65-105)
[2023-02-24 21:42] LABS: Glucose Point of Care 244 mg/dl (65-105)
[2023-02-24 23:51] LABS: Glucose Point of Care 176 mg/dl (65-105)
[2023-02-25] VITALS (41 sets, daily range): BP systolic 79–105; BP diastolic 54–94; PULSE 81–113; RESP 17–26; TEMP 36.8–37.6; O2SAT 91–100
--- NOTE | 2023-02-25 03:06 | PC.NURSE ---
Central Tele monitor down from [id number] to [id number] RN at bedside during downtime.
[2023-02-25] MEDS: NOREPINEPHRINE 8 MG/D5W 250 ML 8 MG/250 ML BAG 16.88 MG IV CONT (04:30)
[2023-02-25 05:10] LABS: Alveolar/Arterial O2 Gradient 184.3 mmHg; Base Excess ABG -3.1 mEq/l (+/-2.0); Carboxyhemoglobin 0.2 % THb (0-2.0); Fractional Inspired Oxygen 40 %; HCO3 ABG 20.1 mEq/l (22.0-26.0); Methemoglobin ABG 0.3 %THb (0-1.5); Oxygen Content ABG 14.2 %vol (16.0-22.0); Oxygen Saturation ABG 94.2 % (95.0-100.0); Oxyhemoglobin 92.1 % THb (90.0-100.0); PO2 ABG 66.4 mmHg (80.0-100.0); PO2 FiO2 Ratio Arterial Blood 1.66 %; Reduced Hemoglobin 7.4 %THb (0-5.0); Total Hemoglobin 10.9 g/dL (12.0-18.0); pH ABG 7.445 (7.350-7.450)
[2023-02-25 05:11] LABS: Device VENTILATOR; Modified Allen's Test Pass; Site Drawn LEFT RADIAL
[2023-02-25 05:12] LABS: Arterial Blood Gas PEEP 8 cmH2O; Arterial Blood Gas Tidal Volume 400 ml; Arterial Blood Gas Vent Mode CMV; Arterial Blood Gas Ventilator rate 18 /MIN
[2023-02-25] MEDS: INSULIN ASPART (*BKC) 100 UNITS/ML SUB-Q ×3 (05:55→11:58)
[2023-02-25] MEDS: metroNIDAZOLE 500 MG/ISO 100ML 500 MG/100 ML BAG 100 MG IVPB ×3 (06:00→21:18)
[2023-02-25] MEDS: HYDROCORTISONE SODIUM SUCCINATE 100 MG/2 ML VIAL IV PUSH ×3 (06:00→21:18)
[2023-02-25 06:14] LABS: Glucose Point of Care 274 mg/dl (65-105)
[2023-02-25] MEDS: CENTRAL LINE FLUSH 10 ML IV PUSH ×3 (06:16→21:18)
[2023-02-25 06:22] LABS: Hematocrit 28.2 % (42.0-52.0); Hemoglobin 9.4 g/dL (14.0-18.0); Mean Corpuscular HGB Conc 33.3 g/dl (32-36); Mean Corpuscular Hemoglobin 30.8 pg (26-34); Mean Corpuscular Volume 92.5 fl (80-100); Mean Platelet Volume 12.1 fl (7.4-10.4); Platelet Count Result 108 k/mm3 (150-375); Red Blood Count 3.05 M/mm3 (4.6-6.20); Red Cell Distribution Width 17.9 % (11.5-14.5); White Blood Count 18.7 K/mm3 (4.5-10.0)
[2023-02-25 06:34] LABS: Alanine Aminotransferase 23 U/L (6-50); Albumin Level 2.8 g/dL (3.5-5.1); Alkaline Phosphatase 56 U/L (38-126); Anion Gap 15 mmol/L (8-16); Aspartate Amino Transferase 33 U/L (17-59); Bilirubin,Total 0.7 mg/dL (0.2-1.3); Blood Urea Nitrogen 83 mg/dL (9-20); Calcium 7.6 mg/dL (8.4-10.2); Carbon Dioxide 19 mmol/L (22-30); Chloride 98 mmol/L (98-107); Estimated CRCL calculation 16 ml/min; Estimated Glomerular Filt Rate 20; Glucose 260 mg/dL (65-110); Potassium 3.9 mmol/L (3.4-5.0); Sodium 132 mmol/L (137-145)
[2023-02-25] MEDS: FUROSEMIDE INJ 100 MG/10 ML VIAL 80 MG IV PUSH ×3 (06:49→17:03)
[2023-02-25] MEDS: SODIUM BICARBONATE TAB 650 MG TABLET FEED TUBE ×3 (06:49→17:03)
[2023-02-25 08:07] LABS: Glucose Point of Care 224 mg/dl (65-105)
[2023-02-25] MEDS: ATORVASTATIN 40 MG TABLET 80 MG PO (08:23)
[2023-02-25] MEDS: ASPIRIN 81 MG CHEWABLE TABLET PO (08:23)
[2023-02-25] MEDS: AZTREONAM 2 GM in SODIUM CHLORIDE 0.9% IV 100 ML 200 ML IVPB ×2 (08:23→20:40)
[2023-02-25] MEDS: ENOXAPARIN 30 MG/0.3 ML SYRINGE SUB-Q (08:23)
--- NOTE | 2023-02-25 08:23 | WPDINTPN ---
Progress Note: A&P Assessment and Plan (1) Shock: Code(s): R57.9 - Shock, unspecified Status: Acute Assessment and Plan: Multifactorial shock likely related to hemorrhagic, hypovolemic, sepsis and cardiogenic -currently on Levophed at 7 mcg. Vaso and Kiel-Synephrine have been weaned off. Continue to titrate to maintain MAP > 65 mmHg at all times for adequate end organ perfusion -02/23 repeat echo shows EF of 30-35% patient was started on 2.5 mcg of dobutamine which will be continue -off 25% albumin -continue hydrocortisone -urine and Blood cultures negative till now -02/20: patient was started on levofloxacin and metronidazole to, abdominal source of sepsis.02/22 switched to aztreonam Flagyl Continue at this time (2) Acute respiratory failure: Code(s): J96.00 - Acute respiratory failure, unspecified whether with hypoxia or hypercapnia Status: Acute Assessment and Plan: Patient with acute respiratory failure likely related TRALI versus TACO versus ARDS versus aspiration pneumonia Chest x-ray reviewed ABG reviewed. Continue peep at 8 and FiO2 at 40 % Antibiotics as above Patient was given low-dose bicarb for metabolic acidosis which will be continued Continue diuretics (3) GI bleed: Code(s): K92.2 - Gastrointestinal hemorrhage, unspecified Status: Acute Assessment and Plan: Acute GI bleed, bright red blood in the NG tube drainage -hemoglobin dropped to 6.5 this morning with severe anemia, emergently called GI, -heparin infusion for NSTEMI was discontinued on 04/21/22, 8:00 p.m. -coags within normal limits -02/20: EGD: Reflux esophagitis, acute gastric ulcer with active oozing of blood, status post epinephrine injection, gold probe cauterization, 4 resolution clips Blood tinged output from NG tube has cleared. GI following Continue IV Protonix Continue aspirin and DVT prophylaxis Lovenox Continue hemoglobin monitoring Transfuse as needed (4) Acute anemia: Code(s): D64.9 - Anemia, unspecified Status: Acute Assessment and Plan: 02/20 2 units of unmatched blood were transfused due to acute bright red blood in the NG drainage. Patient was also given FFP -hemoglobin stable at this, will continue to monitor (5) Acute non-ST elevation myocardial infarction (NSTEMI): Code(s): I21.4 - Non-ST elevation (NSTEMI) myocardial infarction Status: Acute Assessment and Plan: Patient presented with epigastric pain that was radiating to the chest. EKG showed ST T wave changes but no ST elevation, diagnosed with NSTEMI, or was started on heparin infusion on 02/19/2023 and stopped on the same day at night because of coffee-ground drainage from his NG -NG was placed due to partial small-bowel obstruction as seen on CT abdomen and pelvis -cardiology following the patient -aspirin and heparin were discontinued due to GI bleed -02/23 resumed aspirin and statin -hold Imdur, nitroglycerin paste due to shock -cardiology following Echo reviewed and results below (6) Cardiomyopathy: Code(s): I42.9 - Cardiomyopathy, unspecified Status: Acute Assessment and Plan: Echocardiogram done on 02/19 showed EF more than 70% grade 1 diastolic dysfunction Patient on admission was diagnosed with non STEMI Later he developed volume overload shock and respiratory failure and required intubation and vasopressors Repeat echocardiogram done on 02/22 showed Mild left ventricular? enlargement with sigmoid hypertrophy of the septum.? The distal 2/3rds of the ventricle are severely hypokinetic, with akinesis of the distal septum, anterior wall and apex.? Ejection fraction 30-35%.? 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 ? 3. Left atrial chamber dimension is mildly enlarged. ? 4. There is mild to moderate mitral valve regurgitation. ? 5. Normal estimated pulmonary pressure. ? 6. Dilated inferior vena cava. This could very well be stress induced cardiomyopathy versus ischemic.
[2023-02-25] MEDS: PANTOPRAZOLE SODIUM IV 40 MG VIAL IV PUSH ×2 (08:24→20:40)
[2023-02-25] MEDS: MINERAL OIL/WHITE PETROLATUM OINTMENT 1 APPLIC EACH EYE ×2 (08:24→20:40)
[2023-02-25] MEDS: INSULIN GLARGINE (*BKC) 100 UNITS/ML 35 UNITS SUB-Q (08:24)
[2023-02-25] MEDS: polyethylene glycoL 3350 17 GM POWD.PACK PO (08:40)
--- NOTE | 2023-02-25 10:21 | PCFNICU ---
ICU Rounding Note: Pt current nutrition is Glucerna 1.2 @40 ml/h: 1056 kcal, 53 g protein, 708 ml free water. Nutrition recommendation: Modify tube feeding: Nepro @ goal rate 40 ml/h: 1584 kcal, 71 g protein, 639 ml free water. +Prosource 1x per day: 1674 kcal, 91 g protein, 639 ml free water Last recorded weight is 71.4 kg. Bowel Motility: No BM. Miralax to be given Labs Reviewed: Hgb 9.4, Hct 28.2, Alb 2.8, Na 132, GFR 20, BUN 83, Cre 3.1, Glu 260 Meds Noted: Levophed (8 mcg), Fentanyl, versed, Lasix, Lantus, novolog Skin:WNL Additional Notes: Tube feeding advanced to 40 ml/h; recommend formula change to Nepro to better meet protein energy needs. May be starting on dialysis. Still on levophed, off Neopressin and vasopressin. Maintaining MAP of 75. Discussed with Dr George Following daily in ICU rounds. Will monitor weight, labs, skin, diet orders every 3 days. .
--- NOTE | 2023-02-25 10:36 | PM.PNGS ---
Progress Note: A&P Assessment and Plan (1) Partial obstruction of small intestine: Code(s): K56.600 - Partial intestinal obstruction, unspecified as to cause Status: Acute Assessment and Plan: Abdominal exam benign. Advance tube feeds as tolerated. Stimulate bowels. Will follow as needed. (2) Acute non-ST elevation myocardial infarction (NSTEMI): Code(s): I21.4 - Non-ST elevation (NSTEMI) myocardial infarction Status: Acute (3) Acute anemia: Code(s): D64.9 - Anemia, unspecified Status: Acute (4) GI bleed: Code(s): K92.2 - Gastrointestinal hemorrhage, unspecified Status: Acute (5) Acute respiratory failure: Code(s): J96.00 - Acute respiratory failure, unspecified whether with hypoxia or hypercapnia Status: Acute Subjective Subjective Date/Time Seen: 02/25/23 10:36 Interval history: Tolerating tube feeds at 20 mL/hr. No significant residuals. No BM in several days. Remains on ventilator. Exam GI: Inspection: non-distended GI Palp: Yes Soft to palpation, No Tenderness to palpation present (GI) and No Guarding due to palpation present (GI) Percussion: Yes normal to percussion Auscultation: Hypoactive bowel sounds present Objective Data Vital Signs Vital Signs: Vital Signs - 24 hr 02/24/23 12:00 02/24/23 12:00 02/24/23 12:00 Temperature 36.8 C Pulse Rate 99 103 H Respiratory Rate 18 Blood Pressure 90/60 L Pulse Oximetry 97 Oxygen Delivery Fraction of Inspired Oxygen 45 02/24/23 12:00 02/24/23 13:04 02/24/23 14:00 Temperature Pulse Rate 103 H 103 H 110 H Respiratory Rate 18 Blood Pressure Pulse Oximetry 97 98 Oxygen Delivery Mechanical Ventilation Mechanical Ventilation Fraction of Inspired Oxygen 45 45 02/24/23 14:00 02/24/23 15:04 02/24/23 16:00 Temperature 36.9 C Pulse Rate 110 H 106 H 104 H Respiratory Rate 18 Blood Pressure 94/61 L Pulse Oximetry 98 97 Oxygen Delivery Mechanical Ventilation Fraction of Inspired Oxygen 45 02/24/23 16:00 02/24/23 16:00 02/24/23 16:00 Temperature 36.8 C Pulse Rate 104 H 104 H Respiratory Rate 18 18 Blood Pressure 89/56 L Pulse Oximetry 98 98 Oxygen Delivery Mechanical Ventilation Fraction of Inspired Oxygen 45 45 02/24/23 18:00 02/24/23 18:00 02/24/23 19:22 Temperature Pulse Rate 103 H 97 95 Respiratory Rate 16 Blood Pressure 93/67 L Pulse Oximetry 97 97 Oxygen Delivery Mechanical Ventilation Fraction of Inspired Oxygen 45 02/24/23 20:00 02/24/23 19:00 02/24/23 19:00 Temperature 36.8 C Pulse Rate 97 101 H 101 H Respiratory Rate 18 18 Blood Pressure 98/62 L 95/61 L Pulse Oximetry 96 Oxygen Delivery Fraction of Inspired Oxygen 02/24/23 19:00 02/24/23 19:00 02/24/23 21:38 Temperature Pulse Rate 101 H 101 H Respiratory Rate 18 Blood Pressure 95/61 L 87/53 L Pulse Oximetry Oxygen Delivery Fraction of Inspired Oxygen 02/24/23 21:39 02/24/23 22:00 02/24/23 22:00 Temperature 36.8 C Pulse Rate 101 H 94 94 Respiratory Rate 18 18 Blood Pressure 91/55 L Pulse Oximetry 98 Oxygen Delivery Fraction of Inspired Oxygen 02/24/23 20:00 02/24/23 20:00 02/24/23 20:00 Temperature Pulse Rate 97 Respiratory Rate Blood Pressure Pulse Oximetry 98 Oxygen Delivery Mechanical Ventilation Fraction of Inspired Oxygen 40 40 02/24/23 22:45 02/24/23 23:00 02/24/23 23:53 Temperature Pulse Rate 90 95 Respiratory Rate 18 Blood Pressure Pulse Oximetry 98 Oxygen Delivery Mechanical Ventilation Fraction of Inspired Oxygen 40 40 02/24/23 23:54 02/25/23 00:00 02/25/23 00:00 Temperature 36.8 C Pulse Rate 98 98 Respiratory Rate 18 Blood Pressure 97/59 L Pulse Oximetry 98 98 Oxygen Delivery Mechanical Ventilation Fraction of Inspired Oxygen 40 02/25/23 00:37 02/25/23 00:37 02/25/23 00:37 Temperature Pul
[2023-02-25 11:45] LABS: Glucose Point of Care 241 mg/dl (65-105)
--- NOTE | 2023-02-25 12:08 | PM.PNCARD ---
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 Patient is in no condition to take medication for LV dysfunction and also is not a candidate for ischemia evaluation. Continue follow him peripherally. At the moment there are no active cardiac issues with which we can help Melchor Moss MD [facility] Subjective Date/time seen: Date of service: 02/25/23 12:08 Interval history: Reason for consult: NSTEMI HPI: We are consulted for NSTEMI. This is a 77 year old male with bladder cancer s/p recent completion of chemoradiation, ileus, who was recently discharged from [facility] after being admitted with a small bowel obstruction. Patient presented to [facility] again 02/19 for abdominal pain, that radiates up to the epigastric/substernal area. Workup showed SCr of 2.40 (was 1.7 on 02/15), initial lactic acid of 2.3 with repeat at 0.8. Troponin of 4.[address] A/P shows dilated small bowel with transition point in right abdomen, consistent with partial small bowel obstruction, mild sigmoid diverticulitis. EKG with sinus tachycardia with nonspecific STTW abnormality. NG tube was placed. Patient started on ASA and Heparin drip. At the time of my evaluation, patient states he is feeling better without any active chest pain. No prior known cardiac history. reports that he is usually active at home and never complained of chest pain or other cardiac symptoms. He just finished chemoradiation in January. Date of service 02/20: Had more recurrent chest pain overnight that would improve with NTG; NTG paste was placed. However, he had bloody output from his NG tube and his Heparin drip has been put on hold. His Hgb this morning is 8.4 (was 12.9 back on 02/12). Patient had recurrent chest pain this morning during my evaluation which resolved with SL NTG. Tele shows sinus tachycardia. Date of service 02/22/2023: Deteriorated yesterday evening and is now ventilated and on increased pressor support. Date of Service 02/23/2023: and son at bedside. Remains on vent, Levophed. Vasopressin held. Started on dobutamine 2.5 mcg. ASA resumed, started on atorvastatin. Follow-up echo yesterday showed a significant decline in LV function, EF 30-35%. Takotsubo cardiomyopathy verses CAD/ischemia? Creatinine increasing, now 2.9. EKG as below Date of service 02/24/2023: Remains intubated. Weaned off pressors at this point but remains on dobutamine. Discussed plan of care with at the bedside. 02/25/2023: Remains intubated. Patient back on Levophed for hypotension again today. No significant change in cardiovascular status. Explained to the family that at this point only supportive care can be offered to him. He is not a candidate for medical treatment for systolic dysfunction nor for any ischemia evaluation. Exam Const: General: comfortable and no acute distress; No confusion Orientation/consciousness: oriented to person, patient oriented x3 and No confusion Other: Elderly male with multiple tubes and lines HENMT: Head: normal to inspection Mouth: Yes moist mucous membranes and Yes dry mucous membranes Other: OETT and NG tubes in place Eyes: General: appearance normal, both eyes and all related structures Sclera: sclerae normal Pupils: Equal, round and reactive pupils present Neck: Neck: supple and no JVD Thyroid: thyroid normal Carotids: normal carotid upstroke Resp: Effort & Inspection: normal respiratory effort Auscultation: clear to auscultation bilaterally and diminished lung sounds Other: mechanically ventilated Cardio: Rate: regular rate and tachycardic Rhythm: regular rhythm Heart sounds: no murmurs Other: Very distant heart tones, no
[2023-02-25] MEDS: DOBUTamine 250 MG/D5W 250 ML 250 MG/250 ML BAG 9.48 MG IV CONT (12:32)
--- NOTE | 2023-02-25 15:14 | P.PNNP_ITS ---
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 Rendon for CKD management (3) Shock: Code(s): R57.9 - Shock, unspecified Status: Acute Assessment and Plan: * suspect related to a combination of blood loss, hypovolemia, and possible sepsis * on vasopressor therapy to maintain MAP and dobutamine given cardiomyopathy (EF ~ 30 - 35%) * follow trend of lactic acid * follow culture data * on antibiotics * follow trend of hemodynamics (4) Acute respiratory failure: Code(s): J96.00 - Acute respiratory failure, unspecified whether with hypoxia or hypercapnia Status: Acute Assessment and Plan: * intubated and on mechanical ventilation * related to pulmonary edema versus blood transfusions (TRALI versus TACO?) * IV bumex for diuresis * weaning when more stable (5) GI bleed: Code(s): K92.2 - Gastrointestinal hemorrhage, unspecified Status: Acute Assessment and Plan: * as noted by brgiht red blood via NG tube drainage * H/H dropped to as los as 6.5 (on 02/20/23) * complicated by previous use of heparin gtt for NSTEMI which was discontinued (0n 02/19/23) * GAstroentrology following: * EGD (on 02/20): reflux esophagitis, acute gastric ulcer with active oozing of blood, status post epinephrine injection, gold probe cauterization, 4 resolution clips * on IV PPI * follow trend of H/H (6) Acute anemia: Code(s): D64.9 - Anemia, unspecified Status: Acute Assessment and Plan: * see #4 * s/p PRBC and FFP transfusions * follow H/H (7) Acute non-ST elevation myocardial infarction (NSTEMI): Code(s): I21.4 - Non-ST elevation (NSTEMI) myocardial infarction Status: Acute Assessment and Plan: * symptoms of epigastric pain that was radiating to the chest * EKG showed ST T wave changes but no ST elevation -- diagnosed with NSTEMI * started on heparin infusion on 02/19/2023 and stopped on the same day at night because of coffee-ground drainage from his NG * Cardiology following * repeat Echo noted -- EF 30-35% (8) Small bowel obstruction: Code(s): K56.609 - Unspecified intestinal obstruction, unspecified as to partial versus complete obstruction Status: Acute Assessment and Plan: * symptoms of epigastric pain along with nausea and vomiting * CT scan of the abdomen and pelvis showed dilated small bowel with transition point in right abdomen, consistent with partial small-bowel obstruction; mild sigmoid diverticulitis with no perforation or abscess; small cystic lesions of the pancreas * NGT in place for decompression * GI and Surgery following * continue supportive care (9) Diabetes mellitus: Code(s): E11.9 - Type 2 diabetes mellitus wit
--- NOTE | 2023-02-25 15:14 | PM.PNNEP ---
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 Rendon for CKD management (3) Shock: Code(s): R57.9 - Shock, unspecified Status: Acute Assessment and Plan: suspect related to a combination of blood loss, hypovolemia, and possible sepsis on vasopressor therapy to maintain MAP and dobutamine given cardiomyopathy (EF ~ 30 - 35%) follow trend of lactic acid follow culture data on antibiotics follow trend of hemodynamics (4) Acute respiratory failure: Code(s): J96.00 - Acute respiratory failure, unspecified whether with hypoxia or hypercapnia Status: Acute Assessment and Plan: intubated and on mechanical ventilation related to pulmonary edema versus blood transfusions (TRALI versus TACO?) IV bumex for diuresis weaning when more stable (5) GI bleed: Code(s): K92.2 - Gastrointestinal hemorrhage, unspecified Status: Acute Assessment and Plan: as noted by milagros red blood via NG tube drainage H/H dropped to as los as 6.5 (on 02/20/23) complicated by previous use of heparin gtt for NSTEMI which was discontinued (0n 02/19/23) GAstroentrology following: EGD (on 02/20): reflux esophagitis, acute gastric ulcer with active oozing of blood, status post epinephrine injection, gold probe cauterization, 4 resolution clips on IV PPI follow trend of H/H (6) Acute anemia: Code(s): D64.9 - Anemia, unspecified Status: Acute Assessment and Plan: see #4 s/p PRBC and FFP transfusions follow H/H (7) Acute non-ST elevation myocardial infarction (NSTEMI): Code(s): I21.4 - Non-ST elevation (NSTEMI) myocardial infarction Status: Acute Assessment and Plan: symptoms of epigastric pain that was radiating to the chest EKG showed ST T wave changes but no ST elevation -- diagnosed with NSTEMI started on heparin infusion on 02/19/2023 and stopped on the same day at night because of coffee-ground drainage from his NG Cardiology following repeat Echo noted -- EF 30-35% (8) Small bowel obstruction: Code(s): K56.609 - Unspecified intestinal obstruction, unspecified as to partial versus complete obstruction Status: Acute Assessment and Plan: symptoms of epigastric pain along with nausea and vomiting CT scan of the abdomen and pelvis showed dilated small bowel with transition point in right abdomen, consistent with partial small-bowel obstruction; mild sigmoid diverticulitis with no perforation or abscess; small cystic lesions of the pancreas NGT in place for decompression GI and Surgery following continue supportive care (9) Diabetes mellitus: Code(s): E11.9 - Type 2 diabetes mellitus without complications Status: Acute Assessment and Plan: follow accu-checks glycemic control per hospitalists/nozzle tender Long and extensive discussion (greater than 20 min) with the patient's and son at bedside regarding his multitude of medical issues and problems including his acute kidney injury on top of his baseline kidney disease. I discussed with them my concerns that he may require renal replacement therapy/dialysis if his renal function
[2023-02-25 15:54] LABS: Glucose Point of Care 193 mg/dl (65-105)
[2023-02-25] MEDS: NOREPINEPHRINE 8 MG/D5W 250 ML 8 MG/250 ML BAG 18.75 MG IV CONT (17:03)
--- NOTE | 2023-02-25 17:49 | PM.IMPN ---
Progress Note: A&P Assessment and Plan (1) Acute non-ST elevation myocardial infarction (NSTEMI): Code(s): I21.4 - Non-ST elevation (NSTEMI) myocardial infarction Status: Acute (2) Chest pain: Code(s): R07.9 - Chest pain, unspecified Status: Acute (3) Partial obstruction of small intestine: Code(s): K56.600 - Partial intestinal obstruction, unspecified as to cause Status: Acute (4) Abdominal pain: Code(s): R10.9 - Unspecified abdominal pain Status: Acute (5) Hypertension: Code(s): I10 - Essential (primary) hypertension Status: Acute (6) Diabetes mellitus: Code(s): E11.9 - Type 2 diabetes mellitus without complications Status: Acute (7) Acute on chronic renal failure: Code(s): N17.9 - Acute kidney failure, unspecified; N18.9 - Chronic kidney disease, unspecified Status: Acute (8) Hyponatremia: Code(s): E87.1 - Hypo-osmolality and hyponatremia Status: Acute (9) Hypotension due to hypovolemia: Code(s): I95.89 - Other hypotension; E86.1 - Hypovolemia Status: Acute (10) Acute on chronic blood loss anemia: Code(s): D62 - Acute posthemorrhagic anemia Status: Acute (11) Acute GI bleeding: Code(s): K92.2 - Gastrointestinal hemorrhage, unspecified Status: Acute Plan # nSTEMI Patient came to ED with chief complaint of epigastric pain and chest pain Elevated troponin x2, EKG shows sinus rhythm no ST elevation Suspecting non-STEMI Received heparin bolus and drip Winch Runner recommended continue heparin drip for 48 hours. Given acute GI bleeding, heparin drip was stopped. pt had emergent EGD 02/20: Reflux esophagitis acute gastric ulcer with active oozing of blood status post epinephrine injection cold probe cauterization 4 resolution clips. GI following # cardiomyopathy Pt is on dobutamine Cardiology rounding # partial small obstruction Patient has abdomen pain, nausea vomiting CT abdomen pelvis showed possible partial small-bowel obstruction pt started on tube feeds and tolerating well slowly advancing # Nancy on CKD, hyponatremia, hypovolemic hypotension Patient has history of CKD stage 4, creatinine BUN above baseline, patient also found have hyponatremia, hypotension nephrology rounding Nephrology following # acute blood loss anemia History of chronic anemia, hemoglobin 10.1, close to baseline POA coffee-ground stomach fluid drained out, Follow-up stool guaiac, iron panel and CBC HB is trending down, 8.4 to 6.5. 02/20, transfused 2 PRBC and 2 X FFP consult GI for evaluation, GI performed EGD emergently. EGD revealed reflux esophagitis, grade 3, deep acute ulcer in the body of the stomach posteriorly. More consistent with fresh tear. Bleeding was stopped by clips and epinephrine injection was on ppi drip Patient now on protonix 40 mg IV q.12 hours Monitor hemoglobin q.6 hours, Transfuse as needed Mild sigmoid diverticulitis with no perforation or abscess on CT scan pt is on iv aztreonam and iv metronidazole pt is on iv steroids HB is stable at 9 # hemorrhagic shock Represent was called, blood pressure was low 76/46, likely resulting work ability Received normal saline bolus, 2 pack RBC and 2 units FFP Pressure became stable More patient closely pt is presently on levophed pt is on iv steroids # hypertension Hold hypertension medication because of hypotension # type 2 diabetes Hold oral medication Start insulin sliding scale q.4 hour started tube feds Patient being managed by return agent airport. Appreciate consulting physicians recommendations Subjective Date/time seen: 02/25/23 17:49 Interval history: Chart reviewed. Remains intubated and sedated. On tube feed. Review of Systems Review of Systems: ROS unobtainable: Yes unobtainable due to mental status Exam Narrative: GENERAL: pt is intubated and sedated - EYES: EOMI. Anic
[2023-02-25 20:50] LABS: Glucose Point of Care 183 mg/dl (65-105)
[2023-02-26] VITALS (125 sets, daily range): BP systolic 80–113; BP diastolic 48–70; PULSE 75–101; RESP 14–22; TEMP 36.1–37.4; O2SAT 91–99
[2023-02-26 00:22] LABS: Glucose Point of Care 161 mg/dl (65-105)
[2023-02-26] MEDS: FENTANYL 2,500MCG/NS250ML(*CRX 2,500 MCG/250 ML BAG 7.5 MCG IV CONT (00:25)
[2023-02-26] MEDS: MIDAZOLAM 100MG/NS 100ML(*CRX) 100 MG/100 ML BAG IV CONT (04:06)
[2023-02-26 05:00] LABS: Alveolar/Arterial O2 Gradient 79.4 mmHg; Base Excess ABG -4.6 mEq/l (+/-2.0); Device VENTILATOR; Fractional Inspired Oxygen 30 %; HCO3 ABG 19.5 mEq/l (22.0-26.0); Modified Allen's Test Unable to perform; Oxygen Content ABG 14.7 %vol (16.0-22.0); Oxygen Saturation ABG 97.4 % (95.0-100.0); Oxyhemoglobin 95.8 % THb (90.0-100.0); PCO2 ABG 32.8 mmHg (35.0-45.0); Site Drawn RIGHT RADIAL; Total Hemoglobin 10.8 g/dL (12.0-18.0); pH ABG 7.393 (7.350-7.450)
[2023-02-26 05:01] LABS: Arterial Blood Gas PEEP 8 cmH2O; Arterial Blood Gas Tidal Volume 360 ml; Arterial Blood Gas Vent Mode CMV; Arterial Blood Gas Ventilator rate 18 /MIN
[2023-02-26] MEDS: CENTRAL LINE FLUSH 10 ML IV PUSH ×3 (05:40→23:15)
[2023-02-26] MEDS: HYDROCORTISONE SODIUM SUCCINATE 100 MG/2 ML VIAL IV PUSH ×3 (05:40→23:13)
[2023-02-26] MEDS: metroNIDAZOLE 500 MG/ISO 100ML 500 MG/100 ML BAG 100 MG IVPB ×3 (05:40→23:14)
[2023-02-26 05:48] LABS: Basophils Percent Auto 0.1 % (0.2-1.2); Hematocrit 29.5 % (42.0-52.0); Hemoglobin 9.4 g/dL (14.0-18.0); Immature Granulocyte Percent A 2.6 % (0-0.5); Lymphocytes Absolute Auto 0.23 K/mm3 (0.9-3.2); Lymphocytes Percent Auto 1.5 % (18.3-44.2); Mean Corpuscular HGB Conc 31.9 g/dl (32-36); Mean Corpuscular Hemoglobin 30.5 pg (26-34); Mean Corpuscular Volume 95.8 fl (80-100); Mean Platelet Volume 11.3 fl (7.4-10.4); Monocytes Absolute Auto 1.3 K/mm3 (0.1-0.6); Monocytes Percent Auto 8.2 % (2.6-8.5); Neutrophils Absolute Auto 13.4 K/mm3 (1.3-6.7); Neutrophils Percent Auto 87.6 % (45.5-73.1); Nucleated Red Blood Cells Absolute Auto 0.1 K/mm3 (0.0-0.012); Nucleated Red Blood Cells Perc 0.3 % (0.0-0.2); Platelet Count Result 118 k/mm3 (150-375); Red Blood Count 3.08 M/mm3 (4.6-6.20); Red Cell Distribution Width 17.9 % (11.5-14.5); White Blood Count 15.3 K/mm3 (4.5-10.0)
[2023-02-26 05:59] LABS: Alanine Aminotransferase 25 U/L (6-50); Albumin Level 2.7 g/dL (3.5-5.1); Alkaline Phosphatase 50 U/L (38-126); Anion Gap 14 mmol/L (8-16); Aspartate Amino Transferase 34 U/L (17-59); Bilirubin,Total 0.6 mg/dL (0.2-1.3); Blood Urea Nitrogen 97 mg/dL (9-20); Calcium 7.3 mg/dL (8.4-10.2); Carbon Dioxide 18 mmol/L (22-30); Chloride 98 mmol/L (98-107); Estimated CRCL calculation 15 ml/min; Estimated Glomerular Filt Rate 18; Glucose 319 mg/dL (65-110); Magnesium 2.1 mg/dL (1.6-2.3); Phosphorus 5.5 mg/dL (2.5-4.5); Potassium 4.3 mmol/L (3.4-5.0); Sodium 130 mmol/L (137-145)
[2023-02-26 06:02] LABS: Glucose Point of Care 192 mg/dl (65-105)
[2023-02-26 07:45] LABS: Glucose Point of Care 277 mg/dl (65-105)
--- NOTE | 2023-02-26 07:58 | WPDINTPN ---
Progress Note: A&P Assessment and Plan (1) Shock: Code(s): R57.9 - Shock, unspecified Status: Acute Assessment and Plan: Multifactorial shock likely related to hemorrhagic, hypovolemic, sepsis and cardiogenic -currently on Levophed at 7 mcg. Vaso and Kiel-Synephrine have been weaned off. Continue to titrate to maintain MAP > 65 mmHg at all times for adequate end organ perfusion -02/23 repeat echo shows EF of 30-35% patient was started on 2.5 mcg of dobutamine which will be continue -off 25% albumin -continue hydrocortisone -urine and Blood cultures negative till now -02/20: patient was started on levofloxacin and metronidazole to, abdominal source of sepsis.02/22 switched to aztreonam Flagyl Continue at this time for 7 day course (2) Acute respiratory failure: Code(s): J96.00 - Acute respiratory failure, unspecified whether with hypoxia or hypercapnia Status: Acute Assessment and Plan: Patient with acute respiratory failure likely related TRALI versus TACO versus ARDS versus aspiration pneumonia Chest x-ray reviewed ABG reviewed. Continue peep at 8 and FiO2 at 40 % Antibiotics as above Patient was given low-dose bicarb for metabolic acidosis which will be continued Patient will need fluid will before any attempts to weaning can be made as patient has significant pulmonary edema. Will start hemodialysis today (3) GI bleed: Code(s): K92.2 - Gastrointestinal hemorrhage, unspecified Status: Acute Assessment and Plan: Acute GI bleed, bright red blood in the NG tube drainage -hemoglobin dropped to 6.5 this morning with severe anemia, emergently called GI, -heparin infusion for NSTEMI was discontinued on 04/21/22, 8:00 p.m. -coags within normal limits -02/20: EGD: Reflux esophagitis, acute gastric ulcer with active oozing of blood, status post epinephrine injection, gold probe cauterization, 4 resolution clips Blood tinged output from NG tube has cleared. GI following Continue IV Protonix Continue aspirin and DVT prophylaxis Lovenox Continue hemoglobin monitoring Transfuse as needed (4) Acute anemia: Code(s): D64.9 - Anemia, unspecified Status: Acute Assessment and Plan: 02/20 2 units of unmatched blood were transfused due to acute bright red blood in the NG drainage. Patient was also given FFP -hemoglobin stable at this, will continue to monitor (5) Acute non-ST elevation myocardial infarction (NSTEMI): Code(s): I21.4 - Non-ST elevation (NSTEMI) myocardial infarction Status: Acute Assessment and Plan: Patient presented with epigastric pain that was radiating to the chest. EKG showed ST T wave changes but no ST elevation, diagnosed with NSTEMI, or was started on heparin infusion on 02/19/2023 and stopped on the same day at night because of coffee-ground drainage from his NG -NG was placed due to partial small-bowel obstruction as seen on CT abdomen and pelvis -cardiology following the patient -aspirin and heparin were discontinued due to GI bleed -02/23 resumed aspirin and statin -hold Imdur, nitroglycerin paste due to shock -cardiology following Echo reviewed and results below (6) Cardiomyopathy: Code(s): I42.9 - Cardiomyopathy, unspecified Status: Acute Assessment and Plan: Echocardiogram done on 02/19 showed EF more than 70% grade 1 diastolic dysfunction Patient on admission was diagnosed with non STEMI Later he developed volume overload shock and respiratory failure and required intubation and vasopressors Repeat echocardiogram done on 02/22 showed Mild left ventricular? enlargement with sigmoid hypertrophy of the septum.? The distal 2/3rds of the ventricle are severely hypokinetic, with akinesis of the distal septum, anterior wall and apex.? Ejection fraction 30-35%.? 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 ? 3. Left atrial chamber dimension is mildly enlarged. ? 4. There is mild to moderate mitral valve regurgitation. ? 5. N
[2023-02-26 08:07] LABS: Anisocytosis 1+ (NORMAL); Platelet Estimate Decreased (Adequate)
[2023-02-26 08:08] LABS: Burr Cells 1+ (NORMAL); Large Platelets Present; Poikilocytosis 1+ (NORMAL); Schistocytes 1+ (NORMAL)
[2023-02-26] MEDS: PANTOPRAZOLE SODIUM IV 40 MG VIAL IV PUSH ×2 (08:09→23:14)
[2023-02-26] MEDS: AZTREONAM 2 GM in SODIUM CHLORIDE 0.9% IV 100 ML 200 ML IVPB ×2 (08:09→23:14)
[2023-02-26] MEDS: MINERAL OIL/WHITE PETROLATUM OINTMENT 1 APPLIC EACH EYE ×2 (08:09→23:13)
[2023-02-26] MEDS: SODIUM BICARBONATE TAB 650 MG TABLET FEED TUBE ×2 (08:09→16:16)
[2023-02-26] MEDS: INSULIN ASPART (*BKC) 100 UNITS/ML SUB-Q ×3 (08:10→16:16)
[2023-02-26] MEDS: ASPIRIN 81 MG CHEWABLE TABLET PO (08:10)
[2023-02-26] MEDS: ATORVASTATIN 40 MG TABLET 80 MG PO (08:10)
[2023-02-26] MEDS: INSULIN GLARGINE (*BKC) 100 UNITS/ML 35 UNITS SUB-Q (08:11)
[2023-02-26] MEDS: MIDAZOLAM HCL (*CRX) 2 MG/2 ML VIAL IV PUSH ×2 (08:43→08:45)
--- NOTE | 2023-02-26 09:14 | WPDPROCEDUR ---
Procedures Central Line Placement Right IJ: Central Line Date: 02/26/23 Central Line Time: 08:30 Discussed w/ the patient/family/POA,the placement of a central venous catheter, including its clinical necessity/indication & associated potential risks, benifits and alternatives.: Yes The patient/family/POA understand(s) and acknowledge(s) the need to proceed with central venous catheter insertion as an important element of the patient's clinical management.: Yes Consent: I have discussed with the patient's , the non-emergent placement of a temporary dialysis venous catheter, including its clinical necessity/indication and associated potential risks and complications. The patient's white understand(s) and acknowledge(s) the need to proceed with temporary hemodialysis venous catheter insertion as an important element of the patient's clinical management. Time Out Performed: Yes Patient Position: supine Patient placed on monitor/pulse ox: Yes Provider Prep: mask, sterile gown, sterile gloves, Max. sterile barrier precautions, cap and hand hygiene with conventional soap/water or alcohol based hand rub Central line prep: Povidone-Iodine 1% Sterile US Technique with sterile gel/sterile probe covers: Yes Central line lumen inserted: triple Length (cm): 16 Depth of Insertion (cm): 16 Post Procedure: sutured in place, good blood return, all ports aspirated, flushed, capped, transparent dressing and aseptic technique maintained throughout procedure Post procedure x-ray: tip of catheter in good position Patient tolerated procedure: well Complications: none
[2023-02-26 12:47] LABS: Glucose Point of Care 268 mg/dl (65-105)
--- NOTE | 2023-02-26 14:51 | P.PNNP_ITS ---
Progress Note: A&P Assessment and Plan (1) Acute kidney injury: Code(s): N17.9 - Acute kidney failure, unspecified Status: Acute Assessment and Plan: * has likely developed ATN from shock/hypotension * noted acidosis as well - on oral sodium bicarb tabs. Sodium level is up from 8 to 18. * BUN creatinine are continuing to rise. * BUN is almost 100. * Will try dialysis today. Dr. Flores has been talking with Dr. Mohan about initiating dialysis. It looks like he needs it today. * I discussed at length with Mrs. Walters. We discussed the risks, benefits, alternatives, and procedure and the patient agrees to proceed. (2) Chronic kidney disease, stage 4 (severe): Code(s): N18.4 - Chronic kidney disease, stage 4 (severe) Status: Acute Assessment and Plan: * baseline creatinie runs ~ 1.7 - 2.3mg/dl * however, has been as high as 2.77mg/dl * secondary to hypertension, diabetes, vascular disease, and age-related change * follows with Dr. Rendon for CKD management (3) Shock: Code(s): R57.9 - Shock, unspecified Status: Acute Assessment and Plan: * suspect related to a combination of blood loss, hypovolemia, and possible sepsis * on vasopressor therapy to maintain MAP and dobutamine given cardiomyopathy (EF ~ 30 - 35%) * Lactic acid is normal. * Blood in urine cultures from 02/20 and 02/21 are negative so far * on Aztreonam * follow trend of hemodynamics (4) Acute respiratory failure: Code(s): J96.00 - Acute respiratory failure, unspecified whether with hypoxia or hypercapnia Status: Acute Assessment and Plan: * intubated and on mechanical ventilation * continue IV Bumex. May try to remove a little fluid today. (5) GI bleed: Code(s): K92.2 - Gastrointestinal hemorrhage, unspecified Status: Acute Assessment and Plan: * as noted by brgiht red blood via NG tube drainage * H/H dropped to as los as 6.5 (on 02/20/23) * complicated by previous use of heparin gtt for NSTEMI which was discontinued (0n 02/19/23) * GAstroentrology following: * EGD (on 02/20): reflux esophagitis, acute gastric ulcer with active oozing of blood, status post epinephrine injection, gold probe cauterization, 4 resolution clips * on IV PPI * Hemoglobin 9.4 today. (6) Acute anemia: Code(s): D64.9 - Anemia, unspecified Status: Acute Assessment and Plan: * see #4 * s/p PRBC and FFP transfusions * will start on Epogen (7) Acute non-ST elevation myocardial infarction (NSTEMI): Code(s): I21.4 - Non-ST elevation (NSTEMI) myocardial infarction Status: Acute Assessment and Plan: * symptoms of epigastric pain that was radiating to the chest * EKG showed ST T wave changes but no ST elevation -- diagnosed with NSTEMI * started on heparin infusion on 02/19/2023 and stopped on the same day at night because of coffee-ground drainage from his NG * Cardiology following * repeat Echo noted -- EF 30-35% (8) Small bowel obstruction: Code(s): K56.609 - Unspecified intestinal obstruction, unspecified as to partial versus complete obstruction Status: Acute Assessment and Plan: * symptoms of epigastric pain along with nausea and vomiting * CT scan of the abdomen and pelvis showed dilated small bowel with transition point in right abdomen, consistent with partial small-bowel obstruction; mild sigmoid diverticulitis with no perforation or abscess; small cystic lesions of the pancreas * NGT in place for decompr
--- NOTE | 2023-02-26 14:51 | PM.PNNEP ---
Progress Note: A&P Assessment and Plan (1) Acute kidney injury: Code(s): N17.9 - Acute kidney failure, unspecified Status: Acute Assessment and Plan: has likely developed ATN from shock/hypotension noted acidosis as well - on oral sodium bicarb tabs. Sodium level is up from 8 to 18. BUN creatinine are continuing to rise. BUN is almost 100. Will try dialysis today. Dr. Flores has been talking with Dr. Mohan about initiating dialysis. It looks like he needs it today. I discussed at length with Mrs. Wlaters. We discussed the risks, benefits, alternatives, and procedure and the patient agrees to proceed. (2) Chronic kidney disease, stage 4 (severe): Code(s): N18.4 - Chronic kidney disease, stage 4 (severe) Status: Acute Assessment and Plan: baseline creatinie runs ~ 1.7 - 2.3mg/dl however, has been as high as 2.77mg/dl secondary to hypertension, diabetes, vascular disease, and age-related change follows with Dr. Rendon for CKD management (3) Shock: Code(s): R57.9 - Shock, unspecified Status: Acute Assessment and Plan: suspect related to a combination of blood loss, hypovolemia, and possible sepsis on vasopressor therapy to maintain MAP and dobutamine given cardiomyopathy (EF ~ 30 - 35%) Lactic acid is normal. Blood in urine cultures from 02/20 and 02/21 are negative so far on Aztreonam follow trend of hemodynamics (4) Acute respiratory failure: Code(s): J96.00 - Acute respiratory failure, unspecified whether with hypoxia or hypercapnia Status: Acute Assessment and Plan: intubated and on mechanical ventilation continue IV Bumex. May try to remove a little fluid today. (5) GI bleed: Code(s): K92.2 - Gastrointestinal hemorrhage, unspecified Status: Acute Assessment and Plan: as noted by milagros red blood via NG tube drainage H/H dropped to as los as 6.5 (on 02/20/23) complicated by previous use of heparin gtt for NSTEMI which was discontinued (0n 02/19/23) GAstroentrology following: EGD (on 02/20): reflux esophagitis, acute gastric ulcer with active oozing of blood, status post epinephrine injection, gold probe cauterization, 4 resolution clips on IV PPI Hemoglobin 9.4 today. (6) Acute anemia: Code(s): D64.9 - Anemia, unspecified Status: Acute Assessment and Plan: see #4 s/p PRBC and FFP transfusions will start on Epogen (7) Acute non-ST elevation myocardial infarction (NSTEMI): Code(s): I21.4 - Non-ST elevation (NSTEMI) myocardial infarction Status: Acute Assessment and Plan: symptoms of epigastric pain that was radiating to the chest EKG showed ST T wave changes but no ST elevation -- diagnosed with NSTEMI started on heparin infusion on 02/19/2023 and stopped on the same day at night because of coffee-ground drainage from his NG Cardiology following repeat Echo noted -- EF 30-35% (8) Small bowel obstruction: Code(s): K56.609 - Unspecified intestinal obstruction, unspecified as to partial versus complete obstruction Status: Acute Assessment and Plan: symptoms of epigastric pain along with nausea and vomiting CT scan of the abdomen and pelvis showed dilated small bowel with transition point in right abdomen, consistent with partial small-bowel obstruction; mild sigmoid diverticulitis with no perforation or abscess; small cystic lesions of the pancreas NGT in place for decompression GI and Surgery following continue supportive care (9) Diabetes mellitus: Code(s): E11.9 - Type 2 diabetes mellitus without complications Status: Acute Assessment and Plan: follow accu-checks glycemic control 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 is in the room. We discussed the situation at length.
--- NOTE | 2023-02-26 15:06 | PM.IMPN ---
Progress Note: A&P Assessment and Plan (1) Acute non-ST elevation myocardial infarction (NSTEMI): Code(s): I21.4 - Non-ST elevation (NSTEMI) myocardial infarction Status: Acute (2) Chest pain: Code(s): R07.9 - Chest pain, unspecified Status: Acute (3) Partial obstruction of small intestine: Code(s): K56.600 - Partial intestinal obstruction, unspecified as to cause Status: Acute (4) Abdominal pain: Code(s): R10.9 - Unspecified abdominal pain Status: Acute (5) Hypertension: Code(s): I10 - Essential (primary) hypertension Status: Acute (6) Diabetes mellitus: Code(s): E11.9 - Type 2 diabetes mellitus without complications Status: Acute (7) Acute on chronic renal failure: Code(s): N17.9 - Acute kidney failure, unspecified; N18.9 - Chronic kidney disease, unspecified Status: Acute (8) Hyponatremia: Code(s): E87.1 - Hypo-osmolality and hyponatremia Status: Acute (9) Hypotension due to hypovolemia: Code(s): I95.89 - Other hypotension; E86.1 - Hypovolemia Status: Acute (10) Acute on chronic blood loss anemia: Code(s): D62 - Acute posthemorrhagic anemia Status: Acute (11) Acute GI bleeding: Code(s): K92.2 - Gastrointestinal hemorrhage, unspecified Status: Acute Plan # nSTEMI Patient came to ED with chief complaint of epigastric pain and chest pain Elevated troponin x2, EKG shows sinus rhythm no ST elevation Suspecting non-STEMI Received heparin bolus and drip Creative Project Manager recommended continue heparin drip for 48 hours. Given acute GI bleeding, heparin drip was stopped. pt had emergent EGD 02/20: Reflux esophagitis acute gastric ulcer with active oozing of blood status post epinephrine injection cold probe cauterization 4 resolution clips. GI following # cardiomyopathy Pt is on dobutamine Cardiology rounding # partial small obstruction Patient has abdomen pain, nausea vomiting CT abdomen pelvis showed possible partial small-bowel obstruction pt started on tube feeds and tolerating well slowly advancing # Nancy on CKD, hyponatremia, hypovolemic hypotension Patient has history of CKD stage 4, creatinine BUN above baseline, patient also found have hyponatremia, hypotension nephrology rounding Nephrology following Patient being started on dialysis 02/26/2023 # acute blood loss anemia History of chronic anemia, hemoglobin 10.1, close to baseline POA coffee-ground stomach fluid drained out, Follow-up stool guaiac, iron panel and CBC HB is trending down, 8.4 to 6.5. 02/20, transfused 2 PRBC and 2 X FFP consult GI for evaluation, GI performed EGD emergently. EGD revealed reflux esophagitis, grade 3, deep acute ulcer in the body of the stomach posteriorly. More consistent with fresh tear. Bleeding was stopped by clips and epinephrine injection was on ppi drip Patient now on protonix 40 mg IV q.12 hours Monitor hemoglobin q.6 hours, Transfuse as needed Mild sigmoid diverticulitis with no perforation or abscess on CT scan pt is on iv aztreonam and iv metronidazole pt is on iv steroids HB is stable at 9 # hemorrhagic shock Represent was called, blood pressure was low 76/46, likely resulting work ability Received normal saline bolus, 2 pack RBC and 2 units FFP Pressure became stable More patient closely pt is presently on levophed pt is on iv steroids # hypertension Hold hypertension medication because of hypotension # type 2 diabetes Hold oral medication Start insulin sliding scale q.4 hour started tube feds Patient being managed by wort extractor. Appreciate consulting physicians recommendations Subjective Date/time seen: 02/26/23 15:06 Interval history: Remains intubated and tolerating tube feed. Remains on Levophed and dobutamine. Plan for dialysis today. Review of Systems Review of Systems: ROS unobtainable: Yes unobtainable due to mental
[2023-02-26 16:11] LABS: Glucose Point of Care 226 mg/dl (65-105)
[2023-02-26] MEDS: DOBUTamine 250 MG/D5W 250 ML 250 MG/250 ML BAG 9.48 MG IV CONT (17:58)
[2023-02-26] MEDS: NOREPINEPHRINE 8 MG/D5W 250 ML 8 MG/250 ML BAG 11.25 MG IV CONT (19:55)
[2023-02-26] MEDS: ALBUMIN HUMAN 25% 12.5 GM/50ML 50 ML IVPB (21:02)
[2023-02-26 23:30] LABS: Glucose Point of Care 141 mg/dl (65-105)
[2023-02-27] VITALS (128 sets, daily range): BP systolic 77–123; BP diastolic 48–69; PULSE 58–92; RESP 16–25; TEMP 0–37.7; O2SAT 94–100
[2023-02-27 04:31] LABS: Glucose Point of Care 282 mg/dl (65-105)
[2023-02-27] MEDS: INSULIN ASPART (*BKC) 100 UNITS/ML SUB-Q ×3 (04:31→12:55)
[2023-02-27 05:14] LABS: Basophils Percent Auto 0.2 % (0.2-1.2); Hematocrit 27.4 % (42.0-52.0); Hemoglobin 8.8 g/dL (14.0-18.0); Immature Granulocyte Absolute 0.33 K/mm3 (0.00-0.031); Lymphocytes Absolute Auto 0.21 K/mm3 (0.9-3.2); Lymphocytes Percent Auto 1.3 % (18.3-44.2); Mean Corpuscular HGB Conc 32.1 g/dl (32-36); Mean Corpuscular Hemoglobin 30.1 pg (26-34); Mean Corpuscular Volume 93.8 fl (80-100); Mean Platelet Volume 10.5 fl (7.4-10.4); Monocytes Percent Auto 6.3 % (2.6-8.5); Neutrophils Absolute Auto 14.9 K/mm3 (1.3-6.7); Neutrophils Percent Auto 90.2 % (45.5-73.1); Nucleated Red Blood Cells Absolute Auto 0.1 K/mm3 (0.0-0.012); Nucleated Red Blood Cells Perc 0.4 % (0.0-0.2); Platelet Count Result 114 k/mm3 (150-375); Red Blood Count 2.92 M/mm3 (4.6-6.20); Red Cell Distribution Width 18.2 % (11.5-14.5); White Blood Count 16.5 K/mm3 (4.5-10.0)
[2023-02-27 05:32] LABS: Alveolar/Arterial O2 Gradient 81.5 mmHg; Base Excess ABG -0.5 mEq/l (+/-2.0); Fractional Inspired Oxygen 30 %; HCO3 ABG 22.8 mEq/l (22.0-26.0); Oxygen Content ABG 13.9 %vol (16.0-22.0); Oxygen Saturation ABG 97.6 % (95.0-100.0); PCO2 ABG 32.5 mmHg (35.0-45.0); PO2 ABG 94.2 mmHg (80.0-100.0); PO2 FiO2 Ratio Arterial Blood 3.14 %; Total Hemoglobin 10.2 g/dL (12.0-18.0); pH ABG 7.464 (7.350-7.450)
[2023-02-27 05:38] LABS: Platelet Estimate Decreased (Adequate)
[2023-02-27 05:43] LABS: Anisocytosis 1+ (NORMAL); Burr Cells 1+ (NORMAL); Hypochromasia 1+ (NORMAL); Poikilocytosis 1+ (NORMAL); Schistocytes Rare (NORMAL)
[2023-02-27] MEDS: metroNIDAZOLE 500 MG/ISO 100ML 500 MG/100 ML BAG 100 MG IVPB ×3 (05:51→21:39)
[2023-02-27] MEDS: HYDROCORTISONE SODIUM SUCCINATE 100 MG/2 ML VIAL IV PUSH ×3 (05:52→21:38)
[2023-02-27] MEDS: CENTRAL LINE FLUSH 10 ML IV PUSH ×2 (05:52→12:54)
[2023-02-27 06:00] LABS: Alanine Aminotransferase 26 U/L (6-50); Albumin Level 2.5 g/dL (3.5-5.1); Alkaline Phosphatase 60 U/L (38-126); Anion Gap 9 mmol/L (8-16); Aspartate Amino Transferase 44 U/L (17-59); Bilirubin,Total 0.6 mg/dL (0.2-1.3); Blood Urea Nitrogen 62 mg/dL (9-20); Calcium 7.1 mg/dL (8.4-10.2); Carbon Dioxide 25 mmol/L (22-30); Chloride 99 mmol/L (98-107); Estimated CRCL calculation 21 ml/min; Estimated Glomerular Filt Rate 26; Glucose 322 mg/dL (65-110); Magnesium 1.9 mg/dL (1.6-2.3); Phosphorus 3.9 mg/dL (2.5-4.5); Potassium 3.9 mmol/L (3.4-5.0); Sodium 133 mmol/L (137-145)
[2023-02-27 08:11] LABS: Glucose Point of Care 250 mg/dl (65-105)
[2023-02-27] MEDS: PANTOPRAZOLE SODIUM IV 40 MG VIAL IV PUSH ×2 (08:21→20:33)
[2023-02-27] MEDS: SODIUM BICARBONATE TAB 650 MG TABLET FEED TUBE ×2 (08:21→20:34)
--- NOTE | 2023-02-27 08:21 | WPDINTPN ---
Progress Note: A&P Assessment and Plan (1) Shock: Code(s): R57.9 - Shock, unspecified Status: Acute Assessment and Plan: Multifactorial shock likely related to hemorrhagic, hypovolemic, sepsis and cardiogenic -currently on Levophed at 7 mcg. Vaso and Kiel-Synephrine have been weaned off. Continue to titrate to maintain MAP > 65 mmHg at all times for adequate end organ perfusion -02/23 repeat echo shows EF of 30-35% patient was started on 2.5 mcg of dobutamine which will be continue -off 25% albumin -continue hydrocortisone -urine and Blood cultures negative till now -02/20: patient was started on levofloxacin and metronidazole to, abdominal source of sepsis.02/22 switched to aztreonam Flagyl Continue at this time for 7 day course -02/27 - low-grade fever- will send repeat blood cultures and sputum cultures (2) Acute respiratory failure: Code(s): J96.00 - Acute respiratory failure, unspecified whether with hypoxia or hypercapnia Status: Acute Assessment and Plan: Patient with acute respiratory failure likely related TRALI versus TACO versus ARDS versus aspiration pneumonia Chest x-ray reviewed. Withdraw ET tube by 2 cm ABG reviewed. Continue peep at 8 and FiO2 at 40 % Antibiotics as above 02/26 -started on hemodialysis. Will need additional fluid (3) GI bleed: Code(s): K92.2 - Gastrointestinal hemorrhage, unspecified Status: Acute Assessment and Plan: Acute GI bleed, bright red blood in the NG tube drainage -hemoglobin dropped to 6.5 this morning with severe anemia, emergently called GI, -heparin infusion for NSTEMI was discontinued on 04/21/22, 8:00 p.m. -coags within normal limits -02/20: EGD: Reflux esophagitis, acute gastric ulcer with active oozing of blood, status post epinephrine injection, gold probe cauterization, 4 resolution clips Blood tinged output from NG tube has cleared. GI following Continue IV Protonix Continue aspirin and DVT prophylaxis Lovenox Continue hemoglobin monitoring Transfuse as needed (4) Acute anemia: Code(s): D64.9 - Anemia, unspecified Status: Acute Assessment and Plan: 02/20 2 units of unmatched blood were transfused due to acute bright red blood in the NG drainage. Patient was also given FFP -hemoglobin stable at this, will continue to monitor (5) Acute non-ST elevation myocardial infarction (NSTEMI): Code(s): I21.4 - Non-ST elevation (NSTEMI) myocardial infarction Status: Acute Assessment and Plan: Patient presented with epigastric pain that was radiating to the chest. EKG showed ST T wave changes but no ST elevation, diagnosed with NSTEMI, or was started on heparin infusion on 02/19/2023 and stopped on the same day at night because of coffee-ground drainage from his NG -NG was placed due to partial small-bowel obstruction as seen on CT abdomen and pelvis -cardiology following the patient -aspirin and heparin were discontinued due to GI bleed -02/23 resumed aspirin and statin -hold Imdur, nitroglycerin paste due to shock -cardiology following Echo reviewed and results below (6) Cardiomyopathy: Code(s): I42.9 - Cardiomyopathy, unspecified Status: Acute Assessment and Plan: Echocardiogram done on 02/19 showed EF more than 70% grade 1 diastolic dysfunction Patient on admission was diagnosed with non STEMI Later he developed volume overload shock and respiratory failure and required intubation and vasopressors Repeat echocardiogram done on 02/22 showed Mild left ventricular? enlargement with sigmoid hypertrophy of the septum.? The distal 2/3rds of the ventricle are severely hypokinetic, with akinesis of the distal septum, anterior wall and apex.? Ejection fraction 30-35%.? 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 ? 3. Left atrial chamber dimension is mildly enlarged. ? 4. There is mild to moderate mitral valve regurgitation. ? 5. Normal estimated pulmonary pressure. ? 6. Dilated inferior vena
[2023-02-27] MEDS: MINERAL OIL/WHITE PETROLATUM OINTMENT 1 APPLIC EACH EYE ×2 (08:22→20:34)
[2023-02-27] MEDS: ATORVASTATIN 40 MG TABLET 80 MG PO (08:22)
[2023-02-27] MEDS: ENOXAPARIN 30 MG/0.3 ML SYRINGE SUB-Q (08:22)
[2023-02-27] MEDS: AZTREONAM 2 GM in SODIUM CHLORIDE 0.9% IV 100 ML 200 ML IVPB ×2 (08:22→20:34)
[2023-02-27] MEDS: INSULIN GLARGINE (*BKC) 100 UNITS/ML 50 UNITS SUB-Q (08:22)
[2023-02-27] MEDS: ASPIRIN 81 MG CHEWABLE TABLET PO (08:23)
--- NOTE | 2023-02-27 12:00 | P.PNNP_ITS ---
Progress Note: A&P Assessment and Plan (1) Acute kidney injury: Code(s): N17.9 - Acute kidney failure, unspecified Status: Acute Assessment and Plan: * has likely developed ATN from shock/hypotension * noted acidosis as well - on oral sodium bicarb tabs. Sodium level is up from 8 to 18. * He had hemodialysis yesterday. He did well with this. * He still has a wet chest x-ray and some presacral edema. * He is close to extubating so will do a dialysis today just to remove fluid. His numbers are good. * He is on some norepinephrine. We can titrate this if needed, and in addition we will give albumin needed on the machine. * Discussed with Dr. George and . (2) Chronic kidney disease, stage 4 (severe): Code(s): N18.4 - Chronic kidney disease, stage 4 (severe) Status: Acute Assessment and Plan: * baseline creatinie runs ~ 1.7 - 2.3mg/dl * however, has been as high as 2.77mg/dl * secondary to hypertension, diabetes, vascular disease, and age-related change * follows with Dr. Rendon for CKD management (3) Shock: Code(s): R57.9 - Shock, unspecified Status: Acute Assessment and Plan: * suspect related to a combination of blood loss, hypovolemia, and possible sepsis * on vasopressor therapy to maintain MAP and dobutamine given cardiomyopathy (EF ~ 30 - 35%) * Lactic acid is normal. * Blood in urine cultures from 02/20 and 02/21 are still negative so far * on Aztreonam * Still on a small dose of the norepinephrine. (4) Acute respiratory failure: Code(s): J96.00 - Acute respiratory failure, unspecified whether with hypoxia or hypercapnia Status: Acute Assessment and Plan: * intubated and on mechanical ventilation * continue IV Bumex. May try to remove a little fluid today. (5) GI bleed: Code(s): K92.2 - Gastrointestinal hemorrhage, unspecified Status: Acute Assessment and Plan: * as noted by bright red blood via NG tube drainage * H/H dropped to as los as 6.5 (on 02/20/23) * complicated by previous use of heparin gtt for NSTEMI which was discontinued (0n 02/19/23) * GAstroentrology following: * EGD (on 02/20): reflux esophagitis, acute gastric ulcer with active oozing of blood, status post epinephrine injection, gold probe cauterization, 4 resolution clips * on IV PPI * Hemoglobin 9.4 today. * He is getting Epogen (6) Acute anemia: Code(s): D64.9 - Anemia, unspecified Status: Acute Assessment and Plan: * see #4 * s/p PRBC and FFP transfusions On Epogen (7) Acute non-ST elevation myocardial infarction (NSTEMI): Code(s): I21.4 - Non-ST elevation (NSTEMI) myocardial infarction Status: Acute Assessment and Plan: * symptoms of epigastric pain that was radiating to the chest * EKG showed ST T wave changes but no ST elevation -- diagnosed with NSTEMI * started on heparin infusion on 02/19/2023 and stopped on the same day at night because of coffee-ground drainage from his NG * Cardiology following * repeat Echo noted -- EF 30-35% (8) Small bowel obstruction: Code(s): K56.609 - Unspecified intestinal obstruction, unspecified as to partial versus complete obstruction Status: Acute Assessment and Plan: * symptoms of epigastric pain along with nausea and vomiting * CT scan of the abdomen and pelvis showed dilated small bowel with transition point in right abdomen, consistent with partial small-bowel obstruction; mild sigmoid diverticulitis with no perforation or absce
--- NOTE | 2023-02-27 12:00 | PM.PNNEP ---
Progress Note: A&P Assessment and Plan (1) Acute kidney injury: Code(s): N17.9 - Acute kidney failure, unspecified Status: Acute Assessment and Plan: has likely developed ATN from shock/hypotension noted acidosis as well - on oral sodium bicarb tabs. Sodium level is up from 8 to 18. He had hemodialysis yesterday. He did well with this. He still has a wet chest x-ray and some presacral edema. He is close to extubating so will do a dialysis today just to remove fluid. His numbers are good. He is on some norepinephrine. We can titrate this if needed, and in addition we will give albumin needed on the machine. Discussed with Dr. George and . (2) Chronic kidney disease, stage 4 (severe): Code(s): N18.4 - Chronic kidney disease, stage 4 (severe) Status: Acute Assessment and Plan: baseline creatinie runs ~ 1.7 - 2.3mg/dl however, has been as high as 2.77mg/dl secondary to hypertension, diabetes, vascular disease, and age-related change follows with Dr. Rendon for CKD management (3) Shock: Code(s): R57.9 - Shock, unspecified Status: Acute Assessment and Plan: suspect related to a combination of blood loss, hypovolemia, and possible sepsis on vasopressor therapy to maintain MAP and dobutamine given cardiomyopathy (EF ~ 30 - 35%) Lactic acid is normal. Blood in urine cultures from 02/20 and 02/21 are still negative so far on Aztreonam Still on a small dose of the norepinephrine. (4) Acute respiratory failure: Code(s): J96.00 - Acute respiratory failure, unspecified whether with hypoxia or hypercapnia Status: Acute Assessment and Plan: intubated and on mechanical ventilation continue IV Bumex. May try to remove a little fluid today. (5) GI bleed: Code(s): K92.2 - Gastrointestinal hemorrhage, unspecified Status: Acute Assessment and Plan: as noted by bright red blood via NG tube drainage H/H dropped to as los as 6.5 (on 02/20/23) complicated by previous use of heparin gtt for NSTEMI which was discontinued (0n 02/19/23) GAstroentrology following: EGD (on 02/20): reflux esophagitis, acute gastric ulcer with active oozing of blood, status post epinephrine injection, gold probe cauterization, 4 resolution clips on IV PPI Hemoglobin 9.4 today. He is getting Epogen (6) Acute anemia: Code(s): D64.9 - Anemia, unspecified Status: Acute Assessment and Plan: see #4 s/p PRBC and FFP transfusions On Epogen (7) Acute non-ST elevation myocardial infarction (NSTEMI): Code(s): I21.4 - Non-ST elevation (NSTEMI) myocardial infarction Status: Acute Assessment and Plan: symptoms of epigastric pain that was radiating to the chest EKG showed ST T wave changes but no ST elevation -- diagnosed with NSTEMI started on heparin infusion on 02/19/2023 and stopped on the same day at night because of coffee-ground drainage from his NG Cardiology following repeat Echo noted -- EF 30-35% (8) Small bowel obstruction: Code(s): K56.609 - Unspecified intestinal obstruction, unspecified as to partial versus complete obstruction Status: Acute Assessment and Plan: symptoms of epigastric pain along with nausea and vomiting CT scan of the abdomen and pelvis showed dilated small bowel with transition point in right abdomen, consistent with partial small-bowel obstruction; mild sigmoid diverticulitis with no perforation or abscess; small cystic lesions of the pancreas NGT in place for decompression GI and Surgery following continue supportive care (9) Diabetes mellitus: Code(s): E11.9 - Type 2 diabetes mellitus without complications Status: Acute Assessment and Plan: follow accu-checks glycemic control per hospitalists/surface room shop optician Subjective Date/time seen: 02/27/23 12:00 Interval history: Patient is sedated and intubated.
[2023-02-27 12:05] LABS: Glucose Point of Care 249 mg/dl (65-105)
[2023-02-27] MEDS: MIDAZOLAM 100MG/NS 100ML(*CRX) 100 MG/100 ML BAG IV CONT (13:19)
[2023-02-27] MEDS: FENTANYL 2,500MCG/NS250ML(*CRX 2,500 MCG/250 ML BAG 7.5 MCG IV CONT (13:21)
[2023-02-27 13:28] LABS: Appearance Urine Turbid (Clear); Bacteria Urine 1+ /hpf; Bilirubin Urine 1+ (Negative); Blood Urine 3+ (Negative); Color Urine Dark Yellow (Yellow); Glucose Urine UA 1+ mg/dL (Negative); Hyaline Casts Urine Present /lpf; Ketones Urine Trace mg/dL (Negative); Leukocyte Esterase Ur 2+ LEU/UL (Negative); Nitrate Urine Negative (Negative); Non Pathogenic Casts >20; Protein Urine 3+ mg/dL (Negative); RBC Urine >100 /hpf (0-2); Specific Grav Ur 1.022 (1.001-1.035); Squamous Epithelial Cell Urine Moderate /hpf (Few); WBC Urine >100 /hpf
[2023-02-27 13:35] LABS: Add Urine Microscopic? YES
[2023-02-27] MEDS: HEPARIN SODIUM 1,000 UNITS/ML VIAL 500 UNITS IV PUSH (15:13)
[2023-02-27] MEDS: HEPARIN SODIUM 1,000 UNITS/ML VIAL 1000 UNITS IV PUSH (15:13)
--- NOTE | 2023-02-27 16:07 | PM.IMPN ---
Progress Note: A&P Assessment and Plan (1) Acute non-ST elevation myocardial infarction (NSTEMI): Code(s): I21.4 - Non-ST elevation (NSTEMI) myocardial infarction Status: Acute (2) Chest pain: Code(s): R07.9 - Chest pain, unspecified Status: Acute (3) Partial obstruction of small intestine: Code(s): K56.600 - Partial intestinal obstruction, unspecified as to cause Status: Acute (4) Abdominal pain: Code(s): R10.9 - Unspecified abdominal pain Status: Acute (5) Hypertension: Code(s): I10 - Essential (primary) hypertension Status: Acute (6) Diabetes mellitus: Code(s): E11.9 - Type 2 diabetes mellitus without complications Status: Acute (7) Acute on chronic renal failure: Code(s): N17.9 - Acute kidney failure, unspecified; N18.9 - Chronic kidney disease, unspecified Status: Acute (8) Hyponatremia: Code(s): E87.1 - Hypo-osmolality and hyponatremia Status: Acute (9) Hypotension due to hypovolemia: Code(s): I95.89 - Other hypotension; E86.1 - Hypovolemia Status: Acute (10) Acute on chronic blood loss anemia: Code(s): D62 - Acute posthemorrhagic anemia Status: Acute (11) Acute GI bleeding: Code(s): K92.2 - Gastrointestinal hemorrhage, unspecified Status: Acute Plan # nSTEMI Patient came to ED with chief complaint of epigastric pain and chest pain Elevated troponin x2, EKG shows sinus rhythm no ST elevation Suspecting non-STEMI Received heparin bolus and drip Ladies Attendant recommended continue heparin drip for 48 hours. Given acute GI bleeding, heparin drip was stopped. pt had emergent EGD 02/20: Reflux esophagitis acute gastric ulcer with active oozing of blood status post epinephrine injection cold probe cauterization 4 resolution clips. GI following # cardiomyopathy Pt is on dobutamine Cardiology on board # partial small obstruction Patient has abdomen pain, nausea vomiting CT abdomen pelvis showed possible partial small-bowel obstruction pt started on tube feeds and tolerating well slowly advancing # Nancy on CKD, hyponatremia, hypovolemic hypotension Patient has history of CKD stage 4, creatinine BUN above baseline, patient also found have hyponatremia, hypotension nephrology rounding Nephrology following Patient initiated on dialysis 02/26/2023 Another/and again 02/27/2023 # acute blood loss anemia History of chronic anemia, hemoglobin 10.1, close to baseline POA coffee-ground stomach fluid drained out, Follow-up stool guaiac, iron panel and CBC HB is trending down, 8.4 to 6.5. 02/20, transfused 2 PRBC and 2 X FFP consult GI for evaluation, GI performed EGD emergently. EGD revealed reflux esophagitis, grade 3, deep acute ulcer in the body of the stomach posteriorly. More consistent with fresh tear. Bleeding was stopped by clips and epinephrine injection was on ppi drip Patient now on protonix 40 mg IV q.12 hours Monitor hemoglobin q.6 hours, Transfuse as needed Mild sigmoid diverticulitis with no perforation or abscess on CT scan pt is on iv aztreonam and iv metronidazole pt is on iv steroids HB is stable at 9 # hemorrhagic shock Represent was called, blood pressure was low 76/46, likely resulting work ability Received normal saline bolus, 2 pack RBC and 2 units FFP Pressure became stable More patient closely pt is presently on levophed pt is on iv steroids # hypertension Hold hypertension medication because of hypotension # type 2 diabetes Hold oral medication Start insulin sliding scale q.4 hour started tube feds Patient being managed by mechanic. Appreciate consulting physicians recommendations Subjective Date/time seen: 02/27/23 16:07 Interval history: Patient remains on mechanical ventilation. Underwent dialysis yesterday. Low-grade fever pancultured Review of Systems Review of Systems: ROS unobtainable: Yes unobtain
[2023-02-27 16:26] LABS: Glucose Point of Care 184 mg/dl (65-105)
[2023-02-27 20:30] LABS: Glucose Point of Care 148 mg/dl (65-105)
[2023-02-27] MEDS: NOREPINEPHRINE 8 MG/D5W 250 ML 8 MG/250 ML BAG 20.63 MG IV CONT (20:32)
[2023-02-27 23:54] LABS: Glucose Point of Care 148 mg/dl (65-105)
[2023-02-28] VITALS (47 sets, daily range): BP systolic 76–121; BP diastolic 52–67; PULSE 66–123; RESP 16–36; TEMP 35.6–37.7; O2SAT 95–99
[2023-02-28] MEDS: CENTRAL LINE FLUSH 10 ML IV PUSH ×4 (00:02→21:29)
[2023-02-28] MEDS: INSULIN ASPART (*BKC) 100 UNITS/ML SUB-Q ×2 (04:45→12:32)
[2023-02-28] MEDS: HYDROCORTISONE SODIUM SUCCINATE 100 MG/2 ML VIAL IV PUSH (05:21)
[2023-02-28 05:27] LABS: Hematocrit 26.6 % (42.0-52.0); Hemoglobin 8.5 g/dL (14.0-18.0); Mean Corpuscular Hemoglobin 30.7 pg (26-34); Mean Platelet Volume 10.9 fl (7.4-10.4); Platelet Count Result 143 k/mm3 (150-375); Red Blood Count 2.77 M/mm3 (4.6-6.20); Red Cell Distribution Width 18.7 % (11.5-14.5); White Blood Count 20.4 K/mm3 (4.5-10.0)
[2023-02-28 05:35] LABS: Alveolar/Arterial O2 Gradient 76.9 mmHg; Carboxyhemoglobin 0.2 % THb (0-2.0); Fractional Inspired Oxygen 30 %; HCO3 ABG 19.5 mEq/l (22.0-26.0); Methemoglobin ABG 0.4 %THb (0-1.5); Oxygen Content ABG 15.2 %vol (16.0-22.0); Oxygen Saturation ABG 97.8 % (95.0-100.0); Oxyhemoglobin 96.2 % THb (90.0-100.0); PCO2 ABG 30.4 mmHg (35.0-45.0); PO2 ABG 101.3 mmHg (80.0-100.0); PO2 FiO2 Ratio Arterial Blood 3.38 %; Reduced Hemoglobin 3.2 %THb (0-5.0); Total Hemoglobin 11.1 g/dL (12.0-18.0); pH ABG 7.425 (7.350-7.450)
[2023-02-28 05:36] LABS: Device VENTILATOR; Modified Allen's Test Pass; Site Drawn RIGHT RADIAL
[2023-02-28 05:37] LABS: Arterial Blood Gas PEEP 8 cmH2O; Arterial Blood Gas Tidal Volume 360 ml; Arterial Blood Gas Vent Mode CMV; Arterial Blood Gas Ventilator rate 18 /MIN
[2023-02-28 05:48] LABS: Alanine Aminotransferase 25 U/L (6-50); Albumin Level 2.8 g/dL (3.5-5.1); Alkaline Phosphatase 51 U/L (38-126); Anion Gap 12 mmol/L (8-16); Aspartate Amino Transferase 44 U/L (17-59); Bilirubin,Total 0.6 mg/dL (0.2-1.3); Blood Urea Nitrogen 91 mg/dL (9-20); Calcium 7.2 mg/dL (8.4-10.2); Carbon Dioxide 23 mmol/L (22-30); Chloride 96 mmol/L (98-107); Estimated CRCL calculation 14 ml/min; Estimated Glomerular Filt Rate 17; Glucose 376 mg/dL (65-110); Magnesium 2.1 mg/dL (1.6-2.3); Potassium 4.1 mmol/L (3.4-5.0); Sodium 131 mmol/L (137-145)
--- NOTE | 2023-02-28 08:57 | WPDINTPN ---
Progress Note: A&P Assessment and Plan (1) Shock: Code(s): R57.9 - Shock, unspecified Status: Acute Assessment and Plan: Multifactorial shock likely related to hemorrhagic, hypovolemic, sepsis and cardiogenic -currently on Levophed . Vaso and Kiel-Synephrine have been weaned off. Continue to titrate to maintain MAP > 65 mmHg at all times for adequate end organ perfusion -02/23 repeat echo shows EF of 30-35% patient was started on 2.5 mcg of dobutamine which is now off -off 25% albumin -will discontinue hydrocortisone -urine and Blood cultures negative till now -02/20: patient was started on levofloxacin and metronidazole to, abdominal source of sepsis.02/22 switched to aztreonam Flagyl Continue at this time for 7 day course -02/27 - low-grade fever-sent repeat blood cultures and sputum cultures. Gramajo was changed. UA suggestive of UTI. Culture pending (2) Acute respiratory failure: Code(s): J96.00 - Acute respiratory failure, unspecified whether with hypoxia or hypercapnia Status: Acute Assessment and Plan: Patient with acute respiratory failure likely related TRALI versus TACO versus ARDS versus aspiration pneumonia Chest x-ray reviewed. Advance eT tube by 2 cm ABG reviewed. Continue peep at 8 and FiO2 at 30% % Antibiotics as above 02/26 -started on hemodialysis. Patient placed on sedation holiday and pressure support ventilation for weaning trial. (3) GI bleed: Code(s): K92.2 - Gastrointestinal hemorrhage, unspecified Status: Acute Assessment and Plan: Acute GI bleed, bright red blood in the NG tube drainage -hemoglobin dropped to 6.5 this morning with severe anemia, emergently called GI, -heparin infusion for NSTEMI was discontinued on 04/21/22, 8:00 p.m. -coags within normal limits -02/20: EGD: Reflux esophagitis, acute gastric ulcer with active oozing of blood, status post epinephrine injection, gold probe cauterization, 4 resolution clips Blood tinged output from NG tube has cleared. GI following Continue IV Protonix Continue aspirin and DVT prophylaxis Lovenox Continue hemoglobin monitoring Transfuse as needed (4) Acute anemia: Code(s): D64.9 - Anemia, unspecified Status: Acute Assessment and Plan: 02/20 2 units of unmatched blood were transfused due to acute bright red blood in the NG drainage. Patient was also given FFP -hemoglobin stable at this, will continue to monitor (5) Acute non-ST elevation myocardial infarction (NSTEMI): Code(s): I21.4 - Non-ST elevation (NSTEMI) myocardial infarction Status: Acute Assessment and Plan: Patient presented with epigastric pain that was radiating to the chest. EKG showed ST T wave changes but no ST elevation, diagnosed with NSTEMI, or was started on heparin infusion on 02/19/2023 and stopped on the same day at night because of coffee-ground drainage from his NG -NG was placed due to partial small-bowel obstruction as seen on CT abdomen and pelvis -cardiology following the patient -aspirin and heparin were discontinued due to GI bleed -02/23 resumed aspirin and statin -hold Imdur, nitroglycerin paste due to shock -cardiology following Echo reviewed and results below (6) Cardiomyopathy: Code(s): I42.9 - Cardiomyopathy, unspecified Status: Acute Assessment and Plan: Echocardiogram done on 02/19 showed EF more than 70% grade 1 diastolic dysfunction Patient on admission was diagnosed with non STEMI Later he developed volume overload shock and respiratory failure and required intubation and vasopressors Repeat echocardiogram done on 02/22 showed Mild left ventricular? enlargement with sigmoid hypertrophy of the septum.? The distal 2/3rds of the ventricle are severely hypokinetic, with akinesis of the distal septum, anterior wall and apex.? Ejection fraction 30-35%.? 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 ? 3. Left atrial chamber dimension is mildly enlarged. ? 4. There is mild t
[2023-02-28] MEDS: ASPIRIN 81 MG CHEWABLE TABLET PO (09:04)
[2023-02-28] MEDS: ENOXAPARIN 30 MG/0.3 ML SYRINGE SUB-Q (09:05)
[2023-02-28] MEDS: ATORVASTATIN 40 MG TABLET 80 MG PO (09:05)
[2023-02-28] MEDS: AZTREONAM 2 GM in SODIUM CHLORIDE 0.9% IV 100 ML 200 ML IVPB ×2 (09:05→21:28)
[2023-02-28] MEDS: MINERAL OIL/WHITE PETROLATUM OINTMENT 1 APPLIC EACH EYE ×2 (09:06→21:29)
[2023-02-28] MEDS: polyethylene glycoL 3350 17 GM POWD.PACK PO (09:06)
[2023-02-28] MEDS: PANTOPRAZOLE SODIUM IV 40 MG VIAL IV PUSH ×2 (09:06→21:29)
[2023-02-28 09:17] LABS: Alveolar/Arterial O2 Gradient 69.5 mmHg; Base Excess ABG -3.4 mEq/l (+/-2.0); Fractional Inspired Oxygen 30 %; HCO3 ABG 20.5 mEq/l (22.0-26.0); Oxyhemoglobin 96.3 % THb (90.0-100.0); PCO2 ABG 32.5 mmHg (35.0-45.0); PO2 ABG 106.2 mmHg (80.0-100.0); PO2 FiO2 Ratio Arterial Blood 3.54 %; Total Hemoglobin 10.2 g/dL (12.0-18.0); pH ABG 7.417 (7.350-7.450)
[2023-02-28 09:18] LABS: Device VENTILATOR; Modified Allen's Test Pass; Site Drawn LEFT RADIAL
[2023-02-28 09:19] LABS: Arterial Blood Gas PEEP 8 cmH2O; Arterial Blood Gas Pressure Support 5 cmH2O; Arterial Blood Gas Vent Mode SPONTANEOUS
[2023-02-28] MEDS: INSULIN GLARGINE (*BKC) 100 UNITS/ML 50 UNITS SUB-Q (09:25)
[2023-02-28] MEDS: NOREPINEPHRINE 8 MG/D5W 250 ML 8 MG/250 ML BAG 13.13 MG IV CONT (10:26)
[2023-02-28] MEDS: VANCOMYCIN 1,250 MG/NS 250 ML 1,250 MG/250 ML BAG 166.67 MG IVPB (11:21)
--- NOTE | 2023-02-28 11:29 | PCFNICU ---
ICU Rounding Note: Pt current nutrition is Nepro at 40 ml/hr with Presource once daily. Last recorded weight is 67.5 kg, up from 65 kg on admit. Bowel Motility:+Bm reported 03/09 Labs Reviewed:Glu 360, BUN 91, Cr 3.5, Hct 26.6,Hgb 8.5, Na 131 Meds Noted:Lantus, NovoLog,Protonix. Skin: WNL Additional Notes: Patient remains on mechanical vent and tube feedings of Nepro at 40 ml/hr. Tube feedings are being tolerated per nursing. Protein Modular of Prosource providing an additional 80 kcals and 20 gms protein. Plans for dialysis today. Sedation is off at this time. Agree with diet orders. Following daily in ICU rounds. Will monitor weight, labs, skin, diet orders every Tuesday and Tuesday.
[2023-02-28 12:31] LABS: Glucose Point of Care 306 mg/dl (65-105)
[2023-02-28] MEDS: dexmedeTOMIDine 400 MCG/100 ML 400 MCG/100 ML BAG IV CONT (12:37)
[2023-02-28] MEDS: MIDAZOLAM HCL (*CRX) 2 MG/2 ML VIAL (12:51)
[2023-02-28 13:57] LABS: Device VENTILATOR
[2023-02-28 13:58] LABS: Arterial Blood Gas PEEP 8 cmH2O; Arterial Blood Gas Tidal Volume 360 ml; Arterial Blood Gas Vent Mode CMV; Arterial Blood Gas Ventilator rate 18 /MIN
--- NOTE | 2023-02-28 17:39 | P.PNNP_ITS ---
Progress Note: A&P Assessment and Plan (1) Acute kidney injury: Code(s): N17.9 - Acute kidney failure, unspecified Status: Acute Assessment and Plan: * has likely developed ATN from shock/hypotension * HD today for fluid removal and clearance * DUF yesterday with 3L fluid removal (2) Chronic kidney disease, stage 4 (severe): Code(s): N18.4 - Chronic kidney disease, stage 4 (severe) Status: Acute Assessment and Plan: * baseline creatinie runs ~ 1.7 - 2.3mg/dl * however, has been as high as 2.77mg/dl * secondary to hypertension, diabetes, vascular disease, and age-related change * follows with Dr. Rendon for CKD management (3) Shock: Code(s): R57.9 - Shock, unspecified Status: Acute Assessment and Plan: * suspect related to a combination of blood loss, hypovolemia, and possible sepsis * on vasopressor therapy to maintain MAP * blood/urine cultures from 02/20 and 02/21 are still negative to date * on antibiotics (4) Acute respiratory failure: Code(s): J96.00 - Acute respiratory failure, unspecified whether with hypoxia or hypercapnia Status: Acute Assessment and Plan: * intubated and on mechanical ventilation * push fluid removal as tolerated with dialysis (5) Cardiomyopathy: Code(s): I42.9 - Cardiomyopathy, unspecified Status: Acute Assessment and Plan: * Echo done on 02/19 showed EF more than 70% grade 1 diastolic dysfunction * repeat echocardiogram done on 02/22 noted: * Mild left ventricular? enlargement with sigmoid hypertrophy of the septum.? The distal 2/3rds of the ventricle are severely hypokinetic, with akinesis of the distal septum, anterior wall and apex.? Ejection fraction 30-35%.? 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 Left atrial chamber dimension is mildly enlarged. There is mild to moderate mitral valve regurgitation. Normal estimated pulmonary pressure. Dilated inferior vena cava. * s/p trial of low-dose dobutamine for many days but now is off * Cardiology following (6) GI bleed: Code(s): K92.2 - Gastrointestinal hemorrhage, unspecified Status: Acute Assessment and Plan: * as noted by bright red blood via NG tube drainage * H/H dropped to as los as 6.5 (on 02/20/23) * complicated by previous use of heparin gtt for NSTEMI which was discontinued (on 02/19/23) * Gastroenterology following: * EGD (on 02/20): reflux esophagitis, acute gastric ulcer with active oozing of blood, status post epinephrine injection, gold probe cauterization, 4 resolution clips * on IV PPI * He is getting Epogen with HD * follow H/H (7) Acute anemia: Code(s): D64.9 - Anemia, unspecified Status: Acute Assessment and Plan: * see #6 * s/p PRBC and FFP transfusions * follow trend of H/H (8) Acute non-ST elevation myocardial infarction (NSTEMI): Code(s): I21.4 - Non-ST elevation (NSTEMI) myocardial infarction Status: Acute Assessment and Plan: * symptoms of epigastric pain that was radiating to the chest * EKG showed ST T wave changes but no ST elevation -- diagnosed with NSTEMI * started on heparin infusion on 02/19/2023 and stopped on the same day at night because of coffee-ground drainage from his NG * Cardiology following * repeat Echo noted -- EF 30-35% (see #5) (9) Small bowel obstruction: Code(s): K56.609 - Unspecified intestinal obstruction, unspecified as to partial versus complete obstruction Status: Acute Assessment and
--- NOTE | 2023-02-28 17:39 | PM.PNNEP ---
Progress Note: A&P Assessment and Plan (1) Acute kidney injury: Code(s): N17.9 - Acute kidney failure, unspecified Status: Acute Assessment and Plan: has likely developed ATN from shock/hypotension HD today for fluid removal and clearance DUF yesterday with 3L fluid removal (2) Chronic kidney disease, stage 4 (severe): Code(s): N18.4 - Chronic kidney disease, stage 4 (severe) Status: Acute Assessment and Plan: baseline creatinie runs ~ 1.7 - 2.3mg/dl however, has been as high as 2.77mg/dl secondary to hypertension, diabetes, vascular disease, and age-related change follows with Dr. Rendon for CKD management (3) Shock: Code(s): R57.9 - Shock, unspecified Status: Acute Assessment and Plan: suspect related to a combination of blood loss, hypovolemia, and possible sepsis on vasopressor therapy to maintain MAP blood/urine cultures from 02/20 and 02/21 are still negative to date on antibiotics (4) Acute respiratory failure: Code(s): J96.00 - Acute respiratory failure, unspecified whether with hypoxia or hypercapnia Status: Acute Assessment and Plan: intubated and on mechanical ventilation push fluid removal as tolerated with dialysis (5) Cardiomyopathy: Code(s): I42.9 - Cardiomyopathy, unspecified Status: Acute Assessment and Plan: Echo done on 02/19 showed EF more than 70% grade 1 diastolic dysfunction repeat echocardiogram done on 02/22 noted: Mild left ventricular? enlargement with sigmoid hypertrophy of the septum.? The distal 2/3rds of the ventricle are severely hypokinetic, with akinesis of the distal septum, anterior wall and apex.? Ejection fraction 30-35%.? 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 Left atrial chamber dimension is mildly enlarged. There is mild to moderate mitral valve regurgitation. Normal estimated pulmonary pressure. Dilated inferior vena cava. s/p trial of low-dose dobutamine for many days but now is off Cardiology following (6) GI bleed: Code(s): K92.2 - Gastrointestinal hemorrhage, unspecified Status: Acute Assessment and Plan: as noted by bright red blood via NG tube drainage H/H dropped to as los as 6.5 (on 02/20/23) complicated by previous use of heparin gtt for NSTEMI which was discontinued (on 02/19/23) Gastroenterology following: EGD (on 02/20): reflux esophagitis, acute gastric ulcer with active oozing of blood, status post epinephrine injection, gold probe cauterization, 4 resolution clips on IV PPI He is getting Epogen with HD follow H/H (7) Acute anemia: Code(s): D64.9 - Anemia, unspecified Status: Acute Assessment and Plan: see #6 s/p PRBC and FFP transfusions follow trend of H/H (8) Acute non-ST elevation myocardial infarction (NSTEMI): Code(s): I21.4 - Non-ST elevation (NSTEMI) myocardial infarction Status: Acute Assessment and Plan: symptoms of epigastric pain that was radiating to the chest EKG showed ST T wave changes but no ST elevation -- diagnosed with NSTEMI started on heparin infusion on 02/19/2023 and stopped on the same day at night because of coffee-ground drainage from his NG Cardiology following repeat Echo noted -- EF 30-35% (see #5) (9) Small bowel obstruction: Code(s): K56.609 - Unspecified intestinal obstruction, unspecified as to partial versus complete obstruction Status: Acute Assessment and Plan: symptoms of epigastric pain along with nausea and vomiting CT scan of the abdomen and pelvis showed dilated small bowel with transition point in right abdomen, consistent with partial small-bowel obstruction; mild sigmoid diverticulitis with no perforation or abscess; small cystic lesions of the pancreas improvement noted -- tolerating tube feeds GI and Surgery following continue supportive care (10) Diabetes mellitus: Code(s): E11.9 - Type 2 d
[2023-02-28] MEDS: ALBUMIN HUMAN 25% 12.5 GM/50ML 50 ML IVPB ×2 (18:23→20:05)
[2023-02-28] MEDS: EPOETIN ALFA-EPBX 10,000 UNITS/ML VIAL 10000 UNITS IV PUSH (19:03)
[2023-02-28] MEDS: ALTEPLASE 2 MG VIAL (CATHFLO) INTRACATH (21:05)
[2023-02-28 21:26] LABS: Glucose Point of Care 197 mg/dl (65-105)
[2023-02-28] MEDS: dexmedeTOMIDine 400 MCG/100 ML 400 MCG/100 ML BAG 8.44 MCG IV CONT (21:37)
[2023-03-01] VITALS (66 sets, daily range): BP systolic 80–116; BP diastolic 34–66; PULSE 67–118; RESP 24–42; TEMP 36.9–38.8; O2SAT 84–100
[2023-03-01] MEDS: NOREPINEPHRINE 8 MG/D5W 250 ML 8 MG/250 ML BAG 16.88 MG IV CONT (02:28)
[2023-03-01 02:29] LABS: Glucose Point of Care 263 mg/dl (65-105)
[2023-03-01] MEDS: INSULIN ASPART (*BKC) 100 UNITS/ML SUB-Q ×3 (02:29→12:17)
[2023-03-01 04:08] LABS: Alveolar/Arterial O2 Gradient 89.5 mmHg; Base Excess ABG -6.4 mEq/l (+/-2.0); Carboxyhemoglobin 0.2 % THb (0-2.0); Device VENTILATOR; Fractional Inspired Oxygen 30 %; HCO3 ABG 16.2 mEq/l (22.0-26.0); Methemoglobin ABG 0.4 %THb (0-1.5); Modified Allen's Test Pass; Oxygen Content ABG 13.6 %vol (16.0-22.0); Oxygen Saturation ABG 97.8 % (95.0-100.0); Oxyhemoglobin 95.7 % THb (90.0-100.0); PCO2 ABG 23.9 mmHg (35.0-45.0); PO2 ABG 96.3 mmHg (80.0-100.0); PO2 FiO2 Ratio Arterial Blood 3.21 %; Reduced Hemoglobin 3.7 %THb (0-5.0); Site Drawn RIGHT RADIAL
[2023-03-01 04:09] LABS: Arterial Blood Gas PEEP 8 cmH2O; Arterial Blood Gas Tidal Volume 360 ml; Arterial Blood Gas Vent Mode CMV; Arterial Blood Gas Ventilator rate 18 /MIN
[2023-03-01 05:22] LABS: Hematocrit 27.7 % (42.0-52.0); Hemoglobin 8.7 g/dL (14.0-18.0); Mean Corpuscular HGB Conc 31.4 g/dl (32-36); Mean Corpuscular Hemoglobin 30.4 pg (26-34); Mean Corpuscular Volume 96.9 fl (80-100); Mean Platelet Volume 10.6 fl (7.4-10.4); Platelet Count Result 165 k/mm3 (150-375); Red Blood Count 2.86 M/mm3 (4.6-6.20); Red Cell Distribution Width 18.9 % (11.5-14.5); White Blood Count 20.5 K/mm3 (4.5-10.0)
[2023-03-01 05:40] LABS: INR 1.3; Prothrombin Time 17.2 Seconds (11.1-14.7)
[2023-03-01 05:41] LABS: Partial Thromboplastin Time 29.3 SECONDS (22.3-36.8)
[2023-03-01 05:52] LABS: Alanine Aminotransferase 25 U/L (6-50); Albumin Level 3.1 g/dL (3.5-5.1); Alkaline Phosphatase 51 U/L (38-126); Anion Gap 13 mmol/L (8-16); Aspartate Amino Transferase 50 U/L (17-59); Bilirubin,Total 0.6 mg/dL (0.2-1.3); Blood Urea Nitrogen 68 mg/dL (9-20); Calcium 8.1 mg/dL (8.4-10.2); Carbon Dioxide 20 mmol/L (22-30); Chloride 101 mmol/L (98-107); Estimated CRCL calculation 17 ml/min; Estimated Glomerular Filt Rate 21; Glucose 272 mg/dL (65-110); Magnesium 2.1 mg/dL (1.6-2.3); Potassium 3.4 mmol/L (3.4-5.0); Sodium 134 mmol/L (137-145)
[2023-03-01 06:00] LABS: Fibrinogen 261 mg/dl (215-510)
[2023-03-01] MEDS: CENTRAL LINE FLUSH 10 ML IV PUSH ×3 (06:15→20:24)
[2023-03-01 06:36] LABS: D Dimer > 20.00 ug/mL (<0.48)
[2023-03-01 06:37] LABS: Vancomycin Random 11.4 ug/mL (10-20)
[2023-03-01] MEDS: MIDAZOLAM HCL (*CRX) 2 MG/2 ML VIAL 1 MG IV PUSH (06:59)
[2023-03-01] MEDS: dexmedeTOMIDine 400 MCG/100 ML 400 MCG/100 ML BAG 13.5 MCG IV CONT (07:33)
--- NOTE | 2023-03-01 08:24 | WPDINTPN ---
Progress Note: A&P Assessment and Plan (1) Shock: Code(s): R57.9 - Shock, unspecified Status: Acute Assessment and Plan: Multifactorial shock likely related to hemorrhagic, hypovolemic, sepsis and cardiogenic -currently on Levophed . Vaso and Kiel-Synephrine have been weaned off. Continue to titrate to maintain MAP > 65 mmHg at all times for adequate end organ perfusion -02/23 repeat echo shows EF of 30-35% patient was started on 2.5 mcg of dobutamine which is now off -off 25% albumin -will discontinue hydrocortisone -urine and Blood cultures negative till now -02/20: patient was started on levofloxacin and metronidazole to, abdominal source of sepsis.02/22 switched to aztreonam Flagyl Continue at this time for 7 day course -02/27 - low-grade fever-sent repeat blood cultures and sputum cultures. Gramajo was changed. UA suggestive of UTI. Culture pending - 02/28 vancomycin added (2) Acute respiratory failure: Code(s): J96.00 - Acute respiratory failure, unspecified whether with hypoxia or hypercapnia Status: Acute Assessment and Plan: Patient with acute respiratory failure likely related TRALI versus TACO versus ARDS versus aspiration pneumonia Chest x-ray reviewed. Shows persistent bilateral opacities ABG reviewed. Continue peep at 8 and FiO2 at 30% % Antibiotics as above 02/26 -started on hemodialysis. 02/28 patient was placed on PSV 5/8. Initially he did well and is ABG in RSBI were adequate but he was too drowsy. Once his sedation wore off he became more agitated tachypneic and asynchronous with the ventilator. Patient was started on Precedex infusion. Patient was placed back on CMV 03/01 plan for sedation holiday and evaluation for PSV weaning trial again today Continue fluid removal with dialysis (3) GI bleed: Code(s): K92.2 - Gastrointestinal hemorrhage, unspecified Status: Acute Assessment and Plan: Acute GI bleed, bright red blood in the NG tube drainage -hemoglobin dropped to 6.5 this morning with severe anemia, emergently called GI, -heparin infusion for NSTEMI was discontinued on 04/21/22, 8:00 p.m. -coags within normal limits -02/20: EGD: Reflux esophagitis, acute gastric ulcer with active oozing of blood, status post epinephrine injection, gold probe cauterization, 4 resolution clips Blood tinged output from NG tube has cleared. GI following Continue IV Protonix Continue aspirin and DVT prophylaxis Lovenox Continue hemoglobin monitoring Transfuse as needed (4) Acute anemia: Code(s): D64.9 - Anemia, unspecified Status: Acute Assessment and Plan: 02/20 2 units of unmatched blood were transfused due to acute bright red blood in the NG drainage. Patient was also given FFP -hemoglobin stable at this, will continue to monitor (5) Acute non-ST elevation myocardial infarction (NSTEMI): Code(s): I21.4 - Non-ST elevation (NSTEMI) myocardial infarction Status: Acute Assessment and Plan: Patient presented with epigastric pain that was radiating to the chest. EKG showed ST T wave changes but no ST elevation, diagnosed with NSTEMI, or was started on heparin infusion on 02/19/2023 and stopped on the same day at night because of coffee-ground drainage from his NG -NG was placed due to partial small-bowel obstruction as seen on CT abdomen and pelvis -cardiology following the patient -aspirin and heparin were discontinued due to GI bleed -02/23 resumed aspirin and statin -hold Imdur, nitroglycerin paste due to shock -cardiology following Echo reviewed and results below (6) Cardiomyopathy: Code(s): I42.9 - Cardiomyopathy, unspecified Status: Acute Assessment and Plan: Echocardiogram done on 02/19 showed EF more than 70% grade 1 diastolic dysfunction Patient on admission was diagnosed with non STEMI Later he developed volume overload shock and respiratory failure and required intubation and vasopressors Repeat echocard
[2023-03-01] MEDS: INSULIN GLARGINE (*BKC) 100 UNITS/ML 60 UNITS SUB-Q (08:52)
[2023-03-01] MEDS: ENOXAPARIN 30 MG/0.3 ML SYRINGE SUB-Q (08:52)
[2023-03-01] MEDS: ASPIRIN 81 MG CHEWABLE TABLET PO (08:52)
[2023-03-01] MEDS: MINERAL OIL/WHITE PETROLATUM OINTMENT 1 APPLIC EACH EYE ×2 (08:53→20:24)
[2023-03-01] MEDS: PANTOPRAZOLE SODIUM IV 40 MG VIAL IV PUSH ×2 (08:53→20:24)
[2023-03-01] MEDS: ATORVASTATIN 40 MG TABLET 80 MG PO (08:53)
[2023-03-01 09:14] LABS: Glucose Point of Care 193 mg/dl (65-105)
--- NOTE | 2023-03-01 11:38 | PCNFU ---
Nutrition Follow-Up Complete: Altered GI function as related to GI bleed as evidenced by NPO. Goal:Meet estimated nutritional needs. Patient is progressing towards goal. We will continue current goal. Pt current nutrition is Nepro at 40 ml/hr. Last recorded weight is 67.5 kg, up from 65.4 kg on admit. Bowel Motility:FMS Labs Reviewed:Glu 272, Cr 2.9,BUN 68, GFR 21, Na 134, Alb 3.1 Meds Noted:Atrovent, Lantus, NovoLog, Levophed, Protonix Skin: WNL Additional Notes: Patient remains on mechanical vent and tube feedings of Nepro at 40 ml/hr and tolerating per nursing. Patient is receiving Protein Modular of Prosource once per day. Total Nutrition: 1664 kcals/91 gms protein/640 ml water. Flush 30 ml q 4 hours. Agree with diet orders at this time. Last Dialysis treatment was 02/28. Will monitor weight, labs, skin, diet orders every Tuesday and Tuesday.
[2023-03-01] MEDS: ACETAMINOPHEN ELIXIR 325 MG/10.15 ML UDC 650 MG PO (12:09)
[2023-03-01 12:22] LABS: Glucose Point of Care 201 mg/dl (65-105)
[2023-03-01] MEDS: ALBUMIN HUMAN 25% 12.5 GM/50ML 50 ML IVPB ×4 (14:15→16:15)
[2023-03-01] MEDS: dexmedeTOMIDine 400 MCG/100 ML 400 MCG/100 ML BAG 16.88 MCG IV CONT (14:34)
--- NOTE | 2023-03-01 16:15 | P.PNNP_ITS ---
Progress Note: A&P Assessment and Plan (1) Acute kidney injury: Code(s): N17.9 - Acute kidney failure, unspecified Status: Acute Assessment and Plan: * has likely developed ATN from shock/hypotension * HD yesterday for fluid removal and clearance * DUF today for further removal as tolerated * plan HD tomorrow (2) Chronic kidney disease, stage 4 (severe): Code(s): N18.4 - Chronic kidney disease, stage 4 (severe) Status: Acute Assessment and Plan: * baseline creatinie runs ~ 1.7 - 2.3mg/dl * however, has been as high as 2.77mg/dl * secondary to hypertension, diabetes, vascular disease, and age-related change * follows with Dr. Rendon for CKD management (3) Shock: Code(s): R57.9 - Shock, unspecified Status: Acute Assessment and Plan: * suspect related to a combination of blood loss, hypovolemia, and possible sepsis * on vasopressor therapy to maintain MAP * blood/urine cultures from 02/20 and 02/21 are still negative to date * on antibiotics (4) Acute respiratory failure: Code(s): J96.00 - Acute respiratory failure, unspecified whether with hypoxia or hypercapnia Status: Acute Assessment and Plan: * intubated and on mechanical ventilation * push fluid removal as tolerated with dialysis (5) Cardiomyopathy: Code(s): I42.9 - Cardiomyopathy, unspecified Status: Acute Assessment and Plan: * Echo done on 02/19 showed EF more than 70% grade 1 diastolic dysfunction * repeat echocardiogram done on 02/22 noted: * Mild left ventricular? enlargement with sigmoid hypertrophy of the septum.? The distal 2/3rds of the ventricle are severely hypokinetic, with akinesis of the distal septum, anterior wall and apex.? Ejection fraction 30-35%.? 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 Left atrial chamber dimension is mildly enlarged. There is mild to moderate mitral valve regurgitation. Normal estimated pulmonary pressure. Dilated inferior vena cava. * s/p trial of low-dose dobutamine for many days but now is off * Cardiology following (6) GI bleed: Code(s): K92.2 - Gastrointestinal hemorrhage, unspecified Status: Acute Assessment and Plan: * as noted by bright red blood via NG tube drainage * H/H dropped to as los as 6.5 (on 02/20/23) * complicated by previous use of heparin gtt for NSTEMI which was discontinued (on 02/19/23) * Gastroenterology following: * EGD (on 02/20): reflux esophagitis, acute gastric ulcer with active oozing of blood, status post epinephrine injection, gold probe cauterization, 4 resolution clips * on IV PPI * He is getting Epogen with HD * follow H/H (7) Acute anemia: Code(s): D64.9 - Anemia, unspecified Status: Acute Assessment and Plan: * see #6 * s/p PRBC and FFP transfusions * follow trend of H/H (8) Acute non-ST elevation myocardial infarction (NSTEMI): Code(s): I21.4 - Non-ST elevation (NSTEMI) myocardial infarction Status: Acute Assessment and Plan: * symptoms of epigastric pain that was radiating to the chest * EKG showed ST T wave changes but no ST elevation -- diagnosed with NSTEMI * started on heparin infusion on 02/19/2023 and stopped on the same day at night because of coffee-ground drainage from his NG * Cardiology following * repeat Echo noted -- EF 30-35% (see #5) (9) Small bowel obstruction: Code(s): K56.609 - Unspecified intestinal obstruction, unspecified as to partial versus complete obstruction Statu
--- NOTE | 2023-03-01 16:15 | PM.PNNEP ---
Progress Note: A&P Assessment and Plan (1) Acute kidney injury: Code(s): N17.9 - Acute kidney failure, unspecified Status: Acute Assessment and Plan: has likely developed ATN from shock/hypotension HD yesterday for fluid removal and clearance DUF today for further removal as tolerated plan HD tomorrow (2) Chronic kidney disease, stage 4 (severe): Code(s): N18.4 - Chronic kidney disease, stage 4 (severe) Status: Acute Assessment and Plan: baseline creatinie runs ~ 1.7 - 2.3mg/dl however, has been as high as 2.77mg/dl secondary to hypertension, diabetes, vascular disease, and age-related change follows with Dr. Rendon for CKD management (3) Shock: Code(s): R57.9 - Shock, unspecified Status: Acute Assessment and Plan: suspect related to a combination of blood loss, hypovolemia, and possible sepsis on vasopressor therapy to maintain MAP blood/urine cultures from 02/20 and 02/21 are still negative to date on antibiotics (4) Acute respiratory failure: Code(s): J96.00 - Acute respiratory failure, unspecified whether with hypoxia or hypercapnia Status: Acute Assessment and Plan: intubated and on mechanical ventilation push fluid removal as tolerated with dialysis (5) Cardiomyopathy: Code(s): I42.9 - Cardiomyopathy, unspecified Status: Acute Assessment and Plan: Echo done on 02/19 showed EF more than 70% grade 1 diastolic dysfunction repeat echocardiogram done on 02/22 noted: Mild left ventricular? enlargement with sigmoid hypertrophy of the septum.? The distal 2/3rds of the ventricle are severely hypokinetic, with akinesis of the distal septum, anterior wall and apex.? Ejection fraction 30-35%.? 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 Left atrial chamber dimension is mildly enlarged. There is mild to moderate mitral valve regurgitation. Normal estimated pulmonary pressure. Dilated inferior vena cava. s/p trial of low-dose dobutamine for many days but now is off Cardiology following (6) GI bleed: Code(s): K92.2 - Gastrointestinal hemorrhage, unspecified Status: Acute Assessment and Plan: as noted by bright red blood via NG tube drainage H/H dropped to as los as 6.5 (on 02/20/23) complicated by previous use of heparin gtt for NSTEMI which was discontinued (on 02/19/23) Gastroenterology following: EGD (on 02/20): reflux esophagitis, acute gastric ulcer with active oozing of blood, status post epinephrine injection, gold probe cauterization, 4 resolution clips on IV PPI He is getting Epogen with HD follow H/H (7) Acute anemia: Code(s): D64.9 - Anemia, unspecified Status: Acute Assessment and Plan: see #6 s/p PRBC and FFP transfusions follow trend of H/H (8) Acute non-ST elevation myocardial infarction (NSTEMI): Code(s): I21.4 - Non-ST elevation (NSTEMI) myocardial infarction Status: Acute Assessment and Plan: symptoms of epigastric pain that was radiating to the chest EKG showed ST T wave changes but no ST elevation -- diagnosed with NSTEMI started on heparin infusion on 02/19/2023 and stopped on the same day at night because of coffee-ground drainage from his NG Cardiology following repeat Echo noted -- EF 30-35% (see #5) (9) Small bowel obstruction: Code(s): K56.609 - Unspecified intestinal obstruction, unspecified as to partial versus complete obstruction Status: Acute Assessment and Plan: symptoms of epigastric pain along with nausea and vomiting CT scan of the abdomen and pelvis showed dilated small bowel with transition point in right abdomen, consistent with partial small-bowel obstruction; mild sigmoid diverticulitis with no perforation or abscess; small cystic lesions of the pancreas improvement noted -- tolerating tube feeds GI and Surgery following continue supportive care (10) Diabetes mellitus:
[2023-03-01 16:46] LABS: Glucose Point of Care 178 mg/dl (65-105)
[2023-03-01] MEDS: NOREPINEPHRINE 8 MG/D5W 250 ML 8 MG/250 ML BAG 26.25 MG IV CONT (16:59)
[2023-03-01] MEDS: ALTEPLASE 2 MG VIAL (CATHFLO) INTRACATH ×2 (17:10→17:11)
[2023-03-01] MEDS: VANCOMYCIN 750 MG/NS 250 ML 750 MG/250 ML BAG 250 MG IVPB (17:34)
[2023-03-01] MEDS: AZTREONAM 2 GM in SODIUM CHLORIDE 0.9% IV 100 ML 200 ML IVPB (18:45)
[2023-03-01] MEDS: ALBUMIN HUMAN 25% 25 GM/100 ML 100 ML IVPB (19:09)
[2023-03-01 20:19] LABS: Glucose Point of Care 152 mg/dl (65-105)
[2023-03-01] MEDS: MORPHINE SULFATE (*CRX) 2 MG/ML INJ 1 MG IV PUSH (20:23)
--- NOTE | 2023-03-01 20:45 | PC.NURSE ---
Pt breathing 30s-40s on ventilator. SpO2 reading 60s-80s. RT at bedside. Pt's FiO2 upped to 100%. Pt is restless in the bed, kicking legs, and moving hands. He does not follow commands. Precedex increased to try to improve pt's comfort and work of breathing. Dr. George notified when symptoms did not improve. Order received for one time dose of Ativan 2mg IVP and bolus 5% albumin in 250ml.
[2023-03-01] MEDS: LORazepam INJ (*CRX) 2 MG/ML VIAL IV PUSH (20:58)
[2023-03-01] MEDS: dexmedeTOMIDine 400 MCG/100 ML 400 MCG/100 ML BAG 15.19 MCG IV CONT (20:59)
[2023-03-01] MEDS: ALBUMIN HUMAN 5% 250 ML IV CONT (20:59)
[2023-03-01] MEDS: NOREPINEPHRINE 8 MG/D5W 250 ML 8 MG/250 ML BAG 54.38 MG IV CONT (22:14)
[2023-03-02] VITALS (76 sets, daily range): BP systolic 72–124; BP diastolic 43–66; PULSE 76–112; RESP 21–44; TEMP 37–38.6; O2SAT 97–100
[2023-03-02 00:12] LABS: Glucose Point of Care 163 mg/dl (65-105)
[2023-03-02] MEDS: ACETAMINOPHEN ELIXIR 325 MG/10.15 ML UDC 650 MG PO ×2 (02:31→16:17)
[2023-03-02] MEDS: NOREPINEPHRINE 8 MG/D5W 250 ML 8 MG/250 ML BAG 39.38 MG IV CONT (03:25)
[2023-03-02] MEDS: dexmedeTOMIDine 400 MCG/100 ML 400 MCG/100 ML BAG 15.19 MCG IV CONT (03:26)
[2023-03-02 03:31] LABS: Glucose Point of Care 234 mg/dl (65-105)
[2023-03-02] MEDS: INSULIN ASPART (*BKC) 100 UNITS/ML SUB-Q ×3 (04:22→20:13)
[2023-03-02 05:07] LABS: Alveolar/Arterial O2 Gradient 144.5 mmHg; Base Excess ABG -6.9 mEq/l (+/-2.0); Carboxyhemoglobin 0.2 % THb (0-2.0); Fractional Inspired Oxygen 40 %; HCO3 ABG 16.3 mEq/l (22.0-26.0); Methemoglobin ABG 0.4 %THb (0-1.5); Oxygen Content ABG 14.1 %vol (16.0-22.0); Oxygen Saturation ABG 98.2 % (95.0-100.0); Oxyhemoglobin 96.7 % THb (90.0-100.0); PCO2 ABG 25.8 mmHg (35.0-45.0); PO2 FiO2 Ratio Arterial Blood 2.78 %; Reduced Hemoglobin 2.7 %THb (0-5.0); Total Hemoglobin 10.2 g/dL (12.0-18.0); pH ABG 7.419 (7.350-7.450)
[2023-03-02] MEDS: CENTRAL LINE FLUSH 10 ML IV PUSH ×3 (05:08→20:13)
[2023-03-02 05:09] LABS: Arterial Blood Gas Vent Mode CMV; Arterial Blood Gas Ventilator rate 18 /MIN; Device VENTILATOR; Modified Allen's Test Pass; Site Drawn RIGHT RADIAL
[2023-03-02 05:10] LABS: Arterial Blood Gas PEEP 8 cmH2O; Arterial Blood Gas Tidal Volume 360 ml
[2023-03-02 05:24] LABS: Hematocrit 24.2 % (42.0-52.0); Hemoglobin 7.7 g/dL (14.0-18.0); Mean Corpuscular HGB Conc 31.8 g/dl (32-36); Mean Corpuscular Hemoglobin 30.8 pg (26-34); Mean Corpuscular Volume 96.8 fl (80-100); Mean Platelet Volume 11.5 fl (7.4-10.4); Platelet Count Result 174 k/mm3 (150-375); White Blood Count 20.2 K/mm3 (4.5-10.0)
[2023-03-02 05:36] LABS: Alanine Aminotransferase 25 U/L (6-50); Albumin Level 3.5 g/dL (3.5-5.1); Alkaline Phosphatase 60 U/L (38-126); Anion Gap 16 mmol/L (8-16); Aspartate Amino Transferase 59 U/L (17-59); Bilirubin,Total 0.6 mg/dL (0.2-1.3); Blood Urea Nitrogen 92 mg/dL (9-20); Calcium 7.6 mg/dL (8.4-10.2); Carbon Dioxide 17 mmol/L (22-30); Chloride 98 mmol/L (98-107); Estimated CRCL calculation 14 ml/min; Estimated Glomerular Filt Rate 17; Glucose 274 mg/dL (65-110); Potassium 3.5 mmol/L (3.4-5.0); Sodium 131 mmol/L (137-145)
[2023-03-02 05:56] LABS: Vancomycin Random 17.7 ug/mL (10-20)
[2023-03-02 08:52] LABS: Glucose Point of Care 80 mg/dl (65-105)
[2023-03-02] MEDS: ASPIRIN 81 MG CHEWABLE TABLET PO (09:15)
[2023-03-02] MEDS: ATORVASTATIN 40 MG TABLET 80 MG PO (09:15)
[2023-03-02] MEDS: PANTOPRAZOLE SODIUM IV 40 MG VIAL IV PUSH ×2 (09:16→20:10)
[2023-03-02] MEDS: ENOXAPARIN 30 MG/0.3 ML SYRINGE SUB-Q (09:16)
[2023-03-02] MEDS: MINERAL OIL/WHITE PETROLATUM OINTMENT 1 APPLIC EACH EYE ×2 (09:17→20:08)
--- NOTE | 2023-03-02 09:39 | WPDINTPN ---
Progress Note: A&P Assessment and Plan (1) Shock: Code(s): R57.9 - Shock, unspecified Status: Acute Assessment and Plan: Multifactorial shock likely related to hemorrhagic, hypovolemic, sepsis and cardiogenic -currently on Levophed . Vaso and Kiel-Synephrine have been weaned off. Continue to titrate to maintain MAP > 65 mmHg at all times for adequate end organ perfusion -02/23 repeat echo shows EF of 30-35% patient was started on 2.5 mcg of dobutamine which is now off -off 25% albumin -will discontinue hydrocortisone -urine and Blood cultures negative till now -02/20: patient was started on levofloxacin and metronidazole to, abdominal source of sepsis.02/22 switched to aztreonam Flagyl Continue at this time for 7 day course -02/27 - low-grade fever-sent repeat blood cultures and sputum cultures. Gramajo was changed. UA suggestive of UTI. Culture pending - 02/28 vancomycin added - 03/02 sputum culture is growing yeast which is likely a colonizer. Patient does have continued fever. Will expand antibiotic coverage with meropenem. Continue vancomycin. Chest x-ray shows persistent opacity despite dialysis and fluid removal. Will check CT scan of chest and sinuses. He does not have any significant ETT secretions (2) Acute respiratory failure: Code(s): J96.00 - Acute respiratory failure, unspecified whether with hypoxia or hypercapnia Status: Acute Assessment and Plan: Patient with acute respiratory failure likely related TRALI versus TACO versus ARDS versus aspiration pneumonia Chest x-ray reviewed. Shows persistent bilateral opacities ABG reviewed. Continue peep at 8 and FiO2 at 30% % Antibiotics as above 02/26 -started on hemodialysis. 02/28 patient was placed on PSV 5/8. Initially he did well and is ABG in [facility]BI were adequate but he was too drowsy. Once his sedation wore off he became more agitated tachypneic and asynchronous with the ventilator. Patient was started on Precedex infusion. Patient was placed back on CMV 03/01 patient again did not tolerate weaning trial and became tachypneic. Additional fluid was removed with dialysis Check CT scan of the chest today. Will re-evaluate for weaning trial post hemodialysis session today (3) GI bleed: Code(s): K92.2 - Gastrointestinal hemorrhage, unspecified Status: Acute Assessment and Plan: Acute GI bleed, bright red blood in the NG tube drainage -hemoglobin dropped to 6.5 this morning with severe anemia, emergently called GI, -heparin infusion for NSTEMI was discontinued on 04/21/22, 8:00 p.m. -coags within normal limits -02/20: EGD: Reflux esophagitis, acute gastric ulcer with active oozing of blood, status post epinephrine injection, gold probe cauterization, 4 resolution clips Blood tinged output from NG tube has cleared. His stools are dark which may signify or blood. GI has now signed off Continue IV Protonix Continue aspirin and DVT prophylaxis Lovenox Continue hemoglobin monitoring. Gradual trend of hemoglobin dropping. Monitor if there is a precipitous drop or signs of active bleeding. Will re-consult Gastroenterology Transfuse if needed (4) Acute anemia: Code(s): D64.9 - Anemia, unspecified Status: Acute Assessment and Plan: 02/20 2 units of unmatched blood were transfused due to acute bright red blood in the NG drainage. Patient was also given FFP -hemoglobin stable at this, will continue to monitor (5) Acute non-ST elevation myocardial infarction (NSTEMI): Code(s): I21.4 - Non-ST elevation (NSTEMI) myocardial infarction Status: Acute Assessment and Plan: Patient presented with epigastric pain that was radiating to the chest. EKG showed ST T wave changes but no ST elevation, diagnosed with NSTEMI, or was started on heparin infusion on 02/19/2023 and stopped on the same day at night because of coffee-ground drainage from his NG -NG was placed due to partial small-bowel obstructio
[2023-03-02] MEDS: EPOETIN ALFA 20,000 UNITS/ML VIAL 20000 UNITS IV PUSH (10:10)
--- NOTE | 2023-03-02 10:17 | PCFNICU ---
ICU Rounding Note: Pt current nutrition is Nepro @ 40 ml/h: 1584 kcal, 71 g protein, 739 ml free water. Flush 30 ml q 4 h. Prosource TF once per day for additional 90 kcal and 20 g protein. . Nutrition recommendation: Continue with current TF orders, flushes and supplements. Agree with orders. Last recorded weight is 69.3 kg. Bowel Motility: Liquid stool per FMS Labs Reviewed: Hgb 7.7, Hct 24.2, Na 131, GFR 17, BUN 92, Cre 3.6 Meds Noted: Precedex. Levophed. MAP 70 Skin: WNL Additional Notes: Per MD, possible trach next week with possible LTACH placement. Dialysis today. Following daily in ICU rounds. Will monitor weight, labs, skin, diet orders every 3 days. .
--- NOTE | 2023-03-02 10:52 | P.PNNP_ITS ---
Progress Note: A&P Assessment and Plan (1) Acute kidney injury: Code(s): N17.9 - Acute kidney failure, unspecified Status: Acute Assessment and Plan: * due to ATN from shock/hypotension * new cardiomyopathy may also be playing a role * HD today * s/p DUF yesterday for fluid removal * follow electrolytes, volume status, and clearance (2) Chronic kidney disease, stage 4 (severe): Code(s): N18.4 - Chronic kidney disease, stage 4 (severe) Status: Acute Assessment and Plan: * baseline creatinie runs ~ 1.7 - 2.3mg/dl * however, has been as high as 2.77mg/dl * secondary to hypertension, diabetes, vascular disease, and age-related change * follows with Dr. Rendon for CKD management (3) Shock: Code(s): R57.9 - Shock, unspecified Status: Acute Assessment and Plan: * suspect related to a combination of blood loss, hypovolemia, and possible sepsis * on vasopressor therapy to maintain MAP * follow culture data * on antibiotics (4) Acute respiratory failure: Code(s): J96.00 - Acute respiratory failure, unspecified whether with hypoxia or hypercapnia Status: Acute Assessment and Plan: * intubated and on mechanical ventilation * fluid removal as tolerated by hemodynamics with dialysis * not making much progress with ventilator weaning -- may need tracheostomy (5) Cardiomyopathy: Code(s): I42.9 - Cardiomyopathy, unspecified Status: Acute Assessment and Plan: * echo done on 02/19 showed EF more than 70% grade 1 diastolic dysfunction * repeat echocardiogram done on 02/22 noted: * mild left ventricular? enlargement with sigmoid hypertrophy of the septum.? The distal 2/3rds of the ventricle are severely hypokinetic, with akinesis of the distal septum, anterior wall and apex.? Ejection fraction 30-35%.? 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 Left atrial chamber dimension is mildly enlarged. There is mild to moderate mitral valve regurgitation. Normal estimated pulmonary pressure. Dilated inferior vena cava. * s/p trial of low-dose dobutamine for several days but now is off * Cardiology following (6) GI bleed: Code(s): K92.2 - Gastrointestinal hemorrhage, unspecified Status: Acute Assessment and Plan: * as noted by bright red blood via NG tube drainage * H/H dropped to as los as 6.5 (on 02/20/23) * complicated by previous use of heparin gtt for NSTEMI which was discontinued (on 02/19/23) * Gastroenterology following: * EGD (on 02/20): reflux esophagitis, acute gastric ulcer with active oozing of blood, status post epinephrine injection, gold probe cauterization, 4 resolution clips * on IV PPI * Epogen with HD * follow H/H (7) Acute anemia: Code(s): D64.9 - Anemia, unspecified Status: Acute Assessment and Plan: * see #6 * s/p PRBC and FFP transfusions * follow trend of H/H (8) Acute non-ST elevation myocardial infarction (NSTEMI): Code(s): I21.4 - Non-ST elevation (NSTEMI) myocardial infarction Status: Acute Assessment and Plan: * symptoms of epigastric pain that was radiating to the chest * EKG showed ST T wave changes but no ST elevation -- diagnosed with NSTEMI * started on heparin infusion on 02/19/2023 and stopped on the same day at night because of coffee-ground drainage from his NG * Cardiology following * repeat Echo noted -- EF 30-35% (see #5) (9) Small bowel obstruction: Code(s): K56.609 - Unspecified intestinal obstruction, unspecif
--- NOTE | 2023-03-02 10:52 | PM.PNNEP ---
Progress Note: A&P Assessment and Plan (1) Acute kidney injury: Code(s): N17.9 - Acute kidney failure, unspecified Status: Acute Assessment and Plan: due to ATN from shock/hypotension new cardiomyopathy may also be playing a role HD today s/p DUF yesterday for fluid removal follow electrolytes, volume status, and clearance (2) Chronic kidney disease, stage 4 (severe): Code(s): N18.4 - Chronic kidney disease, stage 4 (severe) Status: Acute Assessment and Plan: baseline creatinie runs ~ 1.7 - 2.3mg/dl however, has been as high as 2.77mg/dl secondary to hypertension, diabetes, vascular disease, and age-related change follows with Dr. Rendon for CKD management (3) Shock: Code(s): R57.9 - Shock, unspecified Status: Acute Assessment and Plan: suspect related to a combination of blood loss, hypovolemia, and possible sepsis on vasopressor therapy to maintain MAP follow culture data on antibiotics (4) Acute respiratory failure: Code(s): J96.00 - Acute respiratory failure, unspecified whether with hypoxia or hypercapnia Status: Acute Assessment and Plan: intubated and on mechanical ventilation fluid removal as tolerated by hemodynamics with dialysis not making much progress with ventilator weaning -- may need tracheostomy (5) Cardiomyopathy: Code(s): I42.9 - Cardiomyopathy, unspecified Status: Acute Assessment and Plan: echo done on 02/19 showed EF more than 70% grade 1 diastolic dysfunction repeat echocardiogram done on 02/22 noted: mild left ventricular? enlargement with sigmoid hypertrophy of the septum.? The distal 2/3rds of the ventricle are severely hypokinetic, with akinesis of the distal septum, anterior wall and apex.? Ejection fraction 30-35%.? 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 Left atrial chamber dimension is mildly enlarged. There is mild to moderate mitral valve regurgitation. Normal estimated pulmonary pressure. Dilated inferior vena cava. s/p trial of low-dose dobutamine for several days but now is off Cardiology following (6) GI bleed: Code(s): K92.2 - Gastrointestinal hemorrhage, unspecified Status: Acute Assessment and Plan: as noted by bright red blood via NG tube drainage H/H dropped to as los as 6.5 (on 02/20/23) complicated by previous use of heparin gtt for NSTEMI which was discontinued (on 02/19/23) Gastroenterology following: EGD (on 02/20): reflux esophagitis, acute gastric ulcer with active oozing of blood, status post epinephrine injection, gold probe cauterization, 4 resolution clips on IV PPI Epogen with HD follow H/H (7) Acute anemia: Code(s): D64.9 - Anemia, unspecified Status: Acute Assessment and Plan: see #6 s/p PRBC and FFP transfusions follow trend of H/H (8) Acute non-ST elevation myocardial infarction (NSTEMI): Code(s): I21.4 - Non-ST elevation (NSTEMI) myocardial infarction Status: Acute Assessment and Plan: symptoms of epigastric pain that was radiating to the chest EKG showed ST T wave changes but no ST elevation -- diagnosed with NSTEMI started on heparin infusion on 02/19/2023 and stopped on the same day at night because of coffee-ground drainage from his NG Cardiology following repeat Echo noted -- EF 30-35% (see #5) (9) Small bowel obstruction: Code(s): K56.609 - Unspecified intestinal obstruction, unspecified as to partial versus complete obstruction Status: Acute Assessment and Plan: symptoms of epigastric pain along with nausea and vomiting CT scan of the abdomen and pelvis showed dilated small bowel with transition point in right abdomen, consistent with partial small-bowel obstruction; mild sigmoid diverticulitis with no perforation or abscess; small cystic lesions of the pancreas improvement noted -- tolerating tube feeds GI and Surgery following co
[2023-03-02] MEDS: dexmedeTOMIDine 400 MCG/100 ML 400 MCG/100 ML BAG 11.81 MCG IV CONT (11:18)
[2023-03-02 11:52] LABS: Glucose Point of Care 159 mg/dl (65-105)
[2023-03-02 11:52] LABS: Glucose Point of Care 48 mg/dl (65-105)
[2023-03-02] MEDS: HEPARIN SODIUM 1,000 UNITS/ML VIAL 4000 UNITS IV PUSH (12:00)
[2023-03-02] MEDS: NOREPINEPHRINE 8 MG/D5W 250 ML 8 MG/250 ML BAG 28.13 MG IV CONT (12:08)
[2023-03-02 12:28] LABS: Hepatitis B Core Ab Total Nonreactive (Nonreactive)
[2023-03-02] MEDS: MORPHINE SULFATE (*CRX) 2 MG/ML INJ 1 MG IV PUSH (15:03)
--- NOTE | 2023-03-02 15:41 | PC.NURSE ---
order to dc ngt and insert ogt. completed, ogt at 69, xray verified placement, tube feed re-sarted after xray verified
[2023-03-02 16:26] LABS: Glucose Point of Care 292 mg/dl (65-105)
--- NOTE | 2023-03-02 17:17 | PM.IMPN ---
Progress Note: A&P Assessment and Plan (1) Shock: Code(s): R57.9 - Shock, unspecified Status: Acute Assessment and Plan: Multifactorial shock likely related to hemorrhagic, hypovolemic, sepsis and cardiogenic -currently on Levophed EF of 30-35% patient was started on 2.5 mcg of dobutamine which is now off Blood cultures negative till now , abdominal source of sepsis aztreonam Flagyl Continue at this time for 7 day course vancomycin added sputum culture is growing yeast which is likely a colonizer. Patient does have continued fever. Will expand antibiotic coverage with meropenem. Continue vancomycin. Chest x-ray shows persistent opacity despite dialysis and fluid removal. Will check CT scan of chest and sinuses. He does not have any significant ETT secretions (2) Acute respiratory failure: Code(s): J96.00 - Acute respiratory failure, unspecified whether with hypoxia or hypercapnia Status: Acute Assessment and Plan: Patient with acute respiratory failure likely related TRALI versus TACO versus ARDS versus aspiration pneumonia Chest x-ray reviewed. Shows persistent bilateral opacities ABG reviewed. Continue peep at 8 and FiO2 at 30% % Antibiotics as above Patient failed weaning trial today Continue mechanical ventilation (3) GI bleed: Code(s): K92.2 - Gastrointestinal hemorrhage, unspecified Status: Acute Assessment and Plan: Acute GI bleed, bright red blood in the NG tube drainage -hemoglobin dropped to 6.5 this morning with severe anemia, emergently called GI, -heparin infusion for NSTEMI was discontinued on 04/21/22, 8:00 p.m. -coags within normal limits -02/20: EGD: Reflux esophagitis, acute gastric ulcer with active oozing of blood, status post epinephrine injection, gold probe cauterization, 4 resolution clips Blood tinged output from NG tube has cleared. His stools are dark which may signify or blood. GI has now signed off Continue IV Protonix (4) Acute anemia: Code(s): D64.9 - Anemia, unspecified Status: Acute Assessment and Plan: 02/20 2 units of unmatched blood were transfused due to acute bright red blood in the NG drainage. Patient was also given FFP -hemoglobin stable at this, will continue to monitor (5) Acute non-ST elevation myocardial infarction (NSTEMI): Code(s): I21.4 - Non-ST elevation (NSTEMI) myocardial infarction Status: Acute Assessment and Plan: Patient presented with epigastric pain that was radiating to the chest. EKG showed ST T wave changes but no ST elevation, diagnosed with NSTEMI, or was started on heparin infusion on 02/19/2023 and stopped on the same day at night because of coffee-ground drainage from his NG -NG was placed due to partial small-bowel obstruction as seen on CT abdomen and pelvis -cardiology following the patient -aspirin and heparin were discontinued due to GI bleed -02/23 resumed aspirin and statin (6) Cardiomyopathy: Code(s): I42.9 - Cardiomyopathy, unspecified Status: Acute Assessment and Plan: Echocardiogram done on 02/19 showed EF more than 70% grade 1 diastolic dysfunction Patient on admission was diagnosed with non STEMI Later he developed volume overload shock and respiratory failure and required intubation and vasopressors Repeat echocardiogram done on 02/22 showed Mild left ventricular? enlargement with sigmoid hypertrophy of the septum.? The distal 2/3rds of the ventricle are severely hypokinetic, with akinesis of the distal septum, anterior wall and apex.? Ejection fraction 30-35%.? 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 ? 3. Left atrial chamber dimension is mildly enlarged. ? 4. There is mild to moderate mitral valve regurgitation. ? 5. Normal estimated pulmonary pressure. ? 6. Dilated inferior vena cava. This could very well be stress induced cardiomyopathy versus ischemic. Patient was on low-dose dobutamine for many days but now is off. Card
[2023-03-02] MEDS: MEROPENEM 1 GM in SODIUM CHLORIDE 0.9% IV 100 ML 200 ML IVPB (18:45)
[2023-03-02] MEDS: dexmedeTOMIDine 400 MCG/100 ML 400 MCG/100 ML BAG 16.88 MCG IV CONT (19:14)
[2023-03-02] MEDS: ALBUMIN HUMAN 5% 250 ML IV CONT (19:52)
[2023-03-02] MEDS: VASOPRESSIN INJ 100 UNITS in DEXTROSE 5% 95 ML IV CONT (20:03)
[2023-03-02 20:44] LABS: Glucose Point of Care 278 mg/dl (65-105)
[2023-03-02] MEDS: NOREPINEPHRINE 8 MG/D5W 250 ML 8 MG/250 ML BAG 43.13 MG IV CONT (21:15)
[2023-03-02 21:21] LABS: Hemoglobin 7.2 g/dL (14.0-18.0); Mean Corpuscular HGB Conc 31.3 g/dl (32-36); Mean Corpuscular Hemoglobin 30.1 pg (26-34); Mean Corpuscular Volume 96.2 fl (80-100); Platelet Count Result 167 k/mm3 (150-375); Red Blood Count 2.39 M/mm3 (4.6-6.20); Red Cell Distribution Width 18.9 % (11.5-14.5); White Blood Count 21.2 K/mm3 (4.5-10.0)
[2023-03-02 21:33] LABS: INR 1.6; Partial Thromboplastin Time 31.9 SECONDS (22.3-36.8); Prothrombin Time 20.3 Seconds (11.1-14.7)
[2023-03-02 21:51] LABS: Band Neutrophils Percent 2 % (0-6); Eosinophils Absolute Manual 0.84 K/mm3 (0.02-0.5); Eosinophils Percent Manual 4 % (0-4); Lymphocytes Absolute Manual 0.42 K/mm3 (1.1-4.5); Monocytes Absolute Manual 1.48 K/mm3 (0.1-0.90); Monocytes Percent Manual 7 % (3-9); Neutrophils Absolute Manual 18.44 K/mm3 (1.3-6.7); Neutrophils Percent Manual 85 % (46-73); Platelet Estimate Adequate (Adequate); Schistocytes None Seen (NORMAL); Total Cells Counted 100
[2023-03-02 21:52] LABS: Anisocytosis 2+ (NORMAL); Hypochromasia 1+ (NORMAL)
[2023-03-02 21:54] LABS: Polychromasia 1+ (NORMAL)
[2023-03-02] MEDS: HEPARIN SOD/D5W 100 UNITS/ML 25,000 UNITS/250 ML BAG 12 UNITS IV CONT (23:58)
[2023-03-03] VITALS (53 sets, daily range): BP systolic 94–123; BP diastolic 51–68; PULSE 66–96; RESP 17–41; TEMP 38.1–39; O2SAT 95–100
[2023-03-03] MEDS: ACETAMINOPHEN ELIXIR 325 MG/10.15 ML UDC 650 MG PO ×3 (00:07→16:58)
[2023-03-03] MEDS: INSULIN ASPART (*BKC) 100 UNITS/ML SUB-Q ×5 (00:18→16:52)
[2023-03-03] MEDS: dexmedeTOMIDine 400 MCG/100 ML 400 MCG/100 ML BAG 21.94 MCG IV CONT (00:33)
[2023-03-03] MEDS: SODIUM CHLORIDE 0.9% IV 250 ML 30 ML IV CONT (00:34)
[2023-03-03 00:49] LABS: Glucose Point of Care 226 mg/dl (65-105)
[2023-03-03] MEDS: NOREPINEPHRINE 8 MG/D5W 250 ML 8 MG/250 ML BAG 31.88 MG IV CONT (04:11)
[2023-03-03] MEDS: dexmedeTOMIDine 400 MCG/100 ML 400 MCG/100 ML BAG 25.31 MCG IV CONT ×2 (04:12→08:31)
[2023-03-03 04:17] LABS: Glucose Point of Care 287 mg/dl (65-105)
[2023-03-03 05:31] LABS: Alveolar/Arterial O2 Gradient 98.5 mmHg; Base Excess ABG -2.2 mEq/l (+/-2.0); Carboxyhemoglobin 0.3 % THb (0-2.0); Fractional Inspired Oxygen 30 %; HCO3 ABG 20.1 mEq/l (22.0-26.0); Methemoglobin ABG 0.2 %THb (0-1.5); Oxygen Content ABG 18.4 %vol (16.0-22.0); Oxygen Saturation ABG 96.9 % (95.0-100.0); Oxyhemoglobin 95.4 % THb (90.0-100.0); PO2 ABG 82.5 mmHg (80.0-100.0); PO2 FiO2 Ratio Arterial Blood 2.75 %; Reduced Hemoglobin 4.1 %THb (0-5.0); Total Hemoglobin 13.7 g/dL (12.0-18.0); pH ABG 7.473 (7.350-7.450)
[2023-03-03 05:32] LABS: Device VENTILATOR; Modified Allen's Test Pass; Site Drawn RIGHT RADIAL
[2023-03-03 05:33] LABS: Arterial Blood Gas PEEP 8 cmH2O; Arterial Blood Gas Tidal Volume 360 ml; Arterial Blood Gas Vent Mode CMV; Arterial Blood Gas Ventilator rate 18 /MIN
[2023-03-03] MEDS: CENTRAL LINE FLUSH 10 ML IV PUSH ×3 (05:48→21:46)
[2023-03-03 06:09] LABS: Hematocrit 26.9 % (42.0-52.0); Hemoglobin 8.7 g/dL (14.0-18.0); Mean Corpuscular HGB Conc 32.3 g/dl (32-36); Mean Corpuscular Hemoglobin 30.3 pg (26-34); Mean Corpuscular Volume 93.7 fl (80-100); Mean Platelet Volume 12.1 fl (7.4-10.4); Platelet Count Result 162 k/mm3 (150-375); Red Blood Count 2.87 M/mm3 (4.6-6.20); Red Cell Distribution Width 18.1 % (11.5-14.5); White Blood Count 20.3 K/mm3 (4.5-10.0)
[2023-03-03 06:21] LABS: Alanine Aminotransferase 572 U/L (6-50); Albumin Level 3.1 g/dL (3.5-5.1); Alkaline Phosphatase 97 U/L (38-126); Anion Gap 13 mmol/L (8-16); Blood Urea Nitrogen 56 mg/dL (9-20); Calcium 7.8 mg/dL (8.4-10.2); Carbon Dioxide 23 mmol/L (22-30); Chloride 94 mmol/L (98-107); Estimated CRCL calculation 19 ml/min; Estimated Glomerular Filt Rate 24; Glucose 276 mg/dL (65-110); Magnesium 1.9 mg/dL (1.6-2.3); Sodium 130 mmol/L (137-145)
[2023-03-03 06:58] LABS: Aspartate Amino Transferase 1446 U/L (17-59)
[2023-03-03 08:06] LABS: Partial Thromboplastin Time > 200.0 SECONDS (22.3-36.8)
[2023-03-03 08:21] LABS: Glucose Point of Care 342 mg/dl (65-105)
[2023-03-03] MEDS: PANTOPRAZOLE SODIUM IV 40 MG VIAL IV PUSH ×2 (08:30→20:30)
[2023-03-03] MEDS: ATORVASTATIN 40 MG TABLET 80 MG PO (08:30)
[2023-03-03] MEDS: ASPIRIN 81 MG CHEWABLE TABLET PO (08:30)
[2023-03-03] MEDS: MINERAL OIL/WHITE PETROLATUM OINTMENT 1 APPLIC EACH EYE ×2 (08:39→20:30)
[2023-03-03] MEDS: PROPOFOL IV EMULSION 100 ML 2.18 MG IV CONT (09:47)
[2023-03-03] MEDS: INSULIN GLARGINE (*BKC) 100 UNITS/ML 50 UNITS SUB-Q (09:55)
[2023-03-03] MEDS: NOREPINEPHRINE 8 MG/D5W 250 ML 8 MG/250 ML BAG 15 MG IV CONT (10:25)
--- NOTE | 2023-03-03 10:45 | PM.PNNEP ---
Progress Note: A&P Assessment and Plan (1) Acute kidney injury: Code(s): N17.9 - Acute kidney failure, unspecified Status: Acute Assessment and Plan: due to ATN from shock/hypotension new cardiomyopathy may also be playing a role HD today s/p DUF yesterday for fluid removal follow electrolytes, volume status, and clearance (2) Chronic kidney disease, stage 4 (severe): Code(s): N18.4 - Chronic kidney disease, stage 4 (severe) Status: Acute Assessment and Plan: baseline creatinie runs ~ 1.7 - 2.3mg/dl however, has been as high as 2.77mg/dl secondary to hypertension, diabetes, vascular disease, and age-related change follows with Dr. Rendon for CKD management (3) Shock: Code(s): R57.9 - Shock, unspecified Status: Acute Assessment and Plan: suspect related to a combination of blood loss, hypovolemia, and possible sepsis on vasopressor therapy to maintain MAP imaging noted (from 03/02): CT sinuses confirm sinusitis - NG replaced by OG CT chest showed?moderate bilateral pleural effusions; bilateral dependent subsegmental atelectasis/consolidation Lower extremity venous Dopplers confirmed DVT in both legs CT abdomen also showed possible gallbladder wall edema/inflammation-right upper quadrant ultrasound ordered to further assess (LFTs elevated a swell) follow culture data on antibiotics (4) Acute respiratory failure: Code(s): J96.00 - Acute respiratory failure, unspecified whether with hypoxia or hypercapnia Status: Acute Assessment and Plan: intubated and on mechanical ventilation fluid removal as tolerated by hemodynamics with dialysis if unable to get fluid off with HD, consider thoracentesis(?) not making much progress with ventilator weaning -- may need tracheostomy (5) Cardiomyopathy: Code(s): I42.9 - Cardiomyopathy, unspecified Status: Acute Assessment and Plan: echo done on 02/19 showed EF more than 70% grade 1 diastolic dysfunction repeat echocardiogram done on 02/22 noted: mild left ventricular? enlargement with sigmoid hypertrophy of the septum.? The distal 2/3rds of the ventricle are severely hypokinetic, with akinesis of the distal septum, anterior wall and apex.? Ejection fraction 30-35%.? 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 Left atrial chamber dimension is mildly enlarged. There is mild to moderate mitral valve regurgitation. Normal estimated pulmonary pressure. Dilated inferior vena cava. s/p trial of low-dose dobutamine for several days but now is off Cardiology following (6) GI bleed: Code(s): K92.2 - Gastrointestinal hemorrhage, unspecified Status: Acute Assessment and Plan: as noted by bright red blood via NG tube drainage H/H dropped to as los as 6.5 (on 02/20/23) complicated by previous use of heparin gtt for NSTEMI which was discontinued (on 02/19/23) Gastroenterology following: EGD (on 02/20): reflux esophagitis, acute gastric ulcer with active oozing of blood, status post epinephrine injection, gold probe cauterization, 4 resolution clips on IV PPI Epogen with HD follow H/H (7) Acute anemia: Code(s): D64.9 - Anemia, unspecified Status: Acute Assessment and Plan: see #6 s/p PRBC and FFP transfusions follow trend of H/H (8) Acute non-ST elevation myocardial infarction (NSTEMI): Code(s): I21.4 - Non-ST elevation (NSTEMI) myocardial infarction Status: Acute Assessment and Plan: symptoms of epigastric pain that was radiating to the chest EKG showed ST T wave changes but no ST elevation -- diagnosed with NSTEMI started on heparin infusion on 02/19/2023 and stopped on the same day at night because of coffee-ground drainage from his NG Cardiology following repeat Echo noted -- EF 30-35% (see #5) (9) Small bowel obstruction: Code(s): K56.609 - Unspecified intestinal obstruction, unspecified as
--- NOTE | 2023-03-03 10:45 | P.PNNP_ITS ---
Progress Note: A&P Assessment and Plan (1) Acute kidney injury: Code(s): N17.9 - Acute kidney failure, unspecified Status: Acute Assessment and Plan: * due to ATN from shock/hypotension * new cardiomyopathy may also be playing a role * HD today * s/p DUF yesterday for fluid removal * follow electrolytes, volume status, and clearance (2) Chronic kidney disease, stage 4 (severe): Code(s): N18.4 - Chronic kidney disease, stage 4 (severe) Status: Acute Assessment and Plan: * baseline creatinie runs ~ 1.7 - 2.3mg/dl * however, has been as high as 2.77mg/dl * secondary to hypertension, diabetes, vascular disease, and age-related change * follows with Dr. Rendon for CKD management (3) Shock: Code(s): R57.9 - Shock, unspecified Status: Acute Assessment and Plan: * suspect related to a combination of blood loss, hypovolemia, and possible sepsis * on vasopressor therapy to maintain MAP * imaging noted (from 03/02): * CT sinuses confirm sinusitis - NG replaced by OG * CT chest showed?moderate bilateral pleural effusions; bilateral dependent subsegmental atelectasis/consolidation * Lower extremity venous Dopplers confirmed DVT in both legs * CT abdomen also showed possible gallbladder wall edema/inflammation-right upper quadrant ultrasound ordered to further assess (LFTs elevated a swell) * follow culture data * on antibiotics (4) Acute respiratory failure: Code(s): J96.00 - Acute respiratory failure, unspecified whether with hypoxia or hypercap eugenia Status: Acute Assessment and Plan: * intubated and on mechanical ventilation * fluid removal as tolerated by hemodynamics with dialysis * if unable to get fluid off with HD, consider thoracentesis(?) * not making much progress with ventilator weaning -- may need tracheostomy (5) Cardiomyopathy: Code(s): I42.9 - Cardiomyopathy, unspecified Status: Acute Assessment and Plan: * echo done on 02/19 showed EF more than 70% grade 1 diastolic dysfunction * repeat echocardiogram done on 02/22 noted: * mild left ventricular? enlargement with sigmoid hypertrophy of the septum.? The distal 2/3rds of the ventricle are severely hypokinetic, with akinesis of the distal septum, anterior wall and apex.? Ejection fraction 30-35%.? 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 Left atrial chamber dimension is mildly enlarged. There is mild to moderate mitral valve regurgitation. Normal estimated pulmonary pressure. Dilated inferior vena cava. * s/p trial of low-dose dobutamine for several days but now is off * Cardiology following (6) GI bleed: Code(s): K92.2 - Gastrointestinal hemorrhage, unspecified Status: Acute Assessment and Plan: * as noted by bright red blood via NG tube drainage * H/H dropped to as los as 6.5 (on 02/20/23) * complicated by previous use of heparin gtt for NSTEMI which was discontinued (on 02/19/23) * Gastroenterology following: * EGD (on 02/20): reflux esophagitis, acute gastric ulcer with active oozing of blood, status post epinephrine injection, gold probe cauterization, 4 resolution clips * on IV PPI * Epogen with HD * follow H/H (7) Acute anemia: Code(s): D64.9 - Anemia, unspecified Status: Acute Assessment and Plan: * see #6 * s/p PRBC and FFP transfusions * follow trend of H/H (8) Acute non-ST elevation myocardial infarction (NSTEMI): Code(s): I21.4 - Non-ST elevation (NSTEMI) myocardial infarction
--- NOTE | 2023-03-03 11:51 | WPDINTPN ---
Progress Note: A&P Assessment and Plan (1) Shock: Code(s): R57.9 - Shock, unspecified Status: Acute Assessment and Plan: Multifactorial shock likely related to hemorrhagic, hypovolemic, sepsis and cardiogenic -currently on Levophed . Vaso and [place]-Synephrine have been weaned off. Continue to titrate to maintain MAP > 65 mmHg at all times for adequate end organ perfusion -02/23 repeat echo shows EF of 30-35% patient was started on 2.5 mcg of dobutamine which is now off -off 25% albumin -will discontinue hydrocortisone -urine and Blood cultures negative till now -02/20: patient was started on levofloxacin and metronidazole to, abdominal source of sepsis.02/22 switched to aztreonam Flagyl Continue at this time for 7 day course -02/27 - low-grade fever-sent repeat blood cultures and sputum cultures. Gramajo was changed. UA suggestive of UTI. Culture pending - 02/28 vancomycin added - 03/02 sputum culture is growing yeast which is likely a colonizer. Patient does have continued fever. Antibiotic coverage was expanded to meropenem and vancomycin was continued CT sinuses confirm sinusitis-NG tube was removed and an OG tube was placed instead CT chest showed Moderate bilateral pleural effusions. Bilateral dependent subsegmental atelectasis/consolidation Lower extremity venous Dopplers confirmed DVT in both legs CT chest also showed possible gallbladder wall edema/inflammation-right upper quadrant ultrasound ordered to further assess (2) Sepsis: Code(s): A41.9 - Sepsis, unspecified organism Status: Acute (3) Acute respiratory failure: Code(s): J96.00 - Acute respiratory failure, unspecified whether with hypoxia or hypercapnia Status: Acute Assessment and Plan: Patient with acute respiratory failure likely related TRALI versus TACO versus ARDS versus aspiration pneumonia Chest x-ray reviewed. Shows persistent bilateral opacities ABG reviewed. Continue peep at 8 and FiO2 at 30% % Antibiotics as above 02/26 -started on hemodialysis. 02/28 patient was placed on PSV 5/8. Initially he did well and is ABG in RSBI were adequate but he was too drowsy. Once his sedation wore off he became more agitated tachypneic and asynchronous with the ventilator. Patient was started on Precedex infusion. Patient was placed back on CMV 03/01 patient again did not tolerate weaning trial and became tachypneic. Additional fluid was removed with dialysis 03/02 CT chest Showed moderate bilateral pleural effusions. Bilateral dependent subsegmental atelectasis/consolidation 03/03 patient was attempted a PSV weaning trial this morning and he quickly failed due to high RSBI. Patient appeared tachypneic and anxious despite Precedex infusion. Started on low-dose propofol. Will request IR for right thoracentesis if family wants to proceed. Patient may need tracheostomy if unable to wean through this week (4) GI bleed: Code(s): K92.2 - Gastrointestinal hemorrhage, unspecified Status: Acute Assessment and Plan: Acute GI bleed, bright red blood in the NG tube drainage -hemoglobin dropped to 6.5 this morning with severe anemia, emergently called GI, -heparin infusion for NSTEMI was discontinued on 04/21/22, 8:00 p.m. -coags within normal limits -02/20: EGD: Reflux esophagitis, acute gastric ulcer with active oozing of blood, status post epinephrine injection, gold probe cauterization, 4 resolution clips Blood tinged output from NG tube has cleared. His stools are dark which may signify or blood. GI has now signed off Continue IV Protonix Continue aspirin and change DVT prophylaxis Lovenox to heparin infusion Continue close hemoglobin monitoring. Monitor if there is a precipitous drop or signs of active bleeding. Will re-consult Gastroenterology Transfuse if needed (5) Acute anemia: Code(s): D64.9 - Anemia, unspecified Status: Acute Assessment and Plan: 02/20 2 units of unmatched blood were t
[2023-03-03 12:31] LABS: Glucose Point of Care 311 mg/dl (65-105)
[2023-03-03] MEDS: HYDROCORTISONE SODIUM SUCCINATE 100 MG/2 ML VIAL IV PUSH ×2 (14:35→21:46)
[2023-03-03 15:19] LABS: Hematocrit 25.5 % (42.0-52.0); Hemoglobin 8.1 g/dL (14.0-18.0); Mean Corpuscular HGB Conc 31.8 g/dl (32-36); Mean Corpuscular Hemoglobin 29.5 pg (26-34); Mean Corpuscular Volume 92.7 fl (80-100); Mean Platelet Volume 12.2 fl (7.4-10.4); Platelet Count Result 164 k/mm3 (150-375); Red Blood Count 2.75 M/mm3 (4.6-6.20); Red Cell Distribution Width 19.1 % (11.5-14.5); White Blood Count 16.9 K/mm3 (4.5-10.0)
[2023-03-03 15:43] LABS: Partial Thromboplastin Time > 200.0 SECONDS (22.3-36.8)
[2023-03-03 16:42] LABS: Glucose Point of Care 295 mg/dl (65-105)
[2023-03-03] MEDS: dexmedeTOMIDine 400 MCG/100 ML 400 MCG/100 ML BAG 15.19 MCG IV CONT (16:51)
[2023-03-03] MEDS: NOREPINEPHRINE 8 MG/D5W 250 ML 8 MG/250 ML BAG 13.13 MG IV CONT (17:05)
[2023-03-03] MEDS: MEROPENEM 1 GM in SODIUM CHLORIDE 0.9% IV 100 ML 200 ML IVPB (17:57)
[2023-03-03 20:50] LABS: Glucose Point of Care 157 mg/dl (65-105)
[2023-03-03] MEDS: dexmedeTOMIDine 400 MCG/100 ML 400 MCG/100 ML BAG 13.5 MCG IV CONT (21:38)
[2023-03-03 23:37] LABS: Partial Thromboplastin Time > 200.0 SECONDS (22.3-36.8)
[2023-03-04] VITALS (57 sets, daily range): BP systolic 71–114; BP diastolic 41–64; PULSE 60–99; RESP 23–100; TEMP 36.6–38.4; O2SAT 94–100
[2023-03-04] MEDS: INSULIN ASPART (*BKC) 100 UNITS/ML SUB-Q ×4 (00:30→21:07)
[2023-03-04 00:38] LABS: Glucose Point of Care 340 mg/dl (65-105)
[2023-03-04 01:35] LABS: Hematocrit 23.7 % (42.0-52.0); Hemoglobin 7.7 g/dL (14.0-18.0)
[2023-03-04 02:08] LABS: Partial Thromboplastin Time > 200.0 SECONDS (22.3-36.8)
[2023-03-04] MEDS: dexmedeTOMIDine 400 MCG/100 ML 400 MCG/100 ML BAG 13.5 MCG IV CONT (02:19)
[2023-03-04] MEDS: ACETAMINOPHEN ELIXIR 325 MG/10.15 ML UDC 650 MG PO (04:29)
[2023-03-04 04:47] LABS: Glucose Point of Care 315 mg/dl (65-105)
[2023-03-04 04:48] LABS: Hemoglobin 7.8 g/dL (14.0-18.0); Mean Corpuscular HGB Conc 32.5 g/dl (32-36); Mean Corpuscular Hemoglobin 30.2 pg (26-34); Mean Platelet Volume 12.1 fl (7.4-10.4); Platelet Count Result 175 k/mm3 (150-375); Red Blood Count 2.58 M/mm3 (4.6-6.20); Red Cell Distribution Width 18.9 % (11.5-14.5); White Blood Count 20.3 K/mm3 (4.5-10.0)
[2023-03-04 05:01] LABS: Partial Thromboplastin Time 110.4 SECONDS (22.3-36.8)
[2023-03-04 05:09] LABS: Alveolar/Arterial O2 Gradient 88.8 mmHg; Base Excess ABG -4.6 mEq/l (+/-2.0); Carboxyhemoglobin 0.2 % THb (0-2.0); Fractional Inspired Oxygen 30 %; HCO3 ABG 17.6 mEq/l (22.0-26.0); Methemoglobin ABG 0.3 %THb (0-1.5); Oxygen Content ABG 12.3 %vol (16.0-22.0); Oxyhemoglobin 96.1 % THb (90.0-100.0); PO2 ABG 97.5 mmHg (80.0-100.0); PO2 FiO2 Ratio Arterial Blood 3.25 %; Reduced Hemoglobin 3.4 %THb (0-5.0); pH ABG 7.493 (7.350-7.450)
[2023-03-04 05:10] LABS: Arterial Blood Gas PEEP 8 cmH2O; Arterial Blood Gas Tidal Volume 360 ml; Arterial Blood Gas Vent Mode CMV; Arterial Blood Gas Ventilator rate 18 /MIN; Device VENTILATOR; Modified Allen's Test Unable to perform; PCO2 ABG 23.5 mmHg (35.0-45.0); Site Drawn RIGHT RADIAL
[2023-03-04 05:11] LABS: Alanine Aminotransferase 583 U/L (6-50); Albumin Level 2.7 g/dL (3.5-5.1); Alkaline Phosphatase 93 U/L (38-126); Anion Gap 12 mmol/L (8-16); Bilirubin,Total 0.8 mg/dL (0.2-1.3); Blood Urea Nitrogen 82 mg/dL (9-20); Calcium 7.5 mg/dL (8.4-10.2); Carbon Dioxide 22 mmol/L (22-30); Chloride 92 mmol/L (98-107); Estimated CRCL calculation 17 ml/min; Estimated Glomerular Filt Rate 21; Glucose 300 mg/dL (65-110); Potassium 4.2 mmol/L (3.4-5.0); Sodium 126 mmol/L (137-145)
[2023-03-04 05:24] LABS: Aspartate Amino Transferase 872 U/L (17-59)
[2023-03-04] MEDS: CENTRAL LINE FLUSH 10 ML IV PUSH ×3 (06:36→22:14)
[2023-03-04] MEDS: HYDROCORTISONE SODIUM SUCCINATE 100 MG/2 ML VIAL IV PUSH ×3 (06:36→21:43)
[2023-03-04 08:35] LABS: Glucose Point of Care 322 mg/dl (65-105)
[2023-03-04] MEDS: ALBUMIN HUMAN 25% 12.5 GM/50ML 150 ML 50 GM (09:05)
[2023-03-04] MEDS: dexmedeTOMIDine 400 MCG/100 ML 400 MCG/100 ML BAG 16.88 MCG IV CONT ×2 (09:15→15:28)
[2023-03-04] MEDS: ASPIRIN 81 MG CHEWABLE TABLET PO (09:16)
[2023-03-04] MEDS: ATORVASTATIN 40 MG TABLET 80 MG PO (09:17)
[2023-03-04] MEDS: PANTOPRAZOLE SODIUM IV 40 MG VIAL IV PUSH ×2 (09:18→21:44)
[2023-03-04] MEDS: INSULIN GLARGINE (*BKC) 100 UNITS/ML 65 UNITS SUB-Q (09:18)
[2023-03-04] MEDS: MINERAL OIL/WHITE PETROLATUM OINTMENT 1 APPLIC EACH EYE ×2 (09:18→21:40)
--- NOTE | 2023-03-04 09:43 | WPDINTPN ---
Progress Note: A&P Assessment and Plan (1) Shock: Code(s): R57.9 - Shock, unspecified Status: Acute Assessment and Plan: Multifactorial shock likely related to hemorrhagic, hypovolemic, sepsis and cardiogenic -currently on Levophed . Vaso and Kiel-Synephrine have been weaned off. Continue to titrate to maintain MAP > 65 mmHg at all times for adequate end organ perfusion -02/23 repeat echo shows EF of 30-35% patient was started on 2.5 mcg of dobutamine which is now off -off 25% albumin -will discontinue hydrocortisone -urine and Blood cultures negative till now -02/20: patient was started on levofloxacin and metronidazole to, abdominal source of sepsis.02/22 switched to aztreonam Flagyl Continue at this time for 7 day course -02/27 - low-grade fever-sent repeat blood cultures and sputum cultures. Gramajo was changed. UA suggestive of UTI. Culture pending - 02/28 vancomycin added - 03/02 sputum culture is growing yeast which is likely a colonizer. Patient does have continued fever. Antibiotic coverage was expanded to meropenem and vancomycin was continued CT sinuses confirm sinusitis-NG tube was removed and an OG tube was placed instead CT chest showed Moderate bilateral pleural effusions. Bilateral dependent subsegmental atelectasis/consolidation Lower extremity venous Dopplers confirmed DVT in both legs CT chest also showed possible gallbladder wall edema/inflammation-right upper quadrant ultrasound ordered to further assess Patient's Levophed requirement had got significantly up once he was weaned off of hydrocortisone. Patient was restarted on hydrocortisone 03/04 Levophed requirement improved with rate down to 6 mics and patient on vasopressin Right upper quadrant ultrasound pending (2) Sepsis: Code(s): A41.9 - Sepsis, unspecified organism Status: Acute Assessment and Plan: See above (3) Acute respiratory failure: Code(s): J96.00 - Acute respiratory failure, unspecified whether with hypoxia or hypercapnia Status: Acute Assessment and Plan: Patient with acute respiratory failure likely related TRALI versus TACO versus ARDS versus aspiration pneumonia Chest x-ray reviewed. Shows persistent bilateral opacities ABG reviewed. Continue peep at 8 and FiO2 at 30% % Antibiotics as above 02/26 -started on hemodialysis. 02/28 patient was placed on PSV 5/8. Initially he did well and is ABG in RSBI were adequate but he was too drowsy. Once his sedation wore off he became more agitated tachypneic and asynchronous with the ventilator. Patient was started on Precedex infusion. Patient was placed back on CMV 03/01 patient again did not tolerate weaning trial and became tachypneic. Additional fluid was removed with dialysis 03/02 CT chest Showed moderate bilateral pleural effusions. Bilateral dependent subsegmental atelectasis/consolidation 03/03 patient was attempted a PSV weaning trial this morning and he quickly failed due to high RSBI. Patient appeared tachypneic and anxious despite Precedex infusion. Started on low-dose propofol. Will request IR for right thoracentesis if family wants to proceed. 03/04 consulted IR for right thoracentesis. Patient tachypneic and asynchronous on CMV. Patient was placed on high pressure support ventilation mode and appeared more comfortable and synchronous. Continue PSV as tolerated and wean down pressure support. Patient may need tracheostomy if unable to wean through this week despite removing fluid with thoracentesis and dialysis (4) GI bleed: Code(s): K92.2 - Gastrointestinal hemorrhage, unspecified Status: Acute Assessment and Plan: Acute GI bleed, bright red blood in the NG tube drainage -hemoglobin dropped to 6.5 this morning with severe anemia, emergently called GI, -heparin infusion for NSTEMI was discontinued on 04/21/22, 8:00 p.m. -coags within normal limits -02/20: EGD: Reflux esophagitis, acute gastric ulcer with active oozing
--- NOTE | 2023-03-04 10:20 | P.PNNP_ITS ---
Progress Note: A&P Assessment and Plan (1) Acute kidney injury: Code(s): N17.9 - Acute kidney failure, unspecified Status: Acute Assessment and Plan: * due to ATN from shock/hypotension * new cardiomyopathy may also be playing a role * HD today anc continue 3x/week dialysis * follow electrolytes, volume status, and clearance * follow repeat labs and UOP for possible/potential renal recovery (2) Chronic kidney disease, stage 4 (severe): Code(s): N18.4 - Chronic kidney disease, stage 4 (severe) Status: Acute Assessment and Plan: * baseline creatinie runs ~ 1.7 - 2.3mg/dl * however, has been as high as 2.77mg/dl * secondary to hypertension, diabetes, vascular disease, and age-related change * follows with Dr. Rendon for CKD management (3) Shock: Code(s): R57.9 - Shock, unspecified Status: Acute Assessment and Plan: * suspect related to a combination of blood loss, hypovolemia, and possible sepsis * on vasopressor therapy to maintain MAP * imaging noted (from 03/02): * CT sinuses confirm sinusitis - NG replaced by OG * CT chest showed?moderate bilateral pleural effusions; bilateral dependent subsegmental atelectasis/consolidation * Lower extremity venous Dopplers confirmed DVT in both legs * CT abdomen also showed possible gallbladder wall edema/inflammation-right upper quadrant ultrasound ordered to further assess (LFTs elevated a swell) * follow culture data * on antibiotics (4) Acute respiratory failure: Code(s): J96.00 - Acute respiratory failure, unspecified whether with hypoxia or hypercapnia Status: Acute Assessment and Plan: * intubated and on mechanical ventilation * fluid removal as tolerated by hemodynamics with dialysis * if unable to get fluid off with HD, consider thoracentesis(?) * not making much progress with ventilator weaning -- may need tracheostomy (5) Cardiomyopathy: Code(s): I42.9 - Cardiomyopathy, unspecified Status: Acute Assessment and Plan: * echo done on 02/19 showed EF more than 70% grade 1 diastolic dysfunction * repeat echocardiogram done on 02/22 noted: * mild left ventricular? enlargement with sigmoid hypertrophy of the septum.? The distal 2/3rds of the ventricle are severely hypokinetic, with akinesis of the distal septum, anterior wall and apex.? Ejection fraction 30-35%.? 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 Left atrial chamber dimension is m ildly enlarged. There is mild to moderate mitral valve regurgitation. Normal estimated pulmonary pressure. Dilated inferior vena cava. * s/p trial of low-dose dobutamine for several days but now is off * Cardiology following (6) GI bleed: Code(s): K92.2 - Gastrointestinal hemorrhage, unspecified Status: Acute Assessment and Plan: * as noted by bright red blood via NG tube drainage * H/H dropped to as los as 6.5 (on 02/20/23) * complicated by previous use of heparin gtt for NSTEMI which was discontinued (on 02/19/23) * Gastroenterology following: * EGD (on 02/20): reflux esophagitis, acute gastric ulcer with active oozing of blood, status post epinephrine injection, gold probe cauterization, 4 resolution clips * on IV PPI * Epogen with HD * follow H/H (7) Acute anemia: Code(s): D64.9 - Anemia, unspecified Status: Acute Assessment and Plan: * see #6 * s/p PRBC and FFP transfusions * follow trend of H/H (8) Acute non-ST elevation myocardial infarction (NSTEMI): Code(s): I21.
--- NOTE | 2023-03-04 10:20 | PM.PNNEP ---
Progress Note: A&P Assessment and Plan (1) Acute kidney injury: Code(s): N17.9 - Acute kidney failure, unspecified Status: Acute Assessment and Plan: due to ATN from shock/hypotension new cardiomyopathy may also be playing a role HD today anc continue 3x/week dialysis follow electrolytes, volume status, and clearance follow repeat labs and UOP for possible/potential renal recovery (2) Chronic kidney disease, stage 4 (severe): Code(s): N18.4 - Chronic kidney disease, stage 4 (severe) Status: Acute Assessment and Plan: baseline creatinie runs ~ 1.7 - 2.3mg/dl however, has been as high as 2.77mg/dl secondary to hypertension, diabetes, vascular disease, and age-related change follows with Dr. Rendon for CKD management (3) Shock: Code(s): R57.9 - Shock, unspecified Status: Acute Assessment and Plan: suspect related to a combination of blood loss, hypovolemia, and possible sepsis on vasopressor therapy to maintain MAP imaging noted (from 03/02): CT sinuses confirm sinusitis - NG replaced by OG CT chest showed?moderate bilateral pleural effusions; bilateral dependent subsegmental atelectasis/consolidation Lower extremity venous Dopplers confirmed DVT in both legs CT abdomen also showed possible gallbladder wall edema/inflammation-right upper quadrant ultrasound ordered to further assess (LFTs elevated a swell) follow culture data on antibiotics (4) Acute respiratory failure: Code(s): J96.00 - Acute respiratory failure, unspecified whether with hypoxia or hypercapnia Status: Acute Assessment and Plan: intubated and on mechanical ventilation fluid removal as tolerated by hemodynamics with dialysis if unable to get fluid off with HD, consider thoracentesis(?) not making much progress with ventilator weaning -- may need tracheostomy (5) Cardiomyopathy: Code(s): I42.9 - Cardiomyopathy, unspecified Status: Acute Assessment and Plan: echo done on 02/19 showed EF more than 70% grade 1 diastolic dysfunction repeat echocardiogram done on 02/22 noted: mild left ventricular? enlargement with sigmoid hypertrophy of the septum.? The distal 2/3rds of the ventricle are severely hypokinetic, with akinesis of the distal septum, anterior wall and apex.? Ejection fraction 30-35%.? 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 Left atrial chamber dimension is mildly enlarged. There is mild to moderate mitral valve regurgitation. Normal estimated pulmonary pressure. Dilated inferior vena cava. s/p trial of low-dose dobutamine for several days but now is off Cardiology following (6) GI bleed: Code(s): K92.2 - Gastrointestinal hemorrhage, unspecified Status: Acute Assessment and Plan: as noted by bright red blood via NG tube drainage H/H dropped to as los as 6.5 (on 02/20/23) complicated by previous use of heparin gtt for NSTEMI which was discontinued (on 02/19/23) Gastroenterology following: EGD (on 02/20): reflux esophagitis, acute gastric ulcer with active oozing of blood, status post epinephrine injection, gold probe cauterization, 4 resolution clips on IV PPI Epogen with HD follow H/H (7) Acute anemia: Code(s): D64.9 - Anemia, unspecified Status: Acute Assessment and Plan: see #6 s/p PRBC and FFP transfusions follow trend of H/H (8) Acute non-ST elevation myocardial infarction (NSTEMI): Code(s): I21.4 - Non-ST elevation (NSTEMI) myocardial infarction Status: Acute Assessment and Plan: symptoms of epigastric pain that was radiating to the chest EKG showed ST T wave changes but no ST elevation -- diagnosed with NSTEMI started on heparin infusion on 02/19/2023 and stopped on the same day at night because of coffee-ground drainage from his NG Cardiology following repeat Echo noted -- EF 30-35% (see #5) (9) Small bowel obstruction: Code(s): K5
--- NOTE | 2023-03-04 10:25 | PCNFU ---
Nutrition Follow-Up Complete: Altered GI function as related to GI bleed as evidenced by NPO. Meet estimated nutritional needs. - goal being met with tube feeding Goal: Pt current nutrition is Nepro @ 40 ml/h with Prosource TF once per day (total 1674 kcal, 91 g protein, 640 ml free water) Flush 30 ml q 4 hours. Nutrition recommendation: Continue with current tube feeding orders with no changes. Last recorded weight is 72.7 kg. Bowel Motility: Liquid stool per FMS Labs Reviewed: Hgb 7.8, Hct 24, Alb 2.7, Na 126, GFR 21, BUN 82, Cre 2.9, Glu 322 Meds Noted: Precedex, Levophed @ 11.25 ml/h; Vasopressin @ 2.4 ml/h. Skin: WNL Additional Notes: Requiring increased pressors; tube feeding is being tolerated well. Maintaining MAP 74 currently. Plan for possible trach next week. Will monitor weight, labs, skin, diet orders every 3 days.
[2023-03-04] MEDS: EPOETIN ALFA-EPBX 10,000 UNITS/ML VIAL 10000 UNITS IV PUSH (11:25)
[2023-03-04 12:20] LABS: Glucose Point of Care 191 mg/dl (65-105)
[2023-03-04 12:26] LABS: INR 1.3; Prothrombin Time 16.8 Seconds (11.1-14.7)
[2023-03-04 12:27] LABS: Partial Thromboplastin Time 52.2 SECONDS (22.3-36.8)
[2023-03-04] MEDS: VANCOMYCIN 750 MG/NS 250 ML 750 MG/250 ML BAG 250 MG IVPB (14:11)
[2023-03-04] MEDS: NOREPINEPHRINE 8 MG/D5W 250 ML 8 MG/250 ML BAG 5.63 MG IV CONT (14:32)
[2023-03-04 15:55] LABS: Lactate Dehydrogenase 1115 U/L (120-246)
[2023-03-04 16:22] LABS: Glucose Point of Care 203 mg/dl (65-105)
--- NOTE | 2023-03-04 17:27 | P.PNIM_ITS ---
Progress Note: A&P Assessment and Plan (1) Shock: Code(s): R57.9 - Shock, unspecified Status: Acute Assessment and Plan: Multifactorial shock likely related to hemorrhagic, hypovolemic, sepsis and cardiogenic -currently on Levophed . Vaso and Kiel-Synephrine have been weaned off. Continue to titrate to maintain MAP > 65 mmHg at all times for adequate end organ perfusion -02/23 repeat echo shows EF of 30-35% patient was started on 2.5 mcg of dobutamine which is now off -off 25% albumin -will discontinue hydrocortisone -urine and Blood cultures negative till now -02/20: patient was started on levofloxacin and metronidazole to, abdominal source of sepsis.02/22 switched to aztreonam Flagyl Continue at this time for 7 day course -02/27 - low-grade fever-sent repeat blood cultures and sputum cultures. Gramajo was changed. UA suggestive of UTI. Culture pending - 02/28 vancomycin added - 03/02 sputum culture is growing yeast which is likely a colonizer. Patient does have continued fever. Antibiotic coverage was expanded to meropenem and vancomycin was continued CT sinuses confirm sinusitis-NG tube was removed and an OG tube was placed instead CT chest showed Moderate bilateral pleural effusions. Bilateral dependent subsegmental atelectasis/consolidation Lower extremity venous Dopplers confirmed DVT in both legs CT chest also showed possible gallbladder wall edema/inflammation-right upper quadrant ultrasound ordered to further assess Patient's Levophed requirement had got significantly up once he was weaned off of hydrocortisone. Patient was restarted on hydrocortisone 03/04 Levophed requirement improved with rate down to 6 mics and patient on vasopressin Right upper quadrant ultrasound pending (2) Sepsis: Code(s): A41.9 - Sepsis, unspecified organism Status: Acute Assessment and Plan: See above (3) Acute respiratory failure: Code(s): J96.00 - Acute respiratory failure, unspecified whether with hypoxia or hypercapnia Status: Acute Assessment and Plan: Patient with acute respiratory failure likely related TRALI versus TACO versus ARDS versus aspiration pneumonia Chest x-ray reviewed. Shows persistent bilateral opacities ABG reviewed. Continue peep at 8 and FiO2 at 30% % Antibiotics as above 02/26 -started on hemodialysis. 02/28 patient was placed on PSV 5/8. Initially he did well and is ABG in RSBI were adequate but he was too drowsy. Once his sedation wore off he became more agitated tachypneic and asynchronous with the ventilator. Patient was started on Precedex infusion. Patient was placed back on CMV 03/01 patient again did not tolerate weaning trial and became tachypneic. Additional fluid was removed with dialysis 03/02 CT chest Showed moderate bilateral pleural effusions. Bilateral dependent subsegmental atelectasis/consolidation 03/03 patient was attempted a PSV weaning trial this morning and he quickly failed due to high RSBI. Patient appeared tachypneic and anxious despite Precedex infusion. Started on low-dose propofol. Will request IR for right thoracentesis if family wants to proceed. 03/04 consulted IR for right thoracentesis. Patient tachypneic and asynchronous on CMV. Patient was placed on high pressure support ventilation mode and appeared more comfortable and synchronous. Continue PSV as tolerated and wean down pressure support. Patient may need tracheostomy if unable to wean through this week despite removing fluid with thoracentesis and dialysis (4) GI bleed: Code(s): K92.2 - Gastrointestinal hemorrhage, unspecified Status: Acute Assessment and Plan:
[2023-03-04] MEDS: MEROPENEM 1 GM in SODIUM CHLORIDE 0.9% IV 100 ML 200 ML IVPB (18:01)
[2023-03-04 18:20] LABS: Partial Thromboplastin Time 39.5 SECONDS (22.3-36.8)
[2023-03-04 21:06] LABS: Glucose Point of Care 265 mg/dl (65-105)
[2023-03-04] MEDS: HEPARIN SOD/D5W 100 UNITS/ML 25,000 UNITS/250 ML BAG 8 UNITS IV CONT (21:10)
[2023-03-04] MEDS: dexmedeTOMIDine 400 MCG/100 ML 400 MCG/100 ML BAG 15.19 MCG IV CONT (21:20)
[2023-03-05] VITALS (16 sets, daily range): BP systolic 67–88; BP diastolic 49–59; PULSE 57–97; RESP 29–35; TEMP 36.6–38.2; O2SAT 93–100
--- NOTE | 2023-03-05 | ECHOL_ITS ---
Patient Info Name: Vince Walters Age: 77 years : 1945 Gender: Male Ht: 69 in Wt: 166 lbs BSA: 1.92 m2 HR: 85 bpm BP: 84 / 58 mmHg Heart Rhythm: Sinus Rhythm Technical Quality: Good Exam Date: 03/05/2023 8:30 AM Exam Location: Echo Lab Patient Status: Inpatient Admit Date: 02/19/2023 Staff Ordering Physician: Oumar George MD Developmental Services Worker: Enrrique Odonnell RDCS Attending Provider: Darline Mckeon DO Exam Type: CA echo limited Study Info Indications - lv and rv function, shock, dvt Limited two-dimensional transthoracic echocardiogram is performed. Summary 1. Left ventricular enlargement with severe global systolic hypokinesia. 2. Normal right ventricular size but severe systolic dysfunction as well. 3. Enlarged left atrium. 4. Sclerotic but not stenotic aortic valve. Left Ventricle Left ventricular chamber dimension is moderately enlarged. Left ventricular systolic function is severely reduced, estimated at 20-25%. Right Ventricle Right ventricular chamber dimension is normal. Right ventricular systolic function is reduced. Left Atria Left atrial chamber dimension is mildly enlarged. Right Atria Right atrial chamber dimension is mildly enlarged. Aortic Valve The aortic valve is trileaflet. There is mild aortic valve sclerosis. Pulmonic Valve The pulmonic valve is not well visualized. Mitral Valve The mitral valve has normal leaflets. Tricuspid Valve The tricuspid valve leaflets are normal. Pericardium/Pleural The pericardium appears normal. Aorta The aortic root size at the sinus of Valsalva is normal. Left Ventricular Outflow Tract Name Value Normal LVOT 2D LVOT Diameter 1.6 cm Tricuspid Valve Name Value Normal TV Regurgitation Doppler TR Peak Velocity 260 cm/s TR Peak Gradient 27 mmHg Estimated PAP/RSVP RA Pressure 10 mmHg <=5 PA Systolic Pressure 37 mmHg <36 RV Systolic Pressure 37 mmHg <36 Aortic Valve Name Value Normal AV Regurgitation 2D LVOT Area 2.0 cm2 Ventricles Name Value Normal LV Dimensions 2D/MM IVS Diastolic Thickness (2D) 1.2 cm 0.6-1.0 LVID Diastole (2D) 4.4 cm 4.2-5.8 LVIW Diastolic Thickness (2D) 1.0 cm 0.6-1.0 LVID Systole (2D) 3.6 cm 2.5-4.0 LVOT Diameter
[2023-03-05] MEDS: INSULIN ASPART (*BKC) 100 UNITS/ML SUB-Q ×3 (00:20→08:15)
[2023-03-05 00:21] LABS: Glucose Point of Care 261 mg/dl (65-105)
[2023-03-05 02:22] LABS: Partial Thromboplastin Time > 200.0 SECONDS (22.3-36.8)
[2023-03-05] MEDS: dexmedeTOMIDine 400 MCG/100 ML 400 MCG/100 ML BAG 15.19 MCG IV CONT (03:12)
[2023-03-05] MEDS: PROPOFOL IV EMULSION 100 ML 13.09 MG IV CONT (04:22)
[2023-03-05 04:32] LABS: Basophils Absolute Auto 0.1 K/mm3 (0.0-0.1); Basophils Percent Auto 0.2 % (0.2-1.2); Hematocrit 22.7 % (42.0-52.0); Hemoglobin 7.3 g/dL (14.0-18.0); Immature Granulocyte Absolute 1.25 K/mm3 (0.00-0.031); Immature Granulocyte Percent A 4.9 % (0-0.5); Lymphocytes Absolute Auto 0.21 K/mm3 (0.9-3.2); Lymphocytes Percent Auto 0.8 % (18.3-44.2); Mean Corpuscular HGB Conc 32.2 g/dl (32-36); Mean Corpuscular Hemoglobin 30.7 pg (26-34); Mean Corpuscular Volume 95.4 fl (80-100); Mean Platelet Volume 12.9 fl (7.4-10.4); Monocytes Absolute Auto 2.4 K/mm3 (0.1-0.6); Monocytes Percent Auto 9.3 % (2.6-8.5); Neutrophils Absolute Auto 21.7 K/mm3 (1.3-6.7); Neutrophils Percent Auto 84.8 % (45.5-73.1); Nucleated Red Blood Cells Absolute Auto 0.8 K/mm3 (0.0-0.012); Nucleated Red Blood Cells Perc 3.3 % (0.0-0.2); Platelet Count Result 171 k/mm3 (150-375); Red Blood Count 2.38 M/mm3 (4.6-6.20); Red Cell Distribution Width 19.9 % (11.5-14.5); White Blood Count 25.6 K/mm3 (4.5-10.0)
[2023-03-05 04:44] LABS: Albumin Level 2.9 g/dL (3.5-5.1); Alkaline Phosphatase 161 U/L (38-126); Anion Gap 19 mmol/L (8-16); Bilirubin,Total 1.3 mg/dL (0.2-1.3); Blood Urea Nitrogen 66 mg/dL (9-20); Carbon Dioxide 18 mmol/L (22-30); Chloride 94 mmol/L (98-107); Estimated CRCL calculation 19 ml/min; Estimated Glomerular Filt Rate 23; Glucose 250 mg/dL (65-110); Potassium 4.1 mmol/L (3.4-5.0); Sodium 131 mmol/L (137-145)
[2023-03-05 04:45] LABS: Lactic Acid Reflex 6.3 mmol/L (0.7-2.0)
[2023-03-05 04:56] LABS: Alanine Aminotransferase 917 U/L (6-50); Aspartate Amino Transferase 1445 U/L (17-59)
[2023-03-05] MEDS: ALBUMIN HUMAN 5% 25 GM/500 ML BTL IV CONT (05:55)
[2023-03-05] MEDS: NOREPINEPHRINE 8 MG/D5W 250 ML 8 MG/250 ML BAG 28.13 MG IV CONT (06:13)
[2023-03-05 07:14] LABS: Alveolar/Arterial O2 Gradient 99.9 mmHg; Base Excess ABG -12.6 mEq/l (+/-2.0); Fractional Inspired Oxygen 30 %; HCO3 ABG 11.2 mEq/l (22.0-26.0); Oxygen Content ABG 11.3 %vol (16.0-22.0); Oxyhemoglobin 94.1 % THb (90.0-100.0); PO2 ABG 90.6 mmHg (80.0-100.0); PO2 FiO2 Ratio Arterial Blood 3.02 %; Total Hemoglobin 8.4 g/dL (12.0-18.0); pH ABG 7.368 (7.350-7.450)
--- NOTE | 2023-03-05 07:14 | PM.EVENT ---
Event Note Event Note Event Note: Nursing staff called because the patient's ET tube had become dislodged. They had readvanced the patient's ET tube but then they were unable to hand picker reliable pulse ox. Them could hear equal breath sounds. I came over to evaluate the patient immediately. X-ray was being taken when I arrived at bedside. ET tube appeared to be 2-3 cm from the ray. I requested the pulse ox be moved to different sites in still were unable to hand picker a reliable pulse ox with pulse ox reading at 76%. Stat ABG was ordered. Stat ABG demonstrated normal PO2 despite being not being able to hand picker pulse ox. The patient FiO2 is at 30% and peep is at 5. The patient has lactic acidosis noted but the patient is on pressor therapy. Paunch Trimmer is aware the patient's lactic acidosis. The patient is mottled in his feet legs hands and arms he has weeping from his extremities. He has a fecal management system in place with moderate amount of stool. He has known low to absent urine output. The patient's PTT was greater than 200 and heparin is on hold. The patient has petechiae across both upper extremities. Care and off to the enlisted aircrew/aerial observer/gunner at change shift. 30 minutes spent in critical care activities. Due to a high probability of clinically significant, life threatening deterioration, the patient required my highest level of preparedness to intervene emergently and I personally spent this critical care time directly and personally managing the patient. This critical care time included obtaining a history; examining the patient; pulse oximetry; ordering and review of studies; arranging urgent treatment with development of a management plan; evaluation of patient's response to treatment; frequent reassessment; and discussions with other providers. It was exclusive of separately billable procedures and treating other patients and teaching time. Please see Assessment and Plan section and the rest of the note for further information on patient assessment and treatment.
[2023-03-05 07:15] LABS: Device VENTILATOR; PCO2 ABG 19.9 mmHg (35.0-45.0); Site Drawn LEFT BRACHIAL
[2023-03-05 07:16] LABS: Arterial Blood Gas PEEP 5 cmH2O; Arterial Blood Gas Tidal Volume 360 ml; Arterial Blood Gas Vent Mode CMV; Arterial Blood Gas Ventilator rate 18 /MIN
[2023-03-05 07:30] LABS: Reflex Lactic Acid Yes or No Add Lactic
[2023-03-05] MEDS: MIDAZOLAM 100MG/NS 100ML(*CRX) 100 MG/100 ML BAG IV CONT (07:40)
[2023-03-05] MEDS: ATORVASTATIN 40 MG TABLET 80 MG PO (08:16)
[2023-03-05] MEDS: ASPIRIN 81 MG CHEWABLE TABLET PO (08:16)
[2023-03-05] MEDS: PANTOPRAZOLE SODIUM IV 40 MG VIAL IV PUSH (08:16)
[2023-03-05] MEDS: INSULIN GLARGINE (*BKC) 100 UNITS/ML 65 UNITS SUB-Q (08:21)
[2023-03-05] MEDS: CENTRAL LINE FLUSH 10 ML IV PUSH (08:22)
[2023-03-05] MEDS: MINERAL OIL/WHITE PETROLATUM OINTMENT 1 APPLIC EACH EYE (08:23)
--- NOTE | 2023-03-05 08:36 | WPDINTPN ---
Progress Note: A&P Assessment and Plan (1) Shock: Code(s): R57.9 - Shock, unspecified Status: Acute Assessment and Plan: Multifactorial shock likely related to hemorrhagic, hypovolemic, sepsis and cardiogenic -currently on Levophed . Vaso and Kiel-Synephrine have been weaned off. Continue to titrate to maintain MAP > 65 mmHg at all times for adequate end organ perfusion -02/23 repeat echo shows EF of 30-35% patient was started on 2.5 mcg of dobutamine which is now off -off 25% albumin -will discontinue hydrocortisone -urine and Blood cultures negative till now -02/20: patient was started on levofloxacin and metronidazole to, abdominal source of sepsis.02/22 switched to aztreonam Flagyl Continue at this time for 7 day course -02/27 - low-grade fever-sent repeat blood cultures and sputum cultures. Gramajo was changed. UA suggestive of UTI. Culture pending - 02/28 vancomycin added - 03/02 sputum culture is growing yeast which is likely a colonizer. Patient does have continued fever. Antibiotic coverage was expanded to meropenem and vancomycin was continued CT sinuses confirm sinusitis-NG tube was removed and an OG tube was placed instead CT chest showed Moderate bilateral pleural effusions. Bilateral dependent subsegmental atelectasis/consolidation Lower extremity venous Dopplers confirmed DVT in both legs CT chest also showed possible gallbladder wall edema/inflammation-right upper quadrant ultrasound ordered to further assess Patient's Levophed requirement had got significantly up once he was weaned off of hydrocortisone. Patient was restarted on hydrocortisone 03/04 Levophed requirement improved with rate down to 6 mics and patient on vasopressin 03/05 patient was dialyzed yesterday and 1.5 L UF. Increased vasopressor requirement overnight. Levophed at 15 mics this morning. Will switch propofol back to Versed. Restart vasopressin drip. Continue hydrocortisone Right upper quadrant ultrasound is pending. Repeat limited echo ordered. (2) Sepsis: Code(s): A41.9 - Sepsis, unspecified organism Status: Acute Assessment and Plan: See above (3) Acute respiratory failure: Code(s): J96.00 - Acute respiratory failure, unspecified whether with hypoxia or hypercapnia Status: Acute Assessment and Plan: Patient with acute respiratory failure likely related TRALI versus TACO versus ARDS versus aspiration pneumonia Chest x-ray reviewed. Shows persistent bilateral opacities ABG reviewed. Continue peep at 8 and FiO2 at 30% % Antibiotics as above 02/26 -started on hemodialysis. 02/28 patient was placed on PSV 5/8. Initially he did well and is ABG in RSBI were adequate but he was too drowsy. Once his sedation wore off he became more agitated tachypneic and asynchronous with the ventilator. Patient was started on Precedex infusion. Patient was placed back on CMV 03/01 patient again did not tolerate weaning trial and became tachypneic. Additional fluid was removed with dialysis 03/02 CT chest Showed moderate bilateral pleural effusions. Bilateral dependent subsegmental atelectasis/consolidation 03/03 patient was attempted a PSV weaning trial this morning and he quickly failed due to high RSBI. Patient appeared tachypneic and anxious despite Precedex infusion. Started on low-dose propofol. Will request IR for right thoracentesis if family wants to proceed. 03/04 consulted IR for right thoracentesis. Patient tachypneic and asynchronous on CMV. Patient was placed on high pressure support ventilation mode and appeared more comfortable and synchronous. Continue PSV as tolerated and wean down pressure support. 03/05 right thoracentesis was requested. Spoke to radiologist and he feels the chest x-ray shows improvement in pleural effusion and does not feel that thoracentesis to make any major clinical difference. Chest x-ray reviewed. ET tube was repositioned this morning. Patient tachypneic despite sedation. Any
[2023-03-05 08:38] LABS: Glucose Point of Care 276 mg/dl (65-105)
[2023-03-05 08:55] LABS: Partial Thromboplastin Time 91.5 SECONDS (22.3-36.8)
[2023-03-05 09:10] LABS: Lactic Acid 12.2 mmol/L (0.7-2.0)
--- NOTE | 2023-03-05 09:31 | PDCODEBLUE ---
Code Blue Note Code Blue Note Time Arrived at Code Blue: 859 Initial Rhythm on Arrival: PE a Airway Management: Initiated bagging pt on arrival Chest Compressions: Initiated upon arrival Result of Code Blue: Pt Cardiac Rhythm Post Code: PEA Code Blue Summary: Patient with multiorgan failure including septic shock cardiogenic shock, DVTs, acute renal failure, respiratory failure and was on multiple vasopressors, heparin infusion, intubated and on mechanical ventilation. Patient had been gradually deteriorating through the night requiring increased vasopressor requirement. This morning around 8:59 a.m. patient became bradycardic and lost his pulse. CPR was initiated be gently. Patient was taken off the ventilator and ventilated with Ambu bag. Bilateral breath sounds are present on bagging. Patient was given 6 doses of epinephrine, 1 of bicarb, and 1 of calcium chloride without ROSC. Patient was resuscitated for approximately 22 minutes without obtaining pulse. At that point decision was made to discontinue further resuscitation efforts. Patient was pronounced at 9:22 a.m.. Patient had no heart sounds, spontaneous respiratory effort or palpable/dopplerable pulses in either carotid or femoral arteries. Family was called during the code resuscitation and I met with patient's and son on their arrival and updated them with patient's cardiac arrest, resuscitation effort and decision to discontinue further resuscitation efforts Total Critical Care Time - 50 minutes Due to a high probability of clinically significant, life threatening deterioration, the patient required my highest level of preparedness to intervene emergently and I personally spent this critical care time directly and personally managing the patient. This critical care time included obtaining a history; examining the patient; pulse oximetry; ordering and review of studies; arranging urgent treatment with development of a management plan; evaluation of patient's response to treatment; frequent reassessment; and discussions with other providers. It was exclusive of separately billable procedures and treating other patients and teaching time. Please see Assessment and Plan section and the rest of the note for further information on patient assessment and treatment
--- NOTE | 2023-03-05 10:35 | PC.NURSE ---
0900- Code blue called, Dr. George at bedside. 0922- Time of called per Dr. George. 09- Family at bedside. Dr. George updated family on events. Leonela, Care coordination count team member, at bedside also.
--- NOTE | 2023-03-05 15:43 | PM.IMPN ---
Progress Note: A&P Assessment and Plan (1) DVT (deep venous thrombosis): Code(s): I82.409 - Acute embolism and thrombosis of unspecified deep veins of unspecified lower extremity Status: Acute (2) Sepsis: Code(s): A41.9 - Sepsis, unspecified organism Status: Acute (3) Upper GI bleed: Code(s): K92.2 - Gastrointestinal hemorrhage, unspecified Status: Acute (4) Acute systolic CHF (congestive heart failure): Code(s): I50.21 - Acute systolic (congestive) heart failure Status: Acute (5) Cardiomyopathy: Code(s): I42.9 - Cardiomyopathy, unspecified Status: Acute (6) Acute respiratory failure: Code(s): J96.00 - Acute respiratory failure, unspecified whether with hypoxia or hypercapnia Status: Acute (7) Shock: Code(s): R57.9 - Shock, unspecified Status: Acute Plan The following medical issues were addressed before the code. Assessment and Plan (1) Shock: ?Code(s): R57.9 - Shock, unspecified ?Status:?Acute ?Assessment and Plan: Multifactorial shock likely related to hemorrhagic, hypovolemic, sepsis and cardiogenic -currently on Levophed . Vaso and Kiel-Synephrine have been weaned off.? Continue to titrate to maintain MAP > 65 mmHg at all times for adequate end organ perfusion -02/23 repeat echo shows EF of 30-35% patient was started on 2.5 mcg of dobutamine which is now off -off 25% albumin -will discontinue hydrocortisone -urine and Blood cultures negative till now -02/20: patient was started on levofloxacin and metronidazole to, abdominal source of sepsis.02/22 switched to aztreonam Flagyl Continue at this time for 7 day course -02/27 - low-grade fever-sent repeat blood cultures and sputum cultures.? Gramajo was changed.? UA suggestive of UTI.? Culture pending - 02/28 vancomycin added - 03/02 sputum culture is growing yeast which is likely a colonizer.? Patient does have continued fever.? Antibiotic coverage was expanded to meropenem and vancomycin was continued CT sinuses confirm sinusitis-NG tube was removed and an OG tube was placed instead CT chest showed?Moderate bilateral pleural effusions. Bilateral dependent subsegmental atelectasis/consolidation Lower extremity venous Dopplers confirmed DVT in both legs CT chest also showed possible gallbladder wall edema/inflammation-right upper quadrant ultrasound ordered to further assess Patient's Levophed requirement had got significantly up once he was weaned off of hydrocortisone.? Patient was restarted on hydrocortisone 03/04 Levophed requirement improved with rate down to 6 mics and patient on vasopressin 03/05 patient was dialyzed yesterday and 1.5 L UF.? Increased vasopressor requirement overnight.? Levophed at 15 mics this morning.? Will switch propofol back to Versed.? Restart vasopressin drip.? Continue hydrocortisone Right upper quadrant ultrasound is pending.? Repeat limited echo ordered. (2) Sepsis: ?Code(s): A41.9 - Sepsis, unspecified organism ?Status:?Acute ?Assessment and Plan: See above (3) Acute respiratory failure: ?Code(s): J96.00 - Acute respiratory failure, unspecified whether with hypoxia or hypercapnia ?Status:?Acute ?Assessment and Plan: Patient with acute respiratory failure likely related TRALI versus TACO versus ARDS versus aspiration pneumonia Chest x-ray reviewed.? Shows persistent bilateral opacities ABG reviewed.? Continue peep at 8 and FiO2 at 30% % Antibiotics as above 02/26 -started on hemodialysis. 02/28 patient was placed on PSV 5/8.? Initially he did well and is ABG in RSBI were adequate but he was too drowsy.? Once his sedation wore off he became more agitated tachypneic and asynchronous with the ventilator.? Patient was started on Precedex infusion.? Patient was placed back on CMV 03/01 patient again did not tolerate weaning trial and became tachypneic.? Additional fluid was removed with dialysis 03/02 CT chest Showed moderate b
--- NOTE | 2023-03-11 07:25 | PM.DDS ---
Discharge Summary Date and Time Date of : 03/05/23 Time of : 09:22 Provider Pronounced By: WENDY Bui & WENDY Eagle Probable Cause of Probable Cause of : Shock,likely hemorrhagic, hypovolemic, sepsis and cardiogenic Summary Hospital Course: Patient 77-year-old gentleman with history of bladder cancer, CKD stage 4, chronic anemia, hypertension, hyperlipidemia, diabetes present ED with a chief complaint of epigastric pain.? Patient has bladder cancer, radiation therapy and chemotherapy was done last month, patient denies surgical treatment history.? Patient ate dinner yesterday, and started having nausea and epigastric pain.? And later on patient has chest pain.? Patient denies vomiting.? Patient has small bowel movement yesterday.? Patient denies short of breath, fever, chills, cough,.? EMS was called, patient was brought to ED for evaluation. Upon arrival in the ED, blood pressure 99/47, in the ED, patient was found have elevated troponin x2, patient denies history of coronary artery disease, EKG shows sinus rhythm, nonspecific ST T-wave changes tachycardia 116.? CT abdomen pelvis shows partial small-bowel obstruction with a transition point right abdomen.? In the ED, patient was also found have anemia hemoglobin 10.1, close to baseline, elevated BUN 20 creatinine 2.4 above baseline 1.7 creatinine on February 15, 2023 hyponatremia 127 below the baseline.? NG tube was placed in the ED,, heparin drip was also started. we admit patient for further evaluation and management on 03/05/23 , patient was coded.? I was informed, resuscitation was performed by qm nurse, ROSC was not achieved.? When I arrived, patient was pulseless without respiration, ventilation was stopped.? medical hospital sales showed a few electric activities with long pauses,, possible artificial effects Per qm nurse code note Patient with multiorgan failure including septic shock cardiogenic shock, DVTs, acute renal failure, respiratory failure and was on multiple vasopressors, heparin infusion, intubated and on mechanical ventilation.? Patient had been gradually deteriorating through the night requiring increased vasopressor requirement.? This morning around 8:59 a.m. patient became bradycardic and lost his pulse.? CPR was initiated be gently.? Patient was taken off the ventilator and ventilated with Ambu bag.? Bilateral breath sounds are present on bagging.? Patient was given 6 doses of epinephrine, 1 of bicarb, and 1 of calcium chloride without ROSC.? Patient was resuscitated for approximately 22 minutes without obtaining pulse.? At that point decision was made to discontinue further resuscitation efforts.? Patient was pronounced at 9:22 a.m..? Patient had no heart sounds, spontaneous respiratory effort or palpable/dopplerable pulses in either carotid or femoral arteries.? During the hospitalization the following medication have been addressed per qm nurse documentation (1) Shock: ?Code(s): R57.9 - Shock, unspecified ?Status:?Acute ?Assessment and Plan: Multifactorial shock likely related to hemorrhagic, hypovolemic, sepsis and cardiogenic -currently on Levophed . Vaso and Kiel-Synephrine have been weaned off.? Continue to titrate to maintain MAP > 65 mmHg at all times for adequate end organ perfusion -02/23 repeat echo shows EF of 30-35% patient was started on 2.5 mcg of dobutamine which is now off -off 25% albumin -will discontinue hydrocortisone -urine and Blood cultures negative till now -02/20: patient was started on levofloxacin and metronidazole to, abdominal source of sepsis.02/22 switched to aztreonam Flagyl Continue at this time for 7 day course -02/27 - low-grade fever-sent repeat blood cultures and sputum cultures.? Gramajo was changed.? UA suggestive of UTI.? Culture pending - 02/28 vancomycin added - 03/02 sputum culture is growing yeast which is likely a colonizer.? Patient does have continued fever.? Antibiotic coverage was
== END 2023-03-05 09:22 | disposition expired ==
LOC: ANHED 07:13 → ANHIMU 08:17 → ANHICU 02-20 10:16
PROVIDERS: Family Medicine; Internal Medicine; Internal Medicine Cardiovascular Disease; Internal Medicine Gastroenterology; Internal Medicine Nephrology; Physician Assistant; Admitting Provider Internal Medicine; Emergency Provider Emergency Medicine; PCP Family Medicine; Visit Provider Hospitalist
PROC: 0DJ08ZZ Inspection of Upper Intestinal Tract, Via Natural or Artificial Opening Endoscopic (ICD-10-PCS; CPT 43235; principal; 2023-02-20 11:30)
DX: I21.4 Non-ST elevation (NSTEMI) myocardial infarction (principal); A41.9 Sepsis, unspecified organism; K25.0 Acute gastric ulcer with hemorrhage; J96.00 Acute respiratory failure, unspecified whether with hypoxia or hypercapnia; R65.21 Severe sepsis with septic shock; N17.0 Acute kidney failure with tubular necrosis; J69.0 Pneumonitis due to inhalation of food and vomit; I50.21 Acute systolic (congestive) heart failure; K56.600 Partial intestinal obstruction, unspecified as to cause; N18.4 Chronic kidney disease, stage 4 (severe); E87.1 Hypo-osmolality and hyponatremia; N17.9 Acute kidney failure, unspecified; D62 Acute posthemorrhagic anemia; K22.10 Ulcer of esophagus without bleeding; J95.84 Transfusion-related acute lung injury (TRALI); K57.32 Diverticulitis of large intestine without perforation or abscess without bleeding; I82.413 Acute embolism and thrombosis of femoral vein, bilateral; I82.432 Acute embolism and thrombosis of left popliteal vein; I82.452 Acute embolism and thrombosis of left peroneal vein; I82.442 Acute embolism and thrombosis of left tibial vein; E87.71 Transfusion associated circulatory overload; I46.8 Cardiac arrest due to other underlying condition; I25.5 Ischemic cardiomyopathy; R57.1 Hypovolemic shock; K21.00 Gastro-esophageal reflux disease with esophagitis, without bleeding; I95.89 Other hypotension; R57.8 Other shock; E11.22 Type 2 diabetes mellitus with diabetic chronic kidney disease; I12.9 Hypertensive chronic kidney disease with stage 1 through stage 4 chronic kidney disease, or unspecified chronic kidney disease; E78.5 Hyperlipidemia, unspecified; D64.9 Anemia, unspecified; Z66 Do not resuscitate; Z85.51 Personal history of malignant neoplasm of bladder; Z87.891 Personal history of nicotine dependence
CPT/HCPCS: 36415; 36430; 36569; 36600; 70486; 71045; 71250; 74018; 74019; 74176; 80048; 80053; 80061; 80202; 81001; 82330; 82375; 82607; 82728; 82746; 82805; 82948; 83050; 83540; 83550; 83605; 83615; 83690; 83735; 83880; 84100; 84145; 84484; 85014; 85018; 85025; 85027; 85055; 85380; 85384; 85610; 85730; 86704; 86706; 86850; 86900; 86901; 86920; 86923; 87040; 87070; 87086; 87088; 87205; 87340; 92950; 93005; 93306; 93308; 93970; 94002; 94003; 94640; 96361; 96365; 96366; 96367; 96375; 99291; A9270; C1751; C1752; C9113; G0257; J0171; J0330; J0457; J0613; J1250; J1644; J1650; J1720; J1815; J1836; J1940; J1956; J2060; J2185; J2250; J2270; J2305; J2371; J2405; J2704; J2997; J3010; J3370; J3475; J7030; J7040; J7050; J7060; P9016; P9017; P9041; P9045; P9047; Q4081; Q5105